=== PATIENT | female | born 1945 | race Caucasian/White ===

== ENCOUNTER → 2016-10-05 | Outpatient (CLI) | payer OTHER ==
[2014-10-12 15:10] VITALS: BP 118/72
[~2016-10-05] MED LIST: ALPR1TAB6 PO; BUPR100T8 PO; CITA20TA5 PO; CITA40TA12 PO; FERR-26 PO; FLUT9.9S NS; HYDR-971 PO; HYDR12.58 PO; OXYB5TAB7 PO; OXYC-244 PO; PRAM0.125 PO; PRAM0.255 PO; PROAIR HFA8.5 GM INH; SOLI5TAB PO; WARF-78 PO
--- NOTE | 2016-10-05 15:20 | EKG ---
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
[2016-10-05 16:35] LABS: BASO # 0.1 x10^3/uL (0.0-0.2); BASO % 1 % (0-3); EOS % 1 % (0-3); HEMATOCRIT 40.3 % (36.0-47.0); HEMOGLOBIN 13.6 g/dL (12.0-15.5); LYMPH # 2.4 x10^3/uL (1.0-4.8); LYMPH % 23 % (24-48); MEAN CORPUSCULAR HEMOGLOBIN 32 pg (25-35); MEAN CORPUSCULAR HGB CONC 34 g/dL (31-37); MEAN CORPUSCULAR VOLUME 95 fL (79-100); MONO % 9 % (0-9); NEUT % 67 % (31-73); PLATELET COUNT 258 x10^3/uL (140-400); RED BLOOD COUNT 4.26 x10^6/uL (3.50-5.40); RED CELL DISTRIBUTION WIDTH 13.4 % (11.5-14.5); WHITE BLOOD COUNT 10.4 x10^3/uL (4.0-11.0)
[2016-10-05 16:39] LABS: BILIRUBIN,URINE NEGATIVE (NEG); GLUCOSE,URINE NEGATIVE (NEG); NITRITE,URINE NEGATIVE (NEG); PROTEIN,URINE NEGATIVE (NEG-TRACE)
[2016-10-05 16:44] LABS: PROTHROMBIN TIME PATIENT 12.3 SEC (11.7-14.0)
--- NOTE | 2016-10-05 16:51 | RAD ---
Chest, 2 views, 10/05/2016: History: Preop evaluation for hip surgery The heart size and pulmonary vascularity are normal. A density projected over the anterior end of the right first rib is most likely due to a costochondral calcification. No definite pulmonary infiltrate is seen. There is no evidence of pleural fluid. Mild spurring is present in the spine. IMPRESSION: No acute cardiopulmonary abnormality is detected.
[2016-10-05 16:52] LABS: BACTERIA,URINE 0 /HPF (0-FEW); RBC,URINE 0 /HPF (0-2); SQUAMOUS EPITHELIAL CELL,UR OCC /LPF
[2016-10-05 20:36] LABS: ALBUMIN 3.6 g/dL (3.4-5.0); CALCIUM 9.5 mg/dL (8.5-10.1); CREATININE 0.9 mg/dL (0.6-1.0); GFR 61.9; POTASSIUM 3.9 mmol/L (3.5-5.1)
== END | disposition home or self-care (01) ==
LOC: SURGPAT 14:01
PROVIDERS: ATTEND Orthopaedic Surgery
DX: Z01.818 Encounter for other preprocedural examination (principal)
CPT/HCPCS: 71020; 80048; 81001; 82040; 85027; 85610; 85651; 85730; 87641; 93005

== ENCOUNTER 2016-10-16 06:06 | Inpatient (IN) | payer OTHER ==
[2016-10-16] VITALS (10 sets, daily range): BP systolic 107–150; BP diastolic 54–83
[~2016-10-16] VITALS: Ht 170.2 cm; Wt 105.2 kg
[~2016-10-16 06:06] MED LIST changes: +MORPHINE SULFATE 5 MG, KETOROLAC TROMETHAMINE 30 MG, ROPIVacaine 0.5% PF 60 ML, EPINEPH... INT ART ONE; +TOLT4CAP PO
[2016-10-16] MEDS ORDERED: MIDAZOLAM HCL/PF 2 MG/2 ML VIAL. IV PRN (06:15)
[2016-10-16] MEDS ORDERED: fentaNYL PF VIAL 100 MCG/2 ML VIAL IV PRN ×3 (06:15→08:15)
[2016-10-16] MEDS ORDERED: LIDOCAINE 1% 1 ML SYRINGE. ID PRN (06:15)
[2016-10-16] MEDS ORDERED: CELECOXIB 200 MG CAPSULE. ONE (06:32)
[2016-10-16] MEDS: IV RINGERS,LACTATED 1000ML 1,000 ML IV SCH ×2 (07:03→14:02)
[2016-10-16] MEDS ORDERED: WARF-78 PO (07:14)
[2016-10-16] MEDS ORDERED: FAMOTIDINE 20 MG/2 ML VIAL ONE (07:14)
[2016-10-16] MEDS ORDERED: PROPOFOL 20 ML IV ONE (07:14)
[2016-10-16] MEDS ORDERED: DEXAMETHASONE SOD PHOS 20 MG/5 ML VIAL. ONE (07:14)
[2016-10-16] MEDS ORDERED: LIDOCAINE 2% 100 MG/5 ML SYRINGE. ONE (07:14)
[2016-10-16] MEDS ORDERED: CELECOXIB 200 MG CAPSULE. PO ONE (07:15)
[2016-10-16] MEDS ORDERED: ONDANSETRON PF 4 MG/2 ML VIAL. ONE (07:15)
[2016-10-16] MEDS ORDERED: fentaNYL PF VIAL 100 MCG/2 ML VIAL ONE ×3 (07:17→10:27)
[2016-10-16] MEDS ORDERED: ROCURONIUM 50 MG/5 ML VIAL. ONE (07:17)
[2016-10-16] MEDS ORDERED: MIDAZOLAM HCL/PF 2 MG/2 ML VIAL. ONE (07:17)
[2016-10-16 07:28] LABS: INR 1.1 (0.8-1.1); PROTHROMBIN TIME PATIENT 13.5 SEC (11.7-14.0)
[2016-10-16] MEDS ORDERED: TRANEXAMIC ACID 1,000 MG in IV NS 50ML -- 1ST BAG INJ ONE (08:00)
[2016-10-16] MEDS ORDERED: oxyCODONE/APAP 5/325 1 TAB TABLET PO PRN (08:15)
[2016-10-16] MEDS ORDERED: CALCIUM CARBONATE 500 MG TAB.CHEW PO PRN (08:15)
[2016-10-16] MEDS ORDERED: PROCHLORPERAZINE 10 MG/2 ML VIAL. IV PRN (08:15)
[2016-10-16] MEDS ORDERED: MORPHINE SULFATE 10 MG/ML VIAL. IV PRN (08:15)
[2016-10-16] MEDS ORDERED: ACETAMINOPHEN 325 MG TABLET. PO PRN (08:15)
[2016-10-16] MEDS ORDERED: diphenhydrAMINE 50 MG/ML VIAL IV PRN (08:15)
[2016-10-16] MEDS ORDERED: 0.9 % SODIUM CHLORIDE 10 ML DISP.SYRIN. IV PRN (08:15)
[2016-10-16] MEDS ORDERED: ZOLPIDEM 5 MG TABLET. PO PRN (08:15)
[2016-10-16] MEDS ORDERED: DEXTROSE 50% 25 GM / 50ML DISP.SYRIN. IV PRN (08:15)
[2016-10-16] MEDS ORDERED: MORPHINE SULFATE 2 MG/ML DISP.SYRIN. IV PRN (08:15)
[2016-10-16] MEDS ORDERED: oxyCODONE/APAP 7.5/325 1 TAB TABLET PO PRN (08:15)
[2016-10-16] MEDS ORDERED: MORPHINE SULFATE 4 MG/ML DISP.SYRIN. IV PRN (08:15)
[2016-10-16] MEDS ORDERED: traMADol 50 MG TABLET PO PRN ×2 (08:15)
--- NOTE | 2016-10-16 08:32 | HP ---
ADMIT DATE: 10/16/2016 CHIEF COMPLAINT: Right hip pain. HISTORY OF PRESENT ILLNESS: The patient has had longstanding right hip and groin pain, worse on activity, worse , better with rest. It is affecting her ability to ambulate in terms of compensation with her low back. She had initially complained of some lower abdominal swelling on the right side, but that was subsequently evaluated by her family care family physician and not an ongoing issue. Her main recent issue is bladder incontinence for which she is on the medicine that is still ineffective despite a dose of 2-4 mg that is treated by her primary care physician, Dr. Aaron Gonzalez. PAST MEDICAL HISTORY: Significant for tension headaches and anxiety as well as the incontinence. PAST SURGICAL HISTORY: Appendectomy, tonsillectomy, previous knee arthroplasty and liver biopsy. FAMILY HISTORY: Prostate cancer in her brother. SOCIAL HISTORY: Denies smoking or drug use. Minimal alcohol. MEDICATIONS: List is reviewed. ALLERGIES: INCLUDE CODEINE AND PENNSAID. REVIEW OF SYSTEMS: Denies any chest pain, shortness of breath, fever, chills, focal weakness, numbness, tingling. PHYSICAL EXAMINATION: VITAL SIGNS: Per admission sheet. HEENT: Atraumatic, normocephalic. HEART: Regular rate and rhythm. LUNGS: Clear to auscultation bilaterally. ABDOMEN: Benign. EXTREMITIES: Examination of the right hip reveals decreased range of motion in all planes. Leg lengths are equal. She has a well-healed incision from previous knee arthroplasty. Good range of motion and stability of that. Normal examination of the contralateral knee, bilateral ankles with intact motor function, distal pulses, sensation, reflexes and skin in both lower extremities throughout. IMAGING: X-rays show degenerative disease with loss of significant joint space in the right hip without evidence of collapse fracture or other bony abnormality. IMPRESSION: 1. Right hip degenerative joint disease. 2. Urinary incontinence. TREATMENT PLAN: She presents today for total hip arthroplasty with [facility] admission to follow. All her questions were answered about the hip arthroplasty previously, but we reviewed the risks, benefits, postoperative course including the possibility of leg length inequality, nerve or blood vessel damage, medical or other anesthetic complications among others and she wants to proceed with operative evaluation and treatment as above. ROSSI ARMAS MD DR: ELIANA/liliya JOB#: [id number] / [id number]
[2016-10-16] MEDS ORDERED: PHENYLEPHRINE in 0.9% NACL PF 1 MG/10 ML DISP.SYRIN. IV ONE (08:42)
[2016-10-16] MEDS ORDERED: TRANEXAMIC ACID 1,000 MG in IV NS 50ML -- 2ND BAG INJ ONE (09:00)
[2016-10-16] MEDS ORDERED: TOLTERODINE TARTRATE 4 MG PO SCH (09:00)
[2016-10-16] MEDS ORDERED: ALBUTEROL SULFATE 2.5 MG/3 ML NEBU. NEB PRN (09:30)
[2016-10-16] MEDS ORDERED: GLYCOPYRROLATE 1 MG/5 ML VIAL. ONE (10:15)
[2016-10-16] MEDS ORDERED: NEOSTIGMINE METHYLSULFATE 5 MG/5 ML SYRINGE. ONE (10:15)
[2016-10-16] MEDS ORDERED: SEVOFLURANE > 120 MINUTES. IH ONE (10:50)
[2016-10-16] MEDS: fentaNYL PF VIAL 100 MCG/2 ML VIAL IV PRN ×4 (11:28→12:11)
--- NOTE | 2016-10-16 11:40 | RAD ---
Exam performed: One view pelvis. Clinical Indication: Postop in PACU Date of Service:10/16/16 Comparison:Single view pelvis from 02/22/16 Findings: AP radiograph of the pelvis to include the proximal portion of each femur is obtained. Postoperative changes of total right hip arthroplasty with prosthesis in satisfactory position. There is left hip joint space narrowing. No acute fracture or dislocation is seen. Impression: Status post total right hip arthroplasty. Early degenerative changes involving the left hip joint
--- NOTE | 2016-10-16 11:43 | PDOC ---
BRIEF OPERATIVE NOTE Date: October 16, 2016 Pre-Op Diagnosis djd right hip Post-Op Diagnosis same Procedure Performed right total hip arthroplasty Surgeon Harshad Dash Anesthesia Type: General Blood Loss 600cc Specimens Obtained femoral head to pathology Findings above Complications none ROSSI ARMAS MD October 16, 2016 11:43
[2016-10-16] MEDS ORDERED: ACETAMINOPHEN INTRAVENOUS 100 ML IV PRN (11:45)
[2016-10-16] MEDS ORDERED: HYDROmorphone 2 MG/ML VIAL IV PRN (11:45)
[2016-10-16] MEDS: OXYBUTYNIN CHLORIDE 5 MG TABLET PO SCH ×2 (13:53→21:22)
[2016-10-16] MEDS: oxyCODONE/APAP 7.5/325 1 TAB TABLET PO PRN (13:53)
[2016-10-16] MEDS: MORPHINE SULFATE 4 MG/ML DISP.SYRIN. IV PRN ×2 (13:54→21:21)
[2016-10-16] MEDS ORDERED: WARFARIN 7.5 MG TABLET. PO ONE (16:00)
[2016-10-16] MEDS: IV DEXTROSE 5 %-0.45 % NACL 1,000 ML IV SCH (16:59)
[2016-10-16] MEDS: FERROUS SULFATE 325 MG TABLET. PO SCH (17:00)
--- NOTE | 2016-10-16 18:54 | OP ---
DATE OF SURGERY: 10/16/2016 PREOPERATIVE DIAGNOSIS: Degenerative joint disease of right hip. POSTOPERATIVE DIAGNOSIS: Degenerative joint disease of right hip. PROCEDURE: Right total hip arthroplasty. SURGEON: Philipp Patricia M.D. ANESTHESIA: General. OPERATOR TECHNICIAN: Ena Dash. ESTIMATED BLOOD LOSS: 600 mL. SPECIMENS: Femoral head to Pathology. COMPLICATIONS: None. OPERATIVE INDICATIONS: The patient is a 71-year-old female who has had longstanding right hip pain impairing her ability to ambulate and activities of daily living as noted in her clinic notes and preoperative history and physical. I had gone over with her nonoperative treatment options which had been inadequate for her. She is familiar with the risks, benefits, postoperative course of surgical treatment including the possibility of leg length inequality, nerve or blood vessel damage, medical or other anesthetic complications, infection, premature wear or loosening, and instability among others. All of her questions were answered. Consent was obtained, and she agrees to proceed with operative evaluation and treatment. DESCRIPTION OF PROCEDURE: The patient was identified, procedure verified, patient placed in the supine position on the Harwood fracture table. All bony prominences were well padded. She was placed in traction boots, and the right hip was prepped and draped in standard sterile fashion. After timeout was performed, the patient and procedure identified and verified, leg lengths were assessed preoperatively. Under fluoroscopic guidance, an incision was made from just distal and lateral to the anterior superior iliac spine down along the center line of the tensor fascia myke muscle. Dissection was carried out down to the fascia, and the tensor fascia myke was taken laterally, rectus femoris medially. The circumflex blood vessels were coagulated with Aquamantys device, and after exposure and excision of the pericapsular fat pad, the hip capsule was split in a T fashion. The femoral neck cut was made under fluoroscopic guidance in a napkin ring fashion. The femoral head was removed and was found to be superiorly arthritic and sent for pathological evaluation. Acetabulum was exposed. Labrum was excised. Successive size reaming was carried up to a size 50 and a size 52 mm. Continuum acetabular liner was placed with a very solid superiorly-directed single screw for stability. A neutral 36-mm liner was then placed, and capsular release was carried out on the proximal femur and external rotation achieving good mobilization of the tissues and preserved external rotator attachments. The femur was then exposed. Box osteotome, rat tail rasp, and a size-1 Avenir broach which seated well and created excellent contact along the calcar and was extremely stable and tight. On initial trial setting, this increased her leg length of about a cm even with a -3.5 standard neck. I broached some more with additional trial setting to decrease the leg length discrepancy but very little further motion distally was obtained with the broaches. It was very solidly placed. Stability was excellent throughout, confirming positioning verified under fluoroscopic guidance as well. Trial components were removed. A standard highly crosslinked acetabular liner size 36 standard diameter was impacted into place. A size-1 Avenir standard stem was placed with a -3.5 ceramic head. Excellent stability again and leg length increased approximately 7 mm to 8 mm. Stability was checked in all extremes. The pain catheter mixture was injected into the surrounding tissues. Pain catheter and Hemovac drains were placed. Fascia was closed with #1 Vicryl suture in a running fashion. Subcutaneous closure with buried Vicryl sutures, subcuticular Monocryl suture with Steri-Strips and Mastisol sterile dressings were then applied. The patient was extubated and transferred to [facility] in stable condition having tolerated the procedure well. Please note, Ena Dash, wheelchair van operator first responder, was present and assisted with prepping, draping, retraction, and the subcuticular closure. PHILIPP PATRICIA MD DR: ELIANA/liliya JOB#: [id number] / [id number]
[2016-10-16] MEDS: buPROPion SR 100 MG TABLET.SA. PO SCH (21:22)
[2016-10-16] MEDS: CELECOXIB 200 MG CAPSULE. PO SCH (21:22)
[2016-10-16] MEDS: PRAMIPEXOLE 0.25 MG TABLET. PO SCH (21:22)
[2016-10-17] MEDS: IV DEXTROSE 5 %-0.45 % NACL 1,000 ML IV SCH (01:00)
[2016-10-17] MEDS: ALPRAZolam 1 MG TABLET PO PRN (01:23)
[2016-10-17] MEDS: oxyCODONE/APAP 7.5/325 1 TAB TABLET PO PRN ×4 (01:25→12:09)
[2016-10-17 03:05] VITALS: BP 102/52
[2016-10-17 04:56] LABS: HEMATOCRIT 27.2 % (36.0-47.0); HEMOGLOBIN 9.5 g/dL (12.0-15.5)
[2016-10-17 05:02] LABS: INR 1.2 (0.8-1.1); PROTHROMBIN TIME PATIENT 14.7 SEC (11.7-14.0)
--- NOTE | 2016-10-17 05:49 | ACF ---
Admission Forms Criteria MUSCULOSKELETAL DISEASE GRG Clinical Indications for Admission to Inpatient Care (Place 'X' for any and all applicable criteria): Hospital admission is needed for appropriate care of the patient because of 1 or more of the following: [ ]I. Fracture, dislocation, or other musculoskeletal injury requiring inpatient care(medical) as indicated by 1 or more of the following(4)(5)(6)(7) [ ]a) Vertebral fracture requiring observation for instability or neurologic compromise (8) [ ]b) Compartment syndrome (proven or cannot be ruled out during observation level of care) (9) [ ]c) Limb-threatening injury [ ]d) Major injury requiring inpatient stabilization such as traction initiation or external fixation before internal fixation or closure of complex or open fracture [ ]e) Major injury requiring inpatient treatment after emergency or observation level care (as appropriate) [ ]f) Severe pain requiring acute inpatient management [ ]g) Injury with suspicion of abuse or neglect (eg., child, dependent elderly) [ ]II. Newly diagnosed or suspected bone, joint, or orthopedic device infection (e.g., osteomyelitis, septic arthritis) needing 1 or more of the following(1)(2)(3) [ ]a) IV antibiotics that cannot be initiated in other than inpatient setting (e.g., patient too unstable or home infusion not available) [ ]b) Device removal or replacement [ ]c) Bone or soft tissue debridement [ ]d) Joint drainage (drain placement or repetitive aspirations) [ ]III. Severe rheumatologic disease (e.g., systemic lupus erythematosus, rheumatoid arthritis) with complications or comorbidities (Also use Optimal Recovery Care Criteria or General Recovery Criteria as appropriate on the basis of predominant condition), including 1 or more of the following( 10)(11)(12)(13) [ ]a) Severe infection (e.g., SHIFTMAN infection, sepsis) (14) [ ]b) Respiratory complications, including 1 or more of the following : [ ]i) Pleural effusion with respiratory compromise [ ]ii) Pulmonary hypertension with congestive failure [ ]iii) Respiratory failure [ ]iv) Pulmonary hemorrhage (15) [ ]c) Hematologic disease, including 1 or more of the following: [ ]i) Coagulopathy with bleeding [ ]ii) Thrombosis with hypercoagulable state [ ]iii) Thrombotic thrombocytopenic purpura [ ]d) Cerebritis with seizures, psychosis, or other severe abnormalities [ ]e) Vertebral destruction with monitoring needed for cervical myelopathy& possible respiratory compromise [ ]f) Exacerbation that requires inpatient treatment (e.g., intravenous immunosuppression) (16) [ ]g) Acute renal failure [ ]h) Cerebritis with seizures, psychosis, Altered mental status, or other neurologic abnormalities [ ]i) Pericardial effusion with tamponade [ ]j) Vertebral destruction, with monitoring needed for cervical myelopathy and possible respiratory compromise [ ]IV. Severe vasculitis with complications or comorbidities (Also use Optimal Recovery Care Criteria General Recovery Criteria as appropriate on the basis of predominant condition), including 1 or more of the following(11)(12)(17)(18)(19)(20) [ ]a) Exacerbation that requires inpatient treatment (e.g., intravenous immunosuppression) (19)(21) [ ]b) Pulmonary hemorrhage (15) [ ]c) SHIFTMAN vasculitis with seizures, psychosis, Altered mental status that is severe or persistent, or other severe abnormalities (22) [ ]d) Cerebral infarction [ ]e) Gastrointestinal ischemia [ ]f) Gangrene or threatened amputation [ ]g) Renal failure (16) [ ]h) Other significant complications of vasculitis ( eg., tissue or organ ischemia, organ dysfunction ) [ ]V. Severe myopathy as indicated by 1 or more of the following (28)(29) [ ]a) New onset of airway compromise or inability to swallow [ ]b) Respiratory deterioration with observation needed for impending respiratory failure [ ]c) Exacerbation that requires inpatient treatment (e.g., intravenous immunosuppression) [ ]. Severe crystal gout (arthropathy) indicated by 1 or more of the following (23)(24) [ ]a) Severe pain requiring acute inpatient management [ ]b) Exacerbation that requires inpatient treatment (e.g., intravenous treatment) [ ]VII.Rhabdomyolysis and 1 or more of the following (25)(26)(27) [ ]a) Acute renal failure [ ]b) Need for intravenous hydration after emergency or observation level care (as appropriate) [ ]c) Inability to maintain oral hydration [ ]d) Change in mental status [ ]e) Electrolyte abnormality that remains after emergency or observation level care (as appropriate) [ ]VIII Post amputation complication, as indicated by ANY ONE of the following [ ]a) Infection [ ]b) Dehiscence [ ]c) Myodesis failure [X]IX. Severe pain requiring acute inpatient management due to musculoskeletal condition [ ]X. Musculoskeletal Disease and ALL of the following: [ ]a) Symptom or finding for which emergency and observation care have failed or are not considered appropriate (Use General Criteria: Observation Care as appropriate) [ ]b) Presence of ANY ONE of the following [ ]i) A General Admission Criteria [ ]ii) A Pediatric General Admission Criteria The original [facility] [employer] content created by [email or web address] has been revised. The portions of the content which have been revised are identified through the use of italic text or in bold, and [facility] has neither reviewed nor approved the modified material. All other unmodified content is copyright [email or web address]. Please see references footnoted in the original [email or web address] edition 2016 Admission Criteria Met?: Yes KAREN PAT October 17, 2016 05:49
[2016-10-17] MEDS ORDERED: MAGNESIUM HYDROXIDE 2,400 MG/30 ML ORAL.SUSP. PO PRN (06:00)
[2016-10-17 07:00] VITALS: BP 108/54
--- NOTE | 2016-10-17 08:53 | PDOC ---
Provider Note Provider Note [id number] sleeping now, no problems, willl follow KARLA GALICIA MD October 17, 2016 08:53
[2016-10-17] MEDS: buPROPion SR 100 MG TABLET.SA. PO SCH ×2 (08:54→23:00)
[2016-10-17] MEDS: SENNOSIDES/DOCUSATE 8.6/50MG TABLET. PO SCH (08:55)
[2016-10-17] MEDS: CITALOPRAM 20 MG TABLET. PO SCH (08:55)
[2016-10-17] MEDS: FERROUS SULFATE 325 MG TABLET. PO SCH ×2 (08:55→18:38)
[2016-10-17] MEDS: hydroCHLOROthiazide 12.5 MG CAPSULE PO SCH (08:55)
[2016-10-17] MEDS: MULTIVITAMIN with MINERAL TABLET. PO SCH (08:55)
[2016-10-17] MEDS: CELECOXIB 200 MG CAPSULE. PO SCH ×2 (08:55→23:00)
[2016-10-17] MEDS: OXYBUTYNIN CHLORIDE 5 MG TABLET PO SCH ×3 (08:55→23:00)
[2016-10-17] MEDS: FLUTICASONE 50MCG/NASAL SPRAY 16GM BOTTLE. NS SCH (09:00)
[2016-10-17 10:27] VITALS: BP 124/48
[2016-10-17 14:34] VITALS: BP 111/39
[2016-10-17] MEDS ORDERED: WARFARIN 5 MG TABLET. PO ONE (16:00)
[2016-10-17] MEDS ORDERED: BISACODYL 10 MG SUPP.RECT. PR PRN (16:00)
--- NOTE | 2016-10-17 17:22 | PDOC ---
PROGRESS NOTES Subjective Subjective Problems overnight: [place] really good immediately postoperatively when up and around yesterday a bit more sore this morning, new dose of urinary incontinence treatment seems to be working better. Had a question about a "pneumonia shot" Objective Vital Signs Vital Signs Date Time Temp Pulse Resp B/P (MAP) Pulse Ox O2 Delivery O2 Flow Rate FiO2 10/17/16 14:34 98.4 84 18 111/39 (63) 92 Room Air 98.4 10/16/16 16:00 3.0 Physical Exam On exam dressing Hemovac pain catheter clean dry intact leg lengths are equal neurovascular status intact Labs Laboratory Tests Test 10/16/16 06:55 10/17/16 03:45 Prothrombin Time 13.5 SEC (11.7-14.0) 14.7 SEC (11.7-14.0) Prothromb Time International Ratio 1.1 (0.8-1.1) 1.2 (0.8-1.1) Activated Partial Thromboplast Time 33 SEC (24-38) Hemoglobin 9.5 g/dL (12.0-15.5) Hematocrit 27.2 % (36.0-47.0) Mean Corpuscular Hemoglobin Concent 35 g/dL (31-37) Laboratory Tests Test 10/17/16 03:45 Hemoglobin 9.5 g/dL (12.0-15.5) Hematocrit 27.2 % (36.0-47.0) Mean Corpuscular Hemoglobin Concent 35 g/dL (31-37) Prothrombin Time 14.7 SEC (11.7-14.0) Prothromb Time International Ratio 1.2 (0.8-1.1) Imaging Postop x-rays show excellent placement total hip arthroplasty on the right Assessment Assessment POD# [1], S/P [right total hip arthroplasty] Problems: Plan Plan of Care Mobilize with physical therapy weightbearing as tolerated no hip precautions since anterior approach Coumadin anticoagulation Patient desires rehabilitation postoperatively Unsure about "pneumonia shot" typically I would shy away from giving that in close proximity to a operative procedure joint replacement but will defer to her primary physician ROSSI ARMAS MD October 17, 2016 17:22
[2016-10-17 19:20] VITALS: BP 112/92
[2016-10-17] MEDS ORDERED: ONDANSETRON ODT 4 MG TAB.RAPDIS. PO PRN (22:45)
[2016-10-17] MEDS: PRAMIPEXOLE 0.25 MG TABLET. PO SCH (23:00)
[2016-10-17 23:15] VITALS: BP 163/94
[2016-10-18 03:15] VITALS: BP 146/73
[2016-10-18 06:25] LABS: HEMATOCRIT 27.7 % (36.0-47.0); HEMOGLOBIN 9.6 g/dL (12.0-15.5)
[2016-10-18 06:40] LABS: INR 1.2 (0.8-1.1); PROTHROMBIN TIME PATIENT 14.3 SEC (11.7-14.0)
[2016-10-18 07:00] VITALS: BP 123/69
[2016-10-18] MEDS: POLYETHYLENE GLYCOL 3350 17 GM PACKET. PO PRN (08:11)
[2016-10-18] MEDS: OXYBUTYNIN CHLORIDE 5 MG TABLET PO SCH ×3 (08:12→21:18)
[2016-10-18] MEDS: CITALOPRAM 20 MG TABLET. PO SCH (08:12)
[2016-10-18] MEDS: buPROPion SR 100 MG TABLET.SA. PO SCH ×2 (08:12→21:18)
[2016-10-18] MEDS: MULTIVITAMIN with MINERAL TABLET. PO SCH (08:12)
[2016-10-18] MEDS: FERROUS SULFATE 325 MG TABLET. PO SCH ×2 (08:12→17:04)
[2016-10-18] MEDS: hydroCHLOROthiazide 12.5 MG CAPSULE PO SCH (08:12)
[2016-10-18] MEDS: CELECOXIB 200 MG CAPSULE. PO SCH ×2 (08:13→21:18)
[2016-10-18] MEDS: SENNOSIDES/DOCUSATE 8.6/50MG TABLET. PO SCH (08:13)
[2016-10-18] MEDS: FLUTICASONE 50MCG/NASAL SPRAY 16GM BOTTLE. NS SCH (08:13)
[2016-10-18] MEDS ORDERED: DOCUSATE SODIUM 100 MG CAPSULE. PO SCH (09:00)
--- NOTE | 2016-10-18 09:26 | PDOC ---
Provider Note Provider Note vss, inr 1.2- no new sxs- exam ok, cont same- going to rehab KARLA GALICIA MD October 18, 2016 09:26
--- NOTE | 2016-10-18 09:41 | CONS ---
DATE OF CONSULTATION: 10/17/2016 HOSPITAL SUMMARY: A 71-year-old white female who was admitted under the care of Dr. Patricia for right total hip replacement, which has been accomplished already. She currently takes medication for hypertension, anxiety, and restless leg syndrome, but has otherwise been reasonably healthy and no problem so far in the hospital. OBJECTIVE: ENT: All within normal limits. NECK: No masses, nodes or thyroid enlargement. LUNGS: Clear. CARDIOVASCULAR: Regular rate. No irregular beat or murmur. ABDOMEN: Soft, benign and nontender. EXTREMITIES: Right leg in a brace. pulses good. NEUROLOGIC: Physiologic. ASSESSMENT: Doing well, status post total hip replacement. No laboratory available at this time. PLAN: We will follow medically while in the hospital. KARLA GALICIA MD DR: DESMOND/liliya JOB#: [id number] / [id number]
[2016-10-18 11:00] VITALS: BP 119/57
--- NOTE | 2016-10-18 12:56 | PATHOLOGY ---
PATHOLOGY REPORT * * * * * * * * FINAL DIAGNOSIS: "Right hip bone and tissue", removal: - Degenerative osteoarthritis. - Bone marrow with trilineage hematopoiesis. (SKM:dewayne; d/t: 10/18/2016) REPORT ELECTRONICALLY SIGNED BY: Janelle Obando M.D. DATE/TIME: 10/18/2016 12:54 * * * * * * * * GROSS PATHOLOGY: Received in formalin labeled "Lj Rachel, right hip bone and tissue," is a femoral head measuring 4.7 x 4.7 x 4.2 cm in greatest dimensions and separately submitted femoral neck measuring 4.3 x 3.2 x 1.0 cm. The articular surface is light rider and smooth to granular in appearance with evidence of eburnation and slight amount of osteophytic lipping. Sectioning the bone reveals light rider cut surfaces. Dredge Pump Operator tissue is submitted in cassette A1, following decalcification. (CAA; 10/17/2016) INITIAL CPT CODE(S): A; 58133, 20885 Professional services [place] [facility] [place] [address] Technical services performed by [facility] at [address] [place] [address] [address] [address]. SPECIMEN(S) RECEIVED: A.Right hip bone and tissue CLINICAL HISTORY: Right hip degenerative joint disease PATIENT: LJ RACHEL /AGE: 3 1945 (Age: 71) PATIENT #: [id number] ALT CASE #: SPECIMEN COLLECTION DATE: 10/16/2016 SPECIMEN RECEIVED DATE: 10/16/2016 [facility] - [address] [place] [address] - PHONE: [phone] * * * END OF REPORT * * *
--- NOTE | 2016-10-18 14:27 | PDOC ---
ORTHO PROGRESS NOTES Subjective isabela tells me she feels tired. Pain is moderately controlled. Doing okay with therapy. Denies chest pain or shortness of breath. Denies numbness or tingling Post-op Day: 2 (Right YANICK anterior approach) Vitals Vital Signs Date Time Temp Pulse Resp B/P (MAP) Pulse Ox O2 Delivery O2 Flow Rate FiO2 10/18/16 11:00 98.9 97 22 119/57 (77) 92 Room Air 98.9 Labs Laboratory Tests Test 10/17/16 03:45 10/18/16 05:15 Hemoglobin 9.5 g/dL (12.0-15.5) 9.6 g/dL (12.0-15.5) Hematocrit 27.2 % (36.0-47.0) 27.7 % (36.0-47.0) Mean Corpuscular Hemoglobin Concent 35 g/dL (31-37) 35 g/dL (31-37) Prothrombin Time 14.7 SEC (11.7-14.0) 14.3 SEC (11.7-14.0) Prothromb Time International Ratio 1.2 (0.8-1.1) 1.2 (0.8-1.1) Laboratory Tests Test 10/18/16 05:15 Hemoglobin 9.6 g/dL (12.0-15.5) Hematocrit 27.7 % (36.0-47.0) Mean Corpuscular Hemoglobin Concent 35 g/dL (31-37) Prothrombin Time 14.3 SEC (11.7-14.0) Prothromb Time International Ratio 1.2 (0.8-1.1) Notes Patient is awake and alert. Breathing unlabored, no acute distress. Neurovascular intact right lower extremity. Incision covered with dressing, well approximated no signs or symptoms of infection. Problems: (1) Degenerative joint disease of right hip Assessment and Plan Continue PT/OT, weightbearing as tolerated Anticoagulation per pharmacy Anticipate discharge tomorrow Pain controlled Problem Qualifiers (1) Degenerative joint disease of right hip: Osteoarthritis type: primary Qualified Codes: M16.11 - Unilateral primary osteoarthritis, right hip BOAZ NEFF APRN October 18, 2016 14:27
[2016-10-18] MEDS: HYDROcodone/APAP 7.5/325MG 1 TAB TABLET PO PRN (14:46)
[2016-10-18 15:00] VITALS: BP 123/65
[2016-10-18] MEDS ORDERED: WARFARIN 5 MG TABLET. PO ONE (16:00)
[2016-10-18 19:00] VITALS: BP 99/63
[2016-10-18] MEDS: PRAMIPEXOLE 0.25 MG TABLET. PO SCH (21:18)
[2016-10-18 23:00] VITALS: BP 107/61
[2016-10-19 03:00] VITALS: BP 115/77
[2016-10-19 05:57] LABS: INR 1.4 (0.8-1.1); PROTHROMBIN TIME PATIENT 15.9 SEC (11.7-14.0)
[2016-10-19 07:00] VITALS: BP 118/69
--- NOTE | 2016-10-19 08:46 | PDOC ---
Provider Note Provider Note ready for dc. forms done KARLA GALICIA MD October 19, 2016 08:46
[2016-10-19] MEDS: SENNOSIDES/DOCUSATE 8.6/50MG TABLET. PO SCH (09:00)
[2016-10-19] MEDS: FLUTICASONE 50MCG/NASAL SPRAY 16GM BOTTLE. NS SCH (09:00)
[2016-10-19] MEDS: FERROUS SULFATE 325 MG TABLET. PO SCH ×2 (09:31→17:27)
[2016-10-19] MEDS: OXYBUTYNIN CHLORIDE 5 MG TABLET PO SCH ×3 (09:31→21:13)
[2016-10-19] MEDS: hydroCHLOROthiazide 12.5 MG CAPSULE PO SCH (09:32)
[2016-10-19] MEDS: MULTIVITAMIN with MINERAL TABLET. PO SCH (09:32)
[2016-10-19] MEDS: CITALOPRAM 20 MG TABLET. PO SCH (09:32)
[2016-10-19] MEDS: CELECOXIB 200 MG CAPSULE. PO SCH ×2 (09:32→21:13)
[2016-10-19] MEDS: buPROPion SR 100 MG TABLET.SA. PO SCH ×2 (09:32→21:13)
[2016-10-19] MEDS: ALPRAZolam 1 MG TABLET PO PRN (09:53)
[2016-10-19 10:32] LABS: HEMATOCRIT 26.4 % (36.0-47.0); HEMOGLOBIN 8.8 g/dL (12.0-15.5)
[2016-10-19 11:00] VITALS: BP 101/58
--- NOTE | 2016-10-19 12:07 | DISCH ---
DISCHARGE INSTRUCTIONS Condition on Discharge Condition on Discharge: Stable Activity After Discharge Activity Instructions for Disc: Activity as tolerated Other activity instructions: No hip precautions (anterior approach) Weight Bearing Status after Di: Full weight bearing Diet after Discharge Diet after Discharge: Diabetic No Calorie Level Wound Incision Care Wound/Incision Care: Do not change dressing Other wound/incision instructi: unless drainage requires, may shower if dressing intact Community/Resources/Services Services at Discharge: PT EVALUATE & TREAT Treatment/Equipment after DC Adaptive Equipment Issued: Walker Warfarin Follow-Up Warfarin Follow UP: Per anticoagulation clinic ROSSI ARMAS MD October 19, 2016 12:07
[2016-10-19 15:00] VITALS: BP 116/83
[2016-10-19] MEDS ORDERED: WARFARIN 5 MG TABLET. PO ONE (16:00)
[2016-10-19] MEDS: HYDROcodone/APAP 7.5/325MG 1 TAB TABLET PO PRN ×2 (18:37→23:10)
[2016-10-19 19:00] VITALS: BP 116/65
[2016-10-19] MEDS: PRAMIPEXOLE 0.25 MG TABLET. PO SCH (21:13)
[2016-10-19 23:00] VITALS: BP 145/76
--- NOTE | 2016-10-19 23:07 | DS ---
DATE OF DISCHARGE: 10/19/2016 PRINCIPAL DIAGNOSIS: Degenerative joint disease of right hip. SECONDARY DIAGNOSES: Urinary incontinence, additional is low back pain. DISCHARGE MEDICATIONS: Include Percocet 7.5/325 one p.o. q. 6 hours p.r.n. pain, Coumadin as directed by anticoagulation clinic, resume home medications with the exception of her bladder medication which is increased to 5 mg daily from her previous dose. DISCHARGE INSTRUCTIONS: Restrictions include weightbearing as tolerated. No hip precautions necessary secondary to anterior approach. Keep incision clean and dry. Aquacel dressing intact unless drainage requires replacement. May shower when dressing intact. Report any redness, drainage, fever, chills, uncontrolled pain or other problems. Follow up with Dr. Patricia in about 2 weeks postop. BRIEF DESCRIPTION OF HOSPITAL COURSE: The patient underwent an uncomplicated total hip arthroplasty from an anterior approach. On postop day #0, she was actually noted to be doing extremely well, getting up and around with minimal pain. She said on postop day #1 she was quite sore. The next couple of days, improved very significantly with postop day #3 getting around very well with minimal pain in the hip. Postop hemoglobins were noted to be 9.5 on subsequent 2 days and 8.8 today. She was asymptomatic. She progressed well with physical therapy as noted above and was discharged to rehabilitation facility in stable condition. ROSSI PATRICIA MD DR: ELIANA/liliya JOB#: [id number] / [id number] KARLA Higgins MD
[2016-10-20 03:04] VITALS: BP 114/64
[2016-10-20 05:51] LABS: INR 1.2 (0.8-1.1); PROTHROMBIN TIME PATIENT 14.5 SEC (11.7-14.0)
[2016-10-20 07:00] VITALS: BP 105/59
[2016-10-20] MEDS: CITALOPRAM 20 MG TABLET. PO SCH (08:44)
[2016-10-20] MEDS: hydroCHLOROthiazide 12.5 MG CAPSULE PO SCH (08:44)
[2016-10-20] MEDS: OXYBUTYNIN CHLORIDE 5 MG TABLET PO SCH ×3 (08:44→21:14)
[2016-10-20] MEDS: SENNOSIDES/DOCUSATE 8.6/50MG TABLET. PO SCH (08:44)
[2016-10-20] MEDS: CELECOXIB 200 MG CAPSULE. PO SCH ×2 (08:44→21:14)
[2016-10-20] MEDS: HYDROcodone/APAP 10/325 1 TAB TABLET PO PRN ×3 (08:44→21:14)
[2016-10-20] MEDS: MULTIVITAMIN with MINERAL TABLET. PO SCH (08:44)
[2016-10-20] MEDS: buPROPion SR 100 MG TABLET.SA. PO SCH ×2 (08:44→21:14)
[2016-10-20] MEDS: FERROUS SULFATE 325 MG TABLET. PO SCH ×2 (08:45→17:22)
[2016-10-20] MEDS: FLUTICASONE 50MCG/NASAL SPRAY 16GM BOTTLE. NS SCH (08:47)
[2016-10-20 11:00] VITALS: BP 102/63
--- NOTE | 2016-10-20 13:39 | PDOC ---
PROGRESS NOTES Subjective Subjective Problems overnight: Continues to get around well with physical therapy. Although she is doing well with weightbearing and states she has less back and other compensatory pain of her other knee, she does have some muscle spasm and weakness issues particularly in certain positions but is pleased with her progress Objective Vital Signs Vital Signs Date Time Temp Pulse Resp B/P (MAP) Pulse Ox O2 Delivery O2 Flow Rate FiO2 10/20/16 11:00 97.4 77 20 102/63 (76) 90 Room Air 97.4 10/16/16 16:00 3.0 Physical Exam On exam she has excellent hip range of motion maintained leg length intact distal neurovascular status incision is clean dry with no significant drainage on her Aquasol dressing Labs Laboratory Tests Test 10/19/16 04:47 10/20/16 04:40 Hemoglobin 8.8 g/dL (12.0-15.5) Hematocrit 26.4 % (36.0-47.0) Mean Corpuscular Hemoglobin Concent 33 g/dL (31-37) Prothrombin Time 15.9 SEC (11.7-14.0) 14.5 SEC (11.7-14.0) Prothromb Time International Ratio 1.4 (0.8-1.1) 1.2 (0.8-1.1) Laboratory Tests Test 10/20/16 04:40 Prothrombin Time 14.5 SEC (11.7-14.0) Prothromb Time International Ratio 1.2 (0.8-1.1) Assessment Assessment POD# [4], S/P [right total hip arthroplasty] Problems: Plan Plan of Care Continue physical therapy weightbearing as tolerated no hip precautions Coumadin anticoagulation Increased dosage of bladder medication appears effective at controlling her incontinence Awaiting insurance approval for rehabilitation, discharge to facility when received ROSSI ARMAS MD October 20, 2016 13:39
[2016-10-20 15:00] VITALS: BP 108/65
[2016-10-20] MEDS ORDERED: WARFARIN 7.5 MG TABLET. PO ONE (16:00)
[2016-10-20 19:25] VITALS: BP 114/59
[2016-10-20] MEDS: PRAMIPEXOLE 0.25 MG TABLET. PO SCH (21:14)
[2016-10-20 23:12] VITALS: BP 104/64
[2016-10-21] MEDS: ALPRAZolam 1 MG TABLET PO PRN ×2 (00:45→20:53)
[2016-10-21 03:24] VITALS: BP 108/69
[2016-10-21 05:37] LABS: INR 1.6 (0.8-1.1); PROTHROMBIN TIME PATIENT 18.1 SEC (11.7-14.0)
[2016-10-21 07:00] VITALS: BP 114/68
[2016-10-21] MEDS: hydroCHLOROthiazide 12.5 MG CAPSULE PO SCH (08:34)
[2016-10-21] MEDS: SENNOSIDES/DOCUSATE 8.6/50MG TABLET. PO SCH (08:34)
[2016-10-21] MEDS: CELECOXIB 200 MG CAPSULE. PO SCH ×2 (08:34→20:53)
[2016-10-21] MEDS: FERROUS SULFATE 325 MG TABLET. PO SCH ×2 (08:34→16:59)
[2016-10-21] MEDS: CITALOPRAM 20 MG TABLET. PO SCH (08:34)
[2016-10-21] MEDS: FLUTICASONE 50MCG/NASAL SPRAY 16GM BOTTLE. NS SCH (08:34)
[2016-10-21] MEDS: MULTIVITAMIN with MINERAL TABLET. PO SCH (08:34)
[2016-10-21] MEDS: OXYBUTYNIN CHLORIDE 5 MG TABLET PO SCH ×3 (08:34→20:53)
[2016-10-21] MEDS: buPROPion SR 100 MG TABLET.SA. PO SCH ×2 (08:34→20:53)
[2016-10-21 11:00] VITALS: BP 122/78
[2016-10-21] MEDS: HYDROcodone/APAP 10/325 1 TAB TABLET PO PRN ×2 (13:24→20:53)
[2016-10-21 15:00] VITALS: BP 114/75
[2016-10-21] MEDS ORDERED: WARFARIN 4 MG TABLET. PO ONE (16:00)
[2016-10-21] MEDS: POLYETHYLENE GLYCOL 3350 17 GM PACKET. PO PRN (17:00)
[2016-10-21 19:30] VITALS: BP 115/72
[2016-10-21] MEDS: PRAMIPEXOLE 0.25 MG TABLET. PO SCH (20:53)
[2016-10-21 23:00] VITALS: BP 113/73
[2016-10-22] MEDS: HYDROcodone/APAP 10/325 1 TAB TABLET PO PRN ×2 (02:53→03:54)
[2016-10-22 03:00] VITALS: BP 114/63
[2016-10-22 04:08] LABS: INR 1.9 (0.8-1.1); PROTHROMBIN TIME PATIENT 20.6 SEC (11.7-14.0)
[2016-10-22 07:00] VITALS: BP 123/67
[2016-10-22] MEDS: CELECOXIB 200 MG CAPSULE. PO SCH (07:40)
[2016-10-22] MEDS: SENNOSIDES/DOCUSATE 8.6/50MG TABLET. PO SCH (07:40)
[2016-10-22] MEDS: MULTIVITAMIN with MINERAL TABLET. PO SCH (07:41)
[2016-10-22] MEDS: hydroCHLOROthiazide 12.5 MG CAPSULE PO SCH (07:41)
[2016-10-22] MEDS: oxyCODONE/APAP 7.5/325 1 TAB TABLET PO PRN ×2 (07:41→12:59)
[2016-10-22] MEDS: OXYBUTYNIN CHLORIDE 5 MG TABLET PO SCH ×2 (07:41→12:59)
[2016-10-22] MEDS: CITALOPRAM 20 MG TABLET. PO SCH (07:41)
[2016-10-22] MEDS: FERROUS SULFATE 325 MG TABLET. PO SCH (07:41)
[2016-10-22] MEDS: buPROPion SR 100 MG TABLET.SA. PO SCH (07:44)
[2016-10-22] MEDS: FLUTICASONE 50MCG/NASAL SPRAY 16GM BOTTLE. NS SCH (07:47)
[2016-10-22 11:00] VITALS: BP 119/69
--- NOTE | 2016-10-22 13:22 | PDOC ---
PROGRESS NOTES Subjective Subjective Problems overnight:Did well with PT yesterday, tired after stairs Objective Vital Signs Vital Signs Date Time Temp Pulse Resp B/P (MAP) Pulse Ox O2 Delivery O2 Flow Rate FiO2 10/22/16 12:59 Room Air 10/22/16 11:00 97.9 94 20 119/69 (86) 96 97.9 10/21/16 23:00 91.0 Physical Exam Scant bloody drainage on Aquacel, leg lenghts equal neurovascular status intact Labs Laboratory Tests Test 10/21/16 05:05 10/22/16 03:00 Prothrombin Time 18.1 SEC (11.7-14.0) 20.6 SEC (11.7-14.0) Prothromb Time International Ratio 1.6 (0.8-1.1) 1.9 (0.8-1.1) Laboratory Tests Test 10/22/16 03:00 Prothrombin Time 20.6 SEC (11.7-14.0) Prothromb Time International Ratio 1.9 (0.8-1.1) Assessment Assessment POD# [], S/P [right total hip] Problems: Plan Plan of Care Approval for rehab came at 9:30 am To transfer today Followup 10 days Meds reconciled ROSSI ARMAS MD October 22, 2016 13:22
[2016-10-22] MEDS ORDERED: WARFARIN 4 MG TABLET. PO ONE (14:00)
--- NOTE | 2016-10-23 00:54 | DS ---
DATE OF DISCHARGE: 10/22/2016 ADDENDUM PRINCIPAL DIAGNOSIS: Status post right total hip arthroplasty. DISCHARGE MEDICATIONS: Include Coumadin per anticoagulation clinic, Percocet 7.5/325 mg one p.o. q. 4h. p.r.n. pain, change in bladder incontinence medication dose to 5 mg daily, and resume other preoperative medications. Follow up with Dr. Patricia in approximately 10 days. DISCHARGE INSTRUCTIONS: Weightbearing as tolerated. No hip precautions secondary to anterior approach. DISPOSITION: [facility] facility for rehabilitation. BRIEF DESCRIPTION OF HOSPITAL COURSE: The patient underwent an uncomplicated right total hip arthroplasty. She did quite well on day 0 with physical therapy, was sore the second day and limited in her activities, and progressed fairly well through physical therapy over the next couple of days. Her hemoglobins were 9.5, 9.5, and 8.8 respectively. She remained asymptomatic, and was actually initially scheduled for discharge to a [facility] facility, but was unable to obtain insurance approval and discharge was therefore delayed. She underwent additional physical therapy throughout the next two weekend days despite ongoing efforts to discuss with the receiving facility and insurance approval - none was forthcoming until 10/22/2016. She had reported doing stairs with physical therapy in our facility yesterday and soreness after that, but otherwise is doing fairly well, but feeling that she needed additional work on transferring, in particular due to her very limited help at home and family situation in which there are several grandchildren living at her location. She was discharged to the rehabilitation facility in stable condition as of 10/22/2016. ROSSI PATRICIA MD DR: ELIANA/liliya JOB#: [id number] / [id number] KARLA Higgins MD
== END 2016-10-22 13:15 | DRG 470 ==
LOC: OPSVCIP 06:06 → 4 NORTH 12:41
PROVIDERS: ADMIT Orthopaedic Surgery; ATTEND Orthopaedic Surgery
PROC: 0SR90JZ Replacement of Right Hip Joint with Synthetic Substitute, Open Approach (ICD-10-PCS; principal; 2016-10-16 07:30)
DX: M16.11 Unilateral primary osteoarthritis, right hip (principal); M21.70 Unequal limb length (acquired), unspecified site; M54.5 Low back pain; R32 Unspecified urinary incontinence; F41.9 Anxiety disorder, unspecified; M62.838 Other muscle spasm; I10 Essential (primary) hypertension; G25.81 Restless legs syndrome; Z90.49 Acquired absence of other specified parts of digestive tract; Z80.9 Family history of malignant neoplasm, unspecified; Z88.8 Allergy status to other drugs, medicaments and biological substances; Z88.5 Allergy status to narcotic agent; Z79.899 Other long term (current) drug therapy
CPT/HCPCS: 36415; 72170; 76000; 85014; 85018; 85610; 85730; 86850; 86900; 86901; 88304; 88311; C1887; J0131; J0171; J0690; J0780; J1100; J1885; J2250; J2270; J2370; J2405; J2704; J2710; J2795; J3010; J3490; J7030; J7120; Q0162; S0028; 97110; 97116; 97530; 97535

== ENCOUNTER 2017-02-03 14:03 | Emergency (ER) | payer OTHER ==
[~2017-02-03] VITALS: Ht 172.7 cm; Wt 105.2 kg
[~2017-02-03 14:03] MED LIST changes: -MORPHINE SULFATE 5 MG, KETOROLAC TROMETHAMINE 30 MG, ROPIVacaine 0.5% PF 60 ML, EPINEPH... INT ART ONE; -OXYC-244 PO; +OXYC-327 PO; -SOLI5TAB PO; +SOLI5TAB2 PO
[2017-02-03] MEDS ORDERED: HYDROmorphone 2 MG/ML VIAL IM ONE (15:00)
[2017-02-03] MEDS ORDERED: ONDANSETRON ODT 4 MG TAB.RAPDIS. PO ONE (15:00)
--- NOTE | 2017-02-03 15:00 | PHYS DOC ---
Past Medical History Past Medical History: Hypertension, Migraines Past Surgical History: Appendectomy, Tonsillectomy, Other Additional Past Surgical Histo: RT HIP AND LEFT KNEE, LIVER CYST Alcohol Use: None Drug Use: None Adult General Chief Complaint Chief Complaint: HIP PAIN HPI HPI Patient is a 71 year old female who presents with 2-3 day history of moderate right hip pain, nontraumatic denies fever fall. History of right hip joint replacement couple years ago. Patient has been favoring her left leg and now her left knee is bothering her slightly as well. Denies leg swelling or history of DVT. Review of Systems Review of Systems Constitutional: Denies fever or chills [] Eyes: Denies change in visual acuity, redness, or eye pain [] HENT: Denies nasal congestion or sore throat [] Respiratory: Denies cough or shortness of breath [] Cardiovascular: No additional information not addressed in HPI [] GI: Denies abdominal pain, nausea, vomiting, bloody stools or diarrhea [] : Denies dysuria or hematuria [] Musculoskeletal: Denies back pain or joint pain [] Integument: Denies rash or skin lesions [] Neurologic: Denies headache, focal weakness or sensory changes [] Endocrine: Denies polyuria or polydipsia [] Current Medications Current Medications Current Medications Medications (Trade) Dose Ordered Sig/[facility] Start Time Stop Time Status Last Admin Dose Admin Hydromorphone HCl (Dilaudid) 1 mg 1X ONCE 02/03/17 15:00 02/03/17 15:01 DC 02/03/17 15:15 1 MG Ondansetron HCl (Zofran Odt) 4 mg 1X ONCE 02/03/17 15:00 02/03/17 15:01 DC 02/03/17 15:12 4 MG Allergies Allergies Allergies Coded Allergies Type Severity Reaction Last Updated Verified codeine Allergy Intermediate ITCHING 10/16/16 Yes adhesive Adverse Reaction Intermediate SKIN IRRITATION 10/16/16 Yes Physical Exam Physical Exam Constitutional: Well developed, well nourished, no acute distress, non-toxic appearance. [] HENT: Normocephalic, atraumatic, bilateral external ears normal, oropharynx moist, no oral exudates, nose normal. [] Eyes: PERRLA, EOMI, conjunctiva normal, no discharge. [] Neck: Normal range of motion, no tenderness, supple, no stridor. [] Cardiovascular:Heart rate regular rhythm, no murmur [] Lungs & Thorax: Bilateral breath sounds clear to auscultation [] Abdomen: Bowel sounds normal, soft, no tenderness, no masses, no pulsatile masses. [] Skin: Warm, dry, no erythema, no rash. [] Back: No tenderness, no CVA tenderness. [] Extremities: No tenderness, no cyanosis, no clubbing, ROM intact, no edema. Except for right hip: Tenderness to lateral right hip and with movement and range of motion. No pain with movement of the knee or ankle. No palpable cords 2 + pulses in the foot and ankle no edema in the legs. [] Neurologic: Alert and oriented X 3, normal motor function, normal sensory function, no focal deficits noted. [] Psychologic: Affect normal, judgement normal, mood normal. [] Current Patient Data Vital Signs Vital Signs Date Time Temp Pulse Resp B/P (MAP) Pulse Ox O2 Delivery O2 Flow Rate FiO2 02/03/17 15:15 30 98 02/03/17 14:15 98.5 83 174/83 (113) Room Air 98.5 EKG EKG [] Radiology/Procedures Radiology/Procedures Pelvis and right hip x-ray: [Negative per radiology report] Course & Med Decision Making Course & Med Decision Making Pertinent Labs and Imaging studies reviewed. (See chart for details) We will obtain x-ray to exclude any loosening hardware or fracture. Treat pain. And likely sent home with minimizing weightbearing. Do not suspect septic joint or infectious process or DVT. X-rays were unremarkable. Reexamination patient feels improved. She now remembers that she is out of her narcotic pain meds and has an appointment tomorrow and would like some additional pain meds prescribed. Dragon Disclaimer Dragon Disclaimer This electronic medical record was generated, in whole or in part, using a voice recognition dictation system. Departure Departure Impression: Primary Impression: Right hip pain Additional Impression: Trochanteric bursitis, right hip Disposition: HOME, SELF-CARE Condition: IMPROVED Referrals: KARLA GALICIA MD (PCP) Patient Instructions: Hip Bursitis Scripts Oxycodone/Apap 5-325 (PERCOCET 5-325 MG TABLET) 1 Each Tablet 1 TAB PO PRN Q6HRS Y for PAIN, #8 TAB 0 Refills Prov: ABDI SAHNI MD 02/03/17 Problem Qualifiers ABDI SAHNI MD Feb 03, 2017 15:00
--- NOTE | 2017-02-03 15:29 | RAD ---
AP pelvis and 2 views right hip 02/03/2017 Clinical indication: Persistent right hip pain status post arthroplasty. Comparison: AP pelvis 10/16/2016. Findings: Prior total right hip arthroplasty without evidence for periprosthetic fracture. Satisfactory alignment. No acute fracture or traumatic malalignment. Sacroiliac joints are grossly maintained. No symphysis pubis diastases Impression: Prior total right hip arthroplasty with satisfactory alignment and no periprostatic fracture or evidence for loosening.
[2017-02-03 16:00] VITALS: BP 154/78
[2017-02-03] MEDS ORDERED: OXYC-323 PO (16:01)
== END 2017-02-03 16:30 | disposition home or self-care (01) ==
LOC: ER 14:03
DX: M70.61 Trochanteric bursitis, right hip (principal); I10 Essential (primary) hypertension; G43.909 Migraine, unspecified, not intractable, without status migrainosus; Z96.641 Presence of right artificial hip joint; Z88.5 Allergy status to narcotic agent; Z91.048 Other nonmedicinal substance allergy status
CPT/HCPCS: 73502; 96372; 99284; J1170; Q0162

== ENCOUNTER → 2017-04-18 | Outpatient (CLI) | payer OTHER ==
[~2017-04-18] MED LIST changes: +ESCITALOPRAM OX20 MG PO; +HYDR12.53 PO; +OXYC-323 PO; +OXYC-328 PO
--- NOTE | 2017-04-18 23:29 | PAIN ---
DATE OF SERVICE: 04/18/2017 PROGRESS NOTE FOR PAIN CLINIC DIAGNOSES: 1. Lumbar radiculopathy with lumbar degenerative disk disease. 2. Right hip joint pain with osteoarthritis. HISTORY OF PRESENT ILLNESS: The patient is a 71-year-old female who returns for followup, last seen in 12/2015. The patient reports she has had her right hip replaced earlier this year in the late spring with good results, but still some significant pain in the right hip. Her main complaint, however, is low back pain with pain radiating to the left lower extremity, mostly in the lateral and anterior aspect of the thigh, medial lower leg and posterior thigh, some numbness in the posterior calf, but mostly in the medial, lateral and anterior aspect of the thigh on the left side across the low back as well, worse with standing, walking, changing positions, getting up in the morning from bed as well as getting up from a sitting position is extremely painful in the low back and left leg. The patient was aching, sharp, radiating becoming more constant, rates it as a 10 on a scale of 10 at its worst, 8 on average, and a 6 on a scale of 10 at its least, and is a 8 today. The patient did have recent MRI scan in February of this year showing some diffuse disk bulging at L3-L4 with some very mild foraminal stenosis, more on the left than the right, also L4-L5 with anterolisthesis causing some significant stenosis as well the neural foramen bilaterally. The patient reports it is awaken her from sleep about every 6 hours, she has to reposition and take pain medication, get out of bed and reposition some weakness in her leg as well, very fatigued when walking and standing on the left leg, especially standing, but walking also, but she can sit down and the pain did decrease, but is much worse when she stands back up again and changing positions from sitting to standing is also very painful in the left leg and low back. The patient reports no new motor or sensory deficits, no bowel or bladder incontinence or other complaints. PHYSICAL EXAMINATION: VITAL SIGNS: The patient's blood pressure 135/80, pulse 80, respirations 18, temperature is 97.8 degrees Fahrenheit, height is 5 feet 8 inches, weight is 225 pounds. GENERAL: The patient is awake, alert, oriented, appropriate, very pleasant demeanor. HEENT: Head shows normocephalic, atraumatic. Extraocular movements are intact and symmetrical. Oral cavity shows mucous membranes are moist and pink. Dentition is intact. NECK: Shows anterior throat supple without palpable lymphadenopathy noted. Swallow reflex is symmetrical. CHEST: Shows normal on inspection. Breath sounds are clear to auscultation bilaterally. HEART: Shows S1 and S2 clear. ABDOMEN: Soft, nontender, nondistended. No palpable organomegaly is noted. No rebound or guarding demonstrated. BACK: The patient's back shows spine grossly in the midline. Normal appearing thoracic kyphosis and lumbar lordotic curvature. No previous bruises, lesions, rashes or scars are noted. Lumbar paraspinous musculature shows symmetrical on inspection with palpation shows some moderate tenderness with palpation bilaterally, but only diffusely in the lumbar spine without radiation. The patient has good rotation and motion of the lumbar spine both laterally, right and left greater than 10 degrees as well as extension greater than 10 degrees, forward flexion 45 degrees without significant tenderness. No tenderness over the sacrum or sacroiliac regions with palpation. LOWER EXTREMITIES: Show deep tendon reflexes at 1+ in the patellar tendo-calcaneus tendons. Motor exam is strong with 5/5 dorsiflexion, extension, quadriceps and hamstring flexion and symmetrical. Peripheral pulses are 1+ posterior tibial and dorsalis pedis pulses. No peripheral edema is noted. No clubbing, no cyanosis. Lower extremities are warm and dry to touch, equal in color and appearance. The patient is able to stand, stand on her toes without significant difficulty. She is walking with a slight antalgic gait, appears to favor the left lower extremity with a slight limp, not using any assistive devices to ambulate, however. Options were discussed with the patient and the patient's old chart was reviewed as her current medication regimen updated. Current review of systems updated today as well. We will preauthorize the patient for a lumbar epidural steroid injection as she has a significant radicular quality in the L4-L5 dermatomal distribution of the left leg and she will continue to do exercises on her own as she has had some physical therapy after hip replacement. She is doing those exercises as well and tries to stay active as possible. We will try Medrol Dosepak. In the meantime, the patient was given instruction as well as side effects to be aware of with medication, also Zanaflex. Again instructions were discussed with the Medicine as well. She will return in approximately 1 week. We will plan on lumbar epidural steroid injection at that time. NATE MIRAMONTES MD DR: TATY/liliya JOB#: [id number] / [id number]
== END | disposition home or self-care (01) ==
LOC: PNCL 10:48
PROVIDERS: ATTEND Anesthesiology
DX: M51.16 Intervertebral disc disorders with radiculopathy, lumbar region (principal); M16.11 Unilateral primary osteoarthritis, right hip; M51.37 Other intervertebral disc degeneration, lumbosacral region; R20.0 Anesthesia of skin
CPT/HCPCS: 99212

== ENCOUNTER 2018-05-02 17:24 | Emergency (ER) | payer MEDICARE, OTHER ==
[~2018-05-02] VITALS: Ht 172.7 cm; Wt 105.2 kg
[~2018-05-02 17:24] MED LIST changes: -CITA20TA5 PO; +CITA20TA6 PO; -FERR-26 PO; +FERR325T14 PO; +HYDR-3164 PO; -HYDR-971 PO
[2018-05-02] MEDS ORDERED: OXYC-327 PO ×2 (18:55)
[2018-05-02] MEDS ORDERED: ORPHENADRINE CITRATE 60 MG/2 ML VIAL. IM ONE (19:15)
[2018-05-02] MEDS ORDERED: DEXAMETHASONE 4 MG TABLET PO ONE (19:15)
--- NOTE | 2018-05-02 19:20 | PHYS DOC ---
Past Medical History Past Medical History: Hypertension, Migraines Additional Past Medical Histor: OA Past Surgical History: Appendectomy, Hip Replacement, Tonsillectomy, Other Additional Past Surgical Histo: R TOTAL HIP 10/2016, LEFT KNEE, LIVER CYST Alcohol Use: None Drug Use: None Adult General Chief Complaint Chief Complaint: HIP PAIN HPI HPI This is a 72-year-old female with a history of osteoarthritis status post total right hip arthroplasty, presenting to the ED with right hip pain. Patient states the pain began after a mechanical fall days ago where she landed on the lateral aspect of her right hip. Additionally she states her right knee and low back of been hurting since she fell as well. She states her pain is progressively worsened currently an 8 out of 10 with any weightbearing or movement. The pain is alleviated by rest. Patient has taken oxycodone which is also alleviated the pain. Additionally, patient states that she had right total hip replacement 18 months ago which was complicated by septic arthritis. Review of Systems Review of Systems Constitutional: Denies fever or chills [] Eyes: Denies change in visual acuity, redness, or eye pain [] HENT: Denies nasal congestion or sore throat [] Respiratory: Denies cough or shortness of breath [] Cardiovascular: Denies chest pain GI: Denies abdominal pain, nausea, vomiting, bloody stools or diarrhea [] : Denies dysuria or hematuria [] Musculoskeletal: Reports right hip pain, right knee pain, low back pain [] Integument: Denies rash or skin lesions [] Neurologic: Denies headache, focal weakness or sensory changes [] Complete systems were reviewed and found to be within normal limits, except as documented in this note. Current Medications Current Medications Current Medications Medications (Trade) Dose Ordered Sig/[facility] Start Time Stop Time Status Last Admin Dose Admin Dexamethasone (Decadron) 10 mg 1X ONCE 05/02/18 19:15 05/02/18 19:16 DC 05/02/18 19:28 10 MG Orphenadrine Citrate (Norflex) 60 mg 1X ONCE 05/02/18 19:15 05/02/18 19:16 DC 05/02/18 19:27 60 MG Allergies Allergies Allergies Coded Allergies Type Severity Reaction Last Updated Verified codeine Allergy Intermediate ITCHING 10/16/16 Yes adhesive Adverse Reaction Intermediate SKIN IRRITATION 10/16/16 Yes Physical Exam Physical Exam Constitutional: Well developed, well nourished, no acute distress, non-toxic appearance. [] HENT: Normocephalic, atraumatic Eyes: Conjunctiva normal, no discharge. [] Neck: Normal range of motion, no tenderness, supple, no stridor. [] Cardiovascular: Heart rate regular rhythm, no murmur [] Lungs & Thorax: Bilateral breath sounds clear to auscultation, no chest wall tenderness [] Abdomen: Bowel sounds normal, soft, no tenderness, no masses, no pulsatile masses. [] Skin: Warm, dry, no erythema, no rash. [] Back: Mild paraspinal lumbar tenderness, no vertebral step-offs, no cervical or thoracic tenderness, no CVA tenderness. [] Extremities: Limited active range of motion of the right hip secondary to pain, painful passive range of motion of the right hip, no significant swelling or erythema noted, mild right knee swelling and tenderness, painless passive range of motion of the right knee. [] Neurologic: Alert and oriented X 3, normal motor function, normal sensory function, no focal deficits noted. [] Psychologic: Affect normal, judgement normal, mood normal. [] Current Patient Data Vital Signs Vital Signs Date Time Temp Pulse Resp B/P (MAP) Pulse Ox O2 Delivery O2 Flow Rate FiO2 05/02/18 19:33 86 18 167/74 (105) 95 05/02/18 18:29 98.0 Room Air 98.0 EKG EKG [] Radiology/Procedures Radiology/Procedures [] Course & Med Decision Making Course & Med Decision Making Pertinent Labs and Imaging studies reviewed. (See chart for details) [] Dragon Disclaimer Dragon Disclaimer This electronic medical record was generated, in whole or in part, using a voice recognition dictation system. Departure Departure Impression: Primary Impression: Fall Additional Impressions: Hip pain Knee pain Back pain Disposition: 01 HOME, SELF-CARE Condition: STABLE Referrals: ANA PAULA MALONE PA-C (PCP) ROSSI ARMAS MD Patient Instructions: Back Pain, Adult, [id number], Fall Prevention and Home Safety, [id number], Hip Pain, Knee Pain, [id number]-[id number] Scripts Orphenadrine Citrate (ORPHENADRINE CITRATE) 100 Mg Tablet.er 100 MG PO BID PRN for MUSCLE PAIN, #14 Prov: BERENICE PETERSON DO 05/02/18 Prednisone (PREDNISONE) 20 Mg Tablet 2 TAB PO DAILY, #8 TAB Start this presciption on Saturday05/03/18 Prov: BERENICE PETERSON DO 05/02/18 Problem Qualifiers Primary Impression: Fall Encounter type: initial encounter Qualified Codes: W19.XXXA - Unspecified fall, initial encounter Additional Impressions: Hip pain Laterality: right Qualified Codes: M25.551 - Pain in right hip Knee pain Chronicity: chronic Laterality: right Qualified Codes: M25.561 - Pain in right knee; G89.29 - Other chronic pain Back pain Back pain location: low back pain Chronicity: unspecified Back pain laterality: bilateral Sciatica presence: without sciatica Qualified Codes: M54.5 - Low back pain BERENICE PETERSON DO May 02, 2018 19:20
[2018-05-02] MEDS ORDERED: ORPH100T PO (20:29)
[2018-05-02] MEDS ORDERED: PRED20TA PO (20:29)
[2018-05-02 20:46] VITALS: BP 157/68
[2018-05-02] MEDS ORDERED: ONDANSETRON ODT 4 MG TAB.RAPDIS. ONE (20:56)
[2018-05-02] MEDS ORDERED: ONDANSETRON ODT 4 MG TAB.RAPDIS. PO ONE (21:30)
--- NOTE | 2018-05-02 21:47 | RAD ---
Indication:ER PATIENT. TRAUMA FALL X1 WEEK. PAIN IN THE RIGHT KNEE. PRIOR XRAY. TECHNIQUE: 3 views of the right knee COMPARISON:07/15/2014 FINDINGS/ impression: No acute fracture or dislocation. Moderate medial and mild lateral and patellofemoral joint compartment osteoarthritis. No joint effusion. Electronically signed by: Marlon Ceballos DO (05/02/2018 9:44 PM) [facility]
--- NOTE | 2018-05-02 21:49 | RAD ---
Indication: Trauma one week ago with low back pain TECHNIQUE: 3 views of the lumbar spine COMPARISON: None FINDINGS: There are 6 lumbar type vertebral bodies suggesting transitional anatomy. No compression deformities. Mild multilevel degenerative disc disease. Mild multilevel facet arthropathy. SI joints are within normal limits. IMPRESSION: As above. Electronically signed by: Marlon Ceballos DO (05/02/2018 9:45 PM) [facility]
--- NOTE | 2018-05-02 23:12 | RAD ---
Indication: Trauma with right hip pain TECHNIQUE: AP pelvis and 2 views of the right hip joint COMPARISON: 12/02/2017 FINDINGS/ impression: Status post total right hip arthroplasty. No acute fracture or dislocation. There is mild increase in periprostatic lucency when compared to previous exam from 12/02 which may suggest early evidence of hardware loosening. Electronically signed by: Marlon Ceballos DO (05/02/2018 11:09 PM) [facility]
== END 2018-05-02 21:21 | disposition home or self-care (01) ==
LOC: ER 17:24
DX: M25.561 Pain in right knee (principal); M25.551 Pain in right hip; G89.29 Other chronic pain; M54.5 Low back pain; G89.11 Acute pain due to trauma; I10 Essential (primary) hypertension; G43.909 Migraine, unspecified, not intractable, without status migrainosus; Z96.641 Presence of right artificial hip joint; Z90.89 Acquired absence of other organs; Z88.5 Allergy status to narcotic agent; Z88.8 Allergy status to other drugs, medicaments and biological substances; W18.39XA Other fall on same level, initial encounter; Y93.89 Activity, other specified; Y92.89 Other specified places as the place of occurrence of the external cause; Y99.8 Other external cause status
CPT/HCPCS: 72100; 73502; 73562; 96372; 99284; J2360; J8540

== ENCOUNTER → 2018-06-23 | Outpatient (CLI) | payer MEDICARE, OTHER ==
[~2018-06-23] MED LIST changes: +ALBU2.5V8 INH; +CEPH500C PO; +CYCL10TA2 PO; +CYCL5TAB PO; +HYDR-2761 PO; -HYDR12.53 PO; +HYDR12.575 PO; +METO-239 PO; +ORPH100T PO; -OXYC-323 PO; -OXYC-327 PO; -OXYC-328 PO; +OXYC1TAB15 PO; +OXYC1TAB19 PO; +OXYC1TAB22 PO; +PRED20TA PO; -PROAIR HFA8.5 GM INH
--- NOTE | 2018-06-23 18:15 | RAD ---
Limited bone scan, 06/23/2018: HISTORY: Right hip pain Following IV injection of 24.8 mCi of technetium 99m MDP imaging of the pelvis and both lower extremities was performed. No previous bone scan is available at this time for comparison purposes. The following findings are delineated: 1. There is intense abnormal activity along the medial and lateral margins of the proximal femur at the level of the femoral stem of the patient's known right hip prosthesis. There is only minimally increased activity along the lateral margin of the acetabular component of the prosthesis. 2. Minimally increased activity medially at the right knee is likely on an arthritic basis. 3. There is mildly increased activity along the margins of the left total knee prosthesis, most prominent along the lateral margin of the femoral component. 4. There is mildly increased activity in the lower lumbar spine bilaterally compatible with arthritis. IMPRESSION: The dominant finding is markedly increased activity along the margins of the femoral stem of the right hip prosthesis suggesting loosening or infection. Electronically signed by: Farzad Sandy MD (06/23/2018 6:10 PM) [facility]
== END | disposition home or self-care (01) ==
LOC: NM 09:52
PROVIDERS: ATTEND Orthopaedic Surgery
DX: M17.11 Unilateral primary osteoarthritis, right knee (principal)
CPT/HCPCS: 78300; 96374; A9503

== ENCOUNTER → 2018-07-08 | Outpatient (CLI) | payer OTHER ==
[~2018-07-08] MED LIST changes: -CEPH500C PO; -CYCL10TA2 PO; -CYCL5TAB PO; -HYDR-2761 PO; -METO-239 PO
--- NOTE | 2018-07-08 16:03 | RAD ---
Fluoroscopic right hip arthrocentesis 07/08/2018 CLINICAL INDICATION: Right hip pain. Evaluate for infection. COMPARISON: Bone scan 06/23/2018 Findings/technique: Total fluoroscopy time: 0.8 minutes Total fluoroscopic spot images: 1 Procedure was discussed with the patient including benefits and risks, which included, but were not limited to bleeding, infection, and damage to adjacent structures. Patient wished to proceed and signed written informed consent. Patient was placed supine on the fluoroscopic table. Preprocedural fluoroscopy demonstrated a total right hip arthroplasty. The overlying skin was marked, prepped and draped in the usual sterile fashion. A small amount of 1 percent lidocaine was used for local anesthesia. Under intermittent fluoroscopy, a 22-gauge spinal needle was fluoroscopically advanced to the arthroplasty lateral femoral head and neck junction. There is immediate return of 2 mL of cloudy fluid. The sample was sent to the lab for analysis. All instrumentation was removed. Patient tolerated the procedure well and left the department in stable condition. IMPRESSION: Technically successful right hip aspiration yielding 2 mL of cloudy fluid. Electronically signed by: Kalen Chauhan MD (07/08/2018 3:59 PM) [facility]
[2018-07-08 17:24] LABS: BF CLARITY CLOUDY; BF COLOR STRAW; BF MON % 1 %; BF PMN % 99 %; BF RBC COUNT 7000 /cmm; BF SOURCE SYNOVIAL; BF WBC COUNT 36500 /cmm
== END | disposition home or self-care (01) ==
LOC: RAD 13:12
PROVIDERS: ATTEND Orthopaedic Surgery
DX: M25.551 Pain in right hip (principal); Z96.641 Presence of right artificial hip joint; Z88.5 Allergy status to narcotic agent; Z91.09 Other allergy status, other than to drugs and biological substances
CPT/HCPCS: 20610; 77002; 87071; 87075; 89050

== ENCOUNTER 2018-07-22 08:15 | Inpatient (IN) | payer OTHER ==
[~2018-07-22] VITALS: Ht 172.7 cm; Wt 104.3 kg
[2018-07-22] VITALS (7 sets, daily range): BP systolic 129–144; BP diastolic 61–76
[2018-07-22] MEDS ORDERED: LIDOCAINE 1% PF 2 ML VIAL. ID PRN (10:15)
[2018-07-22] MEDS ORDERED: fentaNYL PF VIAL 100 MCG/2 ML VIAL IV PRN ×2 (10:15→18:30)
[2018-07-22] MEDS ORDERED: PROCHLORPERAZINE 10 MG/2 ML VIAL. IV PRN (10:15)
[2018-07-22] MEDS ORDERED: ONDANSETRON PF 4 MG/2 ML VIAL. IV PRN (10:15)
[2018-07-22] MEDS ORDERED: MORPHINE SULFATE 4 MG/ML VIAL. IV PRN ×3 (10:15→18:00)
[2018-07-22] MEDS ORDERED: HYDROmorphone 2 MG/ML VIAL IV PRN (10:15)
[2018-07-22] MEDS ORDERED: CYCL10TA2 PO (11:48)
[2018-07-22] MEDS: IV RINGERS,LACTATED 1000ML 1,000 ML IV SCH ×2 (11:52→18:03)
[2018-07-22 12:08] LABS: BASO # 0.1 x10^3/uL (0.0-0.2); BASO % 1 % (0-3); EOS # 0.1 x10^3/uL (0.0-0.7); EOS % 2 % (0-3); HEMATOCRIT 36.4 % (36.0-47.0); HEMOGLOBIN 12.1 g/dL (12.0-15.5); LYMPH # 0.9 x10^3/uL (1.0-4.8); LYMPH % 12 % (24-48); MEAN CORPUSCULAR HEMOGLOBIN 31 pg (25-35); MEAN CORPUSCULAR HGB CONC 33 g/dL (31-37); MEAN CORPUSCULAR VOLUME 94 fL (79-100); MONO # 0.6 x10^3/uL (0.0-1.1); MONO % 8 % (0-9); NEUT # 5.8 x10^3uL (1.8-7.7); NEUT % 77 % (31-73); PLATELET COUNT 279 x10^3/uL (140-400); RED BLOOD COUNT 3.89 x10^6/uL (3.50-5.40); RED CELL DISTRIBUTION WIDTH 13.6 % (11.5-14.5); WHITE BLOOD COUNT 7.6 x10^3/uL (4.0-11.0)
[2018-07-22 12:10] LABS: ALBUMIN 3.3 g/dL (3.4-5.0); CALCIUM 10.7 mg/dL (8.5-10.1); CREATININE 0.9 mg/dL (0.6-1.0); GFR 61.7; POTASSIUM 3.4 mmol/L (3.5-5.1)
[2018-07-22 12:22] LABS: BILIRUBIN,URINE NEGATIVE (NEG); CLARITY,URINE CLEAR; COLOR,URINE YELLOW; NITRITE,URINE NEGATIVE (NEG); PH,URINE 6.5; PROTEIN,URINE NEGATIVE (NEG-TRACE); UROBILINOGEN,URINE 0.2 mg/dL (0.2 mg/dL)
[2018-07-22 12:23] LABS: PROTHROMBIN TIME PATIENT 13.3 SEC (11.7-14.0)
[2018-07-22 12:34] LABS: BACTERIA,URINE 0 /HPF (0-FEW); RBC,URINE 0 /HPF (0-2); SQUAMOUS EPITHELIAL CELL,UR FEW /LPF; WBC,URINE 0 /HPF (0-4)
[2018-07-22] MEDS ORDERED: LIDOCAINE 2% PF 5 ML VIAL. ONE (12:56)
[2018-07-22] MEDS ORDERED: ROCURONIUM 50 MG/5 ML VIAL. ONE ×2 (12:56→13:28)
[2018-07-22] MEDS ORDERED: PROPOFOL 20 ML IV ONE (12:56)
[2018-07-22] MEDS ORDERED: fentaNYL PF VIAL 100 MCG/2 ML VIAL ONE ×2 (12:56→16:26)
[2018-07-22] MEDS ORDERED: SUCCINYLCHOLINE 200 MG/10 ML VIAL. ONE (12:56)
[2018-07-22] MEDS ORDERED: ONDANSETRON PF 4 MG/2 ML VIAL. ONE (12:57)
[2018-07-22] MEDS ORDERED: DEXAMETHASONE SOD PHOS 20 MG/5 ML VIAL. ONE (12:57)
[2018-07-22] MEDS ORDERED: VANCOMYCIN 1 GM VIAL. ONE ×2 (14:08→14:09)
[2018-07-22] MEDS ORDERED: PHENYLEPHRINE 10 MG/ML VIAL. ONE (14:37)
[2018-07-22] MEDS ORDERED: GLYCOPYRROLATE 1 MG/5 ML VIAL. ONE (17:12)
[2018-07-22] MEDS ORDERED: NEOSTIGMINE 10 MG/10 ML VIAL. ONE (17:12)
[2018-07-22] MEDS ORDERED: DESFLURANE > 120 MINUTES IH ONE (17:12)
--- NOTE | 2018-07-22 17:26 | RAD ---
EXAM: Right hip, 9 views. HISTORY: Arthroplasty. COMPARISON: None. FINDINGS: 9 fluoroscopic images of the right hip are obtained. The total fluoroscopy time is not submitted with the images. There are findings with suspected revision right hip arthroplasty. IMPRESSION: Suspected revision right hip arthroplasty. Electronically signed by: Pily Brady MD (07/22/2018 5:22 PM) [id number]
[2018-07-22] MEDS: fentaNYL PF VIAL 100 MCG/2 ML VIAL IV PRN ×2 (18:04→18:23)
[2018-07-22] MEDS ORDERED: IV NORMAL SALINE 1000ML BAG 1,000 ML IV SCH (18:19)
[2018-07-22] MEDS ORDERED: PROCHLORPERAZINE 5 MG TABLET. PO PRN (18:30)
[2018-07-22] MEDS ORDERED: DEXTROSE 50% 25 GM / 50ML DISP.SYRIN. IV PRN (18:30)
[2018-07-22] MEDS ORDERED: ZOLPIDEM 5 MG TABLET. PO PRN (18:30)
[2018-07-22] MEDS ORDERED: CALCIUM CARBONATE 500 MG TAB.CHEW PO PRN (18:30)
[2018-07-22] MEDS ORDERED: diphenhydrAMINE 50 MG/ML VIAL IV PRN (18:30)
[2018-07-22] MEDS ORDERED: 0.9 % SODIUM CHLORIDE 10 ML DISP.SYRIN. IV PRN (18:30)
--- NOTE | 2018-07-22 18:44 | PDOC4 ---
Operative Note Operative Note Date of surgery: 07/22/2018 Preoperative diagnosis: suspicion of possible loosening and infection total hip prosthesis Postoperative diagnosis: No sign of loosening or infection Operative procedure: Exploration of right total hip arthroplasty, intraoperative cultures and frozen section, exchange of femoral head implant Surgeon: Harshad Assist: Ekta Anesthesia: Gen. Estimated blood loss: 75 mL Complications: None Intraoperative cultures sent from deep joint tissue as well as intraoperative frozen section sent from joint synovium of right hip as well as interface between femoral stem and bone Operative indications: Patient is a 72-year-old female who underwent right total hip arthroplasty approximately a year and a half ago. At the time she had some wound healing issues but those resolved on wound VAC treatment and she progressed through physical therapy. Recently she developed more pain in the right hip and there was concern for a small isolated lucency at the midportion of the femoral stem without evidence of any movement at the tip. She did have some increased uptake noted on bone scan and a hip joint aspiration showed a white cell count of 36,500 with 99% neutrophils only 7000 red blood cells in the 2 mL specimen and fluid was cultured with a negative culture but based on the high degree of suspicion of what appeared to be a joint aspirate I went over with her the concern for possible infection or loosening of the prosthesis. We therefore made plans for exploration explantation and possible placement of an antibiotic spacer. All her questions were answered regarding the planned process and the usual two-stage process for reimplantation with initial placement of an antibiotic spacer until infection is cleared then replantation of a prosthesis was explained to her. She wishes to proceed with the surgical evaluation and treatment Operative text: Patient was identified procedure verified patient placed in the supine position on the [place] fracture table and after adequate amounts of general anesthesia were administered she was positioned with the traction boots all bony prominences were well-padded and the right hip was prepped and draped in standard sterile fashion. After informed consent was obtained an anterior approach was carried out to the right hip along her previous incision the tensor fascia myke was brought laterally rectus femoris medially and dissection carried out through the scar tissue plane to the anterior aspect of the hip capsule. Hip capsule was split in a T fashion and the implant was readily observable there was no significant joint fluid to be collected certainly no evidence of any cloudiness. Once odor irritation of the synovium was present whatsoever. After adequate mobilization the hip joint was dislocated and the articulating surfaces appeared to be in good condition there is no evidence of loosening of the acetabular component. No immediate evidence of loosening of the femoral component either and based on the benign appearance of the joint I sent off multiple samples of synovial tissue as well as some interface tissue between the femoral implant on its superior aspect and the bone where I would expect would be most suspicious for any type of infection or if inflammatory reaction if present. The femoral stem was then thoroughly tested and in a nondestructive manner probing along the femoral stem revealed no evidence of any observable motion. The femoral stem was evaluated under fluoroscopic guidance and no tip motion was noted whatsoever nor any other real lucency or lack of proper fit. I actually tested the femoral stem by attaching and explantation type device without following the Beck taper joint and no motion of the stem was noted despite significant repeated force on attempting to back slap the implant out. Even after this process no motion was noted with repeated efforts to stress the implant with a bone hook. I waited at this point for pathological evaluation and Dr. Ferro conferred with me in the operating room about the lack of any significant inflammation or white blood cell findings in the provided synovial tissue or interface tissue. In summary he saw no evidence whatsoever of infection based on the frozen section evaluation. We had actually discussed the significance of the previous aspirate which did not correlate whatsoever by the intraoperative findings or frozen section evaluation. At this point it appeared that the implant was not loose as potentially feared and no signs of infection existed. Cultures were sent off intraoperatively but I elected at this point to abort the procedure in terms of explantation and instead reimplanted a new 36 mm ceramic head -3.5 mm length impacted to engage the Beck taper and reduced it into the hip acetabulum and stability was found to be excellent leg length and offset unsurprisingly unchanged with full range of motion thorough irrigation carried out normal saline solution fascia closer with #1 strata fix PDS suture subcutaneous closure with buried PDS suture subcuticular Monocryl and sterile dressing were applied patient was returned to recovery room in stable condition having tolerated procedure well. I had a detailed discussion with her designated friend regarding the intraoperative findings and our strategy going forward in terms of ongoing evaluation of her pain ROSSI ARMAS MD Jul 22, 2018 18:44
--- NOTE | 2018-07-22 19:00 | NUR ---
Patient admitted from PACU per bed. Patient had exploration of right femoral head. Patient is drowsy at this time. Patient is allergic to adhesive and codeine. Patient lives at home with her daughter. Patient has dressing to right hip that is clean and dry. Patient has aida hose and michael's on bilaterally. Will continue to monitor.
[2018-07-22] MEDS: MORPHINE SULFATE 4 MG/ML VIAL. IV PRN (23:07)
--- NOTE | 2018-07-23 | NUR ---
Gave patient po dose of zofran.
[2018-07-23] MEDS: ONDANSETRON ODT 4 MG TAB.RAPDIS. PO SCH ×4 (00:16→18:47)
[2018-07-23 03:00] VITALS: BP 130/70
[2018-07-23] MEDS ORDERED: MAGNESIUM HYDROXIDE 2,400 MG/30 ML ORAL.SUSP. PO PRN (06:00)
[2018-07-23] MEDS: fentaNYL PF VIAL 100 MCG/2 ML VIAL IV PRN (06:00)
--- NOTE | 2018-07-23 06:00 | NUR ---
Zofran was given IV.
[2018-07-23] MEDS: ONDANSETRON PF 4 MG/2 ML VIAL. IV SCH ×4 (06:17→18:47)
[2018-07-23 07:00] VITALS: BP 114/61
[2018-07-23] MEDS: MULTIVITAMIN with MINERAL TABLET. PO SCH (08:34)
[2018-07-23] MEDS: SENNOSIDES/DOCUSATE 8.6/50MG TABLET. PO SCH (08:35)
[2018-07-23] MEDS: FERROUS SULFATE 325 MG TABLET. PO SCH ×2 (08:35→17:12)
[2018-07-23] MEDS: ACETAMINOPHEN 500 MG TABLET PO SCH ×3 (08:35→20:08)
[2018-07-23] MEDS: MORPHINE SULFATE 4 MG/ML VIAL. IV PRN ×2 (08:40→11:15)
[2018-07-23 11:00] VITALS: BP 97/51
[2018-07-23] MEDS ORDERED: ONDANSETRON ODT 4 MG TAB.RAPDIS. PO PRN (12:00)
[2018-07-23] MEDS ORDERED: ONDANSETRON PF 4 MG/2 ML VIAL. IV PRN (12:00)
[2018-07-23 15:00] VITALS: BP 102/50
[2018-07-23] MEDS: oxyCODONE/APAP 7.5/325 1 TAB TABLET PO PRN (15:21)
[2018-07-23] MEDS ORDERED: BISACODYL 10 MG SUPP.RECT. PR PRN (16:00)
--- NOTE | 2018-07-23 16:23 | NUR ---
DREW following. Discussed with RN. PT/OT recommending home health. RN notified. SW will continue to follow. Addendum: 07/23/18 at 1625 by SERA RUSSELL AMEND-- Pt/OT recommending SNU, SW awaiting further documentation and other therapy notes. SW to meet with pt tomorrow (07/24/18) to determine placement.
[2018-07-23 19:00] VITALS: BP 105/55
[2018-07-23] MEDS ORDERED: ALPRAZolam 1 MG TABLET PO PRN (19:30)
--- NOTE | 2018-07-23 20:11 | PDOC ---
PROGRESS NOTES Subjective Subjective Problems overnight: Hip pain relatively unchanged she hasn't gotten up and around much today Objective Vital Signs Vital Signs Date Time Temp Pulse Resp B/P (MAP) Pulse Ox O2 Delivery O2 Flow Rate FiO2 07/23/18 16:40 Room Air 07/23/18 15:00 98.6 81 16 102/50 (67) 97 2.0 98.6 Physical Exam On examination her hip dressing is clean dry intact leg lengths are equal she has good stability interestingly she has similar reaction to weightbearing through an extended extremity on the left than on the right although she is a bit more tender on the right she has similar pain on the left with me placing weight through the extended lower extremity into her low back. She seems to have findings with a straight leg raise test more so on the right than left and had some preoperative pain in the low back occasionally radiating to the upper inner calf Labs Laboratory Tests Test 07/22/18 11:45 07/22/18 11:49 07/22/18 11:50 White Blood Count 7.6 x10^3/uL (4.0-11.0) Red Blood Count 3.89 x10^6/uL (3.50-5.40) Hemoglobin 12.1 g/dL (12.0-15.5) Hematocrit 36.4 % (36.0-47.0) Mean Corpuscular Volume 94 fL (79-100) Mean Corpuscular Hemoglobin 31 pg (25-35) Mean Corpuscular Hemoglobin Concent 33 g/dL (31-37) Red Cell Distribution Width 13.6 % (11.5-14.5) Platelet Count 279 x10^3/uL (140-400) Neutrophils (%) (Auto) 77 % (31-73) Lymphocytes (%) (Auto) 12 % (24-48) Monocytes (%) (Auto) 8 % (0-9) Eosinophils (%) (Auto) 2 % (0-3) Basophils (%) (Auto) 1 % (0-3) Neutrophils # (Auto) 5.8 x10^3uL (1.8-7.7) Lymphocytes # (Auto) 0.9 x10^3/uL (1.0-4.8) Monocytes # (Auto) 0.6 x10^3/uL (0.0-1.1) Eosinophils # (Auto) 0.1 x10^3/uL (0.0-0.7) Basophils # (Auto) 0.1 x10^3/uL (0.0-0.2) Erythrocyte Sedimentation Rate 48 (0-25) Prothrombin Time 13.3 SEC (11.7-14.0) Prothromb Time International Ratio 1.0 (0.8-1.1) Activated Partial Thromboplast Time 32 SEC (24-38) Sodium Level 138 mmol/L (136-145) Potassium Level 3.4 mmol/L (3.5-5.1) Chloride Level 102 mmol/L (98-107) Carbon Dioxide Level 26 mmol/L (21-32) Anion Gap 10 (6-14) Blood Urea Nitrogen 9 mg/dL (7-20) Creatinine 0.9 mg/dL (0.6-1.0) Estimated GFR (Cockcroft-Gault) 61.7 Glucose Level 113 mg/dL (70-99) Calcium Level 10.7 mg/dL (8.5-10.1) Albumin 3.3 g/dL (3.4-5.0) Nasal Screen MRSA (PCR) Negative (Negative) Urine Collection Type Unknown Urine Color Yellow Urine Clarity Clear Urine pH 6.5 Urine Specific [place] <=1.005 Urine Protein Negative mg/dL (NEG-TRACE) Urine Glucose (UA) Negative mg/dL (NEG) Urine Ketones (Stick) Negative mg/dL (NEG) Urine Blood Negative (NEG) Urine Nitrite Negative (NEG) Urine Bilirubin Negative (NEG) Urine Urobilinogen Dipstick 0.2 mg/dL (0.2 mg/dL) Urine Leukocyte Esterase Negative (NEG) Urine RBC 0 /HPF (0-2) Urine WBC 0 /HPF (0-4) Urine Squamous Epithelial Cells Few /LPF Urine Bacteria 0 /HPF (0-FEW) Imaging Intraoperative imaging showed solidly placed total hip arthroplasty components Assessment Assessment POD# [1], S/P [exploration right hip arthroplasty] Plan Plan of Care I had a lengthy detailed discussion with her about the findings of her hip arthroplasty. Namely that there seemed to be no inflammatory tissue present on intraoperative frozen sections. Cultures are pending but based on the intraoperative findings of solidly placed implants and no evidence of any infected appearing joint fluid at the time of surgery we question the diagnosis of infection or loosening. I explained to her that my other strategy given the surprising finding is potentially getting an MRI of her lumbar spine as she did have one in the past and some previous sciatica pain but no significant findings on lumbar MRI and really no response to epidural steroid injections. Nevertheless her symptoms do seem to be somewhat suspicious for lumbar radiculopathy particularly given the hip findings and her findings on the contralateral left leg with back and leg pain with weightbearing through an extended extremity. I told her we may possibly pursue at a later time EMG testing if MRI lumbar tests are inconclusive but I would encourage her to get up and around with physical therapy in the interim as the hip appears stable ROSSI ARMAS MD Jul 23, 2018 20:11
[2018-07-23 23:00] VITALS: BP 104/52
[2018-07-24] MEDS: oxyCODONE/APAP 7.5/325 1 TAB TABLET PO PRN ×2 (02:48→13:19)
[2018-07-24 03:00] VITALS: BP 107/67
[2018-07-24] MEDS: ACETAMINOPHEN 500 MG TABLET PO SCH ×2 (03:07→08:02)
[2018-07-24 07:00] VITALS: BP 126/75
[2018-07-24] MEDS: FERROUS SULFATE 325 MG TABLET. PO SCH (08:02)
[2018-07-24] MEDS: MULTIVITAMIN with MINERAL TABLET. PO SCH (08:03)
[2018-07-24] MEDS: SENNOSIDES/DOCUSATE 8.6/50MG TABLET. PO SCH (08:03)
[2018-07-24 11:00] VITALS: BP 131/66
--- NOTE | 2018-07-24 12:51 | RAD ---
EXAM: Lumbar spine MRI without contrast. HISTORY: Lower extremity radiculopathy. TECHNIQUE: Multiplanar, multisequence magnetic resonance imaging of the lumbar spine was performed without contrast. COMPARISON: 03/28/2015. FINDINGS: There is mild lumbar hyperlordosis. There is grade 1 anterolisthesis of L4 and L5, measuring 3 mm. There is grade 1 anterolisthesis of L5 on S1, measuring 6 mm. There is mild endplate remodeling at multiple levels. There is no suspicious osseous lesion. There is no acute or subacute fracture. There is a heterogeneous enlarged uterus containing multiple fibroids, partially included on the [id number]. At L1-L2, there is a minimal disc bulge and endplate remodeling. There is no stenosis. At L2-L3, there is a minimal disc bulge and endplate remodeling. There is no stenosis. At L3-L4, there is a minimal disc bulge and endplate remodeling. There is mild facet arthropathy. There is no stenosis. At L4-L5, there is a minimal disc bulge with suspected left foraminal annular tear and endplate remodeling. There is severe facet arthropathy. There is grade 1 anterolisthesis. There is mild central canal stenosis. At L5-S1, there is a left lateral predominant disc bulge and endplate remodeling. There is moderate left greater than right facet arthropathy. There is grade 1 anterolisthesis. There is no stenosis. IMPRESSION: 1. Multilevel degenerative change within the lumbar spine, described in detail above. These findings have slightly progressed at the L5-S1 level compared to the prior study. 2. Grade 1 anterolisthesis of L4 and L5 and L5 and S1 and mild lumbar hyperlordosis. This is stable in appearance. 3. Multiple uterine fibroids, partially included on the [id number]. Electronically signed by: Pily Brady MD (07/24/2018 12:48 PM) [facility]
--- NOTE | 2018-07-24 14:20 | NUR ---
SW following for discharge planning. Discussed with RN. SW met with pt to discuss PT/OT recommendation of SNU. Pt does not want to go to SNU and does not want home health or outpatient therapy. Pt is adamant she is able to take care of herself safely at home. Pt reported PT had also stated pt is fine to go home now. RN notified. SW will continue to follow.
--- NOTE | 2018-07-24 14:50 | DISCH ---
DISCHARGE INSTRUCTIONS Condition on Discharge Condition on Discharge: Stable Activity After Discharge Activity Instructions for Disc: Activity as tolerated Bathing Instructions: Shower-keep dressing dry, No Tub Bath until see Driving Instructions after Dis: Do not drive Weight Bearing Status after Di: As tolerated Diet after Discharge Diet after Discharge: Regular Diet Texture: Regular Wound Incision Care Wound/Incision Care: Do not change dressing Contacting the DRShanti after DC Call your doctor for: Concerns you may have Follow-Up Follow Up With: Harshad 10 days Treatment/Equipment after DC Adaptive Equipment Issued: None ROSSI ARMAS MD Jul 24, 2018 14:50
[2018-07-24] MEDS ORDERED: OXYC1TAB15 PO (14:52)
[2018-07-24 15:00] VITALS: BP 116/59
--- NOTE | 2018-07-24 17:07 | PATHOLOGY ---
[facility] Accession Number: [id number] . 01 Material submitted: . PART A: RIGHT HIP SYNOVIAL TISSUE - FS PART B: RIGHT HIP TISSUE NEXT TO FEMORAL IMPLANT . 02 Diagnosis: A. Fibrous tissue, right hip synovial tissue: - Focal reactive fibrosis, remote hemorrhage, and focal mild acute inflammation - no significant acute inflammation identified. . B. Fibrous tissue, right hip tissue next to femoral implant: - Focal reactive fibrosis and recent hemorrhage - no significant acute inflammation. . (JPM:mmnandini; 07/24/2018) QL/07/24/2018 . 02 Electronically signed: . Xavi Gabriel MD, Pathologist NPI- [id number] . 01 Gross description: . A. The specimen is received fresh for intraoperative consultation and is designated "right hip synovial tissue for frozen section". This consists of four segments of focally cauterized pink and yellow-rider, rubbery tissue, ranging from 0.7 cm up to 1.6 cm in greatest dimension. The largest segment is bisected. All is submitted for frozen section as FSA1. The tissue remaining from frozen section is submitted for permanent sections as A1. . B. The specimen is received fresh for intraoperative consultation and is designated "right hip tissue next to femoral implant". This consists of two small rounded and one elongate stringy segment of red, hemorrhagic soft tissue, ranging from 0.3 up to 1.7 cm in greatest dimension. These are submitted for frozen section as FSB1. The tissue remaining from frozen section is submitted for permanent sections as B1. (JPM/db; 07/22/2018) . Intraoperative Consult with Frozen Section: FSA1. Right hip synovial tissue: - No significant acute inflammation. . The results are reported to Dr. Patricia in the operating room. . FSB1. Right hip tissue next to femoral implant: - No significant acute inflammation. . The results are reported to Dr. Patricia in the operating room. . . Frozen section performed at [facility], [address] [place] [id number]. /LBQ . 02 Pathologist provided ICD-10: M65.851, T84.090A . 02 CPT . 431741, [id number] Specimen Comment: A courtesy copy of this report has been sent to Specimen Comment: [phone], . Specimen Comment: Report sent to / KIRA Specimen Comment: A duplicate report has been generated due to demographic updates. Performed at: 01 [facility] [address] [place] [address] [address], [place] [id number] MD Demarco Camilo MD Phone: [phone] Performed at: [address] [id number] MD Xavi Gabriel MD Phone: [phone]
--- NOTE | 2018-07-24 18:35 | NUR ---
Discharge instructions and prescriptions given to pt. Answered questions and concerns. Belongings with pt at time of dc. Pt dc home with dtr.
--- NOTE | 2018-07-25 11:40 | DS ---
DATE OF DISCHARGE: 07/24/2018 PRINCIPAL DIAGNOSIS: Right hip pain. PROCEDURE: Exploration of right total hip with exchange of femoral head. Her activity level is weightbearing as tolerated, no hip precautions necessary due to anterior approach. Follow up with Dr. Patricia in 10 days. DISPOSITION: Home with home health. Maintain dressing. Report any redness, drainage, fever, chills, uncontrolled pain or any problems. DISPOSITION MEDICATIONS: Include Percocet 5/325 one p.o. q.4 hours p.r.n. pain, Xanax p.r.n. and resume other home medications. BRIEF DESCRIPTION OF HOSPITAL COURSE: The patient underwent exploration of the right hip with what was planned of a possible explantation as an aspiration. Cultures were negative, however, she seems to have a high white blood cell count; however, on exploration of her hip there was no inflammation noted whatsoever on several frozen sections obtained from the joint capsule area as well as the interface between the femoral stem and bone. Likewise, there was no fluid. Cultures were sent, but remained negative and as a result, she was just put on her normal perioperative antibiotics, mobilized afterward and given that the implant did not appear to be loose or compromised in any way, I did obtain an MRI of the lumbar spine. She has some anterolisthesis in the low lumbar level and some minimal central canal stenosis, but not any significant foraminal compromise. I therefore discussed with her possible pain clinic visit for epidural steroid injection to see if it gives her any relief in the area and possibly even an EMG of her right lower extremity to undergo an ongoing workup to better assess the pain in her leg, which I think may be related largely to muscular back pain as she seems to have equal pain with bearing weight through an extended extremity on the unaffected left side, which hurts in her back as she has on the affected right side that may be low back related as opposed to anything with her implant itself. She does have some ongoing right knee degenerative issues, which we can see on an outpatient basis at her followup for possible knee injection. Otherwise, activity as tolerated and follow up as above. She was discharged home in stable condition. ROSSI PATRICIA MD DR: ELIANA/liliya JOB#: [id number] / [id number]
--- NOTE | 2018-07-28 17:28 | HP ---
ADMIT DATE: 07/22/2018 PRINCIPAL DIAGNOSIS: Right hip pain with suspected infection. HISTORY OF PRESENT ILLNESS: The patient is a 72-year-old female that had undergone a previous total hip arthroplasty over a year and a half ago and had developed increasing pain recently. X-rays showed some potential lucency over the midpoint of an otherwise apparently well fixed stem. Bone scan showed some increased uptake around the femoral stem and an aspiration done under radiographic guidance appeared to show a high white count. Cultures were negative. However, given the picture of loose and potentially infected implant, she is undergoing exploration of the implant, possible explantation and perhaps placement of an antibiotic spacer. PAST MEDICAL HISTORY: Significant for insomnia, hypertension, restless legs, anxiety, tension headaches. PAST SURGICAL HISTORY: Right total hip arthroplasty in 10/2016, previous knee surgery, liver biopsy, tonsillectomy, appendectomy. FAMILY HISTORY: Breast cancer in her sister, prostate cancer in her brother. SOCIAL HISTORY: Denies smoking, alcohol or nonprescription drug use. MEDICATIONS: List is reviewed. ALLERGIES: INCLUDE CODEINE, PENNSAID AND ADHESIVE TAPE. REVIEW OF SYSTEMS: She has hip pain with ambulation. No fever or chills are noted. No recent trauma history, but no current radiating pain down the legs. No chest pain, shortness of breath or other constitutional symptoms at present. PHYSICAL EXAMINATION: VITAL SIGNS: Per admission sheet. HEENT: Atraumatic, normocephalic. HEART: Regular rate and rhythm. LUNGS: Clear to auscultation bilaterally. ABDOMEN: Benign. EXTREMITIES: Examination of the right hip reveals some tenderness with weightbearing on gait that appears to be in the groin and upper thigh. Incision is well healed. Leg lengths are equal. Normal examination of the contralateral hip. Bilateral knees have some joint line tenderness, no gross ligamentous instability, mild patellofemoral crepitus bilaterally, normal alignment and stability of bilateral ankles. IMPRESSION: Right hip pain, history of previous total hip arthroplasty, possible loose femoral stem and potential infection based on aspiration results. TREATMENT PLAN: She will undergo planned exploration, possible explantation of her hip. I had gone over with her the rationale for the above intervention along with the testing results and thinking behind it. All her questions were answered. She understands the possibility of nerve or blood vessel damage, medical or other anesthetic complications among others, associated with the procedure as well as the planned course of action that would follow explantation. She wishes to proceed with surgical evaluation and treatment with admission to follow after surgery today. ROSSI ARMAS MD DR: ELIANA/liliya JOB#: [id number] / [id number]
== END 2018-07-24 18:35 | disposition home or self-care (01) | DRG 467 ==
LOC: OPSVCIP 10:53 → 4 NORTH 19:30
PROVIDERS: ADMIT Orthopaedic Surgery; ATTEND Orthopaedic Surgery
PROC: 0SPR0JZ Removal of Synthetic Substitute from Right Hip Joint, Femoral Surface, Open Approach (ICD-10-PCS; 2018-07-22)
PROC: 0SRR03Z Replacement of Right Hip Joint, Femoral Surface with Ceramic Synthetic Substitute, Open Approach (ICD-10-PCS; principal; 2018-07-22 14:30)
DX: M25.551 Pain in right hip (principal); E44.1 Mild protein-calorie malnutrition; Z96.641 Presence of right artificial hip joint; Z79.899 Other long term (current) drug therapy; Z88.8 Allergy status to other drugs, medicaments and biological substances
CPT/HCPCS: 36415; 72148; 76000; 80048; 81001; 82040; 85025; 85610; 85651; 85730; 86850; 86900; 86901; 87071; 87075; 87186; 87641; 88305; 88331; A7015; J0330; J0696; J0780; J1100; J2001; J2270; J2405; J2704; J2710; J3010; J3370; J3490; J7030; J7120; Q0162; 97110; 97116; 97530; 97535

== ENCOUNTER 2018-08-01 11:55 | Inpatient (IN) | payer OTHER ==
[~2018-08-01] VITALS: Ht 172.7 cm; Wt 92.5 kg
[~2018-08-01 11:55] MED LIST changes: +CYCL10TA2 PO
[2018-08-01 12:00] VITALS: BP 132/104
[2018-08-01] MEDS ORDERED: ZOLPIDEM 5 MG TABLET. PO PRN (13:30)
[2018-08-01] MEDS ORDERED: 0.9 % SODIUM CHLORIDE 10 ML DISP.SYRIN. IV PRN (13:30)
[2018-08-01] MEDS ORDERED: PROCHLORPERAZINE 5 MG TABLET. PO PRN (13:30)
[2018-08-01] MEDS ORDERED: CALCIUM CARBONATE 500 MG TAB.CHEW PO PRN (13:30)
[2018-08-01 15:00] VITALS: BP 125/52
--- NOTE | 2018-08-01 15:32 | NUR ---
SW following up with referral regarding assistance with advanced directives. SW met with pt to provide DPOA and advanced directives paperwork. SW explained document and instructed pt to contact her upon completion for finalization. Pt accepted document and verbalized understanding.
[2018-08-01] MEDS ORDERED: LIDOCAINE WITH 8.4% SOD BICARB 3 ML DISP.SYRIN. INJ ONE (15:45)
[2018-08-01] MEDS: oxyCODONE/APAP 7.5/325 1 TAB TABLET PO PRN (16:21)
--- NOTE | 2018-08-01 17:51 | NUR ---
Wound Care Wound care consult for vac placement per Dr Patricia. Pt has dehisced surgical incision of distal portion of right hip replacement incision. Remaining incision is well approximated. Large amount of serosanguineous fluid was present on dressing. Wound cleansed well with NS, Vac foam tucked into 4.8 cm depth with ostomy ring to obtain seal. Vac set to 125 mmHg continuous suction. WC will follow up on Saturday for vac change. No other wounds noted on full skin inspection.
[2018-08-01] MEDS ORDERED: ONDANSETRON PF 4 MG/2 ML VIAL. IV SCH (18:00)
[2018-08-01] MEDS ORDERED: ONDANSETRON ODT 4 MG TAB.RAPDIS. PO SCH (18:00)
[2018-08-01] MEDS: ALPRAZolam 1 MG TABLET PO PRN (18:18)
[2018-08-01] MEDS: FERROUS SULFATE 325 MG TABLET. PO SCH (18:18)
[2018-08-01] MEDS: SENNOSIDES/DOCUSATE 8.6/50MG TABLET. PO SCH (18:19)
[2018-08-01 18:45] LABS: BASO # 0.1 x10^3/uL (0.0-0.2); BASO % 1 % (0-3); EOS # 0.5 x10^3/uL (0.0-0.7); EOS % 6 % (0-3); HEMOGLOBIN 10.1 g/dL (12.0-15.5); LYMPH # 1.3 x10^3/uL (1.0-4.8); LYMPH % 15 % (24-48); MEAN CORPUSCULAR HEMOGLOBIN 31 pg (25-35); MEAN CORPUSCULAR HGB CONC 34 g/dL (31-37); MEAN CORPUSCULAR VOLUME 93 fL (79-100); MONO # 0.9 x10^3/uL (0.0-1.1); MONO % 11 % (0-9); NEUT # 5.6 x10^3uL (1.8-7.7); NEUT % 67 % (31-73); PLATELET COUNT 325 x10^3/uL (140-400); RED BLOOD COUNT 3.22 x10^6/uL (3.50-5.40); WHITE BLOOD COUNT 8.4 x10^3/uL (4.0-11.0)
[2018-08-01 19:02] LABS: CALCIUM 9.4 mg/dL (8.5-10.1); CREATININE 0.9 mg/dL (0.6-1.0); GFR 61.7; POTASSIUM 4.2 mmol/L (3.5-5.1)
[2018-08-01 19:25] VITALS: BP 104/47
[2018-08-01] MEDS: CITALOPRAM 20 MG TABLET. PO SCH (20:56)
[2018-08-01] MEDS: CYCLOBENZAPRINE 10 MG TABLET. PO SCH (20:56)
--- NOTE | 2018-08-01 21:00 | NUR ---
[facility] unable to come for PICC till 08/02/18. 22g started left hand by ANA PAULA Edwards for [facility].
[2018-08-01] MEDS: ceFAZolin SODIUM 2 GM in IV DEXTROSE 5% 50 ML IV SCH (21:50)
[2018-08-01 23:11] VITALS: BP 115/58
[2018-08-02 03:06] VITALS: BP 130/69
[2018-08-02] MEDS ORDERED: MAGNESIUM HYDROXIDE 2,400 MG/30 ML ORAL.SUSP. PO PRN (06:00)
[2018-08-02] MEDS: ceFAZolin SODIUM 2 GM in IV DEXTROSE 5% 50 ML IV SCH ×3 (06:29→21:36)
[2018-08-02 07:00] VITALS: BP 136/65
[2018-08-02] MEDS: ALPRAZolam 1 MG TABLET PO PRN ×2 (07:13→21:36)
[2018-08-02] MEDS ORDERED: NON FORMULARY ITEM (Escitalopram Oxalate 1 TAB) PO SCH (09:00)
[2018-08-02] MEDS: SENNOSIDES/DOCUSATE 8.6/50MG TABLET. PO SCH (09:00)
--- NOTE | 2018-08-02 09:38 | RAD ---
PROCEDURE: PORTABLE CHEST 1V CLINICAL INDICATION: PICC LINE PLACEMENT COMPARISON: None FINDINGS: Right-sided PICC line is seen with its tip in the cavoatrial junction. No pneumothorax identified. Cardiac and mediastinal contours unremarkable. No pulmonary consolidation or acute airspace disease. No acute osseous abnormalities identified. IMPRESSION: No pulmonary consolidation or acute airspace disease. Electronically signed by: Marlon Ceballos DO (08/02/2018 9:36 AM) [facility]
[2018-08-02] MEDS: FERROUS SULFATE 325 MG TABLET. PO SCH ×2 (10:03→18:04)
[2018-08-02] MEDS: CYCLOBENZAPRINE 10 MG TABLET. PO SCH ×3 (10:03→21:35)
[2018-08-02] MEDS: oxyCODONE/APAP 7.5/325 1 TAB TABLET PO PRN ×2 (10:12→20:18)
[2018-08-02 11:00] VITALS: BP 115/62
--- NOTE | 2018-08-02 11:48 | PDOC ---
Infectious Disease Note Vital Sign Vital Signs Vital Signs Date Time Temp Pulse Resp B/P (MAP) Pulse Ox O2 Delivery O2 Flow Rate FiO2 08/02/18 10:12 Room Air 08/02/18 07:00 98.0 93 18 136/65 (88) 94 98.0 Physical Exam PHYSICAL EXAM [facility] 08/02 Labs Lab Laboratory Tests Test 08/01/18 18:18 08/01/18 18:21 Sodium Level 138 mmol/L (136-145) Potassium Level 4.2 mmol/L (3.5-5.1) Chloride Level 103 mmol/L (98-107) Carbon Dioxide Level 24 mmol/L (21-32) Anion Gap 11 (6-14) Blood Urea Nitrogen 11 mg/dL (7-20) Creatinine 0.9 mg/dL (0.6-1.0) Estimated GFR (Cockcroft-Gault) 61.7 Glucose Level 108 mg/dL (70-99) Calcium Level 9.4 mg/dL (8.5-10.1) White Blood Count 8.4 x10^3/uL (4.0-11.0) Red Blood Count 3.22 x10^6/uL (3.50-5.40) Hemoglobin 10.1 g/dL (12.0-15.5) Hematocrit 30.0 % (36.0-47.0) Mean Corpuscular Volume 93 fL (79-100) Mean Corpuscular Hemoglobin 31 pg (25-35) Mean Corpuscular Hemoglobin Concent 34 g/dL (31-37) Red Cell Distribution Width 14.0 % (11.5-14.5) Platelet Count 325 x10^3/uL (140-400) Neutrophils (%) (Auto) 67 % (31-73) Lymphocytes (%) (Auto) 15 % (24-48) Monocytes (%) (Auto) 11 % (0-9) Eosinophils (%) (Auto) 6 % (0-3) Basophils (%) (Auto) 1 % (0-3) Neutrophils # (Auto) 5.6 x10^3uL (1.8-7.7) Lymphocytes # (Auto) 1.3 x10^3/uL (1.0-4.8) Monocytes # (Auto) 0.9 x10^3/uL (0.0-1.1) Eosinophils # (Auto) 0.5 x10^3/uL (0.0-0.7) Basophils # (Auto) 0.1 x10^3/uL (0.0-0.2) Erythrocyte Sedimentation Rate 80 (0-25) Objective Assessment 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 García Wound care team following Probiotics Monitor labs/temp. Supportive care D/w RN Thank you [phone] [id number] D/w Dr. Patricia 08/01 Attending Co-Sign Attending Co-Sign The patient was seen and interviewed as well as examined at the bedside. The chart was reviewed. The case was discussed. Agree with the plan of care. JOSE SIBLEY APRN Aug 02, 2018 11:48 LUKE GARCÍA MD Aug 02, 2018 13:58
[2018-08-02] MEDS ORDERED: ONDANSETRON ODT 4 MG TAB.RAPDIS. PO PRN (12:00)
[2018-08-02] MEDS ORDERED: ONDANSETRON PF 4 MG/2 ML VIAL. IV PRN (12:00)
--- NOTE | 2018-08-02 15:30 | PDOC ---
PROGRESS NOTES Subjective Subjective Wound VAC in place. Got PICC line. Objective Vital Signs Vital Signs Date Time Temp Pulse Resp B/P (MAP) Pulse Ox O2 Delivery O2 Flow Rate FiO2 08/02/18 11:12 Room Air 08/02/18 11:00 98.3 84 18 115/62 (79) 90 98.3 Physical Exam Wound VAC intact Labs Laboratory Tests Test 08/01/18 18:18 08/01/18 18:21 Sodium Level 138 mmol/L (136-145) Potassium Level 4.2 mmol/L (3.5-5.1) Chloride Level 103 mmol/L (98-107) Carbon Dioxide Level 24 mmol/L (21-32) Anion Gap 11 (6-14) Blood Urea Nitrogen 11 mg/dL (7-20) Creatinine 0.9 mg/dL (0.6-1.0) Estimated GFR (Cockcroft-Gault) 61.7 Glucose Level 108 mg/dL (70-99) Calcium Level 9.4 mg/dL (8.5-10.1) White Blood Count 8.4 x10^3/uL (4.0-11.0) Red Blood Count 3.22 x10^6/uL (3.50-5.40) Hemoglobin 10.1 g/dL (12.0-15.5) Hematocrit 30.0 % (36.0-47.0) Mean Corpuscular Volume 93 fL (79-100) Mean Corpuscular Hemoglobin 31 pg (25-35) Mean Corpuscular Hemoglobin Concent 34 g/dL (31-37) Red Cell Distribution Width 14.0 % (11.5-14.5) Platelet Count 325 x10^3/uL (140-400) Neutrophils (%) (Auto) 67 % (31-73) Lymphocytes (%) (Auto) 15 % (24-48) Monocytes (%) (Auto) 11 % (0-9) Eosinophils (%) (Auto) 6 % (0-3) Basophils (%) (Auto) 1 % (0-3) Neutrophils # (Auto) 5.6 x10^3uL (1.8-7.7) Lymphocytes # (Auto) 1.3 x10^3/uL (1.0-4.8) Monocytes # (Auto) 0.9 x10^3/uL (0.0-1.1) Eosinophils # (Auto) 0.5 x10^3/uL (0.0-0.7) Basophils # (Auto) 0.1 x10^3/uL (0.0-0.2) Erythrocyte Sedimentation Rate 80 (0-25) Laboratory Tests Test 08/01/18 18:18 08/01/18 18:21 Sodium Level 138 mmol/L (136-145) Potassium Level 4.2 mmol/L (3.5-5.1) Chloride Level 103 mmol/L (98-107) Carbon Dioxide Level 24 mmol/L (21-32) Anion Gap 11 (6-14) Blood Urea Nitrogen 11 mg/dL (7-20) Creatinine 0.9 mg/dL (0.6-1.0) Estimated GFR (Cockcroft-Gault) 61.7 Glucose Level 108 mg/dL (70-99) Calcium Level 9.4 mg/dL (8.5-10.1) White Blood Count 8.4 x10^3/uL (4.0-11.0) Red Blood Count 3.22 x10^6/uL (3.50-5.40) Hemoglobin 10.1 g/dL (12.0-15.5) Hematocrit 30.0 % (36.0-47.0) Mean Corpuscular Volume 93 fL (79-100) Mean Corpuscular Hemoglobin 31 pg (25-35) Mean Corpuscular Hemoglobin Concent 34 g/dL (31-37) Red Cell Distribution Width 14.0 % (11.5-14.5) Platelet Count 325 x10^3/uL (140-400) Neutrophils (%) (Auto) 67 % (31-73) Lymphocytes (%) (Auto) 15 % (24-48) Monocytes (%) (Auto) 11 % (0-9) Eosinophils (%) (Auto) 6 % (0-3) Basophils (%) (Auto) 1 % (0-3) Neutrophils # (Auto) 5.6 x10^3uL (1.8-7.7) Lymphocytes # (Auto) 1.3 x10^3/uL (1.0-4.8) Monocytes # (Auto) 0.9 x10^3/uL (0.0-1.1) Eosinophils # (Auto) 0.5 x10^3/uL (0.0-0.7) Basophils # (Auto) 0.1 x10^3/uL (0.0-0.2) Erythrocyte Sedimentation Rate 80 (0-25) Assessment Assessment s/p wound debridement and VAC Plan Plan of Care waiting for wound culture results home soon, probably tomorrow. WALKER LORENZ MD Aug 02, 2018 15:30
[2018-08-02] MEDS ORDERED: BISACODYL 10 MG SUPP.RECT. PR PRN (16:00)
[2018-08-02 19:00] VITALS: BP 152/75
[2018-08-02] MEDS: CITALOPRAM 20 MG TABLET. PO SCH (21:36)
[2018-08-02] MEDS: LACTOBACILLUS RHAMNOSUS GG 1 CAPSULE. PO SCH (21:36)
[2018-08-02 23:00] VITALS: BP 130/63
--- NOTE | 2018-08-03 01:04 | CONS ---
DATE OF CONSULTATION: 08/02/2018 REFERRING PHYSICIAN: Dr. Patricia. REASON FOR CONSULT: Positive hip cultures. HISTORY OF PRESENT ILLNESS: The patient is a 72-year-old female with a past medical history of degenerative joint disease, who had undergone a right total hip arthroplasty in 2016. Recently, she started to complain of increasing hip pain. She underwent a bone scan, revealed markedly increased activity along the margins of the femoral stem of the right hip prosthesis suggesting loosening or infection. She underwent a joint aspiration on 07/08/2018. The synovial fluid was straw cloudy with nucleated cells 36,500 and total RBCs 7000. Cultures were negative. On 07/22/2018, she underwent exploration of the right total hip arthroplasty with exchange of femoral head implant. There were no signs of loosening or infection noted and no acute inflammation on pathology. Intraoperative deep joint tissue cultures grew coag-negative staph species, oxacillin sensitive. The patient says after surgery, she felt pretty good and her right hip pain was much better. However, about 3 days or so after her surgery, she started not to feel good. She has developed a fever, increasing pain, wound dehiscence and drainage. She has since been admitted. The sed rate is 80. A PICC line was placed earlier today and she is now on cefazolin. PAST MEDICAL HISTORY: Degenerative joint disease, hypertension, obesity, heartburn, liver disease, panic disorder and anxiety. PAST SURGICAL HISTORY: Right total hip arthroplasty 10/2016. Exploration of right total hip arthroplasty with exchange of femoral head implant on 07/22/2018. Left total knee arthroplasty, 06/2014. ADDENDUM PAST SURGICAL HISTORY: Tonsillectomy, adenoidectomy, appendectomy. FAMILY HISTORY: Positive for hypertension, cardiovascular disease, autoimmune disease, Alzheimer's disease, blood disorder, prostate cancer. SOCIAL HISTORY: The patient lives with her daughter. 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 Nonsmoker. ALLERGIES: INCLUDES CODEINE AND ADHESIVE TAPE. MEDICATIONS: Cefazolin, probiotics, Xanax, Dulcolax suppository p.r.n., Tums, Celexa, Flexeril, ferrous sulfate, ondansetron p.r.n., magnesium hydroxide p.r.n., oxycodone p.r.n., Compazine p.r.n., senna/docusate, Ambien p.r.n. REVIEW OF SYSTEMS: The patient says her hip pain is fairly controlled right now. She maintains caution when ambulating with her roller walker. She denies popping or catching. She denies further fevers. Denies chills, sweats or body aches. Denies nausea, vomiting or diarrhea. Denies cough, shortness of air, chest discomfort. Other review of systems are negative. PHYSICAL EXAMINATION: VITAL SIGNS: Temperature 98.0, blood pressure 136/65, heart rate 93, respiratory rate 18, pulse oximetry is 94%, BMI 31. GENERAL: The patient is propped up in bed, resting quietly. HEENT: Pupils equally round, reactive. Normal conjunctivae. Oral cavity: Pharynx pink and moist. NECK: Supple. LUNGS: Clear to auscultation. HEART: S1, S2. ABDOMEN: Obese, soft, nontender with bowel sounds present. EXTREMITIES: No gross edema or cyanosis. Distal pulses palpable. Right hip/thigh wound VAC in place. There is no adjacent redness or induration. SKIN: Warm without generalized rash. NEUROLOGIC: Arouses to name and responds appropriately. LINES: RUE-PICC (08/02/2018) without signs of any complications. LABORATORY DATA: From 08/01/2018, WBC 8.4, hemoglobin 10.1, hematocrit 30.0, platelets 324,000, sed rate 80 from 48 on 07/22/2018. Synovial fluid analysis from 07/08/2018 per HPI and intraoperative cultures per HPI. Chest x-ray showed no pulmonary consolidation or acute airspace disease. A lumbar spine MRI without contrast on 07/23/2018 showed multilevel degenerative change within the lumbar spine, slightly progressed at L5-S1 level compared to prior study. Grade 1 anterolisthesis of L4-L5 and L5-S1 and mild lumbar hyperlordosis. Stable in appearance. Multiple uterine fibroids partially included on the field of view. IMPRESSION: 1. 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 2. Status post exploration with exchange of femoral head implant on 07/22/2018. 3. Degenerative joint disease. 4. Hypertension. PLAN: The patient has been started on cefazolin. She is currently followed by the wound care team as well PICC maintenance care. Monitor laboratory values and temperature. Supportive care. Thank you, Dr. Patricia, for asking us to participate in this patient's care. Should you have further questions or concerns, please call. LUKE MAYES MD DR: JEY/liliya JOB#: [id number] / [id number]
[2018-08-03 03:00] VITALS: BP 132/66
[2018-08-03] MEDS: oxyCODONE/APAP 7.5/325 1 TAB TABLET PO PRN ×3 (06:12→18:24)
[2018-08-03] MEDS: ceFAZolin SODIUM 2 GM in IV DEXTROSE 5% 50 ML IV SCH ×3 (06:13→22:12)
[2018-08-03 07:00] VITALS: BP 132/76
[2018-08-03] MEDS: SENNOSIDES/DOCUSATE 8.6/50MG TABLET. PO SCH (09:00)
[2018-08-03] MEDS: LACTOBACILLUS RHAMNOSUS GG 1 CAPSULE. PO SCH ×2 (10:27→22:12)
[2018-08-03] MEDS: CYCLOBENZAPRINE 10 MG TABLET. PO SCH ×3 (10:28→22:12)
[2018-08-03] MEDS: FERROUS SULFATE 325 MG TABLET. PO SCH ×2 (10:28→18:23)
--- NOTE | 2018-08-03 10:54 | PDOC ---
Infectious Disease Note Subjective Subjective c/o hip pain - has been ongoing for over a year No F/C/S/N/V/D/SOA ROS ROS per HPI otherwise neg Vital Sign Vital Signs Vital Signs Date Time Temp Pulse Resp B/P (MAP) Pulse Ox O2 Delivery O2 Flow Rate FiO2 08/03/18 10:27 Room Air 08/03/18 07:00 98.3 100 18 132/76 (94) 92 98.3 Physical Exam PHYSICAL EXAM GENERAL: Propped up in bed, alert, drinking a coke, NAD - In chair on my arrival HEENT: Pupils equally round, reactive. Normal conjunctivae. Oral cavity, pharynx pink and moist. NECK: Supple. LUNGS: Clear to auscultation. HEART: S1, S2. ABDOMEN: Obese, soft, nontender with bowel sounds present. EXTREMITIES: No gross edema or cyanosis. Distal pulses palpable. Right hip/thigh wound VAC in place. Tender without area redness or induration. SKIN: Warm without generalized rash. NEUROLOGIC: Alert, responds appropriately. RUE-PICC (08/02) without signs of any complications. 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 Supportive care D/w coordinator cardiopulmonary services to assist arranging for long-term abx therapy She will need minimum of 6 weeks of Cefazolin f/u our office in 2 weeks from discharge Weekly CBC, Cr, ESR faxed to [phone] Attending Co-Sign Attending Co-Sign The patient was seen and interviewed as well as examined at the bedside. The chart was reviewed. The case was discussed. Agree with the plan of care. JOSE SIBLEY APRN Aug 03, 2018 10:54 LUKE MAYES MD Aug 03, 2018 12:40
[2018-08-03 11:00] VITALS: BP 115/62
--- NOTE | 2018-08-03 13:44 | PDOC ---
PROGRESS NOTES Subjective Subjective Will need 6 weeks of IV antibiotics. These have not been set up yet. Objective Vital Signs Vital Signs Date Time Temp Pulse Resp B/P (MAP) Pulse Ox O2 Delivery O2 Flow Rate FiO2 08/03/18 11:27 Room Air 08/03/18 11:00 98.0 99 18 115/62 (79) 94 98.0 Physical Exam Wound VAC intact without leak. Distal NVI with soft calves Labs Laboratory Tests Test 08/01/18 18:18 08/01/18 18:21 Sodium Level 138 mmol/L (136-145) Potassium Level 4.2 mmol/L (3.5-5.1) Chloride Level 103 mmol/L (98-107) Carbon Dioxide Level 24 mmol/L (21-32) Anion Gap 11 (6-14) Blood Urea Nitrogen 11 mg/dL (7-20) Creatinine 0.9 mg/dL (0.6-1.0) Estimated GFR (Cockcroft-Gault) 61.7 Glucose Level 108 mg/dL (70-99) Calcium Level 9.4 mg/dL (8.5-10.1) White Blood Count 8.4 x10^3/uL (4.0-11.0) Red Blood Count 3.22 x10^6/uL (3.50-5.40) Hemoglobin 10.1 g/dL (12.0-15.5) Hematocrit 30.0 % (36.0-47.0) Mean Corpuscular Volume 93 fL (79-100) Mean Corpuscular Hemoglobin 31 pg (25-35) Mean Corpuscular Hemoglobin Concent 34 g/dL (31-37) Red Cell Distribution Width 14.0 % (11.5-14.5) Platelet Count 325 x10^3/uL (140-400) Neutrophils (%) (Auto) 67 % (31-73) Lymphocytes (%) (Auto) 15 % (24-48) Monocytes (%) (Auto) 11 % (0-9) Eosinophils (%) (Auto) 6 % (0-3) Basophils (%) (Auto) 1 % (0-3) Neutrophils # (Auto) 5.6 x10^3uL (1.8-7.7) Lymphocytes # (Auto) 1.3 x10^3/uL (1.0-4.8) Monocytes # (Auto) 0.9 x10^3/uL (0.0-1.1) Eosinophils # (Auto) 0.5 x10^3/uL (0.0-0.7) Basophils # (Auto) 0.1 x10^3/uL (0.0-0.2) Erythrocyte Sedimentation Rate 80 (0-25) Assessment Assessment right hip wound with wound VAC has right YANICK with recent head exchange Plan Plan of Care 6 weeks of IV antibiotics via PICC IV antibiotics not set up yet so can't discharge today social work to arrange home IV abx WALKER LORENZ MD Aug 03, 2018 13:44
[2018-08-03 15:00] VITALS: BP 111/59
[2018-08-03 19:00] VITALS: BP 115/70
[2018-08-03] MEDS: ALPRAZolam 1 MG TABLET PO PRN (22:12)
[2018-08-03] MEDS: CITALOPRAM 20 MG TABLET. PO SCH (22:12)
[2018-08-03 23:00] VITALS: BP 119/71
[2018-08-04] MEDS: oxyCODONE/APAP 7.5/325 1 TAB TABLET PO PRN ×3 (02:59→19:49)
[2018-08-04 03:00] VITALS: BP 131/80
[2018-08-04] MEDS: ceFAZolin SODIUM 2 GM in IV DEXTROSE 5% 50 ML IV SCH ×3 (06:19→22:16)
[2018-08-04 07:00] VITALS: BP 133/81
[2018-08-04] MEDS: CYCLOBENZAPRINE 10 MG TABLET. PO SCH ×3 (08:15→19:49)
[2018-08-04] MEDS: FERROUS SULFATE 325 MG TABLET. PO SCH ×2 (08:15→17:48)
[2018-08-04] MEDS: LACTOBACILLUS RHAMNOSUS GG 1 CAPSULE. PO SCH ×2 (08:15→19:49)
--- NOTE | 2018-08-04 08:46 | NUR ---
SW reviewed pt's medical chart and evaluation for potential dc needs. Pt is from home with family and was admitted for infection/inflammation due to internal right hip prostatic. PT recommends home health, outpatient, and home with assistance. SW will follow and be available for dc needs.
[2018-08-04] MEDS: SENNOSIDES/DOCUSATE 8.6/50MG TABLET. PO SCH (09:01)
--- NOTE | 2018-08-04 09:02 | PDOC ---
Infectious Disease Note Subjective Subjective c/o hip pain - has been ongoing for over a year, now better No F/C/S/N/V/D/SOA Vital Sign Vital Signs Vital Signs Date Time Temp Pulse Resp B/P (MAP) Pulse Ox O2 Delivery O2 Flow Rate FiO2 08/04/18 08:16 Room Air 08/04/18 03:00 98.3 118 18 131/80 (97) 98 98.3 Physical Exam PHYSICAL EXAM GENERAL: Propped up in bed, alert, drinking a coke, NAD - In chair on my arrival HEENT: Pupils equally round, reactive. Normal conjunctivae. Oral cavity, pharynx pink and moist. NECK: Supple. LUNGS: Clear to auscultation. HEART: S1, S2. ABDOMEN: Obese, soft, nontender with bowel sounds present. EXTREMITIES: No gross edema or cyanosis. Distal pulses palpable. Right hip/thigh wound VAC in place. Tender without area redness or induration. SKIN: Warm without generalized rash. NEUROLOGIC: Alert, responds appropriately. RUE-PICC (08/02) without signs of any complications. Objective Assessment 1. 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 2. Status post exploration with exchange of femoral head implant on 07/22/2018. 3. Degenerative joint disease. 4. Hypertension. Plan Plan of Care Cefazolin Wound care team following Probiotics Monitor labs/temp. Supportive care D/w RN side effects of antibiotics and picc explained, client services administrator to assist arranging for long-term abx therapy She will need minimum of 6 weeks of Cefazolin f/u our office in 2 weeks from discharge Weekly CBC, Cr, ESR faxed to [phone] DONTE DING MD Aug 04, 2018 09:02
[2018-08-04 11:00] VITALS: BP 105/66
--- NOTE | 2018-08-04 11:25 | NUR ---
SW following up with referral regarding arrange IV antibiotics as outpatient. DREW phoned and faxed referral to [facility] outpatient to arrange IV antibiotics, phone: [phone], fax: [phone]. SW will await acceptance decision and proceed accordingly.
[2018-08-04 15:00] VITALS: BP 137/75
--- NOTE | 2018-08-04 15:00 | NUR ---
Dr. Janelle Maradiaga paged to his office, outpatient is unable to do IV abx 3x daily, new dose or change in abx needed.
--- NOTE | 2018-08-04 15:54 | NUR ---
SW following up with pt dc plan. Per Kenyetta with [facility] outpatient IV antibiotics, they cannot administer IV antibiotics three times daily. This will need to be decreased to a less frequency. Rn will contact Dr to see if this is an option. If it is not an option, SW will attempt to arrange at home IV antibiotics. SW will await Rn response and proceed accordingly.
--- NOTE | 2018-08-04 17:45 | NUR ---
Wound Care patient seen per f/u of wound care consult. see wound assessment. Pt has dehisced surgical incision of distal portion of right hip replacement incision. Remaining incision is well approximated. Wound cleaned, measured and pictured and redressed with an ostomy ring, and 1 piece of silver foam placed in wound, the wound vac set at 125 mmHg continuous suction, a good seal was obtained. WC will follow up on Saturday for vac change. No other wounds noted on full skin inspection, notified ANA PAULA Thompson about the POC and wound care will continue to f/u.
[2018-08-04 19:00] VITALS: BP 153/85
--- NOTE | 2018-08-04 19:41 | PDOC ---
PROGRESS NOTES Subjective Subjective Problems overnight:Has a stuffy nose, just congestion no productive cough fever or chills, mild hip pain Objective Vital Signs Vital Signs Date Time Temp Pulse Resp B/P (MAP) Pulse Ox O2 Delivery O2 Flow Rate FiO2 08/04/18 15:00 98.4 121 18 137/75 (95) 94 Room Air 98.4 Physical Exam wound vac intact no redness warmth erythema or induration Assessment Assessment POD# [], S/P [i/d right hip] Plan Plan of Care Cont wound vac unable to coordinate timing of home abx yet d/c home with h/h cont wbat, hip precautions symptomatic tx of congestion ROSSI ARMAS MD Aug 04, 2018 19:41
[2018-08-04] MEDS: CITALOPRAM 20 MG TABLET. PO SCH (19:49)
[2018-08-04 23:00] VITALS: BP 121/71
[2018-08-05 03:00] VITALS: BP_SYST 121; BP_SYST 150; BP_DIAS 71; BP_DIAS 86
[2018-08-05] MEDS: oxyCODONE/APAP 7.5/325 1 TAB TABLET PO PRN ×2 (03:25→09:03)
[2018-08-05] MEDS: ceFAZolin SODIUM 2 GM in IV DEXTROSE 5% 50 ML IV SCH (06:08)
[2018-08-05 07:00] VITALS: BP 147/80
[2018-08-05] MEDS: LACTOBACILLUS RHAMNOSUS GG 1 CAPSULE. PO SCH ×2 (09:03→20:38)
[2018-08-05] MEDS: CYCLOBENZAPRINE 10 MG TABLET. PO SCH ×3 (09:03→20:39)
[2018-08-05] MEDS: SENNOSIDES/DOCUSATE 8.6/50MG TABLET. PO SCH (09:03)
[2018-08-05] MEDS: FERROUS SULFATE 325 MG TABLET. PO SCH ×2 (09:03→16:33)
--- NOTE | 2018-08-05 09:10 | PDOC ---
Infectious Disease Note Subjective Subjective feeling good ROS ROS no n/v/d/sob pain is better Vital Sign Vital Signs Vital Signs Date Time Temp Pulse Resp B/P (MAP) Pulse Ox O2 Delivery O2 Flow Rate FiO2 08/05/18 09:03 Room Air 08/05/18 07:00 98.1 116 16 147/80 (102 93 98.1 Physical Exam PHYSICAL EXAM GENERAL: Propped up in bed, alert, drinking a coke, NAD - In chair on my arrival HEENT: Pupils equally round, reactive. Normal conjunctivae. Oral cavity, pharynx pink and moist. NECK: Supple. LUNGS: Clear to auscultation. HEART: S1, S2. ABDOMEN: Obese, soft, nontender with bowel sounds present. EXTREMITIES: No gross edema or cyanosis. Distal pulses palpable. Right hip/thigh wound VAC in place. Tender without area redness or induration. SKIN: Warm without generalized rash. NEUROLOGIC: Alert, responds appropriately. RUE-PICC (08/02) without signs of any complications. Labs Micro ANAEROBIC-AEROBIC CULTURE Final Final report ANAEROBIC RES 1 Final Comment No anaerobic growth in 72 hours. AEROBIC CULT Final Final report AEROBIC RES 1 Final Comment Coagulase negative Staphylococcus species. 2+ Based on susceptibility to oxacillin this isolate would be susceptible to: *Penicillinase-stable penicillins, such as: Cloxacillin, Dicloxacillin, Nafcillin *Beta-lactam combination agents, such as: Amoxicillin-clavulanic acid, Ampicillin-sulbactam, Piperacillin-tazobactam *Oral cephems, such as: Cefaclor, Cefdinir, Cefpodoxime, Cefprozil, Cefuroxime, Cephalexin, Loracarbef *Parenteral cephems, such as: Cefazolin, Cefepime, Cefotaxime, Cefotetan, Ceftaroline, Ceftizoxime, Ceftriaxone, Cefuroxime *Carbapenems, such as: Doripenem, Ertapenem, Imipenem, Meropenem ANTIMICROBIAL SUSCEPTIBILITY Final Comment CONTINUED ON NEXT PAGE RUN DATE: 07/28/18 PAGE 2 RUN TIME: 1514 [facility] [address] [place] [address] Xavi Gabriel M.D., [employer] Manager SPEC: [id number] PATIENT: LJ ADAN Selwyn [id number] ( Continued) Procedure Result ANTIMICROBIAL SUSCEPTIBILITY Final (continued) S = Susceptible; I = Intermediate; R = Resistant P = Positive; N = Negative MICS are expressed in micrograms per mL Antibiotic RSLT#1 RSLT#2 RSLT#3 RSLT#4 Ciprofloxacin S<=0.5 Clindamycin S<=0.25 Erythromycin S<=0.25 Gentamicin S<=0.5 Levofloxacin S =0.25 Oxacillin S =S Penicillin R =0.25 Rifampin S<=0.5 Tetracycline S<=1 Trimethoprim/Sulfa S<=10 Vancomycin S<=0.5 GRAM STAIN Final Final report GRAM STAIN RES 1 Final Comment No white blood cells seen. GRAM STAIN RES 2 Final No organisms seen Performed at: - [facility] [address], [place], [place] [id number] Preschool Education Director: MACARIO Bee MD, Phone: [phone] Objective Assessment 1. 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 2. Status post exploration with exchange of femoral head implant on 07/22/2018. 3. Degenerative joint disease. 4. Hypertension. Plan Plan of Care Cefazolin , will change to rocephine for easier for pt's family to do at home at her request, Wound care team following Probiotics Monitor labs/temp. Supportive care D/w RN side effects of antibiotics and picc explained, failure possibility since the implant is in place discussed, may need chronic suppression later f/u our office in 2 weeks from discharge Weekly CBC, Cr, ESR faxed to [phone] DONTE DING MD Aug 05, 2018 09:09
[2018-08-05] MEDS: cefTRIAXone IV Push 2 GM VIAL. IVP SCH (10:59)
[2018-08-05 11:00] VITALS: BP 130/71
--- NOTE | 2018-08-05 11:59 | NUR ---
SS following up with discharge planning. SS phoned and faxed referral for IV antibiotics to [facility], ; fax [phone]. [facility] contacted SS and stated that pt would be responsible for $185.85/week for antibiotics and supplies until out of pocket max is met. SS met with pt and discussed. Pt agreeable to the cost. SS contacted [facility] and notified. [facility] to do bedside teach today. Pt also agreeable to home healthcare with [facility], ; fax [phone], at discharge.
[2018-08-05 15:00] VITALS: BP 117/68
--- NOTE | 2018-08-05 16:19 | PDOC ---
PROGRESS NOTES Subjective Subjective Problems overnight: very confused today, thought the year was 2016 and had some dizziness and difficulty with physical therapy. Has congestion but no productive cough and no fever Objective Vital Signs Vital Signs Date Time Temp Pulse Resp B/P (MAP) Pulse Ox O2 Delivery O2 Flow Rate FiO2 08/05/18 11:00 97.9 121 16 130/71 (90) 92 Room Air 97.9 Physical Exam Leg lengths equal mild irritation on straight leg raise good hip stability wound VAC intact no redness erythema or induration distal neurovascular status intact Assessment Assessment POD# [], S/P [exploration of right hip] Plan Plan of Care Continue mobilize with physical therapy no hip precautions necessary Patient decided she is going to go with her daughter on discharge Home IV antibiotics arranged, changed to once a day cephalosporin Plan on discharge tomorrow as long as confusion clears ROSSI ARMAS MD Aug 05, 2018 16:19
[2018-08-05 19:00] VITALS: BP 168/89
[2018-08-05] MEDS: CITALOPRAM 20 MG TABLET. PO SCH (20:39)
[2018-08-05] MEDS: ACETAMINOPHEN 325 MG TABLET. PO PRN (20:39)
[2018-08-05 23:00] VITALS: BP 134/76
[2018-08-06] MEDS: ACETAMINOPHEN 325 MG TABLET. PO PRN (02:15)
[2018-08-06 03:00] VITALS: BP 141/79
[2018-08-06 07:00] VITALS: BP 148/85
--- NOTE | 2018-08-06 08:39 | PDOC ---
Infectious Disease Note Subjective Subjective feeling good ROS ROS no n/v/d/sob Vital Sign Vital Signs Vital Signs Date Time Temp Pulse Resp B/P (MAP) Pulse Ox O2 Delivery O2 Flow Rate FiO2 08/06/18 08:00 Room Air 08/06/18 03:00 97.9 125 18 141/79 (99) 97 97.9 Physical Exam PHYSICAL EXAM GENERAL: Propped up in bed, alert, drinking a coke, NAD - In chair on my arrival HEENT: Pupils equally round, reactive. Normal conjunctivae. Oral cavity, pharynx pink and moist. NECK: Supple. LUNGS: Clear to auscultation. HEART: S1, S2. ABDOMEN: Obese, soft, nontender with bowel sounds present. EXTREMITIES: No gross edema or cyanosis. Distal pulses palpable. Right hip/thigh wound VAC in place. Tender without area redness or induration. SKIN: Warm without generalized rash. NEUROLOGIC: Alert, responds appropriately. RUE-PICC (08/02) without signs of any complications. Labs Micro ANAEROBIC-AEROBIC CULTURE Final Final report ANAEROBIC RES 1 Final Comment No anaerobic growth in 72 hours. AEROBIC CULT Final Final report AEROBIC RES 1 Final Comment Coagulase negative Staphylococcus species. 2+ Based on susceptibility to oxacillin this isolate would be susceptible to: *Penicillinase-stable penicillins, such as: Cloxacillin, Dicloxacillin, Nafcillin *Beta-lactam combination agents, such as: Amoxicillin-clavulanic acid, Ampicillin-sulbactam, Piperacillin-tazobactam *Oral cephems, such as: Cefaclor, Cefdinir, Cefpodoxime, Cefprozil, Cefuroxime, Cephalexin, Loracarbef *Parenteral cephems, such as: Cefazolin, Cefepime, Cefotaxime, Cefotetan, Ceftaroline, Ceftizoxime, Ceftriaxone, Cefuroxime *Carbapenems, such as: Doripenem, Ertapenem, Imipenem, Meropenem ANTIMICROBIAL SUSCEPTIBILITY Final Comment CONTINUED ON NEXT PAGE RUN DATE: 07/28/18 PAGE 2 RUN TIME: 1512 [facility] [address] [place] [address] Xavi Gabriel M.D., Building Drafting Officer SPEC: [id number] PATIENT: LJ ADAN [id number] ( Continued) Procedure Result ANTIMICROBIAL SUSCEPTIBILITY Final (continued) S = Susceptible; I = Intermediate; R = Resistant P = Positive; N = Negative MICS are expressed in micrograms per mL Antibiotic RSLT#1 RSLT#2 RSLT#3 RSLT#4 Ciprofloxacin S<=0.5 Clindamycin S<=0.25 Erythromycin S<=0.25 Gentamicin S<=0.5 Levofloxacin S =0.25 Oxacillin S =S Penicillin R =0.25 Rifampin S<=0.5 Tetracycline S<=1 Trimethoprim/Sulfa S<=10 Vancomycin S<=0.5 GRAM STAIN Final Final report GRAM STAIN RES 1 Final Comment No white blood cells seen. GRAM STAIN RES 2 Final No organisms seen Performed at: - [facility] [address], [place], [place] [id number] Advertising Coordinator: MACARIO Bee MD, Phone: [phone] Objective Assessment 1. 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 2. Status post exploration with exchange of femoral head implant on 07/22/2018. 3. Degenerative joint disease. 4. Hypertension. Plan Plan of Care rocephine for easier for pt's family to do at home at her request, Wound care team following Probiotics Monitor labs/temp. Supportive care D/w RN side effects of antibiotics and picc explained, failure possibility since the implant is in place discussed, may need chronic suppression later f/u our office in 2 weeks from discharge Weekly CBC, Cr, ESR faxed to [phone] DONTE DING MD Aug 06, 2018 08:39
[2018-08-06] MEDS: CYCLOBENZAPRINE 10 MG TABLET. PO SCH ×2 (09:00→14:00)
[2018-08-06 09:30] LABS: BASO % 1 % (0-3); EOS # 0.3 x10^3/uL (0.0-0.7); EOS % 4 % (0-3); HEMATOCRIT 30.7 % (36.0-47.0); HEMOGLOBIN 10.4 g/dL (12.0-15.5); LYMPH # 1.1 x10^3/uL (1.0-4.8); LYMPH % 13 % (24-48); MEAN CORPUSCULAR HEMOGLOBIN 31 pg (25-35); MEAN CORPUSCULAR HGB CONC 34 g/dL (31-37); MEAN CORPUSCULAR VOLUME 93 fL (79-100); MONO # 0.9 x10^3/uL (0.0-1.1); MONO % 11 % (0-9); NEUT # 6.1 x10^3uL (1.8-7.7); NEUT % 72 % (31-73); PLATELET COUNT 319 x10^3/uL (140-400); RED BLOOD COUNT 3.32 x10^6/uL (3.50-5.40); RED CELL DISTRIBUTION WIDTH 13.4 % (11.5-14.5); WHITE BLOOD COUNT 8.5 x10^3/uL (4.0-11.0)
[2018-08-06 09:59] LABS: CALCIUM 10.1 mg/dL (8.5-10.1); CREATININE 0.6 mg/dL (0.6-1.0); GFR 98.5; POTASSIUM 4.2 mmol/L (3.5-5.1)
[2018-08-06] MEDS: SENNOSIDES/DOCUSATE 8.6/50MG TABLET. PO SCH (10:00)
[2018-08-06] MEDS: LACTOBACILLUS RHAMNOSUS GG 1 CAPSULE. PO SCH (10:00)
[2018-08-06] MEDS: FERROUS SULFATE 325 MG TABLET. PO SCH (10:00)
[2018-08-06] MEDS: cefTRIAXone IV Push 2 GM VIAL. IVP SCH (10:01)
--- NOTE | 2018-08-06 10:42 | NUR ---
SW following, discussed with RN. SW left voicemail for [facility] to determine if any extra needs, as well as to advise of pt discharging home today. SW will continue to follow. RN notified.
--- NOTE | 2018-08-06 14:21 | NUR ---
SW following. Pt will be discharged on Rocephin, faxed script to [facility]. Pt will be responsible for $113 a week for supplies ($91) and abx ($22.26). SW met with pt, pt is in agreement and able to cover this cost. Pt has had the teaching, and will have [facility]. No further SW needs.
--- NOTE | 2018-08-06 15:21 | NUR ---
Wound Care: Pt seen for wound care follow up and NPWT dressing change. Wound cleansed, pictured and measured for plan to DC today. Periwound prepped with skin prep, one piece of black foam to wound. Good seal achieved. Pt received education regarding usage of home vac. Discussed home health dressing changes and recommend weekly clinic visits as wound continues to heal. No other open areas noted on head to toe assessment. Plan to DC today.
--- NOTE | 2018-08-06 16:06 | NUR ---
PT DISCHARGED HOME WITH HOME HEALTH AND INFUSION THERAPY. DISCHARGE INSTRUCTIONS AND PRESCRIPTIONS DISCUSSED WITH PT. SHE VERBALIZED UNDERSTANDING. PER ALL PAPERWORK IS DONE AND NURSE WILL CONTACT HER. PICC LINE LEFT IN PLACE FOR HER SKILLED NURSING ABX. ALL BELONGINGS PACKED AND TAKEN WITH THE PATIENT. PT WAS ASSISTED INTO WHEELCHAIR AND TAKEN TO MAIN ENTRANCE WHERE SHE WAS SECURED IN VEHICLE WITH SON IN LAW.
--- NOTE | 2018-08-06 23:55 | DS ---
DATE OF DISCHARGE: 08/06/2018 PRINCIPAL DIAGNOSIS: Right hip pain, concern for possible loosening or infection. PROCEDURES: Include exploration of right hip with no findings of loosening or infection intraoperatively. DISPOSITION: Home with home health. FOLLOWUP: Dr. Patricia in about 10 days. DISCHARGE INSTRUCTIONS: Weightbearing as tolerated. No hip precautions. Maintain wound VAC. Regular diet. Resume home medications including Percocet 7.5/325 one p.o. q. 6 hours p.r.n. pain, ceftriaxone daily per Infectious Disease for expected course of 6 weeks. Follow up with Infectious Disease in 2 weeks. BRIEF DESCRIPTION OF HOSPITAL COURSE: The patient underwent exploration of her right hip, which noted no evidence of loosening or any inflammatory cells noted in the synovium or intramembranous tissue on intraoperative frozen section. She was mobilized with physical therapy and was discharged from her initial hospital stay from the exploration. Postoperative cultures late grew coagulase-negative Staph and after being seen in the clinic, she was admitted to the hospital for placement of a wound VAC and some administration of IV antibiotics. She had undergone a couple of periods of confusion, which have now resolved. She is now safe in ambulation in her transfers with physical therapy and was discharged home in stable condition. ROSSI PATRICIA MD DR: ELIANA/liliya JOB#: [id number] / [id number]
== END 2018-08-06 16:00 | disposition home health service (06) | DRG 921 ==
LOC: 4 NORTH 12:04
PROVIDERS: ADMIT Orthopaedic Surgery; ATTEND Orthopaedic Surgery
PROC: 0YJ Anatomical Regions, Lower Extremities, Inspection (ICD-10-PCS; 2018-08-01)
PROC: 02HV33Z Insertion of Infusion Device into Superior Vena Cava, Percutaneous Approach (ICD-10-PCS; principal; 2018-08-02)
PROC: B5181ZA Fluoroscopy of Superior Vena Cava using Low Osmolar Contrast, Guidance (ICD-10-PCS; 2018-08-02)
DX: T81.31XA Disruption of external operation (surgical) wound, not elsewhere classified, initial encounter (principal); M19.90 Unspecified osteoarthritis, unspecified site; I10 Essential (primary) hypertension; F41.9 Anxiety disorder, unspecified; Z96.641 Presence of right artificial hip joint; F41.0 Panic disorder [episodic paroxysmal anxiety]; Z88.5 Allergy status to narcotic agent; Z91.048 Other nonmedicinal substance allergy status; Z96.652 Presence of left artificial knee joint; Z82.49 Family history of ischemic heart disease and other diseases of the circulatory system; Z82.0 Family history of epilepsy and other diseases of the nervous system; Z80.42 Family history of malignant neoplasm of prostate; Z84.89 Family history of other specified conditions
CPT/HCPCS: 36415; 36569; 71045; 71275; 80048; 80076; 83690; 83735; 83880; 84443; 84484; 85025; 85379; 85610; 85651; 85730; 90471; 90756; 93005; 93306; 93970; 96360; 96361; J0690; J0696; J7030; J7040; Q9967; 97110; 97116; 97535; 99285-25; Q2035

== ENCOUNTER 2018-08-07 10:56 | Inpatient (IN) | payer OTHER ==
[~2018-08-07] VITALS: Ht 172.7 cm; Wt 89.1 kg
[2018-08-07] MEDS ORDERED: IV NORMAL SALINE 500ML BAG 500 ML IV ONE (11:45)
[2018-08-07] MEDS ORDERED: dilTIAZem INJ 125 MG in IV DEXTROSE 5% 100ML 100 ML IV PRN (12:00)
[2018-08-07] MEDS ORDERED: dilTIAZem IV PUSH 25 MG/5 ML VIAL IVP ONE (12:00)
[2018-08-07 12:17] LABS: BASO % 1 % (0-3); EOS # 0.2 x10^3/uL (0.0-0.7); EOS % 2 % (0-3); HEMATOCRIT 28.9 % (36.0-47.0); HEMOGLOBIN 9.7 g/dL (12.0-15.5); LYMPH # 0.9 x10^3/uL (1.0-4.8); LYMPH % 9 % (24-48); MEAN CORPUSCULAR HEMOGLOBIN 31 pg (25-35); MEAN CORPUSCULAR HGB CONC 34 g/dL (31-37); MEAN CORPUSCULAR VOLUME 92 fL (79-100); MONO # 0.9 x10^3/uL (0.0-1.1); MONO % 10 % (0-9); NEUT # 7.7 x10^3uL (1.8-7.7); NEUT % 79 % (31-73); PLATELET COUNT 311 x10^3/uL (140-400); RED BLOOD COUNT 3.15 x10^6/uL (3.50-5.40); RED CELL DISTRIBUTION WIDTH 13.3 % (11.5-14.5); WHITE BLOOD COUNT 9.7 x10^3/uL (4.0-11.0)
[2018-08-07 12:26] LABS: CALCIUM 9.9 mg/dL (8.5-10.1); CREATININE 0.8 mg/dL (0.6-1.0); GFR 70.7; POTASSIUM 3.4 mmol/L (3.5-5.1)
[2018-08-07 12:30] LABS: PROTHROMBIN TIME PATIENT 14.9 SEC (11.7-14.0)
[2018-08-07 12:31] LABS: ALBUMIN 2.6 g/dL (3.4-5.0); DIRECT BILIRUBIN 0.1 mg/dL (0.0-0.2); TOTAL BILIRUBIN 0.4 mg/dL (0.2-1.0); TOTAL PROTEIN 6.8 g/dL (6.4-8.2)
--- NOTE | 2018-08-07 12:44 | RAD ---
EXAM: Chest, single view. HISTORY: Chest pain. COMPARISON: 08/02/2018. FINDINGS: A frontal view of the chest obtained. There is a right PICC with the tip in the right atrium. There is stable chronic appearing interstitial prominence. There is no consolidation, pleural effusion or pneumothorax. The heart is normal in size. IMPRESSION: Stable chronic interstitial prominence. No acute pulmonary finding. Electronically signed by: Pily Brady MD (08/07/2018 12:41 PM) [place] [id number]
--- NOTE | 2018-08-07 13:35 | EKG ---
[facility] [address] [place] [address] Test Date: 2018-08-07 Test Time: 11:11:40 Pat Name: LJ ADAN Department: Room: Gender: F Agate Setter: : 1945 Requested By: GWEN NUR Order Number: [id number] Reading MD: Sal Reyna MD Measurements Intervals [place] Rate: 132 P: -72 MT: 144 QRS: -3 QRSD: 86 T: 27 QT: 298 QTc: [address] WITH 1ST DEGREE AVB Electronically Signed On 08-12-2018 7:53:32 GRAVEL HAULER by Sal Reyna MD
--- NOTE | 2018-08-07 13:41 | EKG ---
[facility] [address] [place] [address] Test Date: 2018-08-07 Test Time: 12:07:27 Pat Name: LJ ADAN Department: Room: Gender: F Zyglo Technician: : 1945 Requested By: GWEN NUR Order Number: [id number] Reading MD: Sal Reyna MD Measurements Intervals [place] Rate: 103 P: 34 WA: 186 QRS: -8 QRSD: 78 T: 21 QT: 332 QTc: 437 Interpretive Statements SINUS TACHYCARDIA sent Electronically Signed On 08-12-2018 7:54:04 CIGAR PACKER [employer] SHADER by Sal Reyna MD
[2018-08-07] MEDS ORDERED: ONDANSETRON PF 4 MG/2 ML VIAL. IV PRN (14:45)
[2018-08-07] MEDS ORDERED: IV NORMAL SALINE 1000ML BAG 1,000 ML IV SCH (14:45)
--- NOTE | 2018-08-07 14:48 | PDOC1 ---
History and Physical Date of Admission Date of Admission DATE: 08/07/18 TIME: 14:48 Identification/Chief Complaint Chief Complaint DISCHARGED YESTERDAY 08/06 seen in er with tachycardia, chest tightness DESCRIPTION OF HOSPITAL COURSE: The patient underwent exploration of her right hip, which noted no evidence of loosening or any inflammatory cells noted in the synovium or intramembranous tissue on intraoperative frozen section. She was mobilized with physical therapy and was discharged from her initial hospital stay from the exploration. Postoperative cultures late grew coagulase- negative Staph and after being seen in the clinic, she was admitted to the hospital for placement of a wound VAC and administration of IV antibiotics. Past Medical History Past Medical History PAST MEDICAL HISTORY: Degenerative joint disease, hypertension, obesity, heartburn, liver disease, panic disorder and anxiety. PAST SURGICAL HISTORY: Right total hip arthroplasty 10/2016. Exploration of right total hip arthroplasty with exchange of femoral head implant on 07/22/2018. Left total knee arthroplasty, 06/2014. PAST SURGICAL HISTORY: Tonsillectomy, adenoidectomy, appendectomy. FAMILY HISTORY: Positive for hypertension, cardiovascular disease, autoimmune disease, Alzheimer's disease, blood disorder, prostate cancer. SOCIAL HISTORY: The patient lives with her daughter. 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 Nonsmoker. ALLERGIES: INCLUDES CODEINE AND ADHESIVE TAPE. MEDICATIONS: probiotics, Xanax, Dulcolax suppository p.r.n., Tums, Celexa, Flexeril, ferrous sulfate, ondansetron p.r.n., magnesium hydroxide p.r.n., oxycodone p.r.n., Compazine p.r.n., senna/docusate, Ambien p.r.n. Cardiovascular: Hyperlipidemia Family History Family History: Hypertension Social History Smoke: No ALCOHOL: none Drugs: None Current Medications Current Medications Current Medications Sodium Chloride 500 ml @ 500 mls/hr 1X ONCE IV Last administered on at 12:22; Start 08/07/18 at 11:45; Stop 08/07/18 at 12:44; Status DC Diltiazem HCl (Cardizem Iv Push) 10 mg 1X ONCE IVP ; Start 08/07/18 at 12:00; Stop 08/07/18 at 12:15; Status DC Diltiazem HCl 125 mg/Dextrose 125 ml @ 5 mls/hr CONT PRN IV SEE I/O RECORD; Start 08/07/18 at 12:00; Stop 08/07/18 at 12:01; Status DC Ondansetron HCl (Zofran) 4 mg PRN Q8HRS PRN IV NAUSEA/VOMITING; Start 08/07/18 at 14:45; Stop 08/08/18 at 14:44 Sodium Chloride 1,000 ml @ 100 mls/hr Q10H IV ; Start 08/07/18 at 14:45; Stop 08/07/18 at 14:46; Status DC Active Scripts Active Percocet 5-325 Mg Tablet (Oxycodone/Acetaminophen) 1 Each Tablet 1 Tab PO PRN Q4HRS PRN Reported Cyclobenzaprine Hcl 10 Mg Tablet 1 Tab PO TID Escitalopram Oxalate 20 Mg Tablet 1 Tab PO DAILY Celexa (Citalopram Hydrobromide) 40 Mg Tablet 40 Mg PO HS Proair Hfa Inhaler (Albuterol Sulfate) 8.5 Gm Hfa.aer.ad 1 Puff INH PRN Q6HRS PRN Alprazolam 1 Mg Tablet 1 Mg PO BID PRN Last dose given: 07-08-14 9:00 p.m. Next dose due: tonight Allergies Allergies: Coded Allergies: codeine (Verified Allergy, Intermediate, ITCHING, 07/22/18) adhesive (Verified Adverse Reaction, Intermediate, SKIN IRRITATION, ) ROS General: No: Chills, Night Sweats, Fatigue, Malaise, Appetite, Other PSYCHOLOGICAL ROS: YES: Anxiety; No: Behavioral Disorder, Concentration difficultie, Decreased libido, Depression, Disorientation, Hallucinations, Hostility, Irritablity, Memory difficulties, Mood Swings, Obsessive thoughts, Physical abuse, Sexual abuse, Sleep disturbances, Suicidal ideation, Other Eyes: No Blurry vision, No Decreased vision, No Double vision, No Dry eyes, No Excessive tearing, No Eye Pain, No Itchy Eyes, No Loss of vision, No Photophobia , No Scotomata, No Uses contacts, No Uses glasses, No Other HEENT: No: Heacaches, Visual Changes, Hearing change, Nasal congestion, Nasal discharge, Oral lesions, Sinus pain, Sore Throat, Epistaxis, Sneezing, Snoring, Tinnitus, Vertigo, Vocal changes, Other ALLERGY AND IMMUNOLOGY: No: Hives, Insect Bite Sensitivity, Itchy/Watery Eyes, Nasal Congestion, Post Nasal Drip, Seasonal Allergies, Other Hematological and Lymphatic: No: Bleeding Problems, Blood Clots, Blood Transfusions, Brusing, Night Sweats, Pallor, Swollen Lymph Nodes, Other ENDOCRINE: No: Breast Changes, Galactorrhea, Hair Pattern Changes, Hot Flashes , Malaise/lethargy, Mood Swings, Palpitations, Polydipsia/polyuria, Skin Changes , Temperature Intolerance, Unexpected Weight Changes, Other Breast: No New/Changing Breast Lumps, No Nipple changes, No Nipple discharge, No Other Respiratory: No: Cough, Hemoptysis, Orthopnea, Pleuritic Pain, Shortness of breath, SOB with excertion, Sputum Changes, Stridor, Tachypnea, Wheezing, Other Cardiovascular: yes Palpitations Gastrointestinal: No Nausea, No Vomiting, No Abdominal Pain, No Diarrhea, No Constipation, No Melena, No Hematochezia, No Other Genitourinary: No Dysuria, No Frequency, No Incontinence, No Hematuria, No Retention, No Discharge, No Urgency, No Pain, No Flank Pain, No Other, No , No , No , No , No , No , No Musculoskeletal: Yes Gait Disturbance, Yes Joint Stiffness Neurological: Yes Gait Disturbance; No Behavorial Changes, No Bowel/Bladder ControlChng, No Confusion, No Dizziness, No Headaches, No Impaired Coord/balance, No Memory Loss, No Numbness/ Tingling, No Seizures, No Speech Problems, No Tremors, No Visual Changes, No Weakness, No Other Skin: No Dry Skin, No Eczema, No Hair Changes, No Lumps, No Mole Changes, No Mottling, No Nail Changes, No Pruritus, No Rash, No Skin Lesion Changes, No Other, No Acne Physical Exam Physical Exam HEENT: Pupils equally round, reactive. Normal conjunctivae. Oral cavity, pharynx pink and moist. NECK: Supple. LUNGS: Clear to auscultation. HEART: S1, S2. ABDOMEN: Obese, soft, nontender with bowel sounds present. EXTREMITIES: No gross edema or cyanosis. Distal pulses palpable. Right hip/thigh wound VAC in place. Tender without area redness or induration. SKIN: Warm without generalized rash. NEUROLOGIC: Alert, responds appropriately. [facility] (08/02) without signs of any complications. General: Alert, Oriented X3, Cooperative, mild distress HEENT: Atraumatic, PERRLA, EOMI, Mucous membr. moist/pink Lungs: Clear to auscultation, Normal air movement Heart: S1S2, RRR, no gallops Breasts: Not examined Abdomen: Normal bowel sounds, Soft Rectal Exam: not examined PELVIC: Examination not indicated Extremities: No cyanosis Skin: Other (dressing right upper leg dry right PICC INTACT) Neuro: Normal speech, Cranial nerves 3-12 NL Psych/Mental Status: Mental status NL, Mood NL Vitals Vitals Vital Signs Date Time Temp Pulse Resp B/P (MAP) Pulse Ox O2 Delivery O2 Flow Rate FiO2 08/07/18 14:11 102 20 98 08/07/18 11:05 98.3 159/92 (114) Room Air 98.3 Labs Labs Laboratory Tests Test 08/07/18 12:05 White Blood Count 9.7 x10^3/uL (4.0-11.0) Red Blood Count 3.15 x10^6/uL (3.50-5.40) Hemoglobin 9.7 g/dL (12.0-15.5) Hematocrit 28.9 % (36.0-47.0) Mean Corpuscular Volume 92 fL (79-100) Mean Corpuscular Hemoglobin 31 pg (25-35) Mean Corpuscular Hemoglobin Concent 34 g/dL (31-37) Red Cell Distribution Width 13.3 % (11.5-14.5) Platelet Count 311 x10^3/uL (140-400) Neutrophils (%) (Auto) 79 % (31-73) Lymphocytes (%) (Auto) 9 % (24-48) Monocytes (%) (Auto) 10 % (0-9) Eosinophils (%) (Auto) 2 % (0-3) Basophils (%) (Auto) 1 % (0-3) Neutrophils # (Auto) 7.7 x10^3uL (1.8-7.7) Lymphocytes # (Auto) 0.9 x10^3/uL (1.0-4.8) Monocytes # (Auto) 0.9 x10^3/uL (0.0-1.1) Eosinophils # (Auto) 0.2 x10^3/uL (0.0-0.7) Basophils # (Auto) 0.0 x10^3/uL (0.0-0.2) Prothrombin Time 14.9 SEC (11.7-14.0) Prothromb Time International Ratio 1.2 (0.8-1.1) Activated Partial Thromboplast Time 40 SEC (24-38) Sodium Level 139 mmol/L (136-145) Potassium Level 3.4 mmol/L (3.5-5.1) Chloride Level 101 mmol/L (98-107) Carbon Dioxide Level 27 mmol/L (21-32) Anion Gap 11 (6-14) Blood Urea Nitrogen 10 mg/dL (7-20) Creatinine 0.8 mg/dL (0.6-1.0) Estimated GFR (Cockcroft-Gault) 70.7 Glucose Level 110 mg/dL (70-99) Calcium Level 9.9 mg/dL (8.5-10.1) Total Bilirubin 0.4 mg/dL (0.2-1.0) Direct Bilirubin 0.1 mg/dL (0.0-0.2) Aspartate Amino Transf (AST/SGOT) 14 U/L (15-37) Alanine Aminotransferase (ALT/SGPT) 8 U/L (14-59) Alkaline Phosphatase 107 U/L (46-116) Troponin I Quantitative < 0.017 ng/mL (0.000-0.055) BE-Sap-V-Type Natriuretic Peptide 151 pg/mL (0-124) Total Protein 6.8 g/dL (6.4-8.2) Albumin 2.6 g/dL (3.4-5.0) Lipase 60 U/L (73-393) Laboratory Tests Test 08/07/18 12:05 White Blood Count 9.7 x10^3/uL (4.0-11.0) Red Blood Count 3.15 x10^6/uL (3.50-5.40) Hemoglobin 9.7 g/dL (12.0-15.5) Hematocrit 28.9 % (36.0-47.0) Mean Corpuscular Volume 92 fL (79-100) Mean Corpuscular Hemoglobin 31 pg (25-35) Mean Corpuscular Hemoglobin Concent 34 g/dL (31-37) Red Cell Distribution Width 13.3 % (11.5-14.5) Platelet Count 311 x10^3/uL (140-400) Neutrophils (%) (Auto) 79 % (31-73) Lymphocytes (%) (Auto) 9 % (24-48) Monocytes (%) (Auto) 10 % (0-9) Eosinophils (%) (Auto) 2 % (0-3) Basophils (%) (Auto) 1 % (0-3) Neutrophils # (Auto) 7.7 x10^3uL (1.8-7.7) Lymphocytes # (Auto) 0.9 x10^3/uL (1.0-4.8) Monocytes # (Auto) 0.9 x10^3/uL (0.0-1.1) Eosinophils # (Auto) 0.2 x10^3/uL (0.0-0.7) Basophils # (Auto) 0.0 x10^3/uL (0.0-0.2) Prothrombin Time 14.9 SEC (11.7-14.0) Prothromb Time International Ratio 1.2 (0.8-1.1) Activated Partial Thromboplast Time 40 SEC (24-38) Sodium Level 139 mmol/L (136-145) Potassium Level 3.4 mmol/L (3.5-5.1) Chloride Level 101 mmol/L (98-107) Carbon Dioxide Level 27 mmol/L (21-32) Anion Gap 11 (6-14) Blood Urea Nitrogen 10 mg/dL (7-20) Creatinine 0.8 mg/dL (0.6-1.0) Estimated GFR (Cockcroft-Gault) 70.7 Glucose Level 110 mg/dL (70-99) Calcium Level 9.9 mg/dL (8.5-10.1) Total Bilirubin 0.4 mg/dL (0.2-1.0) Direct Bilirubin 0.1 mg/dL (0.0-0.2) Aspartate Amino Transf (AST/SGOT) 14 U/L (15-37) Alanine Aminotransferase (ALT/SGPT) 8 U/L (14-59) Alkaline Phosphatase 107 U/L (46-116) Troponin I Quantitative < 0.017 ng/mL (0.000-0.055) MY-Cbq-S-Type Natriuretic Peptide 151 pg/mL (0-124) Total Protein 6.8 g/dL (6.4-8.2) Albumin 2.6 g/dL (3.4-5.0) Lipase 60 U/L (73-393) Images Images EXAM: Chest, single view. HISTORY: Chest pain. COMPARISON: 08/02/2018. FINDINGS: A frontal view of the chest obtained. There is a right PICC with the tip in the right atrium. There is stable chronic appearing interstitial prominence. There is no consolidation, pleural effusion or pneumothorax. The heart is normal in size. IMPRESSION: Stable chronic interstitial prominence. No acute pulmonary finding. Electronically signed by: Pily Connor MD (08/07/2018 12:41 PM) [place] [id number] DICTATED and SIGNED BY: PILY CONNOR MD DATE: 08/07/18 1240 PROCEDURE: ARTHROCENT MJR JT ASP/INJ RT Fluoroscopic right hip arthrocentesis 07/08/2018 CLINICAL INDICATION: Right hip pain. Evaluate for infection. COMPARISON: Bone scan 06/23/2018 Findings/technique: Total fluoroscopy time: 0.8 minutes Total fluoroscopic spot images: 1 Procedure was discussed with the patient including benefits and risks, which included, but were not limited to bleeding, infection, and damage to adjacent structures. Patient wished to proceed and signed written informed consent. Patient was placed supine on the fluoroscopic table. Preprocedural fluoroscopy demonstrated a total right hip arthroplasty. The overlying skin was marked, prepped and draped in the usual sterile fashion. A small amount of 1 percent lidocaine was used for local anesthesia. Under intermittent fluoroscopy, a 22-gauge spinal needle was fluoroscopically advanced to the arthroplasty lateral femoral head and neck junction. There is immediate return of 2 mL of cloudy fluid. The sample was sent to the lab for analysis. All instrumentation was removed. Patient tolerated the procedure well and left the department in stable condition. IMPRESSION: Technically successful right hip aspiration yielding 2 mL of cloudy fluid. Electronically signed by: Amanda Ashraf MD (07/08/2018 3:59 PM) [facility] DICTATED and SIGNED BY: AMANDA ASHRAF MD DATE: 07/08/18 1555 VTE Prophylaxis Ordered VTE Prophylaxis Devices: Yes VTE Pharmacological Prophylaxi: Yes Assessment/Plan Assessment/Plan IMPRESSION: 1. 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 2. Status post exploration with exchange of femoral head implant on 07/22/2018. 3. Degenerative joint disease. 4. Hypertension. 5. SVT vs a-fib 6. Multilevel degenerative change within the lumbar spine, described in detail above. These findings have slightly progressed at the L5-S1 level compared to the prior study. 7. Grade 1 anterolisthesis of L4 and L5 and L5 and S1 and mild lumbar hyperlordosis. 8. Multiple uterine fibroids, 9. possible sepsis PLAN ADMIT ID CONSULT CARDIOLOGY CONSULT consult ortho blood cult iv antibiotics dvt prophylaxis ECHO PAULY العراقي MD Aug 07, 2018 14:48
--- NOTE | 2018-08-07 14:52 | PHYS DOC ---
Past Medical History Past Medical History: Hypertension, Migraines Additional Past Medical Histor: OA Past Surgical History: Appendectomy, Hip Replacement, Tonsillectomy, Other Additional Past Surgical Histo: R TOTAL HIP 10/2016, LEFT KNEE, LIVER CYST Alcohol Use: Rarely Drug Use: None Adult General Chief Complaint Chief Complaint: HYPERTENSION HPI HPI 72-year-old female presenting to the emergency department today with elevated blood pressure heart rate at home. She recently had a exploration of right total hip arthroplasty with exchange of the femoral head on July 22 of this YEAR by Dr. Patricia. Onset today. Location generalized. Duration constant. No alleviating factors. She does have pain in the right hip that is not new. She describes it as a constant nonradiating mild to moderate pain. Review of systems is negative for chest pain fevers chills abdominal pain nausea vomiting. All other review of systems is negative unless otherwise noted in history of present illness. ED course: Upon arrival the patient's heart rate was approximately 132. She was in no distress with a mildly elevated blood pressure. Blood counts show a hemoglobin of 9.7 which is mildly down from 10.4. White blood cell count is within normal limits. Chemistry panel shows mildly low potassium. Otherwise unremarkable. Initially I had ordered diltiazem for the patient given what appeared to be A. fib with RVR however after IV fluids the patient's monitor showed spontaneous conversion to sinus tachycardia. We will give the patient IV antibiotics and admit her for telemetry monitoring. Dr. Cannon will be the primary admitting physician the hospitalist. I spoke with Dr. Patricia who knows about the patient and will consult. We will also consult infectious disease and cardiology. Basic bridge orders placed Review of Systems Review of Systems SEE ABOVE. Current Medications Current Medications Current Medications Medications (Trade) Dose Ordered Sig/Aliyah Start Time Stop Time Status Last Admin Dose Admin Diltiazem HCl (Cardizem Iv Push) 10 mg 1X ONCE 08/07/18 12:00 08/07/18 12:15 DC Diltiazem HCl 125 mg/Dextrose 125 ml @ 5 mls/hr CONT PRN 08/07/18 12:00 08/07/18 12:01 DC Ondansetron HCl (Zofran) 4 mg PRN Q8HRS PRN 08/07/18 14:45 08/08/18 14:44 Sodium Chloride 1,000 ml @ 100 mls/hr Q10H 08/07/18 14:45 08/07/18 14:46 Allergies Allergies Allergies Coded Allergies Type Severity Reaction Last Updated Verified codeine Allergy Intermediate ITCHING 07/22/18 Yes adhesive Adverse Reaction Intermediate SKIN IRRITATION 07/22/18 Yes Physical Exam Physical Exam SEE ABOVE Constitutional: Well developed, well nourished, no acute distress, non-toxic appearance. HENT: Normocephalic, atraumatic, bilateral external ears normal, oropharynx moist, no oral exudates, nose normal. [] Eyes: PERRLA, EOMI, conjunctiva normal, no discharge. Neck: Normal range of motion, no tenderness, supple, no stridor. [] Cardiovascular:Heart rate regular rhythm, no murmur Lungs & Thorax: Bilateral breath sounds clear to auscultation [] Abdomen: Bowel sounds normal, soft, no tenderness, no masses, no pulsatile masses. [] Skin: Warm, dry, no erythema, no rash. [] Back: No tenderness, no CVA tenderness. [] Extremities: The patient's right postsurgical wound is clean dry and intact with minimal drainage. Patient neurovascularly intact distally. Otherwise extremities are unremarkable. No rash. Neurologic: Alert and oriented X 3, normal motor function, normal sensory function, no focal deficits noted. [] Psychologic: Affect normal, judgement normal, mood normal. [] Current Patient Data Vital Signs Vital Signs Date Time Temp Pulse Resp B/P (MAP) Pulse Ox O2 Delivery O2 Flow Rate FiO2 08/07/18 14:11 102 20 98 08/07/18 11:05 98.3 159/92 (114) Room Air 98.3 Lab Values Laboratory Tests Test 08/07/18 12:05 White Blood Count 9.7 x10^3/uL (4.0-11.0) Red Blood Count 3.15 x10^6/uL (3.50-5.40) L Hemoglobin 9.7 g/dL (12.0-15.5) L Hematocrit 28.9 % (36.0-47.0) L Mean Corpuscular Volume 92 fL (79-100) Mean Corpuscular Hemoglobin 31 pg (25-35) Mean Corpuscular Hemoglobin Concent 34 g/dL (31-37) Red Cell Distribution Width 13.3 % (11.5-14.5) Platelet Count 311 x10^3/uL (140-400) Neutrophils (%) (Auto) 79 % (31-73) H Lymphocytes (%) (Auto) 9 % (24-48) L Monocytes (%) (Auto) 10 % (0-9) H Eosinophils (%) (Auto) 2 % (0-3) Basophils (%) (Auto) 1 % (0-3) Neutrophils # (Auto) 7.7 x10^3uL (1.8-7.7) Lymphocytes # (Auto) 0.9 x10^3/uL (1.0-4.8) L Monocytes # (Auto) 0.9 x10^3/uL (0.0-1.1) Eosinophils # (Auto) 0.2 x10^3/uL (0.0-0.7) Basophils # (Auto) 0.0 x10^3/uL (0.0-0.2) Prothrombin Time 14.9 SEC (11.7-14.0) H Prothrombin Time INR 1.2 (0.8-1.1) H PTT 40 SEC (24-38) H Sodium Level 139 mmol/L (136-145) Potassium Level 3.4 mmol/L (3.5-5.1) L Chloride Level 101 mmol/L (98-107) Carbon Dioxide Level 27 mmol/L (21-32) Anion Gap 11 (6-14) Blood Urea Nitrogen 10 mg/dL (7-20) Creatinine 0.8 mg/dL (0.6-1.0) Estimated GFR (Cockcroft-Gault) 70.7 Glucose Level 110 mg/dL (70-99) H Calcium Level 9.9 mg/dL (8.5-10.1) Total Bilirubin 0.4 mg/dL (0.2-1.0) Direct Bilirubin 0.1 mg/dL (0.0-0.2) Aspartate Amino Transferase (AST) 14 U/L (15-37) L Alanine Aminotransferase (ALT) 8 U/L (14-59) L Alkaline Phosphatase 107 U/L (46-116) Troponin I Quantitative < 0.017 ng/mL (0.000-0.055) BU-Qmt-M-Type Natriuretic Peptide 151 pg/mL (0-124) H Total Protein 6.8 g/dL (6.4-8.2) Albumin 2.6 g/dL (3.4-5.0) L Lipase 60 U/L (73-393) L Laboratory Tests 08/07/18 12:05 Laboratory Tests 08/07/18 12:05 EKG EKG [] Radiology/Procedures Radiology/Procedures [] Course & Med Decision Making Course & Med Decision Making Pertinent Labs and Imaging studies reviewed. (See chart for details) [] Dragon Disclaimer Dragon Disclaimer This electronic medical record was generated, in whole or in part, using a voice recognition dictation system. Departure Departure Impression: Primary Impression: Atrial fibrillation with RVR Additional Impressions: Tachycardia Elevated blood pressure reading Disposition: ADMITTED INPATIENT Admitting Physician: Morro Leger Condition: STABLE Referrals: ANA PAULA MALONE PA-C (PCP) Problem Qualifiers GWEN NUR MD Aug 07, 2018 14:52
[2018-08-07] MEDS ORDERED: ALBUTEROL SULFATE 2.5 MG/3 ML NEBU. INH PRN (15:00)
[2018-08-07 16:15] VITALS: BP 153/75
[2018-08-07] MEDS: oxyCODONE/APAP 5/325 1 TAB TABLET PO PRN ×2 (18:33→22:20)
[2018-08-07 19:06] VITALS: BP 139/65
--- NOTE | 2018-08-07 19:42 | NUR ---
1630 adm from ER to [facility] 210 dizzy,? hyptn, tachycardia. Home 24H ago after wound vac to R anterior leg post hip repair 1-2 years ago. Ongoing problem so wound vac placed. ? problem yesterday w vac after patient disconnected. Unable to replace/recharge. Informed to and removed vac w wet to dry placement by patient .Informed home health would see her in am to replace vac. Above problems started so was admitted to C. Rapid rate abated 40-60 min after adm to unit. PO pain med x1 after dressing changed and new wet-dry drsg placed w Tegaderm Cover. IVF started/ antibiotic per order. POC covered w questions answered as needed.
[2018-08-07] MEDS: CITALOPRAM 20 MG TABLET. PO SCH (21:14)
[2018-08-07] MEDS: CYCLOBENZAPRINE 10 MG TABLET. PO SCH (21:14)
[2018-08-07] MEDS: ALPRAZolam 1 MG TABLET PO PRN (22:20)
[2018-08-07 22:58] VITALS: BP 133/63
[2018-08-08 03:26] VITALS: BP 128/70
[2018-08-08] MEDS: oxyCODONE/APAP 5/325 1 TAB TABLET PO PRN ×3 (03:39→16:08)
[2018-08-08 04:01] LABS: BASO # 0.1 x10^3/uL (0.0-0.2); BASO % 1 % (0-3); EOS # 0.5 x10^3/uL (0.0-0.7); EOS % 7 % (0-3); HEMATOCRIT 26.8 % (36.0-47.0); LYMPH # 1.1 x10^3/uL (1.0-4.8); LYMPH % 17 % (24-48); MEAN CORPUSCULAR HEMOGLOBIN 31 pg (25-35); MEAN CORPUSCULAR HGB CONC 34 g/dL (31-37); MEAN CORPUSCULAR VOLUME 93 fL (79-100); MONO # 0.9 x10^3/uL (0.0-1.1); MONO % 14 % (0-9); NEUT # 4.1 x10^3uL (1.8-7.7); NEUT % 62 % (31-73); PLATELET COUNT 293 x10^3/uL (140-400); RED CELL DISTRIBUTION WIDTH 13.5 % (11.5-14.5); WHITE BLOOD COUNT 6.6 x10^3/uL (4.0-11.0)
[2018-08-08 04:14] LABS: CALCIUM 9.5 mg/dL (8.5-10.1); CREATININE 0.7 mg/dL (0.6-1.0); GFR 82.5; POTASSIUM 3.4 mmol/L (3.5-5.1)
--- NOTE | 2018-08-08 08:21 | PDOC ---
Infectious Disease Note Subjective Subjective pt is back with elevated heart rate, a fib with RVR now feeling good ROS ROS no n/v/d/sob/fever Vital Sign Vital Signs Vital Signs Date Time Temp Pulse Resp B/P (MAP) Pulse Ox O2 Delivery O2 Flow Rate FiO2 08/08/18 04:39 14 96 Room Air 08/08/18 03:26 98.3 77 128/70 (89) 98.3 Physical Exam PHYSICAL EXAM GENERAL: Propped up in bed, alert, drinking a coke, NAD - In chair on my arrival HEENT: Pupils equally round, reactive. Normal conjunctivae. Oral cavity, pharynx pink and moist. NECK: Supple. LUNGS: Clear to auscultation. HEART: S1, S2. ABDOMEN: Obese, soft, nontender with bowel sounds present. EXTREMITIES: No gross edema or cyanosis. Distal pulses palpable. Right hip/thigh wound VAC in place. Tender without area redness or induration. SKIN: Warm without generalized rash. NEUROLOGIC: Alert, responds appropriately. RUE-PICC (08/02) without signs of any complications Labs Lab Laboratory Tests Test 08/07/18 12:05 08/08/18 03:30 White Blood Count 9.7 x10^3/uL (4.0-11.0) 6.6 x10^3/uL (4.0-11.0) Red Blood Count 3.15 x10^6/uL (3.50-5.40) 2.90 x10^6/uL (3.50-5.40) Hemoglobin 9.7 g/dL (12.0-15.5) 9.0 g/dL (12.0-15.5) Hematocrit 28.9 % (36.0-47.0) 26.8 % (36.0-47.0) Mean Corpuscular Volume 92 fL (79-100) 93 fL (79-100) Mean Corpuscular Hemoglobin 31 pg (25-35) 31 pg (25-35) Mean Corpuscular Hemoglobin Concent 34 g/dL (31-37) 34 g/dL (31-37) Red Cell Distribution Width 13.3 % (11.5-14.5) 13.5 % (11.5-14.5) Platelet Count 311 x10^3/uL (140-400) 293 x10^3/uL (140-400) Neutrophils (%) (Auto) 79 % (31-73) 62 % (31-73) Lymphocytes (%) (Auto) 9 % (24-48) 17 % (24-48) Monocytes (%) (Auto) 10 % (0-9) 14 % (0-9) Eosinophils (%) (Auto) 2 % (0-3) 7 % (0-3) Basophils (%) (Auto) 1 % (0-3) 1 % (0-3) Neutrophils # (Auto) 7.7 x10^3uL (1.8-7.7) 4.1 x10^3uL (1.8-7.7) Lymphocytes # (Auto) 0.9 x10^3/uL (1.0-4.8) 1.1 x10^3/uL (1.0-4.8) Monocytes # (Auto) 0.9 x10^3/uL (0.0-1.1) 0.9 x10^3/uL (0.0-1.1) Eosinophils # (Auto) 0.2 x10^3/uL (0.0-0.7) 0.5 x10^3/uL (0.0-0.7) Basophils # (Auto) 0.0 x10^3/uL (0.0-0.2) 0.1 x10^3/uL (0.0-0.2) Prothrombin Time 14.9 SEC (11.7-14.0) Prothromb Time International Ratio 1.2 (0.8-1.1) Activated Partial Thromboplast Time 40 SEC (24-38) Sodium Level 139 mmol/L (136-145) 143 mmol/L (136-145) Potassium Level 3.4 mmol/L (3.5-5.1) 3.4 mmol/L (3.5-5.1) Chloride Level 101 mmol/L (98-107) 106 mmol/L (98-107) Carbon Dioxide Level 27 mmol/L (21-32) 28 mmol/L (21-32) Anion Gap 11 (6-14) 9 (6-14) Blood Urea Nitrogen 10 mg/dL (7-20) 6 mg/dL (7-20) Creatinine 0.8 mg/dL (0.6-1.0) 0.7 mg/dL (0.6-1.0) Estimated GFR (Cockcroft-Gault) 70.7 82.5 Glucose Level 110 mg/dL (70-99) 111 mg/dL (70-99) Calcium Level 9.9 mg/dL (8.5-10.1) 9.5 mg/dL (8.5-10.1) Total Bilirubin 0.4 mg/dL (0.2-1.0) Direct Bilirubin 0.1 mg/dL (0.0-0.2) Aspartate Amino Transf (AST/SGOT) 14 U/L (15-37) Alanine Aminotransferase (ALT/SGPT) 8 U/L (14-59) Alkaline Phosphatase 107 U/L (46-116) Troponin I Quantitative < 0.017 ng/mL (0.000-0.055) UA-Zit-F-Type Natriuretic Peptide 151 pg/mL (0-124) Total Protein 6.8 g/dL (6.4-8.2) Albumin 2.6 g/dL (3.4-5.0) Lipase 60 U/L (73-393) Objective Assessment 1. 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 2. Status post exploration with exchange of femoral head implant on 07/22/2018. 3. Degenerative joint disease. 4. Hypertension. 5. A fib with RVR Plan Plan of Care cont rocephine cont wound vac DONTE DING MD Aug 08, 2018 08:20
[2018-08-08] MEDS ORDERED: NON FORMULARY ITEM (Escitalopram Oxalate 1 TAB) PO SCH (09:00)
[2018-08-08 09:30] VITALS: BP 112/56
[2018-08-08] MEDS: CYCLOBENZAPRINE 10 MG TABLET. PO SCH ×3 (09:41→20:25)
--- NOTE | 2018-08-08 10:16 | PDOC2 ---
CARDIAC CONSULT DATE OF CONSULT Date of Consult DATE: 08/08/18 TIME: 10:09 REASON FOR CONSULT Reason for Consult: Tachycardia REFERRING PHYSICIAN Referring Physician: Jose SOURCE Source: Chart review, Patient HISTORY OF PRESENT ILLNESS HISTORY OF PRESENT ILLNESS This is a pleasant 72 yo female admitted for complains of fast heart rate and right hip infection. She is being treated as an outpt with antibiotics via PICC line. She has been getting home health with previous right hip femoral head replacement from previous RTHA. she is not on any anticoagulation and her mobility has been limited via cane or walker due to her hip surgery and weakness. She does have some mild ELAINE accdg to her description and also has some sharp pain to her right calf. No falls or any recent injury. Denies any chest pain or palpitations. No dizziness or passing out or any hx of CAD or any arrhythmias or VTE. She was told to come to the hospital after visit from home health noting her at 180 in her HR. Denies having AFIB in the past but her brother and sister have it. PAST MEDICAL HISTORY Cardiovascular: HTN Pulmonary: No pertinent hx CENTRAL NERVOUS SYSTEM: Other (No pertinent history) GI: GERD Heme/Onc: Anemia NOS Hepatobiliary: Other (liver cyst) Psych: Anxiety Musculoskeletal: Osteoarthritis Rheumatologic: No pertinent hx Infectious disease: Other (right hip infection) ENT: No pertinent hx Renal/: No pertinent hx Endocrine: No pertinent hx Dermatology: No pertinent hx PAST SURGICAL HISTORY Past Surgical History: Appendectomy, Total hip replacement (right and left and recent femoral head exchange 07/29/2018), Tonsillectomy, Other FAMILY HISTORY Family History: Heart Disease SOCIAL HISTORY Smoke: No ALCOHOL: none Lives: with Family CURRENT MEDICATIONS CURRENT MEDICATIONS Current Medications Medications (Trade) Dose Ordered Sig/Aliyah Route PRN Reason Start Time Stop Time Status Last Admin Dose Admin Sodium Chloride 500 ml @ 500 mls/hr 1X ONCE IV 08/07/18 11:45 08/07/18 12:44 DC 08/07/18 12:22 Sodium Chloride 1,000 ml @ 100 mls/hr Q10H IV 08/07/18 14:45 08/07/18 14:46 DC 08/07/18 14:45 Alprazolam (Xanax) 1 mg PRN BID PRN PO ANXIETY / AGITATION 08/07/18 15:00 08/07/18 22:20 Cyclobenzaprine HCl (Flexeril) 10 mg TID PO 08/07/18 21:00 08/08/18 09:41 Oxycodone/ Acetaminophen (Percocet 5/325) 1 tab PRN Q4HRS PRN PO PAIN 08/07/18 15:00 08/08/18 09:40 Citalopram Hydrobromide (CeleXA) 40 mg QHS PO 08/07/18 21:00 08/07/18 21:14 Cefazolin Sodium/ Dextrose 50 ml @ 100 mls/hr Q8HRS IV 08/07/18 18:00 08/08/18 05:52 ALLERGIES ALLERGIES: Coded Allergies: codeine (Verified Allergy, Intermediate, ITCHING, 07/22/18) adhesive (Verified Adverse Reaction, Intermediate, SKIN IRRITATION, ) ROS Review of System 14 point ROS evaluated with pertinent positives noted per HPI PHYSICAL EXAM General: Alert, Oriented X3, Cooperative, No acute distress HEENT: Atraumatic, Mucous membr. moist/pink Heart: Regular rate (SR), Normal S1, Normal S2, Other (3/6 systolic murmur to SEBASTIEN and LLS border) Abdomen: Soft, No tenderness Extremities: No cyanosis, Other (trace LE edema) Skin: No significant lesion, Other (right hip surgical incision with D/I dressing) Neuro: Normal speech, Sensation intact Psych/Mental Status: Mental status NL, Mood NL MUSCULOSKELETAL: Osteoarthritic changes both hands VITALS VITALS Vital Signs Date Time Temp Pulse Resp B/P (MAP) Pulse Ox O2 Delivery O2 Flow Rate FiO2 08/08/18 09:40 91 Room Air 08/08/18 04:39 14 08/08/18 03:26 98.3 77 128/70 (89) 98.3 LABS Lab: Laboratory Tests Test 08/07/18 12:05 08/08/18 03:30 White Blood Count 9.7 x10^3/uL (4.0-11.0) 6.6 x10^3/uL (4.0-11.0) Red Blood Count 3.15 x10^6/uL (3.50-5.40) 2.90 x10^6/uL (3.50-5.40) Hemoglobin 9.7 g/dL (12.0-15.5) 9.0 g/dL (12.0-15.5) Hematocrit 28.9 % (36.0-47.0) 26.8 % (36.0-47.0) Mean Corpuscular Volume 92 fL (79-100) 93 fL (79-100) Mean Corpuscular Hemoglobin 31 pg (25-35) 31 pg (25-35) Mean Corpuscular Hemoglobin Concent 34 g/dL (31-37) 34 g/dL (31-37) Red Cell Distribution Width 13.3 % (11.5-14.5) 13.5 % (11.5-14.5) Platelet Count 311 x10^3/uL (140-400) 293 x10^3/uL (140-400) Neutrophils (%) (Auto) 79 % (31-73) 62 % (31-73) Lymphocytes (%) (Auto) 9 % (24-48) 17 % (24-48) Monocytes (%) (Auto) 10 % (0-9) 14 % (0-9) Eosinophils (%) (Auto) 2 % (0-3) 7 % (0-3) Basophils (%) (Auto) 1 % (0-3) 1 % (0-3) Neutrophils # (Auto) 7.7 x10^3uL (1.8-7.7) 4.1 x10^3uL (1.8-7.7) Lymphocytes # (Auto) 0.9 x10^3/uL (1.0-4.8) 1.1 x10^3/uL (1.0-4.8) Monocytes # (Auto) 0.9 x10^3/uL (0.0-1.1) 0.9 x10^3/uL (0.0-1.1) Eosinophils # (Auto) 0.2 x10^3/uL (0.0-0.7) 0.5 x10^3/uL (0.0-0.7) Basophils # (Auto) 0.0 x10^3/uL (0.0-0.2) 0.1 x10^3/uL (0.0-0.2) Prothrombin Time 14.9 SEC (11.7-14.0) Prothromb Time International Ratio 1.2 (0.8-1.1) Activated Partial Thromboplast Time 40 SEC (24-38) Sodium Level 139 mmol/L (136-145) 143 mmol/L (136-145) Potassium Level 3.4 mmol/L (3.5-5.1) 3.4 mmol/L (3.5-5.1) Chloride Level 101 mmol/L (98-107) 106 mmol/L (98-107) Carbon Dioxide Level 27 mmol/L (21-32) 28 mmol/L (21-32) Anion Gap 11 (6-14) 9 (6-14) Blood Urea Nitrogen 10 mg/dL (7-20) 6 mg/dL (7-20) Creatinine 0.8 mg/dL (0.6-1.0) 0.7 mg/dL (0.6-1.0) Estimated GFR (Cockcroft-Gault) 70.7 82.5 Glucose Level 110 mg/dL (70-99) 111 mg/dL (70-99) Calcium Level 9.9 mg/dL (8.5-10.1) 9.5 mg/dL (8.5-10.1) Total Bilirubin 0.4 mg/dL (0.2-1.0) Direct Bilirubin 0.1 mg/dL (0.0-0.2) Aspartate Amino Transf (AST/SGOT) 14 U/L (15-37) Alanine Aminotransferase (ALT/SGPT) 8 U/L (14-59) Alkaline Phosphatase 107 U/L (46-116) Troponin I Quantitative < 0.017 ng/mL (0.000-0.055) QL-Djz-G-Type Natriuretic Peptide 151 pg/mL (0-124) Total Protein 6.8 g/dL (6.4-8.2) Albumin 2.6 g/dL (3.4-5.0) Lipase 60 U/L (73-393) Magnesium Level 2.3 mg/dL (1.8-2.4) Thyroid Stimulating Hormone (TSH) 1.404 uIU/mL (0.358-3.74) ASSESSMENT/PLAN ASSESSMENT/PLAN 1. Arrhythmia: suspect new onset PAFIB. presently SR 2. Mild ELAINE with RLE pain 3. Prior RTHA 2017 with recent femoral head exchange and infection: Cx+Staph ID/ ortho following 4. Chronic normocytic anemia 5. Family hx of AFIB: brother and sister Recommendations 1. Venous doppler to LE. TTE 2. DDIMER and if + then CTA chest 3. Will start low dose metoprolol TYREE COREAS APRN Aug 08, 2018 10:16
--- NOTE | 2018-08-08 10:59 | NUR ---
SS following for discharge planning. SS reviewed pt chart. Pt is from home with daughter and was recently discharge from [facility]. Pt was on services at home for IV antibiotics with [place], wound vac, and [facility], ; fax [phone]. PT/OT ordered. Pt may need intermediate unit at discharge. SS will await PT/OT evaluations and recommendations and will proceed accordingly with discharge planning.
[2018-08-08 11:00] VITALS: BP 125/66
--- NOTE | 2018-08-08 11:47 | PDOC ---
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 Recent admission for infected rt hip and exploration total hip arthroplasty on 07/22. Today she was seen and examined in her room. She is alert and oriented, in NAD. She appears to be going in and out of A fib. She was sinus and regular when seen. She has no new complaints at this time. Her dressing was changed today. Discussed the pt with her RN. Vitals Vitals Vital Signs Date Time Temp Pulse Resp B/P (MAP) Pulse Ox O2 Delivery O2 Flow Rate FiO2 08/08/18 09:40 91 Room Air 08/08/18 09:30 98.4 93 20 112/56 (74) 98.4 Physical Exam Physical Exam GENERAL: Propped up in bed, alert, drinking a coke, NAD - In chair on my arrival HEENT: Pupils equally round, reactive. Normal conjunctivae. Oral cavity, pharynx pink and moist. NECK: Supple. LUNGS: Clear to auscultation. HEART: S1, S2. ABDOMEN: Obese, soft, nontender with bowel sounds present. EXTREMITIES: No gross edema or cyanosis. Distal pulses palpable. Right hip/thigh wound VAC in place. Tender without area redness or induration. SKIN: Warm without generalized rash. NEUROLOGIC: Alert, responds appropriately. RUE-PICC (08/02) without signs of any complications General: Alert, Oriented X3, Cooperative, mild distress Heart: Regular rate, No murmurs Lungs: Clear, Other (no wheezing or crackles) Abdomen: Normal bowel sounds, Soft Extremities: No cyanosis, No edema Skin: Other (dressing right upper leg dry right PICC INTACT) Labs LABS Laboratory Tests Test 08/07/18 12:05 08/08/18 03:30 White Blood Count 9.7 x10^3/uL (4.0-11.0) 6.6 x10^3/uL (4.0-11.0) Red Blood Count 3.15 x10^6/uL (3.50-5.40) 2.90 x10^6/uL (3.50-5.40) Hemoglobin 9.7 g/dL (12.0-15.5) 9.0 g/dL (12.0-15.5) Hematocrit 28.9 % (36.0-47.0) 26.8 % (36.0-47.0) Mean Corpuscular Volume 92 fL (79-100) 93 fL (79-100) Mean Corpuscular Hemoglobin 31 pg (25-35) 31 pg (25-35) Mean Corpuscular Hemoglobin Concent 34 g/dL (31-37) 34 g/dL (31-37) Red Cell Distribution Width 13.3 % (11.5-14.5) 13.5 % (11.5-14.5) Platelet Count 311 x10^3/uL (140-400) 293 x10^3/uL (140-400) Neutrophils (%) (Auto) 79 % (31-73) 62 % (31-73) Lymphocytes (%) (Auto) 9 % (24-48) 17 % (24-48) Monocytes (%) (Auto) 10 % (0-9) 14 % (0-9) Eosinophils (%) (Auto) 2 % (0-3) 7 % (0-3) Basophils (%) (Auto) 1 % (0-3) 1 % (0-3) Neutrophils # (Auto) 7.7 x10^3uL (1.8-7.7) 4.1 x10^3uL (1.8-7.7) Lymphocytes # (Auto) 0.9 x10^3/uL (1.0-4.8) 1.1 x10^3/uL (1.0-4.8) Monocytes # (Auto) 0.9 x10^3/uL (0.0-1.1) 0.9 x10^3/uL (0.0-1.1) Eosinophils # (Auto) 0.2 x10^3/uL (0.0-0.7) 0.5 x10^3/uL (0.0-0.7) Basophils # (Auto) 0.0 x10^3/uL (0.0-0.2) 0.1 x10^3/uL (0.0-0.2) Prothrombin Time 14.9 SEC (11.7-14.0) Prothromb Time International Ratio 1.2 (0.8-1.1) Activated Partial Thromboplast Time 40 SEC (24-38) Sodium Level 139 mmol/L (136-145) 143 mmol/L (136-145) Potassium Level 3.4 mmol/L (3.5-5.1) 3.4 mmol/L (3.5-5.1) Chloride Level 101 mmol/L (98-107) 106 mmol/L (98-107) Carbon Dioxide Level 27 mmol/L (21-32) 28 mmol/L (21-32) Anion Gap 11 (6-14) 9 (6-14) Blood Urea Nitrogen 10 mg/dL (7-20) 6 mg/dL (7-20) Creatinine 0.8 mg/dL (0.6-1.0) 0.7 mg/dL (0.6-1.0) Estimated GFR (Cockcroft-Gault) 70.7 82.5 Glucose Level 110 mg/dL (70-99) 111 mg/dL (70-99) Calcium Level 9.9 mg/dL (8.5-10.1) 9.5 mg/dL (8.5-10.1) Total Bilirubin 0.4 mg/dL (0.2-1.0) Direct Bilirubin 0.1 mg/dL (0.0-0.2) Aspartate Amino Transf (AST/SGOT) 14 U/L (15-37) Alanine Aminotransferase (ALT/SGPT) 8 U/L (14-59) Alkaline Phosphatase 107 U/L (46-116) Troponin I Quantitative < 0.017 ng/mL (0.000-0.055) XN-Awi-R-Type Natriuretic Peptide 151 pg/mL (0-124) Total Protein 6.8 g/dL (6.4-8.2) Albumin 2.6 g/dL (3.4-5.0) Lipase 60 U/L (73-393) Magnesium Level 2.3 mg/dL (1.8-2.4) Thyroid Stimulating Hormone (TSH) 1.404 uIU/mL (0.358-3.74) Review of Systems Review of Systems Gen: denies fever, chills Heart: denies CP, palp Lung: denies cough, SOA Abd: denies N/V/D Assessment and Plan Assessmemt and Plan Assessment: CC: Chest tightness and tachycardia A fib with RVR Infected rt hip arthroplasty 07/22 - s/p exploration of rt femoral head DJD HTN Obesity Panic disorder and anxiety Plan: IV Rocephin - per ID Cardiac monitoring - cardiology following Serial enzymes and EKG PT/OT Daily labs Home meds Echo, awaiting cardiology input Wound care SNU eval DVT prophylaxis Appreciate subspecialist input D/C disposition pending Comment Review of Relevant I have reviewed the following items marion (where applicable) has been applied. Labs Laboratory Tests Test 08/07/18 12:05 08/08/18 03:30 White Blood Count 9.7 x10^3/uL (4.0-11.0) 6.6 x10^3/uL (4.0-11.0) Red Blood Count 3.15 x10^6/uL (3.50-5.40) 2.90 x10^6/uL (3.50-5.40) Hemoglobin 9.7 g/dL (12.0-15.5) 9.0 g/dL (12.0-15.5) Hematocrit 28.9 % (36.0-47.0) 26.8 % (36.0-47.0) Mean Corpuscular Volume 92 fL (79-100) 93 fL (79-100) Mean Corpuscular Hemoglobin 31 pg (25-35) 31 pg (25-35) Mean Corpuscular Hemoglobin Concent 34 g/dL (31-37) 34 g/dL (31-37) Red Cell Distribution Width 13.3 % (11.5-14.5) 13.5 % (11.5-14.5) Platelet Count 311 x10^3/uL (140-400) 293 x10^3/uL (140-400) Neutrophils (%) (Auto) 79 % (31-73) 62 % (31-73) Lymphocytes (%) (Auto) 9 % (24-48) 17 % (24-48) Monocytes (%) (Auto) 10 % (0-9) 14 % (0-9) Eosinophils (%) (Auto) 2 % (0-3) 7 % (0-3) Basophils (%) (Auto) 1 % (0-3) 1 % (0-3) Neutrophils # (Auto) 7.7 x10^3uL (1.8-7.7) 4.1 x10^3uL (1.8-7.7) Lymphocytes # (Auto) 0.9 x10^3/uL (1.0-4.8) 1.1 x10^3/uL (1.0-4.8) Monocytes # (Auto) 0.9 x10^3/uL (0.0-1.1) 0.9 x10^3/uL (0.0-1.1) Eosinophils # (Auto) 0.2 x10^3/uL (0.0-0.7) 0.5 x10^3/uL (0.0-0.7) Basophils # (Auto) 0.0 x10^3/uL (0.0-0.2) 0.1 x10^3/uL (0.0-0.2) Prothrombin Time 14.9 SEC (11.7-14.0) Prothromb Time International Ratio 1.2 (0.8-1.1) Activated Partial Thromboplast Time 40 SEC (24-38) Sodium Level 139 mmol/L (136-145) 143 mmol/L (136-145) Potassium Level 3.4 mmol/L (3.5-5.1) 3.4 mmol/L (3.5-5.1) Chloride Level 101 mmol/L (98-107) 106 mmol/L (98-107) Carbon Dioxide Level 27 mmol/L (21-32) 28 mmol/L (21-32) Anion Gap 11 (6-14) 9 (6-14) Blood Urea Nitrogen 10 mg/dL (7-20) 6 mg/dL (7-20) Creatinine 0.8 mg/dL (0.6-1.0) 0.7 mg/dL (0.6-1.0) Estimated GFR (Cockcroft-Gault) 70.7 82.5 Glucose Level 110 mg/dL (70-99) 111 mg/dL (70-99) Calcium Level 9.9 mg/dL (8.5-10.1) 9.5 mg/dL (8.5-10.1) Total Bilirubin 0.4 mg/dL (0.2-1.0) Direct Bilirubin 0.1 mg/dL (0.0-0.2) Aspartate Amino Transf (AST/SGOT) 14 U/L (15-37) Alanine Aminotransferase (ALT/SGPT) 8 U/L (14-59) Alkaline Phosphatase 107 U/L (46-116) Troponin I Quantitative < 0.017 ng/mL (0.000-0.055) JN-Tuw-H-Type Natriuretic Peptide 151 pg/mL (0-124) Total Protein 6.8 g/dL (6.4-8.2) Albumin 2.6 g/dL (3.4-5.0) Lipase 60 U/L (73-393) Magnesium Level 2.3 mg/dL (1.8-2.4) Thyroid Stimulating Hormone (TSH) 1.404 uIU/mL (0.358-3.74) Laboratory Tests Test 08/07/18 12:05 08/08/18 03:30 White Blood Count 9.7 x10^3/uL (4.0-11.0) 6.6 x10^3/uL (4.0-11.0) Red Blood Count 3.15 x10^6/uL (3.50-5.40) 2.90 x10^6/uL (3.50-5.40) Hemoglobin 9.7 g/dL (12.0-15.5) 9.0 g/dL (12.0-15.5) Hematocrit 28.9 % (36.0-47.0) 26.8 % (36.0-47.0) Mean Corpuscular Volume 92 fL (79-100) 93 fL (79-100) Mean Corpuscular Hemoglobin 31 pg (25-35) 31 pg (25-35) Mean Corpuscular Hemoglobin Concent 34 g/dL (31-37) 34 g/dL (31-37) Red Cell Distribution Width 13.3 % (11.5-14.5) 13.5 % (11.5-14.5) Platelet Count 311 x10^3/uL (140-400) 293 x10^3/uL (140-400) Neutrophils (%) (Auto) 79 % (31-73) 62 % (31-73) Lymphocytes (%) (Auto) 9 % (24-48) 17 % (24-48) Monocytes (%) (Auto) 10 % (0-9) 14 % (0-9) Eosinophils (%) (Auto) 2 % (0-3) 7 % (0-3) Basophils (%) (Auto) 1 % (0-3) 1 % (0-3) Neutrophils # (Auto) 7.7 x10^3uL (1.8-7.7) 4.1 x10^3uL (1.8-7.7) Lymphocytes # (Auto) 0.9 x10^3/uL (1.0-4.8) 1.1 x10^3/uL (1.0-4.8) Monocytes # (Auto) 0.9 x10^3/uL (0.0-1.1) 0.9 x10^3/uL (0.0-1.1) Eosinophils # (Auto) 0.2 x10^3/uL (0.0-0.7) 0.5 x10^3/uL (0.0-0.7) Basophils # (Auto) 0.0 x10^3/uL (0.0-0.2) 0.1 x10^3/uL (0.0-0.2) Prothrombin Time 14.9 SEC (11.7-14.0) Prothromb Time International Ratio 1.2 (0.8-1.1) Activated Partial Thromboplast Time 40 SEC (24-38) Sodium Level 139 mmol/L (136-145) 143 mmol/L (136-145) Potassium Level 3.4 mmol/L (3.5-5.1) 3.4 mmol/L (3.5-5.1) Chloride Level 101 mmol/L (98-107) 106 mmol/L (98-107) Carbon Dioxide Level 27 mmol/L (21-32) 28 mmol/L (21-32) Anion Gap 11 (6-14) 9 (6-14) Blood Urea Nitrogen 10 mg/dL (7-20) 6 mg/dL (7-20) Creatinine 0.8 mg/dL (0.6-1.0) 0.7 mg/dL (0.6-1.0) Estimated GFR (Cockcroft-Gault) 70.7 82.5 Glucose Level 110 mg/dL (70-99) 111 mg/dL (70-99) Calcium Level 9.9 mg/dL (8.5-10.1) 9.5 mg/dL (8.5-10.1) Total Bilirubin 0.4 mg/dL (0.2-1.0) Direct Bilirubin 0.1 mg/dL (0.0-0.2) Aspartate Amino Transf (AST/SGOT) 14 U/L (15-37) Alanine Aminotransferase (ALT/SGPT) 8 U/L (14-59) Alkaline Phosphatase 107 U/L (46-116) Troponin I Quantitative < 0.017 ng/mL (0.000-0.055) YN-Hwv-O-Type Natriuretic Peptide 151 pg/mL (0-124) Total Protein 6.8 g/dL (6.4-8.2) Albumin 2.6 g/dL (3.4-5.0) Lipase 60 U/L (73-393) Magnesium Level 2.3 mg/dL (1.8-2.4) Thyroid Stimulating Hormone (TSH) 1.404 uIU/mL (0.358-3.74) Medications Current Medications Sodium Chloride 500 ml @ 500 mls/hr 1X ONCE IV Last administered on at 12:22; Start 08/07/18 at 11:45; Stop 08/07/18 at 12:44; Status DC Diltiazem HCl (Cardizem Iv Push) 10 mg 1X ONCE IVP ; Start 08/07/18 at 12:00; Stop 08/07/18 at 12:15; Status DC Diltiazem HCl 125 mg/Dextrose 125 ml @ 5 mls/hr CONT PRN IV SEE I/O RECORD; Start 08/07/18 at 12:00; Stop 08/07/18 at 12:01; Status DC Ondansetron HCl (Zofran) 4 mg PRN Q8HRS PRN IV NAUSEA/VOMITING; Start 08/07/18 at 14:45; Stop 08/08/18 at 14:44 Sodium Chloride 1,000 ml @ 100 mls/hr Q10H IV Last administered on 08/07/18at 14:45; Start 08/07/18 at 14:45; Stop 08/07/18 at 14:46; Status DC Albuterol Sulfate (Ventolin Neb Soln) 2.5 mg PRN Q6HRS PRN INH SHORTNESS OF BREATH; Start 08/07/18 at 15:00 Alprazolam (Xanax) 1 mg PRN BID PRN PO ANXIETY / AGITATION Last administered on 08/07/18at 22:20; Start 08/07/18 at 15:00 Cyclobenzaprine HCl (Flexeril) 10 mg TID PO Last administered on 08/08/18at 09:41 ; Start 08/07/18 at 21:00 Oxycodone/ Acetaminophen (Percocet 5/325) 1 tab PRN Q4HRS PRN PO PAIN Last administered on 08/08/18at 09:40; Start 08/07/18 at 15:00 Citalopram Hydrobromide (CeleXA) 40 mg QHS PO Last administered on 08/07/18at 21 :14; Start 08/07/18 at 21:00 Non-Formulary Medication (Escitalopram Oxalate ) 1 tab DAILY PO ; Start 08/08/18 at 09:00; Status UNV Cefazolin Sodium/ Dextrose 50 ml @ 100 mls/hr Q8HRS IV Last administered on 08/08/18at 05:52; Start 08/07/18 at 18:00 Active Scripts Active Percocet 5-325 Mg Tablet (Oxycodone/Acetaminophen) 1 Each Tablet 1 Tab PO PRN Q4HRS PRN Reported Cyclobenzaprine Hcl 10 Mg Tablet 1 Tab PO TID Escitalopram Oxalate 20 Mg Tablet 1 Tab PO DAILY Celexa (Citalopram Hydrobromide) 40 Mg Tablet 40 Mg PO HS Proair Hfa Inhaler (Albuterol Sulfate) 8.5 Gm Hfa.aer.ad 1 Puff INH PRN Q6HRS PRN Alprazolam 1 Mg Tablet 1 Mg PO BID PRN Last dose given: 07-08-14 9:00 p.m. Next dose due: tonight Vitals/I & O Vital Sign - Last 24 Hours 08/07/18 08/07/18 08/07/18 08/07/18 11:41 12:11 12:41 13:11 Pulse 104 118 118 96 Resp Pulse Ox 94 98 08/07/18 08/07/18 08/07/18 08/07/18 13:41 14:11 14:41 15:11 Pulse 100 102 104 108 Resp 22 20 16 17 Pulse Ox 98 97 98 08/07/18 08/07/18 08/07/18 08/07/18 15:41 16:15 18:33 19:06 Temp 98.1 98.6 98.1 98.6 Pulse 114 117 101 Resp 18 18 20 18 B/P (MAP) 153/75 (101) 139/65 (89) Pulse Ox 95 97 96 O2 Delivery Room Air Room Air Room Air 08/07/18 08/07/18 08/07/18 08/07/18 20:00 20:01 22:20 22:58 Temp 98.1 98.1 Pulse 83 Resp 16 18 B/P (MAP) 133/63 (86) Pulse Ox 96 95 97 O2 Delivery Room Air Room Air Room Air Room Air 08/08/18 08/08/18 08/08/18 08/08/18 03:26 03:39 04:39 09:30 Temp 98.3 98.4 98.3 98.4 Pulse 77 93 Resp 18 20 14 20 B/P (MAP) 128/70 (89) 112/56 (74) Pulse Ox 95 97 96 91 O2 Delivery Room Air Room Air Room Air Room Air 08/08/18 09:40 Pulse Ox 91 O2 Delivery Room Air Intake and Output 08/07/18 08/07/18 08/08/18 14:59 22:59 06:59 Intake Total 500 ml 240 ml 1050 ml Output Total 550 ml 300 ml Balance 500 ml -310 ml 750 ml GURVINDER CAMPUZANO III DO Aug 08, 2018 11:47
[2018-08-08] MEDS: METOPROLOL TART IMMED RELEASE 25 MG TABLET. PO SCH ×2 (13:43→20:24)
--- NOTE | 2018-08-08 14:08 | NUR ---
Wound Care Wound care consult for vac placement. Pt was discharged with home vac on last admission. Vac dressing removed upon arrival. Cleansed, pictured and measured wound and placed NPWT, silver foam, at 125 mmHg continuous pressure. No other wounds noted on full skin inspection. Pt has home vac in room if discharged over the weekend, may switch it from hospital vac and follow up in [facility] Saturday or Saturday for next dressing change. WC will continue to follow for vac changes.
[2018-08-08 15:00] VITALS: BP 122/65
[2018-08-08] MEDS ORDERED: IOHEXOL 350 MG/ML 100 ML VIAL. IV ONE (15:00)
[2018-08-08] MEDS ORDERED: CONTRAST GIVEN. MC PRN (15:15)
[2018-08-08] MEDS: ASPIRIN ENTERIC COATED 81 MG TABLET.DR. PO SCH (15:59)
--- NOTE | 2018-08-08 16:09 | RAD ---
Examination: CT angiography chest HISTORY: History of shortness of breath, tachycardia COMPARISON: None available TECHNIQUE: Axial CT angiographic images of chest were performed with IV contrast. Coronal and sagittal 3-D MIP reformats are performed Exposure: One or more of the following individualized dose reduction techniques were utilized for this examination: 1. Automated exposure control 2. Adjustment of the mA and/or kV according to patient size 3. Use of iterative reconstruction technique FINDINGS: The visualized thyroid gland grossly appears unremarkable. The central airways are patent. Mild cardiomegaly. The ascending aorta measures 4 cm in transverse dimension. Coronary artery calcifications identified. There is no evidence of filling defect identified in the main pulmonary arterial trunk and right and left main pulmonary arteries and the visualized lobar, segmental branches of the pulmonary arteries. There are patchy airspace opacities identified in the bibasilar lungs and faint groundglass airspace opacities identified in the bilateral lungs likely atelectasis or infiltrates. Multiple cystic structures identified in the liver with the largest measuring 3.6 cm in the left lobe probably cysts. The visualized spleen, adrenals grossly appears unremarkable. Mild degenerative changes thoracic spine. IMPRESSION: 1. No evidence of pulmonary embolism. 2. Faint groundglass airspace opacities identified in the bilateral lungs with mild bibasilar lung airspace opacities identified in the bibasilar lungs likely atelectasis or infiltrates. 3. Mild aneurysmal change ascending aorta. Coronary artery calcified disease. 4. Cystic structures identified in the liver probably cysts. Recommend follow-up ultrasound right upper quadrant abdomen. Electronically signed by: Dwain Pandey MD (08/08/2018 4:06 PM) [id number]
--- NOTE | 2018-08-08 16:25 | RAD ---
MR#: [id number] Date of Study: 08/08/2018 Ordering Physician: TYREE COREAS, Referring Physician: PAULY العراقي Tech: Michelle Lam RDMS RVT APPROVED REPORT Bilateral Lower Extremity Venous Study for DVT Patient Location: IN-PATIENT Indications Lower Extremity Pain: Bilateral Findings The bilateral lower extremity deep veins were evaluated for thrombus with color Doppler, spectral and grayscale images. On the right the grayscale images of the common femoral, superficial femoral and popliteal veins do n ot demonstrate any evidence of thrombus and these veins appear to be compressible. The below-knee vei ns were not well visualized but grossly appear to be compressible. Spectral imaging and color Doppler do not reveal any evidence of obstruction to flow with normal respirophasic variation above the knee . Below the knee there is spontaneous flow noted. On the left, the grayscale images of the common femoral, superficial femoral and popliteal veins do n ot demonstrate any evidence of thrombus and these veins appear to be compressible. The below-knee vei ns again were not well visualized but grossly appear to be compressible. Spectral imaging and color D oppler do not reveal any evidence of obstruction to flow with normal respirophasic variation above th e knee. The below-knee veins demonstrate spontaneous flow. Critical Notification Critical Value: No <Conclusion> Negative for DVT in the bilateral lower extremities Signed by : Sal Reyna, Electronically Approved : 08/08/2018 16:25:06
--- NOTE | 2018-08-08 18:57 | PDOC ---
PROGRESS NOTES Subjective Subjective Problems overnight: Readmitted for rapid heart rate, she was concerned that her wound VAC wasn't working and had to change her dressing and was anxious about that. Otherwise really no new problems with her hip Objective Vital Signs Vital Signs Date Time Temp Pulse Resp B/P (MAP) Pulse Ox O2 Delivery O2 Flow Rate FiO2 08/08/18 17:08 Room Air 08/08/18 15:00 97.8 103 122/65 (84) 93 97.8 08/08/18 09:30 20 Physical Exam On exam wound VAC is back on per infectious disease wound did not probe deeply no surrounding redness currently Labs Laboratory Tests Test 08/07/18 12:05 08/08/18 03:30 08/08/18 12:45 White Blood Count 9.7 x10^3/uL (4.0-11.0) 6.6 x10^3/uL (4.0-11.0) Red Blood Count 3.15 x10^6/uL (3.50-5.40) 2.90 x10^6/uL (3.50-5.40) Hemoglobin 9.7 g/dL (12.0-15.5) 9.0 g/dL (12.0-15.5) Hematocrit 28.9 % (36.0-47.0) 26.8 % (36.0-47.0) Mean Corpuscular Volume 92 fL (79-100) 93 fL (79-100) Mean Corpuscular Hemoglobin 31 pg (25-35) 31 pg (25-35) Mean Corpuscular Hemoglobin Concent 34 g/dL (31-37) 34 g/dL (31-37) Red Cell Distribution Width 13.3 % (11.5-14.5) 13.5 % (11.5-14.5) Platelet Count 311 x10^3/uL (140-400) 293 x10^3/uL (140-400) Neutrophils (%) (Auto) 79 % (31-73) 62 % (31-73) Lymphocytes (%) (Auto) 9 % (24-48) 17 % (24-48) Monocytes (%) (Auto) 10 % (0-9) 14 % (0-9) Eosinophils (%) (Auto) 2 % (0-3) 7 % (0-3) Basophils (%) (Auto) 1 % (0-3) 1 % (0-3) Neutrophils # (Auto) 7.7 x10^3uL (1.8-7.7) 4.1 x10^3uL (1.8-7.7) Lymphocytes # (Auto) 0.9 x10^3/uL (1.0-4.8) 1.1 x10^3/uL (1.0-4.8) Monocytes # (Auto) 0.9 x10^3/uL (0.0-1.1) 0.9 x10^3/uL (0.0-1.1) Eosinophils # (Auto) 0.2 x10^3/uL (0.0-0.7) 0.5 x10^3/uL (0.0-0.7) Basophils # (Auto) 0.0 x10^3/uL (0.0-0.2) 0.1 x10^3/uL (0.0-0.2) Prothrombin Time 14.9 SEC (11.7-14.0) Prothromb Time International Ratio 1.2 (0.8-1.1) Activated Partial Thromboplast Time 40 SEC (24-38) Sodium Level 139 mmol/L (136-145) 143 mmol/L (136-145) Potassium Level 3.4 mmol/L (3.5-5.1) 3.4 mmol/L (3.5-5.1) Chloride Level 101 mmol/L (98-107) 106 mmol/L (98-107) Carbon Dioxide Level 27 mmol/L (21-32) 28 mmol/L (21-32) Anion Gap 11 (6-14) 9 (6-14) Blood Urea Nitrogen 10 mg/dL (7-20) 6 mg/dL (7-20) Creatinine 0.8 mg/dL (0.6-1.0) 0.7 mg/dL (0.6-1.0) Estimated GFR (Cockcroft-Gault) 70.7 82.5 Glucose Level 110 mg/dL (70-99) 111 mg/dL (70-99) Calcium Level 9.9 mg/dL (8.5-10.1) 9.5 mg/dL (8.5-10.1) Total Bilirubin 0.4 mg/dL (0.2-1.0) Direct Bilirubin 0.1 mg/dL (0.0-0.2) Aspartate Amino Transf (AST/SGOT) 14 U/L (15-37) Alanine Aminotransferase (ALT/SGPT) 8 U/L (14-59) Alkaline Phosphatase 107 U/L (46-116) Troponin I Quantitative < 0.017 ng/mL (0.000-0.055) VM-Ljq-I-Type Natriuretic Peptide 151 pg/mL (0-124) Total Protein 6.8 g/dL (6.4-8.2) Albumin 2.6 g/dL (3.4-5.0) Lipase 60 U/L (73-393) Magnesium Level 2.3 mg/dL (1.8-2.4) Thyroid Stimulating Hormone (TSH) 1.404 uIU/mL (0.358-3.74) D-Dimer (Chiara) 3.00 ug/mlFEU (0.00-0.50) Laboratory Tests Test 08/08/18 03:30 08/08/18 12:45 White Blood Count 6.6 x10^3/uL (4.0-11.0) Red Blood Count 2.90 x10^6/uL (3.50-5.40) Hemoglobin 9.0 g/dL (12.0-15.5) Hematocrit 26.8 % (36.0-47.0) Mean Corpuscular Volume 93 fL (79-100) Mean Corpuscular Hemoglobin 31 pg (25-35) Mean Corpuscular Hemoglobin Concent 34 g/dL (31-37) Red Cell Distribution Width 13.5 % (11.5-14.5) Platelet Count 293 x10^3/uL (140-400) Neutrophils (%) (Auto) 62 % (31-73) Lymphocytes (%) (Auto) 17 % (24-48) Monocytes (%) (Auto) 14 % (0-9) Eosinophils (%) (Auto) 7 % (0-3) Basophils (%) (Auto) 1 % (0-3) Neutrophils # (Auto) 4.1 x10^3uL (1.8-7.7) Lymphocytes # (Auto) 1.1 x10^3/uL (1.0-4.8) Monocytes # (Auto) 0.9 x10^3/uL (0.0-1.1) Eosinophils # (Auto) 0.5 x10^3/uL (0.0-0.7) Basophils # (Auto) 0.1 x10^3/uL (0.0-0.2) Sodium Level 143 mmol/L (136-145) Potassium Level 3.4 mmol/L (3.5-5.1) Chloride Level 106 mmol/L (98-107) Carbon Dioxide Level 28 mmol/L (21-32) Anion Gap 9 (6-14) Blood Urea Nitrogen 6 mg/dL (7-20) Creatinine 0.7 mg/dL (0.6-1.0) Estimated GFR (Cockcroft-Gault) 82.5 Glucose Level 111 mg/dL (70-99) Calcium Level 9.5 mg/dL (8.5-10.1) Magnesium Level 2.3 mg/dL (1.8-2.4) Thyroid Stimulating Hormone (TSH) 1.404 uIU/mL (0.358-3.74) D-Dimer (Chiara) 3.00 ug/mlFEU (0.00-0.50) Assessment Assessment POD# [], S/P [] Plan Plan of Care Continue wound VAC to right hip and antibiotics per infectious disease, PICC line intact As long as cleared from cardiac standpoint may mobilize weightbearing as tolerated, no hip precautions necessary with the right hip ROSSI ARMAS MD Aug 08, 2018 18:57
[2018-08-08 19:40] VITALS: BP 128/73
[2018-08-08] MEDS: CITALOPRAM 20 MG TABLET. PO SCH (20:25)
[2018-08-08 23:16] VITALS: BP 120/66
[2018-08-09 02:44] VITALS: BP 150/94
[2018-08-09] MEDS: oxyCODONE/APAP 5/325 1 TAB TABLET PO PRN ×3 (02:45→19:03)
[2018-08-09 04:17] LABS: BASO # 0.1 x10^3/uL (0.0-0.2); BASO % 1 % (0-3); EOS # 0.8 x10^3/uL (0.0-0.7); EOS % 11 % (0-3); HEMATOCRIT 28.5 % (36.0-47.0); HEMOGLOBIN 9.4 g/dL (12.0-15.5); LYMPH # 1.3 x10^3/uL (1.0-4.8); LYMPH % 17 % (24-48); MEAN CORPUSCULAR HEMOGLOBIN 31 pg (25-35); MEAN CORPUSCULAR HGB CONC 33 g/dL (31-37); MEAN CORPUSCULAR VOLUME 93 fL (79-100); MONO # 0.8 x10^3/uL (0.0-1.1); MONO % 10 % (0-9); NEUT # 4.5 x10^3uL (1.8-7.7); NEUT % 61 % (31-73); PLATELET COUNT 312 x10^3/uL (140-400); RED BLOOD COUNT 3.06 x10^6/uL (3.50-5.40); RED CELL DISTRIBUTION WIDTH 13.9 % (11.5-14.5); WHITE BLOOD COUNT 7.4 x10^3/uL (4.0-11.0)
[2018-08-09 04:27] LABS: CALCIUM 9.2 mg/dL (8.5-10.1); CREATININE 0.7 mg/dL (0.6-1.0); GFR 82.5; POTASSIUM 3.8 mmol/L (3.5-5.1)
--- NOTE | 2018-08-09 06:52 | PDOC ---
Infectious Disease Note Subjective Subjective FEELING GOOD ROS ROS no n/v/d/sob Vital Sign Vital Signs Vital Signs Date Time Temp Pulse Resp B/P (MAP) Pulse Ox O2 Delivery O2 Flow Rate FiO2 08/09/18 03:45 18 08/09/18 02:45 95 Room Air 08/09/18 02:44 98.2 110 150/94 (112) 98.2 Physical Exam PHYSICAL EXAM GENERAL: Propped up in bed, alert, drinking a coke, NAD - In chair on my arrival HEENT: Pupils equally round, reactive. Normal conjunctivae. Oral cavity, pharynx pink and moist. NECK: Supple. LUNGS: Clear to auscultation. HEART: S1, S2. ABDOMEN: Obese, soft, nontender with bowel sounds present. EXTREMITIES: No gross edema or cyanosis. Distal pulses palpable. Right hip/thigh wound VAC in place. Tender without area redness or induration. SKIN: Warm without generalized rash. NEUROLOGIC: Alert, responds appropriately. RUE-PICC (08/02) without signs of any complications Labs Lab Laboratory Tests Test 08/08/18 12:45 08/09/18 03:30 D-Dimer (Chiara) 3.00 ug/mlFEU (0.00-0.50) White Blood Count 7.4 x10^3/uL (4.0-11.0) Red Blood Count 3.06 x10^6/uL (3.50-5.40) Hemoglobin 9.4 g/dL (12.0-15.5) Hematocrit 28.5 % (36.0-47.0) Mean Corpuscular Volume 93 fL (79-100) Mean Corpuscular Hemoglobin 31 pg (25-35) Mean Corpuscular Hemoglobin Concent 33 g/dL (31-37) Red Cell Distribution Width 13.9 % (11.5-14.5) Platelet Count 312 x10^3/uL (140-400) Neutrophils (%) (Auto) 61 % (31-73) Lymphocytes (%) (Auto) 17 % (24-48) Monocytes (%) (Auto) 10 % (0-9) Eosinophils (%) (Auto) 11 % (0-3) Basophils (%) (Auto) 1 % (0-3) Neutrophils # (Auto) 4.5 x10^3uL (1.8-7.7) Lymphocytes # (Auto) 1.3 x10^3/uL (1.0-4.8) Monocytes # (Auto) 0.8 x10^3/uL (0.0-1.1) Eosinophils # (Auto) 0.8 x10^3/uL (0.0-0.7) Basophils # (Auto) 0.1 x10^3/uL (0.0-0.2) Sodium Level 139 mmol/L (136-145) Potassium Level 3.8 mmol/L (3.5-5.1) Chloride Level 104 mmol/L (98-107) Carbon Dioxide Level 27 mmol/L (21-32) Anion Gap 8 (6-14) Blood Urea Nitrogen 7 mg/dL (7-20) Creatinine 0.7 mg/dL (0.6-1.0) Estimated GFR (Cockcroft-Gault) 82.5 Glucose Level 94 mg/dL (70-99) Calcium Level 9.2 mg/dL (8.5-10.1) Objective Assessment 1. 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 2. Status post exploration with exchange of femoral head implant on 07/22/2018. 3. Degenerative joint disease. 4. Hypertension. 5. A fib with RVR Plan Plan of Care cont rocephine cont wound vac pt/ot DONTE DING MD Aug 09, 2018 06:52
[2018-08-09 07:50] VITALS: BP 148/74
--- NOTE | 2018-08-09 08:33 | PDOC ---
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 Recent admission for infected rt hip and exploration total hip arthroplasty on 07/22. Today she was seen and examined in her room. She was up and walking with therapy. She has her wound vac. She rates her pain a 6/10. No new complaints at this time. DW her RN and therapy. Think SNU will be appropriate. Vitals Vitals Vital Signs Date Time Temp Pulse Resp B/P (MAP) Pulse Ox O2 Delivery O2 Flow Rate FiO2 08/09/18 07:52 Room Air 08/09/18 07:50 98.1 82 20 148/74 (98) 92 98.1 Physical Exam Physical Exam GENERAL: Propped up in bed, alert, drinking a coke, NAD - In chair on my arrival HEENT: Pupils equally round, reactive. Normal conjunctivae. Oral cavity, pharynx pink and moist. NECK: Supple. LUNGS: Clear to auscultation. HEART: S1, S2. ABDOMEN: Obese, soft, nontender with bowel sounds present. EXTREMITIES: No gross edema or cyanosis. Distal pulses palpable. Right hip/thigh wound VAC in place. Tender without area redness or induration. SKIN: Warm without generalized rash. NEUROLOGIC: Alert, responds appropriately. RUE-PICC (08/02) without signs of any complications General: Alert, Oriented X3, Cooperative, No acute distress Heart: Regular rate (SR), Normal S1, Normal S2, Other (3/6 systolic murmur to SEBASTIEN and LLS border) Lungs: Clear, Other (no wheezing or crackles) Abdomen: Soft, No tenderness Extremities: No cyanosis, Other (trace LE edema) Skin: No significant lesion, Other (right hip surgical incision with D/I dressing) Labs LABS Laboratory Tests Test 08/08/18 12:45 08/09/18 03:30 D-Dimer (Chiara) 3.00 ug/mlFEU (0.00-0.50) White Blood Count 7.4 x10^3/uL (4.0-11.0) Red Blood Count 3.06 x10^6/uL (3.50-5.40) Hemoglobin 9.4 g/dL (12.0-15.5) Hematocrit 28.5 % (36.0-47.0) Mean Corpuscular Volume 93 fL (79-100) Mean Corpuscular Hemoglobin 31 pg (25-35) Mean Corpuscular Hemoglobin Concent 33 g/dL (31-37) Red Cell Distribution Width 13.9 % (11.5-14.5) Platelet Count 312 x10^3/uL (140-400) Neutrophils (%) (Auto) 61 % (31-73) Lymphocytes (%) (Auto) 17 % (24-48) Monocytes (%) (Auto) 10 % (0-9) Eosinophils (%) (Auto) 11 % (0-3) Basophils (%) (Auto) 1 % (0-3) Neutrophils # (Auto) 4.5 x10^3uL (1.8-7.7) Lymphocytes # (Auto) 1.3 x10^3/uL (1.0-4.8) Monocytes # (Auto) 0.8 x10^3/uL (0.0-1.1) Eosinophils # (Auto) 0.8 x10^3/uL (0.0-0.7) Basophils # (Auto) 0.1 x10^3/uL (0.0-0.2) Sodium Level 139 mmol/L (136-145) Potassium Level 3.8 mmol/L (3.5-5.1) Chloride Level 104 mmol/L (98-107) Carbon Dioxide Level 27 mmol/L (21-32) Anion Gap 8 (6-14) Blood Urea Nitrogen 7 mg/dL (7-20) Creatinine 0.7 mg/dL (0.6-1.0) Estimated GFR (Cockcroft-Gault) 82.5 Glucose Level 94 mg/dL (70-99) Calcium Level 9.2 mg/dL (8.5-10.1) Review of Systems Review of Systems Gen: denies fever, chills Heart: denies CP, palp Lung: denies cough, SOA Abd: denies N/V/D Ext: rt hip pain Assessment and Plan Assessmemt and Plan Assessment: CC: Chest tightness and tachycardia A fib with RVR 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 Labs Laboratory Tests Test 08/07/18 12:05 08/08/18 03:30 08/08/18 12:45 08/09/18 03:30 White Blood Count 9.7 x10^3/uL (4.0-11.0) 6.6 x10^3/uL (4.0-11.0) 7.4 x10^3/uL (4.0-11.0) Red Blood Count 3.15 x10^6/uL (3.50-5.40) 2.90 x10^6/uL (3.50-5.40) 3.06 x10^6/uL (3.50-5.40) Hemoglobin 9.7 g/dL (12.0-15.5) 9.0 g/dL (12.0-15.5) 9.4 g/dL (12.0-15.5) Hematocrit 28.9 % (36.0-47.0) 26.8 % (36.0-47.0) 28.5 % (36.0-47.0) Mean Corpuscular Volume 92 fL (79-100) 93 fL (79-100) 93 fL (79-100) Mean Corpuscular Hemoglobin 31 pg (25-35) 31 pg (25-35) 31 pg (25-35) Mean Corpuscular Hemoglobin Concent 34 g/dL (31-37) 34 g/dL (31-37) 33 g/dL (31-37) Red Cell Distribution Width 13.3 % (11.5-14.5) 13.5 % (11.5-14.5) 13.9 % (11.5-14.5) Platelet Count 311 x10^3/uL (140-400) 293 x10^3/uL (140-400) 312 x10^3/uL (140-400) Neutrophils (%) (Auto) 79 % (31-73) 62 % (31-73) 61 % (31-73) Lymphocytes (%) (Auto) 9 % (24-48) 17 % (24-48) 17 % (24-48) Monocytes (%) (Auto) 10 % (0-9) 14 % (0-9) 10 % (0-9) Eosinophils (%) (Auto) 2 % (0-3) 7 % (0-3) 11 % (0-3) Basophils (%) (Auto) 1 % (0-3) 1 % (0-3) 1 % (0-3) Neutrophils # (Auto) 7.7 x10^3uL (1.8-7.7) 4.1 x10^3uL (1.8-7.7) 4.5 x10^3uL (1.8-7.7) Lymphocytes # (Auto) 0.9 x10^3/uL (1.0-4.8) 1.1 x10^3/uL (1.0-4.8) 1.3 x10^3/uL (1.0-4.8) Monocytes # (Auto) 0.9 x10^3/uL (0.0-1.1) 0.9 x10^3/uL (0.0-1.1) 0.8 x10^3/uL (0.0-1.1) Eosinophils # (Auto) 0.2 x10^3/uL (0.0-0.7) 0.5 x10^3/uL (0.0-0.7) 0.8 x10^3/uL (0.0-0.7) Basophils # (Auto) 0.0 x10^3/uL (0.0-0.2) 0.1 x10^3/uL (0.0-0.2) 0.1 x10^3/uL (0.0-0.2) Prothrombin Time 14.9 SEC (11.7-14.0) Prothromb Time International Ratio 1.2 (0.8-1.1) Activated Partial Thromboplast Time 40 SEC (24-38) Sodium Level 139 mmol/L (136-145) 143 mmol/L (136-145) 139 mmol/L (136-145) Potassium Level 3.4 mmol/L (3.5-5.1) 3.4 mmol/L (3.5-5.1) 3.8 mmol/L (3.5-5.1) Chloride Level 101 mmol/L (98-107) 106 mmol/L (98-107) 104 mmol/L (98-107) Carbon Dioxide Level 27 mmol/L (21-32) 28 mmol/L (21-32) 27 mmol/L (21-32) Anion Gap 11 (6-14) 9 (6-14) 8 (6-14) Blood Urea Nitrogen 10 mg/dL (7-20) 6 mg/dL (7-20) 7 mg/dL (7-20) Creatinine 0.8 mg/dL (0.6-1.0) 0.7 mg/dL (0.6-1.0) 0.7 mg/dL (0.6-1.0) Estimated GFR (Cockcroft-Gault) 70.7 82.5 82.5 Glucose Level 110 mg/dL (70-99) 111 mg/dL (70-99) 94 mg/dL (70-99) Calcium Level 9.9 mg/dL (8.5-10.1) 9.5 mg/dL (8.5-10.1) 9.2 mg/dL (8.5-10.1) Total Bilirubin 0.4 mg/dL (0.2-1.0) Direct Bilirubin 0.1 mg/dL (0.0-0.2) Aspartate Amino Transf (AST/SGOT) 14 U/L (15-37) Alanine Aminotransferase (ALT/SGPT) 8 U/L (14-59) Alkaline Phosphatase 107 U/L (46-116) Troponin I Quantitative < 0.017 ng/mL (0.000-0.055) PZ-Que-H-Type Natriuretic Peptide 151 pg/mL (0-124) Total Protein 6.8 g/dL (6.4-8.2) Albumin 2.6 g/dL (3.4-5.0) Lipase 60 U/L (73-393) Magnesium Level 2.3 mg/dL (1.8-2.4) Thyroid Stimulating Hormone (TSH) 1.404 uIU/mL (0.358-3.74) D-Dimer (Chiara) 3.00 ug/mlFEU (0.00-0.50) Laboratory Tests Test 08/08/18 12:45 08/09/18 03:30 D-Dimer (Chiara) 3.00 ug/mlFEU (0.00-0.50) White Blood Count 7.4 x10^3/uL (4.0-11.0) Red Blood Count 3.06 x10^6/uL (3.50-5.40) Hemoglobin 9.4 g/dL (12.0-15.5) Hematocrit 28.5 % (36.0-47.0) Mean Corpuscular Volume 93 fL (79-100) Mean Corpuscular Hemoglobin 31 pg (25-35) Mean Corpuscular Hemoglobin Concent 33 g/dL (31-37) Red Cell Distribution Width 13.9 % (11.5-14.5) Platelet Count 312 x10^3/uL (140-400) Neutrophils (%) (Auto) 61 % (31-73) Lymphocytes (%) (Auto) 17 % (24-48) Monocytes (%) (Auto) 10 % (0-9) Eosinophils (%) (Auto) 11 % (0-3) Basophils (%) (Auto) 1 % (0-3) Neutrophils # (Auto) 4.5 x10^3uL (1.8-7.7) Lymphocytes # (Auto) 1.3 x10^3/uL (1.0-4.8) Monocytes # (Auto) 0.8 x10^3/uL (0.0-1.1) Eosinophils # (Auto) 0.8 x10^3/uL (0.0-0.7) Basophils # (Auto) 0.1 x10^3/uL (0.0-0.2) Sodium Level 139 mmol/L (136-145) Potassium Level 3.8 mmol/L (3.5-5.1) Chloride Level 104 mmol/L (98-107) Carbon Dioxide Level 27 mmol/L (21-32) Anion Gap 8 (6-14) Blood Urea Nitrogen 7 mg/dL (7-20) Creatinine 0.7 mg/dL (0.6-1.0) Estimated GFR (Cockcroft-Gault) 82.5 Glucose Level 94 mg/dL (70-99) Calcium Level 9.2 mg/dL (8.5-10.1) Medications Current Medications Sodium Chloride 500 ml @ 500 mls/hr 1X ONCE IV Last administered on at 12:22; Start 08/07/18 at 11:45; Stop 08/07/18 at 12:44; Status DC Diltiazem HCl (Cardizem Iv Push) 10 mg 1X ONCE IVP ; Start 08/07/18 at 12:00; Stop 08/07/18 at 12:15; Status DC Diltiazem HCl 125 mg/Dextrose 125 ml @ 5 mls/hr CONT PRN IV SEE I/O RECORD; Start 08/07/18 at 12:00; Stop 08/07/18 at 12:01; Status DC Ondansetron HCl (Zofran) 4 mg PRN Q8HRS PRN IV NAUSEA/VOMITING; Start 08/07/18 at 14:45; Stop 08/08/18 at 14:44; Status DC Sodium Chloride 1,000 ml @ 100 mls/hr Q10H IV Last administered on 08/07/18at 14:45; Start 08/07/18 at 14:45; Stop 08/07/18 at 14:46; Status DC Albuterol Sulfate (Ventolin Neb Soln) 2.5 mg PRN Q6HRS PRN INH SHORTNESS OF BREATH; Start 08/07/18 at 15:00 Alprazolam (Xanax) 1 mg PRN BID PRN PO ANXIETY / AGITATION Last administered on 08/07/18at 22:20; Start 08/07/18 at 15:00 Cyclobenzaprine HCl (Flexeril) 10 mg TID PO Last administered on 08/08/18at 20:25 ; Start 08/07/18 at 21:00 Oxycodone/ Acetaminophen (Percocet 5/325) 1 tab PRN Q4HRS PRN PO PAIN Last administered on 08/09/18at 02:45; Start 08/07/18 at 15:00 Citalopram Hydrobromide (CeleXA) 40 mg QHS PO Last administered on 08/08/18at 20: 25; Start 08/07/18 at 21:00 Non-Formulary Medication (Escitalopram Oxalate ) 1 tab DAILY PO ; Start 08/08/18 at 09:00; Status UNV Cefazolin Sodium/ Dextrose 50 ml @ 100 mls/hr Q8HRS IV Last administered on 08/09/18at 05:05; Start 08/07/18 at 18:00 Metoprolol Tartrate (Lopressor) 12.5 mg BID PO Last administered on 08/08/18at 20 :24; Start 08/08/18 at 12:30 Aspirin (Ecotrin) 81 mg DAILYWBKFT PO Last administered on 08/08/18at 15:59; Start 08/08/18 at 15:00 Iohexol (Omnipaque 350 Mg/ml) 90 ml 1X ONCE IV Last administered on 08/08/18at 15:00; Start 08/08/18 at 15:00; Stop 08/08/18 at 15:01; Status DC Info (CONTRAST GIVEN -- Rx MONITORING) 1 each PRN DAILY PRN MC SEE COMMENTS; Start 08/08/18 at 15:15; Stop 08/10/18 at 15:14 Active Scripts Active Percocet 5-325 Mg Tablet (Oxycodone/Acetaminophen) 1 Each Tablet 1 Tab PO PRN Q4HRS PRN Reported Cyclobenzaprine Hcl 10 Mg Tablet 1 Tab PO TID Escitalopram Oxalate 20 Mg Tablet 1 Tab PO DAILY Celexa (Citalopram Hydrobromide) 40 Mg Tablet 40 Mg PO HS Proair Hfa Inhaler (Albuterol Sulfate) 8.5 Gm Hfa.aer.ad 1 Puff INH PRN Q6HRS PRN Alprazolam 1 Mg Tablet 1 Mg PO BID PRN Last dose given: 07-08-14 9:00 p.m. Next dose due: tonight Vitals/I & O Vital Sign - Last 24 Hours 08/08/18 08/08/18 08/08/18 08/08/18 09:30 09:40 11:00 13:43 Temp 98.4 97.8 98.4 97.8 Pulse 93 91 109 Resp 20 B/P (MAP) 112/56 (74) 125/66 (85) 115/62 Pulse Ox 91 91 93 O2 Delivery Room Air Room Air Room Air 08/08/18 08/08/18 08/08/18 08/08/18 15:00 16:08 17:08 19:40 Temp 97.8 98.0 97.8 98.0 Pulse 103 105 Resp 24 B/P (MAP) 122/65 (84) 128/73 (91) Pulse Ox 93 95 O2 Delivery Room Air Room Air Room Air Room Air 08/08/18 08/08/18 08/08/18 08/09/18 20:00 20:24 23:16 02:44 Temp 98.1 98.2 98.1 98.2 Pulse 105 102 110 Resp 22 22 B/P (MAP) 128/73 120/66 (84) 150/94 (112) Pulse Ox 95 92 O2 Delivery Room Air Room Air Room Air 08/09/18 08/09/18 08/09/18 08/09/18 02:45 03:45 07:50 07:52 Temp 98.1 98.1 Pulse 82 Resp 18 18 20 B/P (MAP) 148/74 (98) Pulse Ox 95 92 O2 Delivery Room Air Room Air Room Air Intake and Output 08/08/18 08/08/18 08/09/18 15:00 23:00 07:00 Intake Total 50 ml 210 ml Output Total 300 ml 650 ml 150 ml Balance -300 ml -600 ml 60 ml GURVINDER CAMPUZANO III DO Aug 09, 2018 08:33
[2018-08-09] MEDS: CYCLOBENZAPRINE 10 MG TABLET. PO SCH ×3 (08:37→20:37)
[2018-08-09] MEDS: ASPIRIN ENTERIC COATED 81 MG TABLET.DR. PO SCH (08:38)
[2018-08-09] MEDS: METOPROLOL TART IMMED RELEASE 25 MG TABLET. PO SCH ×2 (08:39→20:37)
[2018-08-09 11:13] VITALS: BP 103/58
--- NOTE | 2018-08-09 12:47 | PDOC ---
PROGRESS NOTES Subjective Subjective Patient seen and examined She is feeling better today. Objective Objective Vital Signs Date Time Temp Pulse Resp B/P (MAP) Pulse Ox O2 Delivery O2 Flow Rate FiO2 08/09/18 11:13 98.1 100 18 103/58 (73) 96 Room Air 98.1 Intake and Output 08/09/18 07:00 Intake Total 260 ml Output Total 1100 ml Balance -840 ml Intake Oral 160 ml IV Total 100 ml Output Urine Total 1100 ml # Voids 2 Physical Exam Abdomen: Normal bowel sounds Heart: Other (mild tachycardia) General: mild distress Lungs: Clear to auscultation Assessment Assessment Problems Medical Problems: (1) Atrial fibrillation with RVR Status: Acute (2) Elevated blood pressure reading Status: Acute (3) Tachycardia Status: Acute ASSESSMENT/PLAN 1. Arrhythmia: suspect new onset PAFIB. presently SR. CTA scan negative for PE. Lower extremity venous ultrasound negative for DVT. Continuing present treatments and monitoring. 2. Mild ELAINE with RLE pain 3. Prior RTHA 2017 with recent femoral head exchange and infection: Cx+Staph ID/ ortho following 4. Chronic normocytic anemia Comment Review of Relevant I have reviewed the following items marion (where applicable) has been applied. Labs Laboratory Tests Test 08/08/18 03:30 08/08/18 12:45 08/09/18 03:30 White Blood Count 6.6 x10^3/uL (4.0-11.0) 7.4 x10^3/uL (4.0-11.0) Red Blood Count 2.90 x10^6/uL (3.50-5.40) 3.06 x10^6/uL (3.50-5.40) Hemoglobin 9.0 g/dL (12.0-15.5) 9.4 g/dL (12.0-15.5) Hematocrit 26.8 % (36.0-47.0) 28.5 % (36.0-47.0) Mean Corpuscular Volume 93 fL (79-100) 93 fL (79-100) Mean Corpuscular Hemoglobin 31 pg (25-35) 31 pg (25-35) Mean Corpuscular Hemoglobin Concent 34 g/dL (31-37) 33 g/dL (31-37) Red Cell Distribution Width 13.5 % (11.5-14.5) 13.9 % (11.5-14.5) Platelet Count 293 x10^3/uL (140-400) 312 x10^3/uL (140-400) Neutrophils (%) (Auto) 62 % (31-73) 61 % (31-73) Lymphocytes (%) (Auto) 17 % (24-48) 17 % (24-48) Monocytes (%) (Auto) 14 % (0-9) 10 % (0-9) Eosinophils (%) (Auto) 7 % (0-3) 11 % (0-3) Basophils (%) (Auto) 1 % (0-3) 1 % (0-3) Neutrophils # (Auto) 4.1 x10^3uL (1.8-7.7) 4.5 x10^3uL (1.8-7.7) Lymphocytes # (Auto) 1.1 x10^3/uL (1.0-4.8) 1.3 x10^3/uL (1.0-4.8) Monocytes # (Auto) 0.9 x10^3/uL (0.0-1.1) 0.8 x10^3/uL (0.0-1.1) Eosinophils # (Auto) 0.5 x10^3/uL (0.0-0.7) 0.8 x10^3/uL (0.0-0.7) Basophils # (Auto) 0.1 x10^3/uL (0.0-0.2) 0.1 x10^3/uL (0.0-0.2) Sodium Level 143 mmol/L (136-145) 139 mmol/L (136-145) Potassium Level 3.4 mmol/L (3.5-5.1) 3.8 mmol/L (3.5-5.1) Chloride Level 106 mmol/L (98-107) 104 mmol/L (98-107) Carbon Dioxide Level 28 mmol/L (21-32) 27 mmol/L (21-32) Anion Gap 9 (6-14) 8 (6-14) Blood Urea Nitrogen 6 mg/dL (7-20) 7 mg/dL (7-20) Creatinine 0.7 mg/dL (0.6-1.0) 0.7 mg/dL (0.6-1.0) Estimated GFR (Cockcroft-Gault) 82.5 82.5 Glucose Level 111 mg/dL (70-99) 94 mg/dL (70-99) Calcium Level 9.5 mg/dL (8.5-10.1) 9.2 mg/dL (8.5-10.1) Magnesium Level 2.3 mg/dL (1.8-2.4) Thyroid Stimulating Hormone (TSH) 1.404 uIU/mL (0.358-3.74) D-Dimer (Chiara) 3.00 ug/mlFEU (0.00-0.50) Laboratory Tests Test 08/09/18 03:30 White Blood Count 7.4 x10^3/uL (4.0-11.0) Red Blood Count 3.06 x10^6/uL (3.50-5.40) Hemoglobin 9.4 g/dL (12.0-15.5) Hematocrit 28.5 % (36.0-47.0) Mean Corpuscular Volume 93 fL (79-100) Mean Corpuscular Hemoglobin 31 pg (25-35) Mean Corpuscular Hemoglobin Concent 33 g/dL (31-37) Red Cell Distribution Width 13.9 % (11.5-14.5) Platelet Count 312 x10^3/uL (140-400) Neutrophils (%) (Auto) 61 % (31-73) Lymphocytes (%) (Auto) 17 % (24-48) Monocytes (%) (Auto) 10 % (0-9) Eosinophils (%) (Auto) 11 % (0-3) Basophils (%) (Auto) 1 % (0-3) Neutrophils # (Auto) 4.5 x10^3uL (1.8-7.7) Lymphocytes # (Auto) 1.3 x10^3/uL (1.0-4.8) Monocytes # (Auto) 0.8 x10^3/uL (0.0-1.1) Eosinophils # (Auto) 0.8 x10^3/uL (0.0-0.7) Basophils # (Auto) 0.1 x10^3/uL (0.0-0.2) Sodium Level 139 mmol/L (136-145) Potassium Level 3.8 mmol/L (3.5-5.1) Chloride Level 104 mmol/L (98-107) Carbon Dioxide Level 27 mmol/L (21-32) Anion Gap 8 (6-14) Blood Urea Nitrogen 7 mg/dL (7-20) Creatinine 0.7 mg/dL (0.6-1.0) Estimated GFR (Cockcroft-Gault) 82.5 Glucose Level 94 mg/dL (70-99) Calcium Level 9.2 mg/dL (8.5-10.1) Medications Current Medications Sodium Chloride 500 ml @ 500 mls/hr 1X ONCE IV Last administered on at 12:22; Start 08/07/18 at 11:45; Stop 08/07/18 at 12:44; Status DC Diltiazem HCl (Cardizem Iv Push) 10 mg 1X ONCE IVP ; Start 08/07/18 at 12:00; Stop 08/07/18 at 12:15; Status DC Diltiazem HCl 125 mg/Dextrose 125 ml @ 5 mls/hr CONT PRN IV SEE I/O RECORD; Start 08/07/18 at 12:00; Stop 08/07/18 at 12:01; Status DC Ondansetron HCl (Zofran) 4 mg PRN Q8HRS PRN IV NAUSEA/VOMITING; Start 08/07/18 at 14:45; Stop 08/08/18 at 14:44; Status DC Sodium Chloride 1,000 ml @ 100 mls/hr Q10H IV Last administered on 08/07/18at 14:45; Start 08/07/18 at 14:45; Stop 08/07/18 at 14:46; Status DC Albuterol Sulfate (Ventolin Neb Soln) 2.5 mg PRN Q6HRS PRN INH SHORTNESS OF BREATH; Start 08/07/18 at 15:00 Alprazolam (Xanax) 1 mg PRN BID PRN PO ANXIETY / AGITATION Last administered on 08/07/18at 22:20; Start 08/07/18 at 15:00 Cyclobenzaprine HCl (Flexeril) 10 mg TID PO Last administered on 08/09/18at 08:37 ; Start 08/07/18 at 21:00 Oxycodone/ Acetaminophen (Percocet 5/325) 1 tab PRN Q4HRS PRN PO PAIN Last administered on 08/09/18at 08:38; Start 08/07/18 at 15:00 Citalopram Hydrobromide (CeleXA) 40 mg QHS PO Last administered on 08/08/18at 20: 25; Start 08/07/18 at 21:00 Non-Formulary Medication (Escitalopram Oxalate ) 1 tab DAILY PO ; Start 08/08/18 at 09:00; Status UNV Cefazolin Sodium/ Dextrose 50 ml @ 100 mls/hr Q8HRS IV Last administered on 08/09/18at 05:05; Start 08/07/18 at 18:00; Stop 08/09/18 at 22:01 Metoprolol Tartrate (Lopressor) 12.5 mg BID PO Last administered on 08/09/18at 08 :39; Start 08/08/18 at 12:30 Aspirin (Ecotrin) 81 mg DAILYWBKFT PO Last administered on 08/09/18at 08:38; Start 08/08/18 at 15:00 Iohexol (Omnipaque 350 Mg/ml) 90 ml 1X ONCE IV Last administered on 08/08/18at 15:00; Start 08/08/18 at 15:00; Stop 08/08/18 at 15:01; Status DC Info (CONTRAST GIVEN -- Rx MONITORING) 1 each PRN DAILY PRN MC SEE COMMENTS; Start 08/08/18 at 15:15; Stop 08/10/18 at 15:14 Lactobacillus Rhamnosus (Culturelle) 1 cap BID PO ; Start 08/09/18 at 21:00 Ceftriaxone Sodium (Rocephin) 1 gm Q24H IVP ; Start 08/10/18 at 09:00 Active Scripts Active Percocet 5-325 Mg Tablet (Oxycodone/Acetaminophen) 1 Each Tablet 1 Tab PO PRN Q4HRS PRN Reported Cyclobenzaprine Hcl 10 Mg Tablet 1 Tab PO TID Escitalopram Oxalate 20 Mg Tablet 1 Tab PO DAILY Celexa (Citalopram Hydrobromide) 40 Mg Tablet 40 Mg PO HS Proair Hfa Inhaler (Albuterol Sulfate) 8.5 Gm Hfa.aer.ad 1 Puff INH PRN Q6HRS PRN Alprazolam 1 Mg Tablet 1 Mg PO BID PRN Last dose given: 07-08-14 9:00 p.m. Next dose due: tonight Vitals/I & O Vital Sign - Last 24 Hours 08/08/18 08/08/18 08/08/18 08/08/18 13:43 15:00 16:08 19:40 Temp 97.8 98.0 97.8 98.0 Pulse 109 103 105 Resp 24 B/P (MAP) 115/62 122/65 (84) 128/73 (91) Pulse Ox 93 95 O2 Delivery Room Air Room Air Room Air 08/08/18 08/08/18 08/08/18 08/09/18 20:00 20:24 23:16 02:44 Temp 98.1 98.2 98.1 98.2 Pulse 105 102 110 Resp 22 22 B/P (MAP) 128/73 120/66 (84) 150/94 (112) Pulse Ox 95 92 O2 Delivery Room Air Room Air Room Air 08/09/18 08/09/18 08/09/18 08/09/18 02:45 03:45 07:50 07:52 Temp 98.1 98.1 Pulse 82 Resp 18 18 20 B/P (MAP) 148/74 (98) Pulse Ox 95 92 O2 Delivery Room Air Room Air Room Air 08/09/18 08/09/18 08/09/18 08/09/18 08:38 08:39 09:46 11:13 Temp 98.1 98.1 Pulse 82 100 Resp 18 B/P (MAP) 148/74 103/58 (73) Pulse Ox 92 92 96 O2 Delivery Room Air Room Air Room Air Intake and Output 08/08/18 08/08/18 08/09/18 15:00 23:00 07:00 Intake Total 50 ml 210 ml Output Total 300 ml 650 ml 150 ml Balance -300 ml -600 ml 60 ml NIA KIMBLE MD Aug 09, 2018 12:47
[2018-08-09 15:09] VITALS: BP 109/57
[2018-08-09 18:32] VITALS: BP 120/65
[2018-08-09] MEDS: CITALOPRAM 20 MG TABLET. PO SCH (20:37)
[2018-08-09] MEDS: LACTOBACILLUS RHAMNOSUS GG 1 CAPSULE. PO SCH (20:37)
[2018-08-09] MEDS: ALPRAZolam 1 MG TABLET PO PRN (20:43)
[2018-08-09 23:06] VITALS: BP 124/58
[2018-08-10 03:20] VITALS: BP 135/67
[2018-08-10 04:08] LABS: BASO # 0.1 x10^3/uL (0.0-0.2); BASO % 1 % (0-3); CALCIUM 9.6 mg/dL (8.5-10.1); CREATININE 0.7 mg/dL (0.6-1.0); EOS # 0.8 x10^3/uL (0.0-0.7); EOS % 11 % (0-3); GFR 82.5; HEMATOCRIT 29.4 % (36.0-47.0); HEMOGLOBIN 9.6 g/dL (12.0-15.5); LYMPH # 1.4 x10^3/uL (1.0-4.8); LYMPH % 20 % (24-48); MEAN CORPUSCULAR HEMOGLOBIN 30 pg (25-35); MEAN CORPUSCULAR HGB CONC 33 g/dL (31-37); MEAN CORPUSCULAR VOLUME 93 fL (79-100); MONO # 0.7 x10^3/uL (0.0-1.1); MONO % 10 % (0-9); NEUT % 59 % (31-73); PLATELET COUNT 337 x10^3/uL (140-400); POTASSIUM 4.2 mmol/L (3.5-5.1); RED BLOOD COUNT 3.16 x10^6/uL (3.50-5.40); RED CELL DISTRIBUTION WIDTH 13.7 % (11.5-14.5); WHITE BLOOD COUNT 6.9 x10^3/uL (4.0-11.0)
[2018-08-10] MEDS: oxyCODONE/APAP 5/325 1 TAB TABLET PO PRN ×3 (05:06→23:28)
[2018-08-10 07:35] VITALS: BP 126/70
[2018-08-10] MEDS: LACTOBACILLUS RHAMNOSUS GG 1 CAPSULE. PO SCH ×2 (08:09→20:51)
[2018-08-10] MEDS: cefTRIAXone IV Push 1 GM VIAL. IVP SCH (08:09)
[2018-08-10] MEDS: METOPROLOL TART IMMED RELEASE 25 MG TABLET. PO SCH ×2 (08:09→20:51)
[2018-08-10] MEDS: ASPIRIN ENTERIC COATED 81 MG TABLET.DR. PO SCH (08:09)
[2018-08-10] MEDS: CYCLOBENZAPRINE 10 MG TABLET. PO SCH ×3 (08:09→20:51)
--- NOTE | 2018-08-10 09:22 | PDOC ---
Infectious Disease Note Subjective Subjective Tired this morning, otherwise feeling alright No F/C/S/N/V/D ROS ROS per HPI otherwise neg Vital Sign Vital Signs Vital Signs Date Time Temp Pulse Resp B/P (MAP) Pulse Ox O2 Delivery O2 Flow Rate FiO2 08/10/18 08:09 126/70 08/10/18 08:01 Room Air 08/10/18 07:35 98.2 82 18 94 98.2 08/10/18 06:06 93.0 Physical Exam PHYSICAL EXAM GENERAL: Propped up in bed, tired appearance HEENT: Oral cavity, pharynx pink and moist. NECK: Supple. LUNGS: Clear to auscultation. HEART: S1, S2. ABDOMEN: Obese, soft, nontender with bowel sounds present. EXTREMITIES: No gross edema or cyanosis. Distal pulses palpable. Right hip/thigh wound VAC in place. Tender without area redness or induration. SKIN: Warm without generalized rash. NEUROLOGIC: Alert, responds appropriately. RUE-PICC (08/02) without signs of any complications Labs Lab Laboratory Tests Test 08/10/18 03:12 White Blood Count 6.9 x10^3/uL (4.0-11.0) Red Blood Count 3.16 x10^6/uL (3.50-5.40) Hemoglobin 9.6 g/dL (12.0-15.5) Hematocrit 29.4 % (36.0-47.0) Mean Corpuscular Volume 93 fL (79-100) Mean Corpuscular Hemoglobin 30 pg (25-35) Mean Corpuscular Hemoglobin Concent 33 g/dL (31-37) Red Cell Distribution Width 13.7 % (11.5-14.5) Platelet Count 337 x10^3/uL (140-400) Neutrophils (%) (Auto) 59 % (31-73) Lymphocytes (%) (Auto) 20 % (24-48) Monocytes (%) (Auto) 10 % (0-9) Eosinophils (%) (Auto) 11 % (0-3) Basophils (%) (Auto) 1 % (0-3) Neutrophils # (Auto) 4.0 x10^3uL (1.8-7.7) Lymphocytes # (Auto) 1.4 x10^3/uL (1.0-4.8) Monocytes # (Auto) 0.7 x10^3/uL (0.0-1.1) Eosinophils # (Auto) 0.8 x10^3/uL (0.0-0.7) Basophils # (Auto) 0.1 x10^3/uL (0.0-0.2) Sodium Level 143 mmol/L (136-145) Potassium Level 4.2 mmol/L (3.5-5.1) Chloride Level 107 mmol/L (98-107) Carbon Dioxide Level 31 mmol/L (21-32) Anion Gap 5 (6-14) Blood Urea Nitrogen 7 mg/dL (7-20) Creatinine 0.7 mg/dL (0.6-1.0) Estimated GFR (Cockcroft-Gault) 82.5 Glucose Level 93 mg/dL (70-99) Calcium Level 9.6 mg/dL (8.5-10.1) Objective Assessment Infected right hip arthroplasty with coag-negative staph species, oxacillin sensitive from 07/22/2018. Status post exploration with exchange of femoral head implant on 07/22/2018. Degenerative joint disease. Hypertension. A fib with RVR Plan Plan of Care cont Rocephin cont wound vac PICC maintenance care PT/OT Attending Co-Sign The patient was seen and interviewed as well as examined at the bedside. The chart was reviewed. The case was discussed. Agree with the plan of care. JOSE SIBLEY APRN Aug 10, 2018 09:22 DONTE DING MD Aug 10, 2018 11:30
--- NOTE | 2018-08-10 09:26 | PDOC ---
PROGRESS NOTES Subjective Subjective Patient seen and examined Objective Objective Vital Signs Date Time Temp Pulse Resp B/P (MAP) Pulse Ox O2 Delivery O2 Flow Rate FiO2 08/10/18 08:09 126/70 08/10/18 08:01 Room Air 08/10/18 07:35 98.2 82 18 94 98.2 08/10/18 06:06 93.0 Intake and Output 08/10/18 07:00 Intake Total 1290 ml Output Total 1400 ml Balance -110 ml Intake Oral 1290 ml Output Urine Total 1400 ml Physical Exam Abdomen: Normal bowel sounds Heart: Regular rate General: No acute distress Lungs: Clear to auscultation Assessment Assessment Problems Medical Problems: (1) Atrial fibrillation with RVR Status: Acute (2) Elevated blood pressure reading Status: Acute (3) Tachycardia Status: Acute 1. Arrhythmia: suspect new onset PAFIB. presently SR. CTA scan negative for PE. Lower extremity venous ultrasound negative for DVT. Continuing present treatments and monitoring. The patient is more comfortable today. 2. Mild ELAINE with RLE pain 3. Prior RTHA 2017 with recent femoral head exchange and infection: Cx+Staph ID/ ortho following 4. Chronic normocytic anemia Comment Review of Relevant I have reviewed the following items marion (where applicable) has been applied. Labs Laboratory Tests Test 08/08/18 12:45 08/09/18 03:30 08/10/18 03:12 D-Dimer (Chiara) 3.00 ug/mlFEU (0.00-0.50) White Blood Count 7.4 x10^3/uL (4.0-11.0) 6.9 x10^3/uL (4.0-11.0) Red Blood Count 3.06 x10^6/uL (3.50-5.40) 3.16 x10^6/uL (3.50-5.40) Hemoglobin 9.4 g/dL (12.0-15.5) 9.6 g/dL (12.0-15.5) Hematocrit 28.5 % (36.0-47.0) 29.4 % (36.0-47.0) Mean Corpuscular Volume 93 fL (79-100) 93 fL (79-100) Mean Corpuscular Hemoglobin 31 pg (25-35) 30 pg (25-35) Mean Corpuscular Hemoglobin Concent 33 g/dL (31-37) 33 g/dL (31-37) Red Cell Distribution Width 13.9 % (11.5-14.5) 13.7 % (11.5-14.5) Platelet Count 312 x10^3/uL (140-400) 337 x10^3/uL (140-400) Neutrophils (%) (Auto) 61 % (31-73) 59 % (31-73) Lymphocytes (%) (Auto) 17 % (24-48) 20 % (24-48) Monocytes (%) (Auto) 10 % (0-9) 10 % (0-9) Eosinophils (%) (Auto) 11 % (0-3) 11 % (0-3) Basophils (%) (Auto) 1 % (0-3) 1 % (0-3) Neutrophils # (Auto) 4.5 x10^3uL (1.8-7.7) 4.0 x10^3uL (1.8-7.7) Lymphocytes # (Auto) 1.3 x10^3/uL (1.0-4.8) 1.4 x10^3/uL (1.0-4.8) Monocytes # (Auto) 0.8 x10^3/uL (0.0-1.1) 0.7 x10^3/uL (0.0-1.1) Eosinophils # (Auto) 0.8 x10^3/uL (0.0-0.7) 0.8 x10^3/uL (0.0-0.7) Basophils # (Auto) 0.1 x10^3/uL (0.0-0.2) 0.1 x10^3/uL (0.0-0.2) Sodium Level 139 mmol/L (136-145) 143 mmol/L (136-145) Potassium Level 3.8 mmol/L (3.5-5.1) 4.2 mmol/L (3.5-5.1) Chloride Level 104 mmol/L (98-107) 107 mmol/L (98-107) Carbon Dioxide Level 27 mmol/L (21-32) 31 mmol/L (21-32) Anion Gap 8 (6-14) 5 (6-14) Blood Urea Nitrogen 7 mg/dL (7-20) 7 mg/dL (7-20) Creatinine 0.7 mg/dL (0.6-1.0) 0.7 mg/dL (0.6-1.0) Estimated GFR (Cockcroft-Gault) 82.5 82.5 Glucose Level 94 mg/dL (70-99) 93 mg/dL (70-99) Calcium Level 9.2 mg/dL (8.5-10.1) 9.6 mg/dL (8.5-10.1) Laboratory Tests Test 08/10/18 03:12 White Blood Count 6.9 x10^3/uL (4.0-11.0) Red Blood Count 3.16 x10^6/uL (3.50-5.40) Hemoglobin 9.6 g/dL (12.0-15.5) Hematocrit 29.4 % (36.0-47.0) Mean Corpuscular Volume 93 fL (79-100) Mean Corpuscular Hemoglobin 30 pg (25-35) Mean Corpuscular Hemoglobin Concent 33 g/dL (31-37) Red Cell Distribution Width 13.7 % (11.5-14.5) Platelet Count 337 x10^3/uL (140-400) Neutrophils (%) (Auto) 59 % (31-73) Lymphocytes (%) (Auto) 20 % (24-48) Monocytes (%) (Auto) 10 % (0-9) Eosinophils (%) (Auto) 11 % (0-3) Basophils (%) (Auto) 1 % (0-3) Neutrophils # (Auto) 4.0 x10^3uL (1.8-7.7) Lymphocytes # (Auto) 1.4 x10^3/uL (1.0-4.8) Monocytes # (Auto) 0.7 x10^3/uL (0.0-1.1) Eosinophils # (Auto) 0.8 x10^3/uL (0.0-0.7) Basophils # (Auto) 0.1 x10^3/uL (0.0-0.2) Sodium Level 143 mmol/L (136-145) Potassium Level 4.2 mmol/L (3.5-5.1) Chloride Level 107 mmol/L (98-107) Carbon Dioxide Level 31 mmol/L (21-32) Anion Gap 5 (6-14) Blood Urea Nitrogen 7 mg/dL (7-20) Creatinine 0.7 mg/dL (0.6-1.0) Estimated GFR (Cockcroft-Gault) 82.5 Glucose Level 93 mg/dL (70-99) Calcium Level 9.6 mg/dL (8.5-10.1) Medications Current Medications Sodium Chloride 500 ml @ 500 mls/hr 1X ONCE IV Last administered on at 12:22; Start 08/07/18 at 11:45; Stop 08/07/18 at 12:44; Status DC Diltiazem HCl (Cardizem Iv Push) 10 mg 1X ONCE IVP ; Start 08/07/18 at 12:00; Stop 08/07/18 at 12:15; Status DC Diltiazem HCl 125 mg/Dextrose 125 ml @ 5 mls/hr CONT PRN IV SEE I/O RECORD; Start 08/07/18 at 12:00; Stop 08/07/18 at 12:01; Status DC Ondansetron HCl (Zofran) 4 mg PRN Q8HRS PRN IV NAUSEA/VOMITING; Start 08/07/18 at 14:45; Stop 08/08/18 at 14:44; Status DC Sodium Chloride 1,000 ml @ 100 mls/hr Q10H IV Last administered on 08/07/18at 14:45; Start 08/07/18 at 14:45; Stop 08/07/18 at 14:46; Status DC Albuterol Sulfate (Ventolin Neb Soln) 2.5 mg PRN Q6HRS PRN INH SHORTNESS OF BREATH; Start 08/07/18 at 15:00 Alprazolam (Xanax) 1 mg PRN BID PRN PO ANXIETY / AGITATION Last administered on 08/09/18at 20:43; Start 08/07/18 at 15:00 Cyclobenzaprine HCl (Flexeril) 10 mg TID PO Last administered on 08/10/18 08:09 ; Start 08/07/18 at 21:00 Oxycodone/ Acetaminophen (Percocet 5/325) 1 tab PRN Q4HRS PRN PO PAIN Last administered on 08/10/18at 05:06; Start 08/07/18 at 15:00 Citalopram Hydrobromide (CeleXA) 40 mg QHS PO Last administered on 08/09/18at 20: 37; Start 08/07/18 at 21:00 Non-Formulary Medication (Escitalopram Oxalate ) 1 tab DAILY PO ; Start 08/08/18 at 09:00; Status UNV Cefazolin Sodium/ Dextrose 50 ml @ 100 mls/hr Q8HRS IV Last administered on 08/09/18at 21:01; Start 08/07/18 at 18:00; Stop 08/09/18 at 22:01; Status DC Metoprolol Tartrate (Lopressor) 12.5 mg BID PO Last administered on 08/10/18 08 :09; Start 08/08/18 at 12:30 Aspirin (Ecotrin) 81 mg DAILYWBKFT PO Last administered on 08/10/18 08:09; Start 08/08/18 at 15:00 Iohexol (Omnipaque 350 Mg/ml) 90 ml 1X ONCE IV Last administered on 08/08/18at 15:00; Start 08/08/18 at 15:00; Stop 08/08/18 at 15:01; Status DC Info (CONTRAST GIVEN -- Rx MONITORING) 1 each PRN DAILY PRN MC SEE COMMENTS; Start 08/08/18 at 15:15; Stop 08/10/18 at 15:14 Lactobacillus Rhamnosus (Culturelle) 1 cap BID PO Last administered on 08:09; Start 08/09/18 at 21:00 Ceftriaxone Sodium (Rocephin) 1 gm Q24H IVP Last administered on 08/10/18at 08:09 ; Start 08/10/18 at 09:00 Active Scripts Active Percocet 5-325 Mg Tablet (Oxycodone/Acetaminophen) 1 Each Tablet 1 Tab PO PRN Q4HRS PRN Reported Cyclobenzaprine Hcl 10 Mg Tablet 1 Tab PO TID Escitalopram Oxalate 20 Mg Tablet 1 Tab PO DAILY Celexa (Citalopram Hydrobromide) 40 Mg Tablet 40 Mg PO HS Proair Hfa Inhaler (Albuterol Sulfate) 8.5 Gm Hfa.aer.ad 1 Puff INH PRN Q6HRS PRN Alprazolam 1 Mg Tablet 1 Mg PO BID PRN Last dose given: 07-08-14 9:00 p.m. Next dose due: tonight Vitals/I & O Vital Sign - Last 24 Hours 08/09/18 08/09/18 08/09/18 08/09/18 11:13 15:09 18:32 19:03 Temp 98.1 98.0 98.3 98.1 98.0 98.3 Pulse 100 82 88 Resp 18 16 16 18 B/P (MAP) 103/58 (73) 109/57 (74) 120/65 (83) Pulse Ox 96 93 96 O2 Delivery Room Air Room Air Room Air Room Air 08/09/18 08/09/18 08/09/18 08/10/18 19:54 20:37 23:06 03:20 Temp 97.8 98.1 97.8 98.1 Pulse 88 85 82 Resp 20 18 B/P (MAP) 120/65 124/58 (80) 135/67 (89) Pulse Ox 96 95 O2 Delivery Room Air Room Air Room Air 08/10/18 08/10/18 08/10/18 08/10/18 05:06 06:06 07:35 08:01 Temp 98.2 98.2 Pulse 82 Resp 20 18 18 B/P (MAP) 126/70 (88) Pulse Ox 2 94 O2 Delivery Room Air Room Air Room Air Room Air O2 Flow Rate 93.0 08/10/18 08:09 B/P (MAP) 126/70 Intake and Output 08/09/18 08/09/18 08/10/18 15:00 23:00 07:00 Intake Total 790 ml 500 ml Output Total 350 ml 500 ml 550 ml Balance -350 ml 290 ml -50 ml NIA KIMBLE MD Aug 10, 2018 09:25
--- NOTE | 2018-08-10 10:16 | PDOC ---
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 Recent admission for infected rt hip and exploration total hip arthroplasty on 07/22. Today she was seen and examined in her room. She is awake , alert and laying in bed. She is approaching her baseline. No new complaints at this time. RADHA her RN. Possible D/C tomorrow Vitals Vitals Vital Signs Date Time Temp Pulse Resp B/P (MAP) Pulse Ox O2 Delivery O2 Flow Rate FiO2 08/10/18 08:09 126/70 08/10/18 08:01 Room Air 08/10/18 07:35 98.2 82 18 94 98.2 08/10/18 06:06 93.0 Physical Exam Physical Exam GENERAL: Propped up in bed, tired appearance HEENT: Oral cavity, pharynx pink and moist. NECK: Supple. LUNGS: Clear to auscultation. HEART: S1, S2. ABDOMEN: Obese, soft, nontender with bowel sounds present. EXTREMITIES: No gross edema or cyanosis. Distal pulses palpable. Right hip/thigh wound VAC in place. Tender without area redness or induration. SKIN: Warm without generalized rash. NEUROLOGIC: Alert, responds appropriately. RUE-PICC (08/02) without signs of any complications General: Alert, Oriented X3, No acute distress Heart: Regular rate, No murmurs Lungs: Clear, Other (no wheezing or crackles) Abdomen: Normal bowel sounds, Soft, No tenderness Extremities: No cyanosis, Other (trace LE edema) Skin: No rashes, No significant lesion, Other (right hip surgical incision with D/I dressing) Labs LABS Laboratory Tests Test 08/10/18 03:12 White Blood Count 6.9 x10^3/uL (4.0-11.0) Red Blood Count 3.16 x10^6/uL (3.50-5.40) Hemoglobin 9.6 g/dL (12.0-15.5) Hematocrit 29.4 % (36.0-47.0) Mean Corpuscular Volume 93 fL (79-100) Mean Corpuscular Hemoglobin 30 pg (25-35) Mean Corpuscular Hemoglobin Concent 33 g/dL (31-37) Red Cell Distribution Width 13.7 % (11.5-14.5) Platelet Count 337 x10^3/uL (140-400) Neutrophils (%) (Auto) 59 % (31-73) Lymphocytes (%) (Auto) 20 % (24-48) Monocytes (%) (Auto) 10 % (0-9) Eosinophils (%) (Auto) 11 % (0-3) Basophils (%) (Auto) 1 % (0-3) Neutrophils # (Auto) 4.0 x10^3uL (1.8-7.7) Lymphocytes # (Auto) 1.4 x10^3/uL (1.0-4.8) Monocytes # (Auto) 0.7 x10^3/uL (0.0-1.1) Eosinophils # (Auto) 0.8 x10^3/uL (0.0-0.7) Basophils # (Auto) 0.1 x10^3/uL (0.0-0.2) Sodium Level 143 mmol/L (136-145) Potassium Level 4.2 mmol/L (3.5-5.1) Chloride Level 107 mmol/L (98-107) Carbon Dioxide Level 31 mmol/L (21-32) Anion Gap 5 (6-14) Blood Urea Nitrogen 7 mg/dL (7-20) Creatinine 0.7 mg/dL (0.6-1.0) Estimated GFR (Cockcroft-Gault) 82.5 Glucose Level 93 mg/dL (70-99) Calcium Level 9.6 mg/dL (8.5-10.1) Review of Systems Review of Systems Gen: denies fever, chills Heart: denies CP, palp Lung: denies cough, SOA Abd: denies N/V/D Ext: rt hip pain Assessment and Plan Assessmemt and Plan Assessment: CC: Chest tightness and tachycardia A fib with RVR 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 Labs Laboratory Tests Test 08/08/18 12:45 08/09/18 03:30 08/10/18 03:12 D-Dimer (Chiara) 3.00 ug/mlFEU (0.00-0.50) White Blood Count 7.4 x10^3/uL (4.0-11.0) 6.9 x10^3/uL (4.0-11.0) Red Blood Count 3.06 x10^6/uL (3.50-5.40) 3.16 x10^6/uL (3.50-5.40) Hemoglobin 9.4 g/dL (12.0-15.5) 9.6 g/dL (12.0-15.5) Hematocrit 28.5 % (36.0-47.0) 29.4 % (36.0-47.0) Mean Corpuscular Volume 93 fL (79-100) 93 fL (79-100) Mean Corpuscular Hemoglobin 31 pg (25-35) 30 pg (25-35) Mean Corpuscular Hemoglobin Concent 33 g/dL (31-37) 33 g/dL (31-37) Red Cell Distribution Width 13.9 % (11.5-14.5) 13.7 % (11.5-14.5) Platelet Count 312 x10^3/uL (140-400) 337 x10^3/uL (140-400) Neutrophils (%) (Auto) 61 % (31-73) 59 % (31-73) Lymphocytes (%) (Auto) 17 % (24-48) 20 % (24-48) Monocytes (%) (Auto) 10 % (0-9) 10 % (0-9) Eosinophils (%) (Auto) 11 % (0-3) 11 % (0-3) Basophils (%) (Auto) 1 % (0-3) 1 % (0-3) Neutrophils # (Auto) 4.5 x10^3uL (1.8-7.7) 4.0 x10^3uL (1.8-7.7) Lymphocytes # (Auto) 1.3 x10^3/uL (1.0-4.8) 1.4 x10^3/uL (1.0-4.8) Monocytes # (Auto) 0.8 x10^3/uL (0.0-1.1) 0.7 x10^3/uL (0.0-1.1) Eosinophils # (Auto) 0.8 x10^3/uL (0.0-0.7) 0.8 x10^3/uL (0.0-0.7) Basophils # (Auto) 0.1 x10^3/uL (0.0-0.2) 0.1 x10^3/uL (0.0-0.2) Sodium Level 139 mmol/L (136-145) 143 mmol/L (136-145) Potassium Level 3.8 mmol/L (3.5-5.1) 4.2 mmol/L (3.5-5.1) Chloride Level 104 mmol/L (98-107) 107 mmol/L (98-107) Carbon Dioxide Level 27 mmol/L (21-32) 31 mmol/L (21-32) Anion Gap 8 (6-14) 5 (6-14) Blood Urea Nitrogen 7 mg/dL (7-20) 7 mg/dL (7-20) Creatinine 0.7 mg/dL (0.6-1.0) 0.7 mg/dL (0.6-1.0) Estimated GFR (Cockcroft-Gault) 82.5 82.5 Glucose Level 94 mg/dL (70-99) 93 mg/dL (70-99) Calcium Level 9.2 mg/dL (8.5-10.1) 9.6 mg/dL (8.5-10.1) Laboratory Tests Test 08/10/18 03:12 White Blood Count 6.9 x10^3/uL (4.0-11.0) Red Blood Count 3.16 x10^6/uL (3.50-5.40) Hemoglobin 9.6 g/dL (12.0-15.5) Hematocrit 29.4 % (36.0-47.0) Mean Corpuscular Volume 93 fL (79-100) Mean Corpuscular Hemoglobin 30 pg (25-35) Mean Corpuscular Hemoglobin Concent 33 g/dL (31-37) Red Cell Distribution Width 13.7 % (11.5-14.5) Platelet Count 337 x10^3/uL (140-400) Neutrophils (%) (Auto) 59 % (31-73) Lymphocytes (%) (Auto) 20 % (24-48) Monocytes (%) (Auto) 10 % (0-9) Eosinophils (%) (Auto) 11 % (0-3) Basophils (%) (Auto) 1 % (0-3) Neutrophils # (Auto) 4.0 x10^3uL (1.8-7.7) Lymphocytes # (Auto) 1.4 x10^3/uL (1.0-4.8) Monocytes # (Auto) 0.7 x10^3/uL (0.0-1.1) Eosinophils # (Auto) 0.8 x10^3/uL (0.0-0.7) Basophils # (Auto) 0.1 x10^3/uL (0.0-0.2) Sodium Level 143 mmol/L (136-145) Potassium Level 4.2 mmol/L (3.5-5.1) Chloride Level 107 mmol/L (98-107) Carbon Dioxide Level 31 mmol/L (21-32) Anion Gap 5 (6-14) Blood Urea Nitrogen 7 mg/dL (7-20) Creatinine 0.7 mg/dL (0.6-1.0) Estimated GFR (Cockcroft-Gault) 82.5 Glucose Level 93 mg/dL (70-99) Calcium Level 9.6 mg/dL (8.5-10.1) Medications Current Medications Sodium Chloride 500 ml @ 500 mls/hr 1X ONCE IV Last administered on at 12:22; Start 08/07/18 at 11:45; Stop 08/07/18 at 12:44; Status DC Diltiazem HCl (Cardizem Iv Push) 10 mg 1X ONCE IVP ; Start 08/07/18 at 12:00; Stop 08/07/18 at 12:15; Status DC Diltiazem HCl 125 mg/Dextrose 125 ml @ 5 mls/hr CONT PRN IV SEE I/O RECORD; Start 08/07/18 at 12:00; Stop 08/07/18 at 12:01; Status DC Ondansetron HCl (Zofran) 4 mg PRN Q8HRS PRN IV NAUSEA/VOMITING; Start 08/07/18 at 14:45; Stop 08/08/18 at 14:44; Status DC Sodium Chloride 1,000 ml @ 100 mls/hr Q10H IV Last administered on 08/07/18at 14:45; Start 08/07/18 at 14:45; Stop 08/07/18 at 14:46; Status DC Albuterol Sulfate (Ventolin Neb Soln) 2.5 mg PRN Q6HRS PRN INH SHORTNESS OF BREATH; Start 08/07/18 at 15:00 Alprazolam (Xanax) 1 mg PRN BID PRN PO ANXIETY / AGITATION Last administered on 08/09/18at 20:43; Start 08/07/18 at 15:00 Cyclobenzaprine HCl (Flexeril) 10 mg TID PO Last administered on 08/10/18at 08:09 ; Start 08/07/18 at 21:00 Oxycodone/ Acetaminophen (Percocet 5/325) 1 tab PRN Q4HRS PRN PO PAIN Last administered on 08/10/18 05:06; Start 08/07/18 at 15:00 Citalopram Hydrobromide (CeleXA) 40 mg QHS PO Last administered on 08/09/18at 20: 37; Start 08/07/18 at 21:00 Non-Formulary Medication (Escitalopram Oxalate ) 1 tab DAILY PO ; Start 08/08/18 at 09:00; Status UNV Cefazolin Sodium/ Dextrose 50 ml @ 100 mls/hr Q8HRS IV Last administered on 08/09/18at 21:01; Start 08/07/18 at 18:00; Stop 08/09/18 at 22:01; Status DC Metoprolol Tartrate (Lopressor) 12.5 mg BID PO Last administered on 08/10/18 08 :09; Start 08/08/18 at 12:30 Aspirin (Ecotrin) 81 mg DAILYWBKFT PO Last administered on 08/10/18at 08:09; Start 08/08/18 at 15:00 Iohexol (Omnipaque 350 Mg/ml) 90 ml 1X ONCE IV Last administered on 08/08/18at 15:00; Start 08/08/18 at 15:00; Stop 08/08/18 at 15:01; Status DC Info (CONTRAST GIVEN -- Rx MONITORING) 1 each PRN DAILY PRN MC SEE COMMENTS; Start 08/08/18 at 15:15; Stop 08/10/18 at 15:14 Lactobacillus Rhamnosus (Culturelle) 1 cap BID PO Last administered on at 08:09; Start 08/09/18 at 21:00 Ceftriaxone Sodium (Rocephin) 1 gm Q24H IVP Last administered on 08/10/18at 08:09 ; Start 08/10/18 at 09:00 Active Scripts Active Percocet 5-325 Mg Tablet (Oxycodone/Acetaminophen) 1 Each Tablet 1 Tab PO PRN Q4HRS PRN Reported Cyclobenzaprine Hcl 10 Mg Tablet 1 Tab PO TID Escitalopram Oxalate 20 Mg Tablet 1 Tab PO DAILY Celexa (Citalopram Hydrobromide) 40 Mg Tablet 40 Mg PO HS Proair Hfa Inhaler (Albuterol Sulfate) 8.5 Gm Hfa.aer.ad 1 Puff INH PRN Q6HRS PRN Alprazolam 1 Mg Tablet 1 Mg PO BID PRN Last dose given: 07-08-14 9:00 p.m. Next dose due: tonight Vitals/I & O Vital Sign - Last 24 Hours 08/09/18 08/09/18 08/09/18 08/09/18 11:13 15:09 18:32 19:03 Temp 98.1 98.0 98.3 98.1 98.0 98.3 Pulse 100 82 88 Resp 18 16 16 18 B/P (MAP) 103/58 (73) 109/57 (74) 120/65 (83) Pulse Ox 96 93 96 O2 Delivery Room Air Room Air Room Air Room Air 08/09/18 08/09/18 08/09/18 08/10/18 19:54 20:37 23:06 03:20 Temp 97.8 98.1 97.8 98.1 Pulse 88 85 82 Resp 20 18 B/P (MAP) 120/65 124/58 (80) 135/67 (89) Pulse Ox 96 95 O2 Delivery Room Air Room Air Room Air 08/10/18 08/10/18 08/10/18 08/10/18 05:06 06:06 07:35 08:01 Temp 98.2 98.2 Pulse 82 Resp 20 18 18 B/P (MAP) 126/70 (88) Pulse Ox 2 94 O2 Delivery Room Air Room Air Room Air Room Air O2 Flow Rate 93.0 08/10/18 08:09 B/P (MAP) 126/70 Intake and Output 08/09/18 08/09/18 08/10/18 14:59 22:59 06:59 Intake Total 790 ml 500 ml Output Total 350 ml 500 ml 550 ml Balance -350 ml 290 ml -50 ml GURVINDER CAMPUZANO III DO Aug 10, 2018 10:16
[2018-08-10 11:00] VITALS: BP 110/60
[2018-08-10 15:00] VITALS: BP 124/62
[2018-08-10 19:15] VITALS: BP 108/59
[2018-08-10] MEDS: CITALOPRAM 20 MG TABLET. PO SCH (20:51)
[2018-08-10 23:15] VITALS: BP 146/80
[2018-08-11 03:05] VITALS: BP 107/52
[2018-08-11] MEDS: oxyCODONE/APAP 5/325 1 TAB TABLET PO PRN ×3 (05:58→17:03)
[2018-08-11 06:01] LABS: BASO # 0.1 x10^3/uL (0.0-0.2); BASO % 1 % (0-3); EOS # 0.9 x10^3/uL (0.0-0.7); EOS % 12 % (0-3); HEMATOCRIT 27.5 % (36.0-47.0); HEMOGLOBIN 9.3 g/dL (12.0-15.5); LYMPH # 1.2 x10^3/uL (1.0-4.8); LYMPH % 17 % (24-48); MEAN CORPUSCULAR HEMOGLOBIN 32 pg (25-35); MEAN CORPUSCULAR HGB CONC 34 g/dL (31-37); MEAN CORPUSCULAR VOLUME 93 fL (79-100); MONO # 0.8 x10^3/uL (0.0-1.1); MONO % 11 % (0-9); NEUT # 4.3 x10^3uL (1.8-7.7); NEUT % 60 % (31-73); PLATELET COUNT 306 x10^3/uL (140-400); RED BLOOD COUNT 2.94 x10^6/uL (3.50-5.40); RED CELL DISTRIBUTION WIDTH 13.5 % (11.5-14.5); WHITE BLOOD COUNT 7.3 x10^3/uL (4.0-11.0)
[2018-08-11 06:20] LABS: CALCIUM 9.4 mg/dL (8.5-10.1); CREATININE 0.6 mg/dL (0.6-1.0); GFR 98.5; POTASSIUM 4.3 mmol/L (3.5-5.1)
[2018-08-11 07:00] VITALS: BP 112/59
[2018-08-11] MEDS: ASPIRIN ENTERIC COATED 81 MG TABLET.DR. PO SCH (08:14)
[2018-08-11] MEDS: LACTOBACILLUS RHAMNOSUS GG 1 CAPSULE. PO SCH (08:14)
[2018-08-11] MEDS: CYCLOBENZAPRINE 10 MG TABLET. PO SCH ×2 (08:14→13:50)
[2018-08-11] MEDS: cefTRIAXone IV Push 1 GM VIAL. IVP SCH (08:15)
[2018-08-11] MEDS: METOPROLOL TART IMMED RELEASE 25 MG TABLET. PO SCH (08:15)
--- NOTE | 2018-08-11 08:28 | PDOC ---
Infectious Disease Note Subjective: Subjective Pt says she is doing ok pain in the Rt Hip is under control for now No F/C/S/N/V/D ROS: ROS Negative except for above. Vital Signs: Vital Signs Vital Signs Date Time Temp Pulse Resp B/P (MAP) Pulse Ox O2 Delivery O2 Flow Rate FiO2 08/11/18 08:15 80 112/59 08/11/18 07:00 97.8 18 93 Room Air 97.8 08/10/18 23:28 9.0 Physical Exam: PHYSICAL EXAM GENERAL: Propped up in bed, tired appearance HEENT: Oral cavity, pharynx pink and moist. NECK: Supple. LUNGS: Clear to auscultation. HEART: S1, S2. ABDOMEN: Obese, soft, nontender with bowel sounds present. EXTREMITIES: No gross edema or cyanosis. Distal pulses palpable. Right hip/thigh wound VAC in place. Tender without area redness or induration. SKIN: Warm without generalized rash. NEUROLOGIC: Alert, responds appropriately. RUE-PICC (08/02) without signs of any complications Medications: Inpatient Meds: Current Medications Medications (Trade) Dose Ordered Sig/Aliyah Start Time Stop Time Status Last Admin Dose Admin Albuterol Sulfate (Ventolin Neb Soln) 2.5 mg PRN Q6HRS PRN 08/07/18 15:00 Alprazolam (Xanax) 1 mg PRN BID PRN 08/07/18 15:00 08/09/18 20:43 1 MG Aspirin (Ecotrin) 81 mg DAILYWBKFT 08/08/18 15:00 08/11/18 08:14 81 MG Cefazolin Sodium/ Dextrose 50 ml @ 100 mls/hr Q8HRS 08/07/18 18:00 08/09/18 22:01 DC 08/09/18 21:01 100 MLS/HR Ceftriaxone Sodium (Rocephin) 1 gm Q24H 08/10/18 09:00 08/11/18 08:15 1 GM Citalopram Hydrobromide (CeleXA) 40 mg QHS 08/07/18 21:00 08/10/18 20:51 40 MG Cyclobenzaprine HCl (Flexeril) 10 mg TID 08/07/18 21:00 08/11/18 08:14 10 MG Diltiazem HCl (Cardizem Iv Push) 10 mg 1X ONCE 08/07/18 12:00 08/07/18 12:15 DC Diltiazem HCl 125 mg/Dextrose 125 ml @ 5 mls/hr CONT PRN 08/07/18 12:00 08/07/18 12:01 DC Info (CONTRAST GIVEN -- Rx MONITORING) 1 each PRN DAILY PRN 08/08/18 15:15 08/10/18 15:14 DC Iohexol (Omnipaque 350 Mg/ml) 90 ml 1X ONCE 08/08/18 15:00 08/08/18 15:01 DC 08/08/18 15:00 90 ML Lactobacillus Rhamnosus (Culturelle) 1 cap BID 08/09/18 21:00 08/11/18 08:14 1 CAP Metoprolol Tartrate (Lopressor) 12.5 mg BID 08/08/18 12:30 08/11/18 08:15 12.5 MG Non-Formulary Medication (Escitalopram Oxalate ) 1 tab DAILY 08/08/18 09:00 UNV Ondansetron HCl (Zofran) 4 mg PRN Q8HRS PRN 08/07/18 14:45 08/08/18 14:44 DC Oxycodone/ Acetaminophen (Percocet 5/325) 1 tab PRN Q4HRS PRN 08/07/18 15:00 08/11/18 05:58 1 TAB Sodium Chloride 1,000 ml @ 100 mls/hr Q10H 08/07/18 14:45 08/07/18 14:46 DC 08/07/18 14:45 100 MLS/HR Labs: Lab Laboratory Tests Test 08/11/18 05:50 White Blood Count 7.3 x10^3/uL (4.0-11.0) Red Blood Count 2.94 x10^6/uL (3.50-5.40) Hemoglobin 9.3 g/dL (12.0-15.5) Hematocrit 27.5 % (36.0-47.0) Mean Corpuscular Volume 93 fL (79-100) Mean Corpuscular Hemoglobin 32 pg (25-35) Mean Corpuscular Hemoglobin Concent 34 g/dL (31-37) Red Cell Distribution Width 13.5 % (11.5-14.5) Platelet Count 306 x10^3/uL (140-400) Neutrophils (%) (Auto) 60 % (31-73) Lymphocytes (%) (Auto) 17 % (24-48) Monocytes (%) (Auto) 11 % (0-9) Eosinophils (%) (Auto) 12 % (0-3) Basophils (%) (Auto) 1 % (0-3) Neutrophils # (Auto) 4.3 x10^3uL (1.8-7.7) Lymphocytes # (Auto) 1.2 x10^3/uL (1.0-4.8) Monocytes # (Auto) 0.8 x10^3/uL (0.0-1.1) Eosinophils # (Auto) 0.9 x10^3/uL (0.0-0.7) Basophils # (Auto) 0.1 x10^3/uL (0.0-0.2) Sodium Level 140 mmol/L (136-145) Potassium Level 4.3 mmol/L (3.5-5.1) Chloride Level 104 mmol/L (98-107) Carbon Dioxide Level 31 mmol/L (21-32) Anion Gap 5 (6-14) Blood Urea Nitrogen 8 mg/dL (7-20) Creatinine 0.6 mg/dL (0.6-1.0) Estimated GFR (Cockcroft-Gault) 98.5 Glucose Level 117 mg/dL (70-99) Calcium Level 9.4 mg/dL (8.5-10.1) Objective: Assessment: Infected right hip arthroplasty with coag-negative staph species, oxacillin sensitive from 07/22/2018. Status post exploration with exchange of femoral head implant on 07/22/2018. Degenerative joint disease. Hypertension. A fib with RVR Plan: Plan of Care cont Rocephin cont wound vac PICC maintenance care PT/OT GIRISH DING MD Aug 11, 2018 08:28
--- NOTE | 2018-08-11 08:31 | CARD ---
MR#: [id number] Date of Study: 08/10/2018 Ordering Physician: TYREE COREAS, Referring Physician: PAULY العراقي, Tech: Becka Garrido RDCS APPROVED REPORT EXAM: Two-dimensional and M-mode echocardiogram with Doppler and color Doppler. Other Information Quality : GoodHR: 84bpm Rhythm : NSR INDICATION Atrial Fibrillation ELAINE, 2D DIMENSIONS Left Atrium(2D)4.1 (1.6-4.0cm)IVSd1.0 (0.7-1.1cm) Aortic Root(2D)3.0 (2.0-3.7cm)LVDd4.0 (3.9-5.9cm) LVOT Diameter2.1 (1.8-2.4cm)PWd1.0 (0.7-1.1cm) LVDs2.8 (2.5-4.0cm)FS (%) 30.4 % SV40.1 mlLVEF(%)58.4 (>50%) Aortic Valve AoV Peak Rj.125.6cm/sAoV VTI29.7cm AO Peak GR.6.3mmHgLVOT Peak Rj.121.2cm/s AO Mean GR.4mmHgAVA (VMAX)3.38cm2 Mitral Valve MV E Ckrztypg28.9cm/sMV DECEL HQLH754vn MV A Deqmxvih397.6cm/sE/A Ratio0.9 MV A Wshaysst535su TDI Lateral E' P. V10.00cm/sMedial E' P. V7.00cm/s E/Lateral E'10.0E/Medial E'14.3 Tricuspid Valve TR P. Pivqyxio660ml/sRAP DBRDELQE8tkWf TR Peak Gr.24huJfCWTV32ndDq Pulmonary Vein S1 Fuduelaw43.0cm/sD2 Ydmgohvp36.6cm/s LEFT VENTRICLE The left ventricle is normal size. There is normal left ventricular wall thickness. The left ventricu lar systolic function is normal and the ejection fraction is within normal range. EF 55% There is nor mal LV segmental wall motion. Transmitral Doppler flow pattern is Grade I-abnormal relaxation pattern . RIGHT VENTRICLE The right ventricle is normal size. There is normal right ventricular wall thickness. The right ventr icular systolic function is normal. ATRIA The left atrium is mildly dilated. The right atrium size is normal. The interatrial septum is intact with no evidence for an atrial septal defect or patent foramen ovale as noted on 2-D or Doppler imagi ng. AORTIC VALVE The aortic valve is mildly thickened but opens well. Doppler and Color Flow revealed no significant a ortic regurgitation. There is no significant aortic valvular stenosis. There is no aortic valvular ve getation. MITRAL VALVE The mitral valve is thickened but opens well. There is no evidence of mitral valve prolapse. There is no mitral valve stenosis. Doppler and Color Flow revealed no mitral valve regurgitation noted. TRICUSPID VALVE The tricuspid valve is normal in structure and function. Doppler and Color Flow revealed mild tricusp id regurgitation.The pulmonary artery systolic pressure is estimated at 36 mmHg. There is no tricuspi d valve prolapse or vegetation. There is no tricuspid valve stenosis. PULMONIC VALVE Doppler and Color Flow revealed trace pulmonic valvular regurgitation. There is no pulmonic valvular stenosis. GREAT VESSELS The aortic root is normal in size. The IVC is normal in size and collapses >50% with inspiration. PERICARDIAL EFFUSION There is no pleural effusion. There is no evidence of significant pericardial effusion. Critical Notification Critical Value: No <Conclusion> The left ventricular systolic function is normal and the ejection fraction is within normal range. EF 55% There is normal LV segmental wall motion. Signed by : Sal Reyna, Electronically Approved : 08/11/2018 08:30:42
--- NOTE | 2018-08-11 09:50 | NUR ---
SS following up with discharge planning. PT recommended senior living unit at discharge. SS met with pt to discuss senior living unit. Pt agreeable to senior living unit at discharge and requested that referral be sent to [facility], ; fax [phone]. SS phoned and faxed referral to [facility]. SS will await acceptance decision and insurance determination and will proceed accordingly with discharge planning. Pt's RN notified.
--- NOTE | 2018-08-11 10:17 | NUR ---
Wound Care Wound care follow up for vac change to left upper thigh. Vac dressing was intact but not compressed upon arrival of WC team, vac was on and not alarming. Removed dressing, cleansed, pictured and measured wound and reapplied vac. Dressing did not compress with restarting of vac. Canister changed and dressing then drake down appropriately. Canister for home vac used on hospital vac until pt leaves then it can be transitioned over to home vac, which pt has in room. Pt believes she is going to [facility] but is not certain. Discussed POC with Jerry GOSS. [facility] is out of hospital owned vacs at this time so one will need to be ordered by [facility] is she goes there. Kandis HENRIQUEZ at notified via VM. No other wounds noted upon full skin inspection. Pt educated on PU prevention.
[2018-08-11 11:09] VITALS: BP 109/60
--- NOTE | 2018-08-11 11:39 | DISCH ---
DISCHARGE DISCHARGE INFORMATION: FINAL DIAGNOSIS Problems Medical Problems: (1) Atrial fibrillation with RVR Status: Acute (2) Elevated blood pressure reading Status: Acute (3) Tachycardia Status: Acute CONDITION ON DISCHARGE: Stable CODE STATUS: Code Status: Full DETENTION: SNF STAY <30 DAYS: Yes HOSPICE: HOSPICE: No HOSPICE EVAL & TREAT: No LTAC: ADMIT TO LTAC: No POST DISCHARGE ORDERS: ACTIVITY ORDERS: Activity as tolerated, Bedrest today WEIGHT BEARING STATUS: As tolerated BATHING ORDERS: Shower-keep dressing dry, No Tub Bath until see Dr. PERRY AFTER DISCHARGE: Cardiac WOUND/INCISION CARE: Keep wound/cast CDI, Change dressing, May get incision wet , Reinforce dressing PRN TREATMENT/EQUIPMENT ORDERS: ADAPTIVE EQUIPMENT NEEDED: None Physical Therapy For: Evalulation/Treatment Occupational Therapy For: Evaluation/Treatment DISCHARGE MEDICATIONS: Home Meds Active Scripts Oxycodone/Apap 5-325 (PERCOCET 5-325 MG TABLET ) 1 Each Tablet, 1 TAB PO PRN Q4HRS PRN for PAIN, #50 TAB 0 Refills Prov:ROSSI ARMAS MD 07/24/18 Reported Medications Cyclobenzaprine Hcl (CYCLOBENZAPRINE HCL) 10 Mg Tablet, 1 TAB PO TID for MUSCLE SPARMS, #90 TAB 07/22/18 Escitalopram Oxalate (ESCITALOPRAM OXALATE) 20 Mg Tablet, 1 TAB PO DAILY, #30 TAB 5 Refills 04/18/17 Citalopram Hydrobromide (CELEXA) 40 Mg Tablet, 40 MG PO HS, TAB 10/05/16 Albuterol Sulfate (PROAIR HFA INHALER) 8.5 Gm Hfa.aer.ad, 1 PUFF INH PRN Q6HRS PRN for SHORTNESS OF BREATH, INHALER 0 Refills 10/05/16 Alprazolam (ALPRAZOLAM) 1 Mg Tablet, 1 MG PO BID PRN for ANXIETY / AGITATION, TAB 0 Refills Last dose given: 07-08-14 9:00 p.m. Next dose due: tutu 06/25/14 GURVINDER CAMPUZANO III DO Aug 11, 2018 11:39
--- NOTE | 2018-08-11 12:03 | NUR ---
SS following up with discharge planning. Pt is clinically accepted at [facility]. SS phoned and faxed discharge orders to [facility], ; fax [phone]. SS will await insurance determination from [place] and will proceed accordingly with discharge planning.
--- NOTE | 2018-08-11 12:50 | PDOC ---
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 Recent admission for infected rt hip and exploration total hip arthroplasty on 07/22. Today she was seen and examined in her room. She is awake, alert and laying in bed, no acute distress. No new complaints at this time. Discussed dispo and hip wound vac with patient. Vitals Vitals Vital Signs Date Time Temp Pulse Resp B/P (MAP) Pulse Ox O2 Delivery O2 Flow Rate FiO2 08/11/18 11:19 Room Air 08/11/18 11:09 98.0 100 18 109/60 (76) 98 98.0 08/10/18 23:28 9.0 Physical Exam General: Alert, Oriented X3, Cooperative, No acute distress Heart: Regular rate, No murmurs Lungs: Clear, Other (no wheezing or crackles) Abdomen: Normal bowel sounds, Soft, No tenderness Extremities: No cyanosis, Other (wound vac clean dry and intact placed on R anterior hip) Skin: No rashes, No breakdown, No significant lesion, Other (right hip surgical incision with D/I dressing) Labs LABS Laboratory Tests Test 08/11/18 05:50 White Blood Count 7.3 x10^3/uL (4.0-11.0) Red Blood Count 2.94 x10^6/uL (3.50-5.40) Hemoglobin 9.3 g/dL (12.0-15.5) Hematocrit 27.5 % (36.0-47.0) Mean Corpuscular Volume 93 fL (79-100) Mean Corpuscular Hemoglobin 32 pg (25-35) Mean Corpuscular Hemoglobin Concent 34 g/dL (31-37) Red Cell Distribution Width 13.5 % (11.5-14.5) Platelet Count 306 x10^3/uL (140-400) Neutrophils (%) (Auto) 60 % (31-73) Lymphocytes (%) (Auto) 17 % (24-48) Monocytes (%) (Auto) 11 % (0-9) Eosinophils (%) (Auto) 12 % (0-3) Basophils (%) (Auto) 1 % (0-3) Neutrophils # (Auto) 4.3 x10^3uL (1.8-7.7) Lymphocytes # (Auto) 1.2 x10^3/uL (1.0-4.8) Monocytes # (Auto) 0.8 x10^3/uL (0.0-1.1) Eosinophils # (Auto) 0.9 x10^3/uL (0.0-0.7) Basophils # (Auto) 0.1 x10^3/uL (0.0-0.2) Sodium Level 140 mmol/L (136-145) Potassium Level 4.3 mmol/L (3.5-5.1) Chloride Level 104 mmol/L (98-107) Carbon Dioxide Level 31 mmol/L (21-32) Anion Gap 5 (6-14) Blood Urea Nitrogen 8 mg/dL (7-20) Creatinine 0.6 mg/dL (0.6-1.0) Estimated GFR (Cockcroft-Gault) 98.5 Glucose Level 117 mg/dL (70-99) Calcium Level 9.4 mg/dL (8.5-10.1) Review of Systems Review of Systems Pt denies CP, SOB, MILLAN, dizziness, weakness, N/V/D Assessment and Plan Assessmemt and Plan Problems Medical Problems: (1) Atrial fibrillation with RVR Status: Acute (2) Elevated blood pressure reading Status: Acute (3) Tachycardia Status: Acute Assessment: Chest tightness and tachycardia A fib with RVR 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 Labs Laboratory Tests Test 08/10/18 03:12 08/11/18 05:50 White Blood Count 6.9 x10^3/uL (4.0-11.0) 7.3 x10^3/uL (4.0-11.0) Red Blood Count 3.16 x10^6/uL (3.50-5.40) 2.94 x10^6/uL (3.50-5.40) Hemoglobin 9.6 g/dL (12.0-15.5) 9.3 g/dL (12.0-15.5) Hematocrit 29.4 % (36.0-47.0) 27.5 % (36.0-47.0) Mean Corpuscular Volume 93 fL (79-100) 93 fL (79-100) Mean Corpuscular Hemoglobin 30 pg (25-35) 32 pg (25-35) Mean Corpuscular Hemoglobin Concent 33 g/dL (31-37) 34 g/dL (31-37) Red Cell Distribution Width 13.7 % (11.5-14.5) 13.5 % (11.5-14.5) Platelet Count 337 x10^3/uL (140-400) 306 x10^3/uL (140-400) Neutrophils (%) (Auto) 59 % (31-73) 60 % (31-73) Lymphocytes (%) (Auto) 20 % (24-48) 17 % (24-48) Monocytes (%) (Auto) 10 % (0-9) 11 % (0-9) Eosinophils (%) (Auto) 11 % (0-3) 12 % (0-3) Basophils (%) (Auto) 1 % (0-3) 1 % (0-3) Neutrophils # (Auto) 4.0 x10^3uL (1.8-7.7) 4.3 x10^3uL (1.8-7.7) Lymphocytes # (Auto) 1.4 x10^3/uL (1.0-4.8) 1.2 x10^3/uL (1.0-4.8) Monocytes # (Auto) 0.7 x10^3/uL (0.0-1.1) 0.8 x10^3/uL (0.0-1.1) Eosinophils # (Auto) 0.8 x10^3/uL (0.0-0.7) 0.9 x10^3/uL (0.0-0.7) Basophils # (Auto) 0.1 x10^3/uL (0.0-0.2) 0.1 x10^3/uL (0.0-0.2) Sodium Level 143 mmol/L (136-145) 140 mmol/L (136-145) Potassium Level 4.2 mmol/L (3.5-5.1) 4.3 mmol/L (3.5-5.1) Chloride Level 107 mmol/L (98-107) 104 mmol/L (98-107) Carbon Dioxide Level 31 mmol/L (21-32) 31 mmol/L (21-32) Anion Gap 5 (6-14) 5 (6-14) Blood Urea Nitrogen 7 mg/dL (7-20) 8 mg/dL (7-20) Creatinine 0.7 mg/dL (0.6-1.0) 0.6 mg/dL (0.6-1.0) Estimated GFR (Cockcroft-Gault) 82.5 98.5 Glucose Level 93 mg/dL (70-99) 117 mg/dL (70-99) Calcium Level 9.6 mg/dL (8.5-10.1) 9.4 mg/dL (8.5-10.1) Laboratory Tests Test 08/11/18 05:50 White Blood Count 7.3 x10^3/uL (4.0-11.0) Red Blood Count 2.94 x10^6/uL (3.50-5.40) Hemoglobin 9.3 g/dL (12.0-15.5) Hematocrit 27.5 % (36.0-47.0) Mean Corpuscular Volume 93 fL (79-100) Mean Corpuscular Hemoglobin 32 pg (25-35) Mean Corpuscular Hemoglobin Concent 34 g/dL (31-37) Red Cell Distribution Width 13.5 % (11.5-14.5) Platelet Count 306 x10^3/uL (140-400) Neutrophils (%) (Auto) 60 % (31-73) Lymphocytes (%) (Auto) 17 % (24-48) Monocytes (%) (Auto) 11 % (0-9) Eosinophils (%) (Auto) 12 % (0-3) Basophils (%) (Auto) 1 % (0-3) Neutrophils # (Auto) 4.3 x10^3uL (1.8-7.7) Lymphocytes # (Auto) 1.2 x10^3/uL (1.0-4.8) Monocytes # (Auto) 0.8 x10^3/uL (0.0-1.1) Eosinophils # (Auto) 0.9 x10^3/uL (0.0-0.7) Basophils # (Auto) 0.1 x10^3/uL (0.0-0.2) Sodium Level 140 mmol/L (136-145) Potassium Level 4.3 mmol/L (3.5-5.1) Chloride Level 104 mmol/L (98-107) Carbon Dioxide Level 31 mmol/L (21-32) Anion Gap 5 (6-14) Blood Urea Nitrogen 8 mg/dL (7-20) Creatinine 0.6 mg/dL (0.6-1.0) Estimated GFR (Cockcroft-Gault) 98.5 Glucose Level 117 mg/dL (70-99) Calcium Level 9.4 mg/dL (8.5-10.1) Medications Current Medications Sodium Chloride 500 ml @ 500 mls/hr 1X ONCE IV Last administered on at 12:22; Start 08/07/18 at 11:45; Stop 08/07/18 at 12:44; Status DC Diltiazem HCl (Cardizem Iv Push) 10 mg 1X ONCE IVP ; Start 08/07/18 at 12:00; Stop 08/07/18 at 12:15; Status DC Diltiazem HCl 125 mg/Dextrose 125 ml @ 5 mls/hr CONT PRN IV SEE I/O RECORD; Start 08/07/18 at 12:00; Stop 08/07/18 at 12:01; Status DC Ondansetron HCl (Zofran) 4 mg PRN Q8HRS PRN IV NAUSEA/VOMITING; Start 08/07/18 at 14:45; Stop 08/08/18 at 14:44; Status DC Sodium Chloride 1,000 ml @ 100 mls/hr Q10H IV Last administered on 08/07/18at 14:45; Start 08/07/18 at 14:45; Stop 08/07/18 at 14:46; Status DC Albuterol Sulfate (Ventolin Neb Soln) 2.5 mg PRN Q6HRS PRN INH SHORTNESS OF BREATH; Start 08/07/18 at 15:00 Alprazolam (Xanax) 1 mg PRN BID PRN PO ANXIETY / AGITATION Last administered on 08/09/18 20:43; Start 08/07/18 at 15:00 Cyclobenzaprine HCl (Flexeril) 10 mg TID PO Last administered on 08/11/18 08:14 ; Start 08/07/18 at 21:00 Oxycodone/ Acetaminophen (Percocet 5/325) 1 tab PRN Q4HRS PRN PO PAIN Last administered on 08/11/18 10:19; Start 08/07/18 at 15:00 Citalopram Hydrobromide (CeleXA) 40 mg QHS PO Last administered on 08/10/18 20: 51; Start 08/07/18 at 21:00 Non-Formulary Medication (Escitalopram Oxalate ) 1 tab DAILY PO ; Start 08/08/18 at 09:00; Status UNV Cefazolin Sodium/ Dextrose 50 ml @ 100 mls/hr Q8HRS IV Last administered on 21:01; Start 08/07/18 at 18:00; Stop 08/09/18 at 22:01; Status DC Metoprolol Tartrate (Lopressor) 12.5 mg BID PO Last administered on 08/11/18 08 :15; Start 08/08/18 at 12:30 Aspirin (Ecotrin) 81 mg DAILYWBKFT PO Last administered on 08/11/18 08:14; Start 08/08/18 at 15:00 Iohexol (Omnipaque 350 Mg/ml) 90 ml 1X ONCE IV Last administered on 08/08/18at 15:00; Start 08/08/18 at 15:00; Stop 08/08/18 at 15:01; Status DC Info (CONTRAST GIVEN -- Rx MONITORING) 1 each PRN DAILY PRN MC SEE COMMENTS; Start 08/08/18 at 15:15; Stop 08/10/18 at 15:14; Status DC Lactobacillus Rhamnosus (Culturelle) 1 cap BID PO Last administered on 08:14; Start 08/09/18 at 21:00 Ceftriaxone Sodium (Rocephin) 1 gm Q24H IVP Last administered on 08/11/18 08:15 ; Start 08/10/18 at 09:00 Active Scripts Active Percocet 5-325 Mg Tablet (Oxycodone/Acetaminophen) 1 Each Tablet 1 Tab PO PRN Q4HRS PRN Reported Cyclobenzaprine Hcl 10 Mg Tablet 1 Tab PO TID Escitalopram Oxalate 20 Mg Tablet 1 Tab PO DAILY Celexa (Citalopram Hydrobromide) 40 Mg Tablet 40 Mg PO HS Proair Hfa Inhaler (Albuterol Sulfate) 8.5 Gm Hfa.aer.ad 1 Puff INH PRN Q6HRS PRN Alprazolam 1 Mg Tablet 1 Mg PO BID PRN Last dose given: 07-08-14 9:00 p.m. Next dose due: tonight Vitals/I & O Vital Sign - Last 24 Hours 08/10/18 08/10/18 08/10/18 08/10/18 14:01 15:00 15:01 19:15 Temp 98.2 97.8 98.2 97.8 Pulse 88 86 Resp 18 18 18 B/P (MAP) 124/62 (82) 108/59 (75) Pulse Ox 94 94 94 94 O2 Delivery Room Air Room Air Room Air O2 Flow Rate 93.0 93.0 08/10/18 08/10/18 08/10/18 08/10/18 19:17 20:51 23:15 23:28 Temp 97.8 97.8 Pulse 88 79 Resp 18 18 B/P (MAP) 108/59 146/80 (102) Pulse Ox 95 O2 Delivery Room Air Room Air Room Air O2 Flow Rate 9.0 08/11/18 08/11/18 08/11/18 08/11/18 00:28 03:05 05:58 07:00 Temp 98.1 97.8 98.1 97.8 Pulse 86 80 Resp 20 18 18 B/P (MAP) 107/52 (70) 112/59 (76) Pulse Ox 93 93 O2 Delivery Room Air Room Air Room Air 08/11/18 08/11/18 08/11/18 08/11/18 08:15 08:30 10:19 11:09 Temp 98.0 98.0 Pulse 80 100 Resp 18 B/P (MAP) 112/59 109/60 (76) Pulse Ox 98 O2 Delivery Room Air Room Air Room Air 08/11/18 11:19 O2 Delivery Room Air Intake and Output 3/3/19 3/3/19 3/4/19 15:00 23:00 07:00 Intake Total 0 ml 400 ml Output Total 200 ml 900 ml Balance -200 ml -500 ml GURVINDER CAMPUZANO III DO Aug 11, 2018 12:50
--- NOTE | 2018-08-11 14:32 | DISCH ---
DISCHARGE DISCHARGE INFORMATION: FINAL DIAGNOSIS Problems Medical Problems: (1) Atrial fibrillation with RVR Status: Acute (2) Elevated blood pressure reading Status: Acute (3) Tachycardia Status: Acute CONDITION ON DISCHARGE: Stable CODE STATUS: Code Status: Full RESIDENTIAL: SNF STAY <30 DAYS: Yes HOSPICE: HOSPICE: No HOSPICE EVAL & TREAT: No LTAC: ADMIT TO LTAC: No POST DISCHARGE ORDERS: ACTIVITY ORDERS: Activity as tolerated, Bedrest today WEIGHT BEARING STATUS: As tolerated BATHING ORDERS: Shower-keep dressing dry, No Tub Bath until see Dr. PERRY AFTER DISCHARGE: Cardiac WOUND/INCISION CARE: Keep wound/cast CDI, Change dressing, May get incision wet , Reinforce dressing PRN CHECKS AFTER DISCHARGE: CHECKS AFTER DISCHARGE: Check blood press - daily, Check your Temp as needed, Weigh Yourself Daily TREATMENT/EQUIPMENT ORDERS: ADAPTIVE EQUIPMENT NEEDED: None Physical Therapy For: Evalulation/Treatment Occupational Therapy For: Evaluation/Treatment DISCHARGE MEDICATIONS: Home Meds Reported Medications Cyclobenzaprine Hcl (CYCLOBENZAPRINE HCL) 10 Mg Tablet, 1 TAB PO TID for MUSCLE SPARMS, #90 TAB 07/22/18 Escitalopram Oxalate (ESCITALOPRAM OXALATE) 20 Mg Tablet, 1 TAB PO DAILY, #30 TAB 5 Refills 04/18/17 Citalopram Hydrobromide (CELEXA) 40 Mg Tablet, 40 MG PO HS, TAB 10/05/16 Albuterol Sulfate (PROAIR HFA INHALER) 8.5 Gm Hfa.aer.ad, 1 PUFF INH PRN Q6HRS PRN for SHORTNESS OF BREATH, INHALER 0 Refills 10/05/16 Discontinued Reported Medications Alprazolam (ALPRAZOLAM) 1 Mg Tablet, 1 MG PO BID PRN for ANXIETY / AGITATION, TAB 0 Refills Last dose given: 07-08-14 9:00 p.m. Next dose due: tonight 06/25/14 Discontinued Scripts Oxycodone/Apap 5-325 (PERCOCET 5-325 MG TABLET ) 1 Each Tablet, 1 TAB PO PRN Q4HRS PRN for PAIN, #50 TAB 0 Refills Prov:ROSSI ARMAS MD 07/24/18 GURVINDER CAMPUZANO III, DO Aug 11, 2018 14:32
[2018-08-11 14:48] VITALS: BP 131/53
--- NOTE | 2018-08-11 16:20 | NUR ---
SS following up with discharge planning. Insurance authorization received for admission to [facility]. Pt will discharge today and go to [facility] between 1730 and 1800 via [facility]. Pt, pt's RN, and pt's family notified.
--- NOTE | 2018-08-11 17:04 | PDOC ---
PROGRESS NOTES Subjective Subjective Patient seen and examined She looks and feels better. Objective Objective Vital Signs Date Time Temp Pulse Resp B/P (MAP) Pulse Ox O2 Delivery O2 Flow Rate FiO2 08/11/18 14:48 98.0 100 18 131/53 (79) 95 Room Air 98.0 08/10/18 23:28 9.0 Intake and Output 08/11/18 07:00 Intake Total 400 ml Output Total 1100 ml Balance -700 ml Intake Oral 400 ml Output Urine Total 1100 ml Physical Exam Abdomen: Normal bowel sounds Heart: Regular rate General: No acute distress Lungs: Clear to auscultation Assessment Assessment Problems Medical Problems: (1) Atrial fibrillation with RVR Status: Acute (2) Elevated blood pressure reading Status: Acute (3) Tachycardia Status: Acute 1. Arrhythmia: suspect new onset PAFIB. presently SR. CTA scan negative for PE. Lower extremity venous ultrasound negative for DVT. Continuing present treatments and monitoring. The patient is more comfortable today. 2. Mild ELAINE with RLE pain 3. Prior RTHA 2017 with recent femoral head exchange and infection: Cx+Staph ID/ ortho following 4. Chronic normocytic anemia Comment Review of Relevant I have reviewed the following items marion (where applicable) has been applied. Labs Laboratory Tests Test 08/10/18 03:12 08/11/18 05:50 White Blood Count 6.9 x10^3/uL (4.0-11.0) 7.3 x10^3/uL (4.0-11.0) Red Blood Count 3.16 x10^6/uL (3.50-5.40) 2.94 x10^6/uL (3.50-5.40) Hemoglobin 9.6 g/dL (12.0-15.5) 9.3 g/dL (12.0-15.5) Hematocrit 29.4 % (36.0-47.0) 27.5 % (36.0-47.0) Mean Corpuscular Volume 93 fL (79-100) 93 fL (79-100) Mean Corpuscular Hemoglobin 30 pg (25-35) 32 pg (25-35) Mean Corpuscular Hemoglobin Concent 33 g/dL (31-37) 34 g/dL (31-37) Red Cell Distribution Width 13.7 % (11.5-14.5) 13.5 % (11.5-14.5) Platelet Count 337 x10^3/uL (140-400) 306 x10^3/uL (140-400) Neutrophils (%) (Auto) 59 % (31-73) 60 % (31-73) Lymphocytes (%) (Auto) 20 % (24-48) 17 % (24-48) Monocytes (%) (Auto) 10 % (0-9) 11 % (0-9) Eosinophils (%) (Auto) 11 % (0-3) 12 % (0-3) Basophils (%) (Auto) 1 % (0-3) 1 % (0-3) Neutrophils # (Auto) 4.0 x10^3uL (1.8-7.7) 4.3 x10^3uL (1.8-7.7) Lymphocytes # (Auto) 1.4 x10^3/uL (1.0-4.8) 1.2 x10^3/uL (1.0-4.8) Monocytes # (Auto) 0.7 x10^3/uL (0.0-1.1) 0.8 x10^3/uL (0.0-1.1) Eosinophils # (Auto) 0.8 x10^3/uL (0.0-0.7) 0.9 x10^3/uL (0.0-0.7) Basophils # (Auto) 0.1 x10^3/uL (0.0-0.2) 0.1 x10^3/uL (0.0-0.2) Sodium Level 143 mmol/L (136-145) 140 mmol/L (136-145) Potassium Level 4.2 mmol/L (3.5-5.1) 4.3 mmol/L (3.5-5.1) Chloride Level 107 mmol/L (98-107) 104 mmol/L (98-107) Carbon Dioxide Level 31 mmol/L (21-32) 31 mmol/L (21-32) Anion Gap 5 (6-14) 5 (6-14) Blood Urea Nitrogen 7 mg/dL (7-20) 8 mg/dL (7-20) Creatinine 0.7 mg/dL (0.6-1.0) 0.6 mg/dL (0.6-1.0) Estimated GFR (Cockcroft-Gault) 82.5 98.5 Glucose Level 93 mg/dL (70-99) 117 mg/dL (70-99) Calcium Level 9.6 mg/dL (8.5-10.1) 9.4 mg/dL (8.5-10.1) Laboratory Tests Test 08/11/18 05:50 White Blood Count 7.3 x10^3/uL (4.0-11.0) Red Blood Count 2.94 x10^6/uL (3.50-5.40) Hemoglobin 9.3 g/dL (12.0-15.5) Hematocrit 27.5 % (36.0-47.0) Mean Corpuscular Volume 93 fL (79-100) Mean Corpuscular Hemoglobin 32 pg (25-35) Mean Corpuscular Hemoglobin Concent 34 g/dL (31-37) Red Cell Distribution Width 13.5 % (11.5-14.5) Platelet Count 306 x10^3/uL (140-400) Neutrophils (%) (Auto) 60 % (31-73) Lymphocytes (%) (Auto) 17 % (24-48) Monocytes (%) (Auto) 11 % (0-9) Eosinophils (%) (Auto) 12 % (0-3) Basophils (%) (Auto) 1 % (0-3) Neutrophils # (Auto) 4.3 x10^3uL (1.8-7.7) Lymphocytes # (Auto) 1.2 x10^3/uL (1.0-4.8) Monocytes # (Auto) 0.8 x10^3/uL (0.0-1.1) Eosinophils # (Auto) 0.9 x10^3/uL (0.0-0.7) Basophils # (Auto) 0.1 x10^3/uL (0.0-0.2) Sodium Level 140 mmol/L (136-145) Potassium Level 4.3 mmol/L (3.5-5.1) Chloride Level 104 mmol/L (98-107) Carbon Dioxide Level 31 mmol/L (21-32) Anion Gap 5 (6-14) Blood Urea Nitrogen 8 mg/dL (7-20) Creatinine 0.6 mg/dL (0.6-1.0) Estimated GFR (Cockcroft-Gault) 98.5 Glucose Level 117 mg/dL (70-99) Calcium Level 9.4 mg/dL (8.5-10.1) Medications Current Medications Sodium Chloride 500 ml @ 500 mls/hr 1X ONCE IV Last administered on at 12:22; Start 08/07/18 at 11:45; Stop 08/07/18 at 12:44; Status DC Diltiazem HCl (Cardizem Iv Push) 10 mg 1X ONCE IVP ; Start 08/07/18 at 12:00; Stop 08/07/18 at 12:15; Status DC Diltiazem HCl 125 mg/Dextrose 125 ml @ 5 mls/hr CONT PRN IV SEE I/O RECORD; Start 08/07/18 at 12:00; Stop 08/07/18 at 12:01; Status DC Ondansetron HCl (Zofran) 4 mg PRN Q8HRS PRN IV NAUSEA/VOMITING; Start 08/07/18 at 14:45; Stop 08/08/18 at 14:44; Status DC Sodium Chloride 1,000 ml @ 100 mls/hr Q10H IV Last administered on 08/07/18at 14:45; Start 08/07/18 at 14:45; Stop 08/07/18 at 14:46; Status DC Albuterol Sulfate (Ventolin Neb Soln) 2.5 mg PRN Q6HRS PRN INH SHORTNESS OF BREATH; Start 08/07/18 at 15:00 Alprazolam (Xanax) 1 mg PRN BID PRN PO ANXIETY / AGITATION Last administered on 08/09/18at 20:43; Start 08/07/18 at 15:00 Cyclobenzaprine HCl (Flexeril) 10 mg TID PO Last administered on 08/11/18 13:50 ; Start 08/07/18 at 21:00 Oxycodone/ Acetaminophen (Percocet 5/325) 1 tab PRN Q4HRS PRN PO PAIN Last administered on 08/11/18 10:19; Start 08/07/18 at 15:00 Citalopram Hydrobromide (CeleXA) 40 mg QHS PO Last administered on 08/10/18at 20: 51; Start 08/07/18 at 21:00 Non-Formulary Medication (Escitalopram Oxalate ) 1 tab DAILY PO ; Start 08/08/18 at 09:00; Status UNV Cefazolin Sodium/ Dextrose 50 ml @ 100 mls/hr Q8HRS IV Last administered on 21:01; Start 08/07/18 at 18:00; Stop 08/09/18 at 22:01; Status DC Metoprolol Tartrate (Lopressor) 12.5 mg BID PO Last administered on 08/11/18at 08 :15; Start 08/08/18 at 12:30 Aspirin (Ecotrin) 81 mg DAILYWBKFT PO Last administered on 08/11/18 08:14; Start 08/08/18 at 15:00 Iohexol (Omnipaque 350 Mg/ml) 90 ml 1X ONCE IV Last administered on 08/08/18 15:00; Start 08/08/18 at 15:00; Stop 08/08/18 at 15:01; Status DC Info (CONTRAST GIVEN -- Rx MONITORING) 1 each PRN DAILY PRN MC SEE COMMENTS; Start 08/08/18 at 15:15; Stop 08/10/18 at 15:14; Status DC Lactobacillus Rhamnosus (Culturelle) 1 cap BID PO Last administered on 08:14; Start 08/09/18 at 21:00 Ceftriaxone Sodium (Rocephin) 1 gm Q24H IVP Last administered on 08/11/18 08:15 ; Start 08/10/18 at 09:00 Active Scripts Active Reported Cyclobenzaprine Hcl 10 Mg Tablet 1 Tab PO TID Escitalopram Oxalate 20 Mg Tablet 1 Tab PO DAILY Celexa (Citalopram Hydrobromide) 40 Mg Tablet 40 Mg PO HS Proair Hfa Inhaler (Albuterol Sulfate) 8.5 Gm Hfa.aer.ad 1 Puff INH PRN Q6HRS PRN Vitals/I & O Vital Sign - Last 24 Hours 08/10/18 08/10/18 08/10/18 08/10/18 19:15 19:17 20:51 23:15 Temp 97.8 97.8 97.8 97.8 Pulse 86 88 79 Resp 18 18 B/P (MAP) 108/59 (75) 108/59 146/80 (102) Pulse Ox 94 95 O2 Delivery Room Air Room Air Room Air 08/10/18 08/11/18 08/11/18 08/11/18 23:28 00:28 03:05 05:58 Temp 98.1 98.1 Pulse 86 Resp 18 20 18 B/P (MAP) 107/52 (70) Pulse Ox 93 O2 Delivery Room Air Room Air Room Air O2 Flow Rate 9.0 08/11/18 08/11/18 08/11/18 08/11/18 07:00 08:15 08:30 10:19 Temp 97.8 97.8 Pulse 80 80 Resp 18 B/P (MAP) 112/59 (76) 112/59 Pulse Ox 93 O2 Delivery Room Air Room Air Room Air 08/11/18 08/11/18 08/11/18 11:09 11:19 14:48 Temp 98.0 98.0 98.0 98.0 Pulse 100 100 Resp 18 18 B/P (MAP) 109/60 (76) 131/53 (79) Pulse Ox 98 95 O2 Delivery Room Air Room Air Room Air Intake and Output 08/10/18 08/10/18 08/11/18 15:00 23:00 07:00 Intake Total 0 ml 400 ml Output Total 200 ml 900 ml Balance -200 ml -500 ml NIA KIMBLE MD Aug 11, 2018 17:04
--- NOTE | 2018-08-11 17:53 | NUR ---
Discharge Note: LJ ADAN Discharge instructions and discharge home medications reviewed with Other facility and a copy given. All questions have been answered and understanding verbalized. The following instructions and handouts were given: AFIB, HIP pain, pain management Patient discharged with PICC Line for IV antibiotics Rocephin 1gm daily Patient discharged to Residential Facility with wheelchair van Personnel via Wheelchair
--- NOTE | 2018-09-09 15:38 | DS ---
DATE OF DISCHARGE: 08/11/2018 ADMISSION DIAGNOSES: Atrial fibrillation with rapid ventricular response. DISCHARGE DIAGNOSES: Resolving atrial fibrillation with rapid ventricular response, history of infected right hip arthroplasty, status post exploration of the right femoral head, degenerative joint disease, hypertension, obesity, panic disorder, anxiety. CONSULTS: Dr. Carver, Cardiology. PROCEDURES: None. HOSPITAL COURSE: The patient is a pleasant elderly female who presented with AFib with RVR. She was admitted. The above consults were obtained. We checked serial enzymes, serial EKGs, echocardiogram. Checked a CAT scan of the chest to rule out PE. Lower extremity Dopplers were also negative. We were able to obtain good rate control with negative chronotropic agents and we did treat her with IV ceftriaxone as well. We did physical therapy and occupational therapy and once the patient returned to her baseline, we were able to discharge to [facility]. DISPOSITION: Skilled. ACTIVITY: As tolerated. DIET: Low sodium. MEDICATIONS: Please see the MRAD. TOTAL TIME ON DISCHARGE: 31 minutes. GURVINDER CAMPUZANO DO DR: KISHAN/liliya JOB#: [id number] / [id number]
== END 2018-08-11 17:54 | DRG 559 ==
LOC: ER 10:56 → 2 NORTH 14:35
PROVIDERS: ADMIT Family Medicine; ATTEND Family Medicine
DX: T84.51XA Infection and inflammatory reaction due to internal right hip prosthesis, initial encounter (principal); A41.9 Sepsis, unspecified organism; E43 Unspecified severe protein-calorie malnutrition; I48.0 Paroxysmal atrial fibrillation; I10 Essential (primary) hypertension; G43.909 Migraine, unspecified, not intractable, without status migrainosus; Z96.643 Presence of artificial hip joint, bilateral; M19.90 Unspecified osteoarthritis, unspecified site; F41.0 Panic disorder [episodic paroxysmal anxiety]; E66.9 Obesity, unspecified; R12 Heartburn; K76.89 Other specified diseases of liver; Z96.652 Presence of left artificial knee joint; M43.16 Spondylolisthesis, lumbar region; M40.56 Lordosis, unspecified, lumbar region; D25.9 Leiomyoma of uterus, unspecified; K21.9 Gastro-esophageal reflux disease without esophagitis; D64.9 Anemia, unspecified; Y83.1 Surgical operation with implant of artificial internal device as the cause of abnormal reaction of the patient, or of later complication, without mention of misadventure at the time of the procedure; Z90.49 Acquired absence of other specified parts of digestive tract; Z82.49 Family history of ischemic heart disease and other diseases of the circulatory system; Z82.0 Family history of epilepsy and other diseases of the nervous system; Z88.8 Allergy status to other drugs, medicaments and biological substances; Z91.041 Radiographic dye allergy status; Z68.29 Body mass index [BMI] 29.0-29.9, adult
CPT/HCPCS: 36415; 71045; 71275; 80048; 80076; 83690; 83735; 83880; 84443; 84484; 85025; 85379; 85610; 85730; 93005; 93306; 93970; 96360; 96361; J0696; J7030; J7040; Q9967; 97110; 97116; 97535; 99285-25

== ENCOUNTER 2018-10-10 20:52 | Inpatient (IN) | payer OTHER ==
[~2018-10-10] VITALS: Ht 170.2 cm; Wt 90.3 kg
[2018-10-10 21:35] LABS: BASO % 1 % (0-3); EOS # 0.1 x10^3/uL (0.0-0.7); EOS % 2 % (0-3); HEMATOCRIT 31.5 % (36.0-47.0); HEMOGLOBIN 10.3 g/dL (12.0-15.5); LYMPH # 0.7 x10^3/uL (1.0-4.8); LYMPH % 9 % (24-48); MEAN CORPUSCULAR HEMOGLOBIN 29 pg (25-35); MEAN CORPUSCULAR HGB CONC 33 g/dL (31-37); MEAN CORPUSCULAR VOLUME 90 fL (79-100); MONO # 0.7 x10^3/uL (0.0-1.1); MONO % 9 % (0-9); NEUT # 6.2 x10^3uL (1.8-7.7); NEUT % 80 % (31-73); PLATELET COUNT 326 x10^3/uL (140-400); RED BLOOD COUNT 3.51 x10^6/uL (3.50-5.40); RED CELL DISTRIBUTION WIDTH 14.6 % (11.5-14.5); WHITE BLOOD COUNT 7.7 x10^3/uL (4.0-11.0)
[2018-10-10 21:41] LABS: PROTHROMBIN TIME PATIENT 13.7 SEC (11.7-14.0)
[2018-10-10 21:56] LABS: CALCIUM 10.5 mg/dL (8.5-10.1); CREATININE 0.9 mg/dL (0.6-1.0); GFR 61.5; POTASSIUM 4.1 mmol/L (3.5-5.1)
[2018-10-10] MEDS ORDERED: IV NORMAL SALINE 1000ML BAG 1,000 ML IV ONE (22:00)
[2018-10-10 22:01] LABS: ALBUMIN 3.1 g/dL (3.4-5.0); ALBUMIN/GLOBULIN RATIO 0.9 (1.0-1.7); TOTAL BILIRUBIN 0.3 mg/dL (0.2-1.0); TOTAL PROTEIN 6.7 g/dL (6.4-8.2)
[2018-10-10] MEDS ORDERED: fentaNYL PF VIAL 100 MCG/2 ML VIAL IV ONE (22:45)
[2018-10-10 22:46] LABS: BILIRUBIN,URINE SMALL (NEG); CLARITY,URINE CLOUDY; COLOR,URINE YELLOW; NITRITE,URINE NEGATIVE (NEG); PH,URINE 5.5; PROTEIN,URINE NEGATIVE (NEG-TRACE)
--- NOTE | 2018-10-10 22:56 | RAD ---
Right lower extremity venous doppler ultrasound Indication: Right leg swelling and tenderness Technique: Color Doppler, grayscale, and spectral waveform analysis is used to evaluate the right femoral and popliteal veins. Findings: The right common femoral vein is distended with thrombus, without demonstrable flow. Right proximal greater saphenous vein is patent. There is thrombus within the right superficial femoral vein, with Vikram Melissa stents to change 1 she does have a thrombus in the right superficial and common femoral veins and she also has some pathologic lymph nodes in the right groin so they could be neoplastic or infectious but there is incomplete compressibility and only limited flow. The right popliteal vein is patent. Visualized calf veins are patent. There is soft tissue edema or fluid in the popliteal fossa. Multiple mildly enlarged lymph nodes are identified in the groin. Some of these demonstrate a round morphology without the typical benign architecture. IMPRESSION: 1. Exam is positive for deep venous thrombosis involving the right common and superficial femoral vein. 2. Mildly enlarged and abnormal lymph nodes in the right groin, are nonspecific. These demonstrate a pathologic morphology, and could be inflammatory, infectious or neoplastic. FOR INTERNAL CODING PURPOSES Critical result: Findings discussed with Kylah in the emergency room at 10/10/2018 10:52 PM. RESULT CODE: (C) Electronically signed by: Marcelo Sue MD (10/10/2018 10:53 PM) [facility]
[2018-10-10 23:09] LABS: BACTERIA,URINE 0 /HPF (0-FEW); HYALINE CASTS, URINE MANY /HPF; RBC,URINE 0 /HPF (0-2); SQUAMOUS EPITHELIAL CELL,UR MANY /LPF; WBC,URINE 0 /HPF (0-4)
[2018-10-10] MEDS ORDERED: cefTRIAXone IV Push 1 GM VIAL. IVP ONE (23:15)
--- NOTE | 2018-10-10 23:18 | PHYS DOC ---
Past Medical History Past Medical History: Hypertension, Migraines Additional Past Medical Histor: OA (PADMINI BALL) Past Surgical History: Appendectomy, Hip Replacement, Tonsillectomy, Other Additional Past Surgical Histo: R TOTAL HIP 10/2016, LEFT KNEE, LIVER CYST (PADMINI BALL) Alcohol Use: Rarely Drug Use: None (PADMINI BALL) Adult General Chief Complaint Chief Complaint: LOWER EXTREMITY SWELLING HPI HPI Patient is a 73 year old F who presents with pain and swelling of R leg. She appears weak and states she doesn't feel well. Pt has a complicated history of a prior R hip replacement and then in Jul of this year a revision and clean out for "staph infection". Pt was on home IV abx for some time and is now on Keflex at home 4x/daily. She does have a hx of Afib, but is currently sinus rhythm. She states she is not on any anticoagulants. Pt seems to be drowsy on arrival and states she took her Flexeril and Hydrocodone at home prior to coming to ER. She states she is still in quite a bit of pain. (PADMINI BALL) Review of Systems Review of Systems Constitutional: Denies fever or chills HENT: Denies nasal congestion or sore throat Respiratory: Denies cough or shortness of breath Cardiovascular: Denies chest pain. GI: Denies abdominal pain, nausea, vomiting, bloody stools or diarrhea Musculoskeletal: Denies back pain. Reports R leg pain from hip to foot. Integument: Reports red swollen R leg. Neurologic: Denies headache, focal weakness or sensory changes All other systems were reviewed and found to be within normal limits, except as documented in this note. (PADMINI BALL) Current Medications Current Medications Current Medications Medications (Trade) Dose Ordered Sig/Aliyah Start Time Stop Time Status Last Admin Dose Admin Ceftriaxone Sodium (Rocephin) 1 gm 1X ONCE 10/10/18 23:15 10/10/18 23:16 DC 10/10/18 23:38 1 GM Fentanyl Citrate (Fentanyl 2ml Vial) 50 mcg 1X ONCE 10/10/18 22:45 10/10/18 22:46 DC 10/10/18 22:51 50 MCG Sodium Chloride 1,000 ml @ 1,000 mls/hr 1X ONCE 10/10/18 22:00 10/10/18 22:59 DC 10/10/18 21:59 1,000 MLS/HR (VANNESA DIAZ MD) Allergies Allergies Allergies Coded Allergies Type Severity Reaction Last Updated Verified codeine Allergy Intermediate ITCHING 07/22/18 Yes adhesive Adverse Reaction Intermediate SKIN IRRITATION 07/22/18 Yes (VANNESA DIAZ MD) Physical Exam Physical Exam Constitutional: Well developed, well nourished, no acute distress. Appears drowsy and weak. HENT: Normocephalic, atraumatic, bilateral external ears normal, oropharynx moist, no oral exudates, nose normal. Neck: Normal range of motion, no tenderness, supple, no stridor. Cardiovascular: Tachycardic. Lungs & Thorax: Bilateral breath sounds clear to auscultation Abdomen: Bowel sounds normal, soft, no tenderness, no masses, no pulsatile masses. Skin: R leg is erythematous and swollen from thigh to ankle Back: No tenderness, no CVA tenderness. Extremities: R hip and leg pain from hip to ankle. Neurologic: Alert and oriented X 3, normal motor function, normal sensory function, no focal deficits noted. Psychologic: Affect normal, judgement normal, mood normal. (PADMINI BALL) Current Patient Data Vital Signs Vital Signs Date Time Temp Pulse Resp B/P (MAP) Pulse Ox O2 Delivery O2 Flow Rate FiO2 10/10/18 22:51 16 94 Room Air 10/10/18 22:38 88 152/70 (97) 3.0 10/10/18 21:27 97.6 97.6 (VANNESA DIAZ MD) Lab Values Laboratory Tests Test 10/10/18 21:23 10/10/18 22:38 White Blood Count 7.7 x10^3/uL (4.0-11.0) Red Blood Count 3.51 x10^6/uL (3.50-5.40) Hemoglobin 10.3 g/dL (12.0-15.5) L Hematocrit 31.5 % (36.0-47.0) L Mean Corpuscular Volume 90 fL (79-100) Mean Corpuscular Hemoglobin 29 pg (25-35) Mean Corpuscular Hemoglobin Concent 33 g/dL (31-37) Red Cell Distribution Width 14.6 % (11.5-14.5) H Platelet Count 326 x10^3/uL (140-400) Neutrophils (%) (Auto) 80 % (31-73) H Lymphocytes (%) (Auto) 9 % (24-48) L Monocytes (%) (Auto) 9 % (0-9) Eosinophils (%) (Auto) 2 % (0-3) Basophils (%) (Auto) 1 % (0-3) Neutrophils # (Auto) 6.2 x10^3uL (1.8-7.7) Lymphocytes # (Auto) 0.7 x10^3/uL (1.0-4.8) L Monocytes # (Auto) 0.7 x10^3/uL (0.0-1.1) Eosinophils # (Auto) 0.1 x10^3/uL (0.0-0.7) Basophils # (Auto) 0.0 x10^3/uL (0.0-0.2) Prothrombin Time 13.7 SEC (11.7-14.0) Prothrombin Time INR 1.1 (0.8-1.1) PTT 37 SEC (24-38) Sodium Level 137 mmol/L (136-145) Potassium Level 4.1 mmol/L (3.5-5.1) Chloride Level 100 mmol/L (98-107) Carbon Dioxide Level 26 mmol/L (21-32) Anion Gap 11 (6-14) Blood Urea Nitrogen 5 mg/dL (7-20) L Creatinine 0.9 mg/dL (0.6-1.0) Estimated GFR (Cockcroft-Gault) 61.5 BUN/Creatinine Ratio 6 (6-20) Glucose Level 119 mg/dL (70-99) H Lactic Acid Level 2.3 mmol/L (0.4-2.0) H Calcium Level 10.5 mg/dL (8.5-10.1) H Total Bilirubin 0.3 mg/dL (0.2-1.0) Aspartate Amino Transferase (AST) 20 U/L (15-37) Alanine Aminotransferase (ALT) 12 U/L (14-59) L Alkaline Phosphatase 138 U/L (46-116) H Creatine Kinase 24 U/L (26-192) L Creatine Kinase MB (Mass) < 0.5 ng/mL (0.0-3.6) Creatine Kinase MB Relative Index % (0-4) Troponin I Quantitative < 0.017 ng/mL (0.000-0.055) UC-Tbe-I-Type Natriuretic Peptide 171 pg/mL (0-124) H Total Protein 6.7 g/dL (6.4-8.2) Albumin 3.1 g/dL (3.4-5.0) L Albumin/Globulin Ratio 0.9 (1.0-1.7) L Urine Collection Type U cath Urine Color Yellow Urine Clarity Cloudy Urine pH 5.5 Urine Specific [place] >=1.030 Urine Protein Negative mg/dL (NEG-TRACE) Urine Glucose (UA) Negative mg/dL (NEG) Urine Ketones (Stick) Trace mg/dL (NEG) Urine Blood Negative (NEG) Urine Nitrite Negative (NEG) Urine Bilirubin Small (NEG) Urine Urobilinogen Dipstick 1.0 mg/dL (0.2 mg/dL) Urine Leukocyte Esterase Negative (NEG) Urine RBC 0 /HPF (0-2) Urine WBC 0 /HPF (0-4) Urine Squamous Epithelial Cells Many /LPF Urine Bacteria 0 /HPF (0-FEW) Urine Hyaline Casts Many /HPF Urine Mucus Marked /LPF Laboratory Tests 10/10/18 21:23 Laboratory Tests 10/10/18 21:23 (VANNESA DIAZ MD) EKG EKG EKG NSR 83bpm, No STEMI (PADMINI BALL) Radiology/Procedures Radiology/Procedures Radiologist called to report a DVT in the superficial and common femoral veins as well as reactive lymphnodes in groin. (PADMINI BALL) Course & Med Decision Making Course & Med Decision Making Pertinent Labs and Imaging studies reviewed. (See chart for details) Pt has DVT and appears weak and is still tachycardic despite fluids concerning for PE. CT Angio ordered. Discussed admission with Dr. Gonzalez, who was pony worker for Dr. Mccord. If no PE, will start Xarelto and if has PE, will start Heparin drip. Pt with normal WBC but with elevated Lactic acid with recent hip prosthesis infection. Will start IV rocephin for coverage with reactive lymph nodes on ultrasound. (PADMINI BALL) Course & Med Decision Making s/o from [place] at 1220. asked me to f/u ct pe protocol. final read pending but i got a call from dr chaney at 1240 am. b/l PE (not saddle). i checked vitals, no hypotension in chart. pt already up on 258, i ordered heaprin drip and talked to nurse on 258 who will initiate the orders. Staff Physician Addendum: I was working in the ER during the course of this patient's visit. I was available for consultation as needed, and i reviewed labs and ct wet read by radiologist but I was not directly involved in the care of this patient while in the ER. (VANNESA DIAZ MD) Dragon Disclaimer Dragon Disclaimer This electronic medical record was generated, in whole or in part, using a voice recognition dictation system. (PADMINI BALL) Departure Departure Impression: Primary Impression: DVT (deep venous thrombosis) Additional Impression: Weakness Disposition: 09 ADMITTED INPATIENT Admitting Physician: Aaron Gonzalez (PADMINI BALL) Condition: STABLE Referrals: BALDO MCCORD MD (PCP) Problem Qualifiers PADMINI BALL October 10, 2018 23:18 VANNESA DIAZ MD October 11, 2018 00:48
[2018-10-10] MEDS ORDERED: ONDANSETRON PF 4 MG/2 ML VIAL. IV PRN (23:30)
[2018-10-10 23:54] LABS: CREATINE KINASE 24 U/L (26-192)
[2018-10-11] VITALS (7 sets, daily range): BP systolic 132–165; BP diastolic 66–84
[2018-10-11] MEDS ORDERED: IOHEXOL 350 MG/ML 100 ML VIAL. IV ONE
--- NOTE | 2018-10-11 00:41 | RAD ---
PQRS Compliance statement: One or more of the following individualized dose reduction techniques were utilized for this examination: 1. Automated exposure control. 2. Adjustment of the mA and/or kV according to patient size. 3. Use of iterative reconstruction technique. Indication:Right leg swelling. Evaluate for PE. TECHNIQUE: CT angiogram chest with IV contrast with multiplanar MIP reformats. COMPARISON: 08/08/2018. FINDINGS: Diagnostic quality PE study. There are central and segmental bilateral PE. No evidence of heart strain. Heart is normal in size. No pericardial or pleural effusion. No enlarged axillary, mediastinal or hilar lymph nodes. Multiple enlarged left neck base lymph node are seen, the largest measuring 2.2 x 1.3 cm. Mild bibasilar dependent atelectasis. Multiple low attenuating lesions in the liver most likely simple cysts. Gallstone noted. No pericholecystic fluid. Visualized sections through the spleen, pancreas, adrenals and kidneys within normal limits. No suspicious bony lesion. IMPRESSION: 1. Bilateral central and segmental PE. 2. Multiple enlarged left neck base lymph nodes, nonspecific but metastasis or lymphoproliferative disease such as lymphoma is a possibility. 3. Cholelithiasis. Critical findings were identified on 10/11/2018 12:30 AM, read back and verified with Dr. Garcia on 10/11/2018 12:[address] Marlon Ceballos DO. Electronically signed by: Marlon Ceballos DO (10/11/2018 12:38 AM) [facility]
[2018-10-11] MEDS ORDERED: HEPARIN for IV BOLUS 10,000 UNIT/10 ML VIAL. IV PRN ×2 (00:45)
[2018-10-11] MEDS: IV NORMAL SALINE 1000ML BAG 1,000 ML IV SCH ×2 (01:00→14:24)
--- NOTE | 2018-10-11 01:00 | NUR ---
Patient arrived to [address] [place] [address]. Bed in lowest position. Patient was informed where the call lights are. Gown changed to green with pocket. hydroponics worker placed. Patient admission information obtained and entered in computer. Addendum: 10/11/18 at 1923 by DIONICIO GROVE RN RN Patient arrived drowsy, slurred rambling, RN unable to reconcile her medications or history.
[2018-10-11] MEDS: fentaNYL PF VIAL 100 MCG/2 ML VIAL IV PRN ×2 (01:29→09:00)
[2018-10-11] MEDS: HYDROcodone/APAP 7.5/325MG 1 TAB TABLET PO PRN ×3 (03:57→17:10)
[2018-10-11] MEDS ORDERED: IOHEXOL 350 MG/ML 100 ML VIAL. ONE (04:45)
[2018-10-11] MEDS ORDERED: ALBUTEROL SULFATE 2.5 MG/3 ML NEBU. INH PRN (08:00)
--- NOTE | 2018-10-11 08:19 | EKG ---
[facility] [address] [place] [address] Test Date: 2018-10-10 Test Time: 23:30:07 Pat Name: LJ ADAN Department: Room: 258 1 Gender: F Manager Proposal: : [phone] Requested By: PADMINI BALL Order Number: [id number] Reading MD: Sal Reyna MD Measurements Intervals [place] Rate: 83 P: 39 MI: 182 QRS: 7 QRSD: 72 T: 31 QT: 366 QTc: 431 Interpretive Statements SINUS RHYTHM NON-SPECIFIC ST/T CHANGES Electronically Signed On 10-14-2018 14:07:53 CDT by Sal Reyna MD
[2018-10-11] MEDS ORDERED: HYDR-2761 PO (08:40)
[2018-10-11] MEDS ORDERED: CEPH500C PO (08:40)
[2018-10-11] MEDS ORDERED: ALPR1TAB6 PO (08:40)
[2018-10-11] MEDS ORDERED: CYCL5TAB PO (08:40)
[2018-10-11] MEDS ORDERED: METO-239 PO (08:42)
[2018-10-11] MEDS: CYCLOBENZAPRINE 10 MG TABLET. PO SCH ×3 (08:43→20:26)
[2018-10-11] MEDS: CITALOPRAM 20 MG TABLET. PO SCH (08:43)
[2018-10-11] MEDS: HEPARIN 25,000UTS/500ML PREMIX 500 ML IV PRN ×2 (08:53→19:09)
--- NOTE | 2018-10-11 09:22 | HP ---
ADMIT DATE: 10/10/2018 CHIEF COMPLAINT AND HISTORY OF PRESENT ILLNESS: This 73-year-old white female, patient of Dr. Karla Gonzalez, presented to the Emergency Room with increased swelling in her right leg with discomfort as well as right lower anterior, lateral and posterior chest pain. She had really noted on the day of admission that her leg was much more swollen. She was found to have bilateral pulmonary emboli by CTA of the chest and DVT and admitted for the same. PAST MEDICAL HISTORY: The patient's past medical history is remarkable for hypertension, migraines, osteoarthritis, AFib and complicated right total hip replacement with ongoing infection. She has had a prior appendectomy and tonsillectomy. MEDICATIONS: Medications were brought with the patient, listed on the computer and have been addressed. ALLERGIES: SHE IS ALLERGIC TO CODEINE AND ADHESIVES. SOCIAL HISTORY: Noncontributory. FAMILY HISTORY: Noncontributory. REVIEW OF SYSTEMS: Remarkable for the pain in the chest, as noted above as well as the leg swelling. She denies necessarily the pain being related to breathing. She denies any significant shortness of breath with this. PHYSICAL EXAMINATION: GENERAL: She is a well-developed, well-nourished white female, in no acute distress, lying in bed, on O2. VITAL SIGNS: Stable and she is afebrile. O2 sats are good on 2-3 liters per nasal cannula and actually were good on room air in the Emergency Room prior to admission. HEAD, EYES, EARS, NOSE AND THROAT: Unremarkable. NECK: Supple without adenopathy or thyromegaly. CHEST: Clear to auscultation and percussion. HEART: Regular rate and rhythm, without S3, S4 or murmur. ABDOMEN: Soft, nontender, without hepatosplenomegaly or masses. EXTREMITIES: Without cyanosis or clubbing. She does have edema to the entire right leg with tenderness posteriorly throughout. NEUROLOGIC: She is intact. IMPRESSION: 1. Deep vein thrombosis, right leg with pulmonary embolism. 2. History of deep venous thrombosis. 3. Complicated right total hip replacement with infection. PLAN: Continue present heparin with anticoagulation. We will ask Pulmonary for opinion. EULOGIO DAVIS MD DR: DAVID/liliya JOB#: [id number] / [id number] KARLA Higgins MD
--- NOTE | 2018-10-11 09:40 | CONS ---
DATE OF CONSULTATION: PULMONARY CONSULTATION ATTENDING PHYSICIAN: Aaron Gonzalez M.D. REASON FOR CONSULTATION: Pulmonary embolism and DVT. HISTORY OF PRESENT ILLNESS: The patient is a 73-year-old female who has never been a smoker. She presented to the hospital complaining of pain in the lower back of the chest as well as swelling on the right leg for the last 2-3 days. The patient has history of right hip surgery in 2017 and was complicated by infection. She had multiple hospitalizations recently and last one was in August. The patient was treated for staph infection. She was on home antibiotics. She has not been fully ambulatory. She denied any increased shortness of breath during recent presentation. No cough, no fever, no chills. No headaches. No nausea, vomiting or diarrhea. The patient also has experienced close to 70-pound weight loss in the last few years. CT chest was performed and was reviewed by me. The patient had multiple enlarged left neck lymph nodes, largest being 2.2 x 1.3 cm in size. There was also evidence of bilateral pulmonary embolism, including central and distal pulmonary emboli. She also underwent venous Dopplers of the lower extremity and was found to have positive DVT involving the right common and superficial femoral vein. There were also mildly enlarged abnormal lymph nodes in the right groin area. As a result, I have been asked to see her for further evaluation. PAST MEDICAL HISTORY: Significant for history of hypertension, migraines and history of osteoarthritis. PAST SURGICAL HISTORY: Appendectomy, hip replacement and right total hip in 10/2016 and had infection after that. ALLERGIES: ADHESIVE AND CODEINE. MEDICATIONS: Current medications were reviewed as listed in the MRAD, including heparin per protocol for PE. REVIEW OF SYSTEMS: Twelve-point system obtained. Pertinent positives are discussed in my history of present illness, otherwise noncontributory. All systems that were negative were reviewed as well. FAMILY HISTORY: Noncontributory to lungs. PHYSICAL EXAMINATION: VITAL SIGNS: Reviewed. Blood pressure on the high side. Pulse ox 95% on 2 liters. Afebrile. HEENT: Sclerae nonicteric. NECK: Supple. LUNGS: Diminished breath sounds. CARDIOVASCULAR EXAMINATION: Regular rate and rhythm. ABDOMEN: Soft. EXTREMITIES: With swelling in the right thigh area. LABORATORY DATA: Labs were reviewed. White cell count 7.7, hemoglobin 10.3 and platelets are 326,000. IMPRESSION: 1. Acute pulmonary embolism and acute right lower extremity deep venous thrombosis in a patient who has lost 70 pounds in the last few years and had a right hip infection and has been not fully ambulatory.. At the same time, she has enlarged left neck lymph nodes and enlarged lymph nodes in the right groin area. The risk factors include immobility as well as possibility of lymphoproliferative disease contributing to thromboembolic disease 2. No significant history of tobacco use. 3. A 70-pound weight loss in the last few years. 4. History of right hip infection. RECOMMENDATIONS: 1. Continue with present heparin per protocol. 2. Obtain CT neck and CT of the abdomen and pelvis to assess for adenopathy. 3. We may need a biopsy of the enlarged lymph nodes to confirm or rule out lymphoproliferative disease. 4. Duration of anticoagulation will be depending on the etiology of thromboembolic disease, especially underlying malignancy. 5. Discussed with RN. We will follow along with you. NILESH SPEARS MD DR: VALERIANO/liliya JOB#: [id number] / [id number] JOSEFINA
[2018-10-11] MEDS: CEPHALEXIN 250 MG CAPSULE. PO SCH ×4 (10:15→20:26)
[2018-10-11] MEDS ORDERED: ALPRAZolam 1 MG TABLET PO PRN (10:15)
[2018-10-11] MEDS ORDERED: IOHEXOL 300 MG/ML 100ML VIAL. IV ONE (10:45)
[2018-10-11] MEDS ORDERED: CONTRAST GIVEN. MC PRN ×2 (11:00)
--- NOTE | 2018-10-11 11:00 | NUR ---
This RN noticed this morning patients heparin gtt was not scanned and was showing as not actively running on EMAR. Estimated time that heparin was started was 0100 but certain.This RN called pharmacy to see what I could do, was advised to scan current bag of heparin and make a anote about incident. Heparin bag scanned. Will continue to monitor.
[2018-10-11] MEDS: ANTI-COAG MONITOR BY PHARMACY. MC PRN (11:25)
--- NOTE | 2018-10-11 11:57 | RAD ---
EXAM: Abdomen and pelvis CT with intravenous contrast. HISTORY: Adenopathy. TECHNIQUE: Computed tomographic images of the abdomen and pelvis were obtained following the administration of intravenous contrast. Multiplanar reformatting was performed. *One or more of the following individualized dose reduction techniques were utilized for this examination: 1. Automated exposure control. 2. Adjustment of the mA and/or kV according to patient size. 3. Use of iterative reconstruction technique. COMPARISON: Correlation is made with a CT chest obtained one day prior. FINDINGS: Evaluation of the lower thorax demonstrates increased bilateral lower lobe atelectasis or infiltrate. There is no pleural effusion. There are bilateral lower lobe pulmonary emboli. The heart is upper normal in size. There is coronary artery atherosclerosis. There are multiple hypodense lesions within the liver, the largest of which measures 3.8 cm. The attenuation of these lesions favors cysts. There is a complex cystic lesion with calcification within the left hepatic lobe measuring 2.8 cm. There is cholelithiasis. The pancreas is unremarkable. The spleen is upper normal in size. There is a tiny hiatal hernia. The adrenal glands are unremarkable. There are multiple bilateral renal parapelvic cysts. There is no obstructive uropathy or suspicious renal lesion. There is moderate colonic stool. There is distal colonic diverticulosis without evidence of diverticulitis. There is no bowel obstruction. There is a small suspected calcified fibroid within the uterus. There is extensive right greater than left retroperitoneal, iliac, inguinal and proximal thigh lymphadenopathy. The largest lymph node or lymph node conglomerate measures nearly 8.0 cm along the right pelvic sidewall. There is hypodensity within a few lymph nodes likely due to internal necrosis. There is superimposed retroperitoneal fatty stranding. No lymphadenopathy is seen superior to the renal veins. There are few prominent mesenteric lymph nodes which are nonspecific, primarily in a pericecal distribution. There is presacral fatty stranding and a suspected presacral lymph node measuring 4.1 cm. There is an enlarged proximal right thigh with associated increased fatty stranding within the subcutaneous fat. There is linear increased density along the superolateral right hip due to right hip arthroplasty scarring. There are degenerative changes throughout the spine. There is grade 1 anterolisthesis at the lower lumbar levels. IMPRESSION: 1. Extensive right greater than left retroperitoneal, iliac chain, inguinal and proximal thigh lymphadenopathy with surrounding fatty stranding. Given the presence of pathologically enlarged lymph nodes at the base of the neck and within the left hilum on the prior chest CT, this is concerning for a neoplastic etiology such as lymphoma rather than reactive lymphadenopathy. The largest lymph nodes demonstrate internal hypodensity likely due to necrosis. These findings have significantly increased compared to lumbar spine MRI dated 07/24/2018. 2. Proximal right thigh enlargement with fatty stranding and scarring due to a hip arthroplasty. This is likely due to known right lower extremity venous thrombosis demonstrated on a sonogram performed one day prior. The possibly of superimposed cellulitis is not excluded. 3. Multiple hepatic cysts. 4. Multiple renal parapelvic cyst. 5. Increased bilateral lower lobe atelectasis. The possibility of basilar interstitial infiltrate is not excluded. 6. Colonic diverticulosis. 7. Tiny hiatal hernia. 8. Bilateral lower lobe pulmonary emboli, better characterized on the CT angiogram performed one day prior. Electronically signed by: Pily Brady MD (10/11/2018 11:55 AM) [id number]
[2018-10-11] MEDS: METOPROLOL SUCC 24HR ER 25 MG TAB.ER.24H. PO SCH (14:23)
[2018-10-11] MEDS: LACTOBACILLUS RHAMNOSUS GG 1 CAPSULE. PO SCH (20:26)
[2018-10-12 03:35] VITALS: BP 144/80
[2018-10-12] MEDS: HYDROcodone/APAP 7.5/325MG 1 TAB TABLET PO PRN ×2 (03:46→13:45)
[2018-10-12 07:00] VITALS: BP 126/69
[2018-10-12] MEDS: ANTI-COAG MONITOR BY PHARMACY. MC PRN (08:11)
[2018-10-12] MEDS: METOPROLOL SUCC 24HR ER 25 MG TAB.ER.24H. PO SCH (08:27)
[2018-10-12] MEDS: CEPHALEXIN 250 MG CAPSULE. PO SCH ×4 (08:27→20:42)
[2018-10-12] MEDS: LACTOBACILLUS RHAMNOSUS GG 1 CAPSULE. PO SCH ×2 (08:27→20:42)
[2018-10-12] MEDS: CITALOPRAM 20 MG TABLET. PO SCH ×2 (08:27→20:42)
[2018-10-12] MEDS: CYCLOBENZAPRINE 10 MG TABLET. PO SCH ×3 (08:27→20:42)
[2018-10-12 11:00] VITALS: BP 126/52
--- NOTE | 2018-10-12 11:40 | PDOC ---
PULMONARY PROGRESS NOTES Subjective no soa Vitals Vital Signs Date Time Temp Pulse Resp B/P (MAP) Pulse Ox O2 Delivery O2 Flow Rate FiO2 10/12/18 08:27 104 144/80 10/12/18 07:40 Nasal Cannula 2.0 10/12/18 07:00 98.0 16 94 98.0 ROS: No Chest Pain, No Increase Cough General: Alert, No acute distress Lungs: Clear Cardiovascular: S1 Abdomen: Soft Neuro Exam: Alert Extremities: Other (right thigh edema) Skin: Warm Labs Laboratory Tests Test 10/10/18 21:23 10/10/18 22:38 10/11/18 06:50 10/11/18 06:58 White Blood Count 7.7 x10^3/uL (4.0-11.0) Red Blood Count 3.51 x10^6/uL (3.50-5.40) Hemoglobin 10.3 g/dL (12.0-15.5) Hematocrit 31.5 % (36.0-47.0) Mean Corpuscular Volume 90 fL (79-100) Mean Corpuscular Hemoglobin 29 pg (25-35) Mean Corpuscular Hemoglobin Concent 33 g/dL (31-37) Red Cell Distribution Width 14.6 % (11.5-14.5) Platelet Count 326 x10^3/uL (140-400) Neutrophils (%) (Auto) 80 % (31-73) Lymphocytes (%) (Auto) 9 % (24-48) Monocytes (%) (Auto) 9 % (0-9) Eosinophils (%) (Auto) 2 % (0-3) Basophils (%) (Auto) 1 % (0-3) Neutrophils # (Auto) 6.2 x10^3uL (1.8-7.7) Lymphocytes # (Auto) 0.7 x10^3/uL (1.0-4.8) Monocytes # (Auto) 0.7 x10^3/uL (0.0-1.1) Eosinophils # (Auto) 0.1 x10^3/uL (0.0-0.7) Basophils # (Auto) 0.0 x10^3/uL (0.0-0.2) Prothrombin Time 13.7 SEC (11.7-14.0) Prothromb Time International Ratio 1.1 (0.8-1.1) Activated Partial Thromboplast Time 37 SEC (24-38) Sodium Level 137 mmol/L (136-145) Potassium Level 4.1 mmol/L (3.5-5.1) Chloride Level 100 mmol/L (98-107) Carbon Dioxide Level 26 mmol/L (21-32) Anion Gap 11 (6-14) Blood Urea Nitrogen 5 mg/dL (7-20) Creatinine 0.9 mg/dL (0.6-1.0) Estimated GFR (Cockcroft-Gault) 61.5 BUN/Creatinine Ratio 6 (6-20) Glucose Level 119 mg/dL (70-99) Lactic Acid Level 2.3 mmol/L (0.4-2.0) 1.3 mmol/L (0.4-2.0) Calcium Level 10.5 mg/dL (8.5-10.1) Total Bilirubin 0.3 mg/dL (0.2-1.0) Aspartate Amino Transf (AST/SGOT) 20 U/L (15-37) Alanine Aminotransferase (ALT/SGPT) 12 U/L (14-59) Alkaline Phosphatase 138 U/L (46-116) Creatine Kinase 24 U/L (26-192) Creatine Kinase MB (Mass) < 0.5 ng/mL (0.0-3.6) Creatine Kinase MB Relative Index % (0-4) Troponin I Quantitative < 0.017 ng/mL (0.000-0.055) < 0.017 ng/mL (0.000-0.055) AI-Ida-I-Type Natriuretic Peptide 171 pg/mL (0-124) Total Protein 6.7 g/dL (6.4-8.2) Albumin 3.1 g/dL (3.4-5.0) Albumin/Globulin Ratio 0.9 (1.0-1.7) Urine Collection Type U cath Urine Color Yellow Urine Clarity Cloudy Urine pH 5.5 Urine Specific Crossroads >=1.030 Urine Protein Negative mg/dL (NEG-TRACE) Urine Glucose (UA) Negative mg/dL (NEG) Urine Ketones (Stick) Trace mg/dL (NEG) Urine Blood Negative (NEG) Urine Nitrite Negative (NEG) Urine Bilirubin Small (NEG) Urine Urobilinogen Dipstick 1.0 mg/dL (0.2 mg/dL) Urine Leukocyte Esterase Negative (NEG) Urine RBC 0 /HPF (0-2) Urine WBC 0 /HPF (0-4) Urine Squamous Epithelial Cells Many /LPF Urine Bacteria 0 /HPF (0-FEW) Urine Hyaline Casts Many /HPF Urine Mucus Marked /LPF Heparin Anti-Xa Act, Unfractionated 0.39 IU/mL (0.30-0.70) Test 10/11/18 12:40 10/12/18 05:15 Heparin Anti-Xa Act, Unfractionated 0.64 IU/mL (0.30-0.70) 0.41 IU/mL (0.30-0.70) Laboratory Tests Test 10/11/18 12:40 10/12/18 05:15 Heparin Anti-Xa Act, Unfractionated 0.64 IU/mL (0.30-0.70) 0.41 IU/mL (0.30-0.70) Medications Active Scripts Medications Dose Route/Sig Max Daily Dose Days Date Category Metoprolol Succinate ( Xl ) (Metoprolol Succinate) 25 Mg Tab.er.24h 1 Tab PO DAILY 10/11/18 Reported Alprazolam 1 Mg Tablet 1 Tab PO PRN TID PRN 10/11/18 Reported Cyclobenzaprine Hcl 5 Mg Tablet 1 Tab PO PRN TID PRN 10/11/18 Reported Hydrocodone-Apap 5-325 (Hydrocodone Bit/Acetaminophen) 1 Tab Tablet 1 Tab PO PRN Q6HRS PRN 10/11/18 Reported Cephalexin 500 Mg Capsule 1 Cap PO QID 10/11/18 Reported Escitalopram Oxalate 20 Mg Tablet 1 Tab PO DAILY 04/18/17 Reported Celexa (Citalopram Hydrobromide) 40 Mg Tablet 40 Mg PO HS 10/05/16 Reported Proair Hfa Inhaler (Albuterol Sulfate) 8.5 Gm Hfa.aer.ad 1 Puff INH PRN Q6HRS PRN 10/05/[address] ABDOMEN/PELVIS IMPRESSION: 1. Extensive right greater than left retroperitoneal, iliac chain, inguinal and proximal thigh lymphadenopathy with surrounding fatty stranding. Given the presence of pathologically enlarged lymph nodes at the base of the neck and within the left hilum on the prior chest CT, this is concerning for a neoplastic etiology such as lymphoma rather than reactive lymphadenopathy. The largest lymph nodes demonstrate internal hypodensity likely due to necrosis. These findings have significantly increased compared to lumbar spine MRI dated 07/24/2018. 2. Proximal right thigh enlargement with fatty stranding and scarring due to a hip arthroplasty. This is likely due to known right lower extremity venous thrombosis demonstrated on a sonogram performed one day prior. The possibly of superimposed cellulitis is not excluded. 3. Multiple hepatic cysts. 4. Multiple renal parapelvic cyst. 5. Increased bilateral lower lobe atelectasis. The possibility of basilar interstitial infiltrate is not excluded. 6. Colonic diverticulosis. 7. Tiny hiatal hernia. 8. Bilateral lower lobe pulmonary emboli, better characterized on the CT angiogram performed one day prior. Electronically signed by: Pily Brady MD (10/11/2018 11:55 AM) [facility] Impression . 1. Acute pulmonary embolism and acute right lower extremity deep venous thrombosis in a patient who has lost 70 pounds in the last few years and had a right hip infection and has been not fully ambulatory.. At the same time, she has enlarged left neck lymph nodes and enlarged lymph nodes in the right groin area. The risk factors include immobility as well as possibility of lymphoproliferative disease contributing to thromboembolic disease 2. No significant history of tobacco use. 3. A 70-pound weight loss in the last few years. 4. History of right hip infection. 5. Abnormal ct abdomen/pelvis Extensive right greater than left retroperitoneal, iliac chain, inguinal and proximal thigh lymphadenopathy strongly suspect lymphoproliferative disease Plan . RECOMMENDATIONS: 1. Continue with present heparin per protocol. 2. IR consult for biopsy of adenopathy. 3. Highly suspected lymphoproliferative disease. will need Oncology consult later 4. Duration of anticoagulation will be depending on the etiology of thromboembolic disease, especially underlying malignancy. 5. Discussed with ANA PAULA. NILESH SPEARS MD October 12, 2018 11:40
[2018-10-12] MEDS: HEPARIN 25,000UTS/500ML PREMIX 500 ML IV PRN (13:44)
[2018-10-12 15:00] VITALS: BP 101/52
[2018-10-12 19:00] VITALS: BP 120/58
[2018-10-12 22:56] VITALS: BP 143/74
[2018-10-13] VITALS (9 sets, daily range): BP systolic 106–151; BP diastolic 45–71
[2018-10-13] MEDS: HYDROcodone/APAP 5/325MG 1 TAB TABLET PO PRN ×2 (02:57→20:25)
--- NOTE | 2018-10-13 05:01 | PN ---
DATE: 10/12/2018 ROOM: 258. SUBJECTIVE: The patient is awake, alert, feeling about the same, still having pain in her right flank, lower chest area. OBJECTIVE: VITAL SIGNS: Stable. T-max of 99.7, pulse rate is around 100, blood pressures are good, O2 sats are good on 2 liters. CHEST: Clear to auscultation. HEART: Regular rate and rhythm with a rate of 100. ABDOMEN: Benign. EXTREMITIES: Right lower extremity is still swollen, but less so than yesterday. She remains on heparin. Pulmonary consultation yesterday led to a CT abdomen and pelvis, which shows extensive right greater than left paraaortic iliac chain, inguinal and proximal thigh lymphadenopathy. It was felt on the CT chest with enlarged lymph nodes in the neck and the left ____ that lymphoma should be considered and likely will need a biopsy of the same, but with heparin this will need to be considered timing on the same. IMPRESSION: 1. Deep vein thrombosis with pulmonary embolism. 2. Lymphadenopathy with possible lymphoma. 3. Complicated right total hip replacement with infection. PLAN: Continue present therapy. I am going to ask for Oncology to come by and see the patient, direct further treatment regarding the lymph node biopsy, etc. Timing will depend on the heparin and the pulmonary embolus. Otherwise, continue same. EULOGIO DAVIS MD DR: DAVID/liliya JOB#: [id number] / [id number]
[2018-10-13] MEDS: HEPARIN 25,000UTS/500ML PREMIX 500 ML IV PRN ×2 (05:05→23:16)
[2018-10-13 05:35] LABS: HEMATOCRIT 26.2 % (36.0-47.0); HEMOGLOBIN 8.8 g/dL (12.0-15.5); RED BLOOD COUNT 2.9 x10^6/uL (3.50-5.40); RED CELL DISTRIBUTION WIDTH 14.3 % (11.5-14.5); WHITE BLOOD COUNT 8.5 x10^3/uL (4.0-11.0)
[2018-10-13] MEDS ORDERED: NON FORMULARY ITEM (Cyclobenzaprine Hcl 1 TAB) PO PRN (08:45)
[2018-10-13] MEDS ORDERED: ALPRAZolam 0.5 MG TABLET PO PRN (08:45)
[2018-10-13] MEDS ORDERED: CYCLOBENZAPRINE 10 MG TABLET. PO PRN (08:45)
--- NOTE | 2018-10-13 08:45 | PDOC ---
Provider Note Provider Note vss, low grade temp- exam same, R leg swollen- ct shows adenop so bx /surg consult ordered- hold on warfarin re same, still heparin for bilat PE/DVT- drowsy re meds, reduce xanax/flexeril doses KARLA GALICIA MD October 13, 2018 08:45
--- NOTE | 2018-10-13 08:58 | PDOC ---
PROGRESS NOTES Subjective Subjective HPI - Lymphadenopathy. ROS - no CP Objective Objective Vital Signs Date Time Temp Pulse Resp B/P (MAP) Pulse Ox O2 Delivery O2 Flow Rate FiO2 10/13/18 07:00 97.8 86 12 114/59 (77) 97 Nasal Cannula 2.0 97.8 Intake and Output 10/13/18 07:00 Intake Total 540 ml Output Total 1400 ml Balance -860 ml Intake Oral 200 ml IV Total 340 ml Output Urine Total 1400 ml Physical Exam Heart: Normal S1, Normal S2 General: Alert, Oriented X3, No acute distress Neuro: Normal speech Psych/Mental Status: Mental status NL Assessment Assessment Problems Medical Problems: (1) DVT (deep venous thrombosis) Status: Acute (2) Weakness Status: Acute 1. Lymphadenopathy. Pt not comfortable with excisional bx. Plan needle bx by IR. I d/w Dr Wyman and Dr Gonzalez and RN. 2. PE/DVT - agree with heparin. Comment Review of Relevant I have reviewed the following items marion (where applicable) has been applied. Labs Laboratory Tests Test 10/11/18 12:40 10/12/18 05:15 10/13/18 04:55 Heparin Anti-Xa Act, Unfractionated 0.64 IU/mL (0.30-0.70) 0.41 IU/mL (0.30-0.70) 0.40 IU/mL (0.30-0.70) White Blood Count 8.5 x10^3/uL (4.0-11.0) Red Blood Count 2.90 x10^6/uL (3.50-5.40) Hemoglobin 8.8 g/dL (12.0-15.5) Hematocrit 26.2 % (36.0-47.0) Mean Corpuscular Volume 90 fL (79-100) Mean Corpuscular Hemoglobin 30 pg (25-35) Mean Corpuscular Hemoglobin Concent 34 g/dL (31-37) Red Cell Distribution Width 14.3 % (11.5-14.5) Platelet Count 258 x10^3/uL (140-400) Laboratory Tests Test 10/13/18 04:55 White Blood Count 8.5 x10^3/uL (4.0-11.0) Red Blood Count 2.90 x10^6/uL (3.50-5.40) Hemoglobin 8.8 g/dL (12.0-15.5) Hematocrit 26.2 % (36.0-47.0) Mean Corpuscular Volume 90 fL (79-100) Mean Corpuscular Hemoglobin 30 pg (25-35) Mean Corpuscular Hemoglobin Concent 34 g/dL (31-37) Red Cell Distribution Width 14.3 % (11.5-14.5) Platelet Count 258 x10^3/uL (140-400) Heparin Anti-Xa Act, Unfractionated 0.40 IU/mL (0.30-0.70) Medications Current Medications Sodium Chloride 1,000 ml @ 1,000 mls/hr 1X ONCE IV Last administered on 10/10/18 21:59; Start 10/10/18 at 22:00; Stop 10/10/18 at 22:59; Status DC Fentanyl Citrate (Fentanyl 2ml Vial) 50 mcg 1X ONCE IV Last administered on 10/10/18at 22:51; Start 10/10/18 at 22:45; Stop 10/10/18 at 22:46; Status DC Ceftriaxone Sodium (Rocephin) 1 gm 1X ONCE IVP Last administered on 10/10/18 23:38; Start 10/10/18 at 23:15; Stop 10/10/18 at 23:16; Status DC Ondansetron HCl (Zofran) 4 mg PRN Q8HRS PRN IV NAUSEA/VOMITING; Start 10/10/18 at 23:30; Stop 10/11/18 at 23:29; Status DC Fentanyl Citrate (Fentanyl 2ml Vial) 50 mcg PRN Q3HRS PRN IV PAIN Last administered on 10/11/18at 09:00; Start 10/10/18 at 23:30; Stop 10/11/18 at 18:41; Status DC Sodium Chloride 1,000 ml @ 75 mls/hr [id number] IV Last administered on 10/11/18 14:24; Start 10/10/18 at 23:30; Stop 10/11/18 at 23:29; Status DC Iohexol (Omnipaque 350 Mg/ml) 100 ml 1X ONCE IV Last administered on 10/11/18 00:16; Start 10/11/18 at 00:00; Stop 10/11/18 at 00:01; Status DC Info (CONTRAST GIVEN -- Rx MONITORING) 1 each PRN DAILY PRN MC SEE COMMENTS; Start 10/11/18 at 00:00; Stop 10/11/18 at 11:34; Status DC Heparin Sodium/ Dextrose 500 ml @ 0 mls/hr CONT PRN IV SEE I/O RECORD Last administered on 10/13/18at 05:05; Start 10/11/18 at 00:45 Heparin Sodium (Porcine) (Heparin Sodium) 2,600 unit PRN Q6HRS PRN IV FOR UFH LEVEL LESS THAN 0.2; Start 10/11/18 at 00:45 Heparin Sodium (Porcine) (Heparin Sodium) 1,300 unit PRN Q6HRS PRN IV FOR UFH LEVEL 0.2 - 0.29; Start 10/11/18 at 00:45 Acetaminophen/ Hydrocodone Bitart (Lortab 7.5/325) 1 tab PRN Q6HRS PRN PO SEVERE PAIN Last administered on 10/12/18at 13:45; Start 10/11/18 at 03:45 Iohexol (Omnipaque 350 Mg/ml) 100 ml STK-MED ONCE .ROUTE ; Start 10/11/18 at 04:45; Stop 10/11/18 at 04:46; Status DC Albuterol Sulfate (Ventolin Neb Soln) 3 mg PRN Q6HRS PRN INH SHORTNESS OF BREATH; Start 10/11/18 at 08:00 Cyclobenzaprine HCl (Flexeril) 10 mg TID PO Last administered on 10/12/18at 13:44; Start 10/11/18 at 09:00; Stop 10/13/18 at 08:41; Status DC Citalopram Hydrobromide (CeleXA) 40 mg DAILY PO Last administered on 10/12/18 20:42; Start 10/11/18 at 09:00 Alprazolam (Xanax) 1 mg PRN TID PRN PO ANXIETY / AGITATION Last administered on 10/11/18 20:26; Start 10/11/18 at 10:15; Stop 10/13/18 at 08:42; Status DC Acetaminophen/ Hydrocodone Bitart (Lortab 5/325) 1 tab PRN Q6HRS PRN PO MODERATE PAIN Last administered on 10/13/18at 02:57; Start 10/11/18 at 10:15 Metoprolol Succinate (Toprol Xl) 25 mg DAILY PO Last administered on 10/12/18 08:27; Start 10/11/18 at 11:00 Cephalexin HCl (Keflex) 500 mg QID PO Last administered on 10/12/18at 20:42; Start 10/11/18 at 10:15 Iohexol (Omnipaque 300 Mg/ml) 75 ml 1X ONCE IV Last administered on 10/11/18at 10:30; Start 10/11/18 at 10:45; Stop 10/11/18 at 10:51; Status DC Info (CONTRAST GIVEN -- Rx MONITORING) 1 each PRN DAILY PRN MC SEE COMMENTS; Start 10/11/18 at 11:00; Stop 10/13/18 at 10:59 Info (Anti-Coagulation Monitoring By Pharmacy) 1 each PRN DAILY PRN MC SEE COMMENTS Last administered on 10/12/18at 08:11; Start 10/11/18 at 11:30 Lactobacillus Rhamnosus (Culturelle) 1 cap BID PO Last administered on 10/12/18at 20:42; Start 10/11/18 at 21:00 Cyclobenzaprine HCl (Flexeril) 5 mg PRN TID PRN PO MUSCLE SPASMS; Start 10/13/18 at 08:45 Non-Formulary Medication (Cyclobenzaprine Hcl ) 1 tab PRN TID PRN PO MUSCLE SPASMS; Start 10/13/18 at 08:45; Status UNV Non-Formulary Medication (Escitalopram Oxalate ) 1 tab DAILY PO ; Start 10/13/18 at 09:00; Status UNV Alprazolam (Xanax) 0.5 mg PRN TID PRN PO ANXIETY / AGITATION; Start 10/13/18 at 08:45 Active Scripts Active Reported Metoprolol Succinate ( Xl ) (Metoprolol Succinate) 25 Mg Tab.er.24h 1 Tab PO DAILY Alprazolam 1 Mg Tablet 1 Tab PO PRN TID PRN Cyclobenzaprine Hcl 5 Mg Tablet 1 Tab PO PRN TID PRN Hydrocodone-Apap 5-325 (Hydrocodone Bit/Acetaminophen) 1 Tab Tablet 1 Tab PO PRN Q6HRS PRN Cephalexin 500 Mg Capsule 1 Cap PO QID Escitalopram Oxalate 20 Mg Tablet 1 Tab PO DAILY Celexa (Citalopram Hydrobromide) 40 Mg Tablet 40 Mg PO HS Proair Hfa Inhaler (Albuterol Sulfate) 8.5 Gm Hfa.aer.ad 1 Puff INH PRN Q6HRS PRN Vitals/I & O Vital Sign - Last 24 Hours 10/12/18 10/12/18 10/12/18 10/12/18 11:00 13:45 14:45 15:00 Temp 99.0 97.8 99.0 97.8 Pulse 100 92 Resp 18 12 B/P (MAP) 126/52 (76) 101/52 (68) Pulse Ox 95 95 95 97 O2 Delivery Nasal Cannula Nasal Cannula Nasal Cannula O2 Flow Rate 2.0 2.0 2.0 2.0 10/12/18 10/12/18 10/12/18 10/12/18 19:00 20:09 22:56 23:30 Temp 98.8 99.7 99.0 98.8 99.7 99.0 Pulse 82 102 Resp 16 16 B/P (MAP) 120/58 (78) 143/74 (97) Pulse Ox 96 90 O2 Delivery Nasal Cannula Nasal Cannula Nasal Cannula O2 Flow Rate 2.0 2.0 2.0 10/13/18 10/13/18 10/13/18 02:53 02:57 07:00 Temp 100.0 97.8 100.0 97.8 Pulse 102 86 Resp 16 20 12 B/P (MAP) 151/71 (97) 114/59 (77) Pulse Ox 94 97 O2 Delivery Nasal Cannula Nasal Cannula Nasal Cannula O2 Flow Rate 2.0 2.0 2.0 Intake and Output 10/12/18 10/12/18 10/13/18 15:00 23:00 07:00 Intake Total 200 ml 340 ml Output Total 1000 ml 200 ml 200 ml Balance -1000 ml 0 ml 140 ml LAURA HITCHCOCK MD October 13, 2018 08:58
[2018-10-13] MEDS: METOPROLOL SUCC 24HR ER 25 MG TAB.ER.24H. PO SCH (09:00)
[2018-10-13] MEDS ORDERED: NON FORMULARY ITEM (Escitalopram Oxalate 1 TAB) PO SCH (09:00)
[2018-10-13] MEDS: LACTOBACILLUS RHAMNOSUS GG 1 CAPSULE. PO SCH ×2 (09:00→20:25)
[2018-10-13] MEDS: CEPHALEXIN 250 MG CAPSULE. PO SCH ×4 (09:00→20:25)
--- NOTE | 2018-10-13 09:46 | PDOC2 ---
CONSULT Date of Consult Date of Consult DATE: 10/13/18 TIME: 09:41 History of Present Illness Reason for Visit: The patient is a 73 year old female currently receiving treatment for a DVT and PE. She has had a prior hip replacement with subsequent surgeries and suspected infection. During her hospitalization CT scanning of the chest and abdomen showed abnormal lymphadenopathy (refer to reports for specifics). Surgery was consulted for possible lymph node biopsy. Past Medical History Cardiovascular: HTN Pulmonary: No pertinent hx CENTRAL NERVOUS SYSTEM: Other GI: GERD Heme/Onc: Anemia NOS Hepatobiliary: Other Psych: Anxiety Musculoskeletal: Osteoarthritis Rheumatologic: No pertinent hx Infectious disease: Other Renal/: No pertinent hx Endocrine: No pertinent hx Past Surgical History Past Surgical History: Appendectomy, Total hip replacement, Tonsillectomy, Other Family History Family History: Heart Disease Social History ALCOHOL: none Drugs: None Lives: with Family Current Problem List Problem List Problems Medical Problems: (1) DVT (deep venous thrombosis) Status: Acute (2) Weakness Status: Acute Current Medications Current Medications Current Medications Sodium Chloride 1,000 ml @ 1,000 mls/hr 1X ONCE IV Last administered on 10/10/18at 21:59; Start 10/10/18 at 22:00; Stop 10/10/18 at 22:59; Status DC Fentanyl Citrate (Fentanyl 2ml Vial) 50 mcg 1X ONCE IV Last administered on 10/10/18at 22:51; Start 10/10/18 at 22:45; Stop 10/10/18 at 22:46; Status DC Ceftriaxone Sodium (Rocephin) 1 gm 1X ONCE IVP Last administered on 10/10/18at 23:38; Start 10/10/18 at 23:15; Stop 10/10/18 at 23:16; Status DC Ondansetron HCl (Zofran) 4 mg PRN Q8HRS PRN IV NAUSEA/VOMITING; Start 10/10/18 at 23:30; Stop 10/11/18 at 23:29; Status DC Fentanyl Citrate (Fentanyl 2ml Vial) 50 mcg PRN Q3HRS PRN IV PAIN Last administered on 10/11/18at 09:00; Start 10/10/18 at 23:30; Stop 10/11/18 at 18:41; Status DC Sodium Chloride 1,000 ml @ 75 mls/hr [id number] IV Last administered on 10/11/18at 14:24; Start 10/10/18 at 23:30; Stop 10/11/18 at 23:29; Status DC Iohexol (Omnipaque 350 Mg/ml) 100 ml 1X ONCE IV Last administered on 10/11/18at 00:16; Start 10/11/18 at 00:00; Stop 10/11/18 at 00:01; Status DC Info (CONTRAST GIVEN -- Rx MONITORING) 1 each PRN DAILY PRN MC SEE COMMENTS; Start 10/11/18 at 00:00; Stop 10/11/18 at 11:34; Status DC Heparin Sodium/ Dextrose 500 ml @ 0 mls/hr CONT PRN IV SEE I/O RECORD Last administered on 10/13/18at 05:05; Start 10/11/18 at 00:45 Heparin Sodium (Porcine) (Heparin Sodium) 2,600 unit PRN Q6HRS PRN IV FOR UFH LEVEL LESS THAN 0.2; Start 10/11/18 at 00:45 Heparin Sodium (Porcine) (Heparin Sodium) 1,300 unit PRN Q6HRS PRN IV FOR UFH LEVEL 0.2 - 0.29; Start 10/11/18 at 00:45 Acetaminophen/ Hydrocodone Bitart (Lortab 7.5/325) 1 tab PRN Q6HRS PRN PO SEVERE PAIN Last administered on 10/12/18at 13:45; Start 10/11/18 at 03:45 Iohexol (Omnipaque 350 Mg/ml) 100 ml STK-MED ONCE .ROUTE ; Start 10/11/18 at 04:45; Stop 10/11/18 at 04:46; Status DC Albuterol Sulfate (Ventolin Neb Soln) 3 mg PRN Q6HRS PRN INH SHORTNESS OF BREATH; Start 10/11/18 at 08:00 Cyclobenzaprine HCl (Flexeril) 10 mg TID PO Last administered on 10/12/18at 13:44; Start 10/11/18 at 09:00; Stop 10/13/18 at 08:41; Status DC Citalopram Hydrobromide (CeleXA) 40 mg DAILY PO Last administered on 10/12/18at 20:42; Start 10/11/18 at 09:00 Alprazolam (Xanax) 1 mg PRN TID PRN PO ANXIETY / AGITATION Last administered on 10/11/18 20:26; Start 10/11/18 at 10:15; Stop 10/13/18 at 08:42; Status DC Acetaminophen/ Hydrocodone Bitart (Lortab 5/325) 1 tab PRN Q6HRS PRN PO MODERATE PAIN Last administered on 10/13/18 02:57; Start 10/11/18 at 10:15 Metoprolol Succinate (Toprol Xl) 25 mg DAILY PO Last administered on 10/12/18 08:27; Start 10/11/18 at 11:00 Cephalexin HCl (Keflex) 500 mg QID PO Last administered on 10/12/18 20:42; Start 10/11/18 at 10:15 Iohexol (Omnipaque 300 Mg/ml) 75 ml 1X ONCE IV Last administered on 10/11/18at 10:30; Start 10/11/18 at 10:45; Stop 10/11/18 at 10:51; Status DC Info (CONTRAST GIVEN -- Rx MONITORING) 1 each PRN DAILY PRN MC SEE COMMENTS; Start 10/11/18 at 11:00; Stop 10/13/18 at 10:59 Info (Anti-Coagulation Monitoring By Pharmacy) 1 each PRN DAILY PRN MC SEE COMMENTS Last administered on 10/12/18at 08:11; Start 10/11/18 at 11:30 Lactobacillus Rhamnosus (Culturelle) 1 cap BID PO Last administered on 10/12/18 20:42; Start 10/11/18 at 21:00 Cyclobenzaprine HCl (Flexeril) 5 mg PRN TID PRN PO MUSCLE SPASMS; Start 10/13/18 at 08:45 Non-Formulary Medication (Cyclobenzaprine Hcl ) 1 tab PRN TID PRN PO MUSCLE SPASMS; Start 10/13/18 at 08:45; Status UNV Non-Formulary Medication (Escitalopram Oxalate ) 1 tab DAILY PO ; Start 10/13/18 at 09:00; Status UNV Alprazolam (Xanax) 0.5 mg PRN TID PRN PO ANXIETY / AGITATION; Start 10/13/18 at 08:45 Active Scripts Active Reported Metoprolol Succinate ( Xl ) (Metoprolol Succinate) 25 Mg Tab.er.24h 1 Tab PO DAILY Alprazolam 1 Mg Tablet 1 Tab PO PRN TID PRN Cyclobenzaprine Hcl 5 Mg Tablet 1 Tab PO PRN TID PRN Hydrocodone-Apap 5-325 (Hydrocodone Bit/Acetaminophen) 1 Tab Tablet 1 Tab PO PRN Q6HRS PRN Cephalexin 500 Mg Capsule 1 Cap PO QID Escitalopram Oxalate 20 Mg Tablet 1 Tab PO DAILY Celexa (Citalopram Hydrobromide) 40 Mg Tablet 40 Mg PO HS Proair Hfa Inhaler (Albuterol Sulfate) 8.5 Gm Hfa.aer.ad 1 Puff INH PRN Q6HRS PRN Allergies Allergies: Coded Allergies: codeine (Verified Allergy, Intermediate, ITCHING, 07/22/18) adhesive (Verified Adverse Reaction, Intermediate, SKIN IRRITATION, 07/22/18) ROS General: YES: Other (feels weak) PSYCHOLOGICAL ROS: No: Anxiety, Behavioral Disorder, Concentration difficultie, Decreased libido, Depression, Disorientation, Hallucinations, Hostility, Irritab lity, Memory difficulties, Mood Swings, Obsessive thoughts, Physical abuse, Sexual abuse, Sleep disturbances, Suicidal ideation, Other Eyes: No Blurry vision, No Decreased vision, No Double vision, No Dry eyes, No Excessive tearing, No Eye Pain, No Itchy Eyes, No Loss of vision, No Photophobia, No Scotomata, No Uses contacts, No Uses glasses, No Other HEENT: No: Heacaches, Visual Changes, Hearing change, Nasal congestion, Nasal discharge, Oral lesions, Sinus pain, Sore Throat, Epistaxis, Sneezing, Snoring, Tinnitus, Vertigo, Vocal changes, Other ALLERGY AND IMMUNOLOGY: No: Hives, Insect Bite Sensitivity, Itchy/Watery Eyes, Nasal Congestion, Post Nasal Drip, Seasonal Allergies, Other Cardiovascular: No Chest Pain, No Palpitations, No Orthopnea, No Paroxysmal Noc. Dyspnea, No Edema, No Lt Headedness, No Other Gastrointestinal: No Nausea, No Vomiting, No Abdominal Pain, No Diarrhea, No Constipation, No Melena, No Hematochezia, No Other Musculoskeletal: Yes Pain In: (lower extremity) Neurological: No Behavorial Changes, No Bowel/Bladder ControlChng, No Confusion, No Dizziness, No Gait Disturbance, No Headaches, No Impaired Coord/balance, No Memory Loss, No Numbness/Tingling, No Seizures, No Speech Problems, No Tremors, No Visual Changes, No Weakness, No Other Skin: No Dry Skin, No Eczema, No Hair Changes, No Lumps, No Mole Changes, No Mottling, No Nail Changes, No Pruritus, No Rash, No Skin Lesion Changes, No Other, No Acne Physical Exam General: Alert, Oriented X3 HEENT: Atraumatic, Other (no palpable cervical adenopathy) Lungs: Clear to auscultation Heart: Regular rate Abdomen: Soft, No tenderness Skin: No rashes, No breakdown Neuro: Normal speech Vitals VITALS Vital Signs Date Time Temp Pulse Resp B/P (MAP) Pulse Ox O2 Delivery O2 Flow Rate FiO2 10/13/18 07:00 97.8 86 12 114/59 (77) 97 Nasal Cannula 2.0 97.8 Labs Labs Laboratory Tests Test 10/11/18 12:40 10/12/18 05:15 10/13/18 04:55 Heparin Anti-Xa Act, Unfractionated 0.64 IU/mL (0.30-0.70) 0.41 IU/mL (0.30-0.70) 0.40 IU/mL (0.30-0.70) White Blood Count 8.5 x10^3/uL (4.0-11.0) Red Blood Count 2.90 x10^6/uL (3.50-5.40) Hemoglobin 8.8 g/dL (12.0-15.5) Hematocrit 26.2 % (36.0-47.0) Mean Corpuscular Volume 90 fL (79-100) Mean Corpuscular Hemoglobin 30 pg (25-35) Mean Corpuscular Hemoglobin Concent 34 g/dL (31-37) Red Cell Distribution Width 14.3 % (11.5-14.5) Platelet Count 258 x10^3/uL (140-400) Laboratory Tests Test 10/13/18 04:55 White Blood Count 8.5 x10^3/uL (4.0-11.0) Red Blood Count 2.90 x10^6/uL (3.50-5.40) Hemoglobin 8.8 g/dL (12.0-15.5) Hematocrit 26.2 % (36.0-47.0) Mean Corpuscular Volume 90 fL (79-100) Mean Corpuscular Hemoglobin 30 pg (25-35) Mean Corpuscular Hemoglobin Concent 34 g/dL (31-37) Red Cell Distribution Width 14.3 % (11.5-14.5) Platelet Count 258 x10^3/uL (140-400) Heparin Anti-Xa Act, Unfractionated 0.40 IU/mL (0.30-0.70) Images Images CT abdomen pelvis IMPRESSION: 1. Extensive right greater than left retroperitoneal, iliac chain, inguinal and proximal thigh lymphadenopathy with surrounding fatty stranding. Given the presence of pathologically enlarged lymph nodes at the base of the neck and within the left hilum on the prior chest CT, this is concerning for a neoplastic etiology such as lymphoma rather than reactive lymphadenopathy. The largest lymph nodes demonstrate internal hypodensity likely due to necrosis. These findings have significantly increased compared to lumbar spine MRI dated 07/24/2018. 2. Proximal right thigh enlargement with fatty stranding and scarring due to a hip arthroplasty. This is likely due to known right lower extremity venous thrombosis demonstrated on a sonogram performed one day prior. The possibly of superimposed cellulitis is not excluded. 3. Multiple hepatic cysts. 4. Multiple renal parapelvic cyst. 5. Increased bilateral lower lobe atelectasis. The possibility of basilar interstitial infiltrate is not excluded. 6. Colonic diverticulosis. 7. Tiny hiatal hernia. 8. Bilateral lower lobe pulmonary emboli, better characterized on the CT angiogram performed one day prior. Assessment/Plan Assessment/Plan Recent DVT, PE; adenopathy noted on scans. The patient does not want a surgical biopsy, but seems agreeable to a sono guided needle lymph node biopsy. I discussed this with Dr Robles. NORMA HERMAN MD October 13, 2018 09:46
--- NOTE | 2018-10-13 10:15 | NUR ---
HEP GTT IS ON HOLD FOR PENDING BIOPSY THIS AFTERNOON.
--- NOTE | 2018-10-13 10:18 | CONS ---
DATE OF CONSULTATION: 10/12/2018 MEDICAL ONCOLOGY CONSULTATION REPORT: CONSULTATION REQUESTED BY: Aaron Gonzalez M.D. REASON FOR CONSULTATION: Lymphadenopathy. HISTORY OF PRESENT ILLNESS: The patient is a 73-year-old female who has a history of left total knee arthroplasty performed on 07/06/2014 and history of right hip arthroplasty on 10/16/[address] Philipp Patricia. Since the surgery in the right hip in 10/16/2016, she has had persistent discomfort. She mentions that she was told that she had an infection in the right hip in 05/2018 and she was hospitalized and then was in rehabilitation. She mentions that she has never gotten over it and she has not been very ambulatory on many days and she has had good days too. She came in to [facility] complaining of worsening swelling in the right leg of 2-3 days' duration and pain in the lower side of her chest on the back. She underwent further workup with an ultrasound of the lower extremity on 10/10/2018, which revealed DVT involving the right common and superficial femoral vein. Multiple enlarged lymph nodes in the right groin were also noted. She underwent CT angiogram of the chest on 10/10/2018 that revealed bilateral central and segmental pulmonary emboli. Multiple enlarged left neck base lymph nodes are seen with the largest measuring 2.2 x 1.3 cm. She underwent a CT scan of the abdomen and pelvis on 10/11/2018 that revealed extensive right greater than left retroperitoneal iliac inguinal and proximal thigh lymphadenopathy with the largest measuring 8 cm along the right pelvic sidewall. Multiple hepatic cysts and multiple renal parapelvic cysts noted. She was started on IV heparin for DVT and pulmonary embolism. I was asked to see her for further evaluation and recommendations regarding lymphadenopathy. 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 SOCIAL HISTORY: No smoking or alcohol abuse. FAMILY HISTORY: Negative for lymphadenopathy. REVIEW OF SYSTEMS: A 12-point review of system was performed. Pertinent positives as mentioned in the history of present illness. Rest of the system review is negative. PHYSICAL EXAMINATION: GENERAL APPEARANCE: The patient is a 73-year-old female who is in no acute cardiorespiratory distress. VITAL SIGNS: Blood pressure is 126/52 and temperature 99 degrees. HEENT: Atraumatic, normocephalic. EYES: No icterus. NECK: Supple. CHEST: Bilaterally symmetrical. No crepitations or rhonchi heard. HEART: S1, S2 normal. ABDOMEN: Soft, nontender. CENTRAL NERVOUS SYSTEM: No focal deficits. LYMPHATICS: No lymphadenopathy. SKIN: No rashes. PSYCHOLOGIC: Mood and affect are appropriate. MUSCULOSKELETAL: She has edema in the right lower extremity. LYMPHATICS: No lymph nodes are palpable, although, it is mentioned enlarged lymph nodes in the left lower cervical region. LABORATORY DATA: WBC 7.7, hemoglobin 10.3, platelet count 326. Sodium 137, potassium 4.1, creatinine 0.9, glucose 119, calcium 10.5, total bilirubin 0.3, AST 20, ALT 12, alkaline phosphatase 138, total protein 6.7, and albumin 3.1. IMPRESSION AND PLAN: 1. Lymphadenopathy involving the left cervical region and extensive retroperitoneal and pelvic lymphadenopathy and inguinal lymphadenopathy concerning for lymphoma. Needle biopsy would not give us enough tissue for definitive diagnosis and for the specific type of lymphoma, and hence, I have recommended surgical consultation for excisional biopsy. I will consult Dr. Luis Wyman. I discussed with the patient and family regarding the concern for lymphoma. They understand and agreed to proceed with biopsy. 2. Pulmonary embolism and DVT of the right lower extremity. She is on heparin. Appreciate consultation and recommendations by Dr. Gian Ford. 3. Anemia, which I suspect is due to chronic disease from chronic right hip infection. 4. History of right hip arthroplasty in 2014. She had surgery in the right hip on 10/16/2016. She mentions that she has been dealing with infection chronically. I have advised management per primary care physician. LAURA HITCHCOCK MD DR: MOHINDER/liliya JOB#: [id number] / [id number]
[2018-10-13] MEDS: HYDROcodone/APAP 7.5/325MG 1 TAB TABLET PO PRN (10:46)
--- NOTE | 2018-10-13 10:51 | PDOC ---
PULMONARY PROGRESS NOTES Subjective no soa Vitals Vital Signs Date Time Temp Pulse Resp B/P (MAP) Pulse Ox O2 Delivery O2 Flow Rate FiO2 10/13/18 10:46 18 97 Nasal Cannula 10/13/18 07:00 97.8 86 114/59 (77) 2.0 97.8 ROS: No Chest Pain, No Increase Cough General: Alert, No acute distress Lungs: Clear Cardiovascular: S1 Abdomen: Soft Neuro Exam: Alert Extremities: Other (right thigh edema) Skin: Warm Labs Laboratory Tests Test 10/11/18 12:40 10/12/18 05:15 10/13/18 04:55 Heparin Anti-Xa Act, Unfractionated 0.64 IU/mL (0.30-0.70) 0.41 IU/mL (0.30-0.70) 0.40 IU/mL (0.30-0.70) White Blood Count 8.5 x10^3/uL (4.0-11.0) Red Blood Count 2.90 x10^6/uL (3.50-5.40) Hemoglobin 8.8 g/dL (12.0-15.5) Hematocrit 26.2 % (36.0-47.0) Mean Corpuscular Volume 90 fL (79-100) Mean Corpuscular Hemoglobin 30 pg (25-35) Mean Corpuscular Hemoglobin Concent 34 g/dL (31-37) Red Cell Distribution Width 14.3 % (11.5-14.5) Platelet Count 258 x10^3/uL (140-400) Laboratory Tests Test 10/13/18 04:55 White Blood Count 8.5 x10^3/uL (4.0-11.0) Red Blood Count 2.90 x10^6/uL (3.50-5.40) Hemoglobin 8.8 g/dL (12.0-15.5) Hematocrit 26.2 % (36.0-47.0) Mean Corpuscular Volume 90 fL (79-100) Mean Corpuscular Hemoglobin 30 pg (25-35) Mean Corpuscular Hemoglobin Concent 34 g/dL (31-37) Red Cell Distribution Width 14.3 % (11.5-14.5) Platelet Count 258 x10^3/uL (140-400) Heparin Anti-Xa Act, Unfractionated 0.40 IU/mL (0.30-0.70) Medications Active Scripts Medications Dose Route/Sig Max Daily Dose Days Date Category Metoprolol Succinate ( Xl ) (Metoprolol Succinate) 25 Mg Tab.er.24h 1 Tab PO DAILY 10/11/18 Reported Alprazolam 1 Mg Tablet 1 Tab PO PRN TID PRN 10/11/18 Reported Cyclobenzaprine Hcl 5 Mg Tablet 1 Tab PO PRN TID PRN 10/11/18 Reported Hydrocodone-Apap 5-325 (Hydrocodone Bit/Acetaminophen) 1 Tab Tablet 1 Tab PO PRN Q6HRS PRN 10/11/18 Reported Cephalexin 500 Mg Capsule 1 Cap PO QID 10/11/18 Reported Escitalopram Oxalate 20 Mg Tablet 1 Tab PO DAILY 04/18/17 Reported Celexa (Citalopram Hydrobromide) 40 Mg Tablet 40 Mg PO HS 10/05/16 Reported Proair Hfa Inhaler (Albuterol Sulfate) 8.5 Gm Hfa.aer.ad 1 Puff INH PRN Q6HRS PRN 10/05/[address] ABDOMEN/PELVIS IMPRESSION: 1. Extensive right greater than left retroperitoneal, iliac chain, inguinal and proximal thigh lymphadenopathy with surrounding fatty stranding. Given the presence of pathologically enlarged lymph nodes at the base of the neck and within the left hilum on the prior chest CT, this is concerning for a neoplastic etiology such as lymphoma rather than reactive lymphadenopathy. The largest lymph nodes demonstrate internal hypodensity likely due to necrosis. These findings have significantly increased compared to lumbar spine MRI dated 07/24/2018. 2. Proximal right thigh enlargement with fatty stranding and scarring due to a hip arthroplasty. This is likely due to known right lower extremity venous thrombosis demonstrated on a sonogram performed one day prior. The possibly of superimposed cellulitis is not excluded. 3. Multiple hepatic cysts. 4. Multiple renal parapelvic cyst. 5. Increased bilateral lower lobe atelectasis. The possibility of basilar interstitial infiltrate is not excluded. 6. Colonic diverticulosis. 7. Tiny hiatal hernia. 8. Bilateral lower lobe pulmonary emboli, better characterized on the CT angiogram performed one day prior. Electronically signed by: Pily Brady MD (10/11/2018 11:55 AM) [id number] Impression . 1. Acute pulmonary embolism and acute right lower extremity deep venous thrombosis in a patient who has lost 70 pounds in the last few years and had a right hip infection and has been not fully ambulatory.. At the same time, she has enlarged left neck lymph nodes and SIGNIFICANTLY enlarged lymph nodes in the retroperitoneal area /right groin area. Highly suspected lymphoproliferative disease contributing to thromboembolic disease 2. No significant history of tobacco use. 3. A 70-pound weight loss in the last few years. 4. History of right hip infection. 5. Abnormal ct abdomen/pelvis Extensive right greater than left retroperitoneal, iliac chain, inguinal and proximal thigh lymphadenopathy strongly suspect lymphoproliferative disease Plan . RECOMMENDATIONS: 1. Continue with present heparin per protocol. 2. IR consulted for biopsy of adenopathy. 3. Highly suspected lymphoproliferative disease. follow Oncology rec 4. Duration of anticoagulation will be depending on the etiology of thromboembolic disease, especially underlying malignancy. 5. Discussed with RN./ NILESH AYON MD October 13, 2018 10:51
--- NOTE | 2018-10-13 13:10 | NUR ---
SS following for discharge planning. SS reviewed pt chart. Pt is from home. Pt was discharged from [facility] on 08/11/2018 and was admitted to [facility]. Pt was at [facility] from 08/11/2018-08/31/2018 and was discharged to home with [facility], [phone]; fax [phone], and [facility]. Pt is currently requiring oxygen and is currently in her co-pay days if requiring group home unit and will be responsible for $160/day if needed. SS will continue to follow for discharge planning.
[2018-10-13] MEDS ORDERED: LIDOCAINE WITH 8.4% SOD BICARB 3 ML DISP.SYRIN. ONE (14:15)
[2018-10-13] MEDS ORDERED: LIDOCAINE WITH 8.4% SOD BICARB 3 ML DISP.SYRIN. INJ ONE (14:30)
--- NOTE | 2018-10-13 15:32 | RAD ---
Ultrasound-guided biopsy, right groin lymph node 10/13/2018 Indication: Multifocal lymphadenopathy. Concern for lymphoproliferative disorder. Discussion: The risks and benefits of the procedure discussed the patient. Informed consent was obtained. Timeout procedure was performed. The right groin was prepped and draped using sterile barrier technique. Ultrasound evaluation deficits multiple abnormally enlarged lymph nodes in the right groin. An abnormally enlarged, superficial lymph node was targeted for biopsy. 1% lidocaine was administered for local anesthesia. Under direct ultrasound guidance, multiple passes with an 18-gauge biopsy needle were made to the lymph node. Samples were divided amongst formalin and RPMI fluid. Manual pressure was held. Sterile dressings were applied. No immediate complications were identified. Anesthesia: Local only Impression: Ultrasound-guided biopsy, right groin lymph node
[2018-10-13] MEDS: ANTI-COAG MONITOR BY PHARMACY. MC PRN (15:40)
[2018-10-14 03:24] VITALS: BP 120/63
[2018-10-14] MEDS: HYDROcodone/APAP 5/325MG 1 TAB TABLET PO PRN (04:24)
[2018-10-14 07:00] VITALS: BP 113/57
--- NOTE | 2018-10-14 08:25 | PDOC ---
Provider Note Provider Note sleepy, no questions- exam same, bx pending , cont heparin pending plan, as she may need port placed if bx + for lymphoma- hold warfarin for same reason- needs to be in hospital KARLA GALICIA MD October 14, 2018 08:25
[2018-10-14] MEDS: LACTOBACILLUS RHAMNOSUS GG 1 CAPSULE. PO SCH ×2 (08:56→20:49)
[2018-10-14] MEDS: CEPHALEXIN 250 MG CAPSULE. PO SCH ×4 (08:56→20:49)
[2018-10-14] MEDS: CITALOPRAM 20 MG TABLET. PO SCH (08:56)
[2018-10-14] MEDS: METOPROLOL SUCC 24HR ER 25 MG TAB.ER.24H. PO SCH (08:56)
--- NOTE | 2018-10-14 09:13 | PDOC ---
PROGRESS NOTES Subjective Subjective HPI - f/u of Lymphadenopathy ROS - no CP Objective Objective Vital Signs Date Time Temp Pulse Resp B/P (MAP) Pulse Ox O2 Delivery O2 Flow Rate FiO2 10/14/18 08:56 91 113/57 10/14/18 07:00 98.0 14 96 Nasal Cannula 2.0 98.0 Intake and Output 10/14/18 07:00 Intake Total 935 ml Output Total 1650 ml Balance -715 ml Intake Oral 620 ml IV Total 315 ml Output Urine Total 1650 ml Physical Exam Heart: Normal S1, Normal S2 General: Alert, Oriented X3 Lungs: Clear to auscultation Neuro: Normal speech Psych/Mental Status: Mental status NL Assessment Assessment Problems Medical Problems: (1) DVT (deep venous thrombosis) Status: Acute (2) Weakness Status: Acute IMPRESSION AND PLAN: 1. Lymphadenopathy involving the left cervical region and extensive retroperitoneal and pelvic lymphadenopathy and inguinal lymphadenopathy concerning for lymphoma. s/p Needle biopsy rt Ing LN on 10/13/18. Await results. 2. Pulmonary embolism and DVT of the right lower extremity. She is on heparin. Appreciate consultation and recommendations by Dr. Gian Ford. 3. Anemia, which I suspect is due to chronic disease from chronic right hip infection. 4. History of right hip arthroplasty in 2014. She had surgery in the right hip on 10/16/2016. She mentions that she has been dealing with infection chronically. I have advised management per primary care physician. Comment Review of Relevant I have reviewed the following items mairon (where applicable) has been applied. Labs Laboratory Tests Test 10/13/18 04:55 10/13/18 22:05 10/14/18 05:45 White Blood Count 8.5 x10^3/uL (4.0-11.0) Red Blood Count 2.90 x10^6/uL (3.50-5.40) Hemoglobin 8.8 g/dL (12.0-15.5) Hematocrit 26.2 % (36.0-47.0) Mean Corpuscular Volume 90 fL (79-100) Mean Corpuscular Hemoglobin 30 pg (25-35) Mean Corpuscular Hemoglobin Concent 34 g/dL (31-37) Red Cell Distribution Width 14.3 % (11.5-14.5) Platelet Count 258 x10^3/uL (140-400) Heparin Anti-Xa Act, Unfractionated 0.40 IU/mL (0.30-0.70) 0.19 IU/mL (0.30-0.70) 0.53 IU/mL (0.30-0.70) Laboratory Tests Test 10/13/18 22:05 10/14/18 05:45 Heparin Anti-Xa Act, Unfractionated 0.19 IU/mL (0.30-0.70) 0.53 IU/mL (0.30-0.70) Medications Current Medications Sodium Chloride 1,000 ml @ 1,000 mls/hr 1X ONCE IV Last administered on 10/10/18 21:59; Start 10/10/18 at 22:00; Stop 10/10/18 at 22:59; Status DC Fentanyl Citrate (Fentanyl 2ml Vial) 50 mcg 1X ONCE IV Last administered on 10/10/18 22:51; Start 10/10/18 at 22:45; Stop 10/10/18 at 22:46; Status DC Ceftriaxone Sodium (Rocephin) 1 gm 1X ONCE IVP Last administered on 10/10/18 23:38; Start 10/10/18 at 23:15; Stop 10/10/18 at 23:16; Status DC Ondansetron HCl (Zofran) 4 mg PRN Q8HRS PRN IV NAUSEA/VOMITING; Start 10/10/18 at 23:30; Stop 10/11/18 at 23:29; Status DC Fentanyl Citrate (Fentanyl 2ml Vial) 50 mcg PRN Q3HRS PRN IV PAIN Last administered on 10/11/18 09:00; Start 10/10/18 at 23:30; Stop 10/11/18 at 18:41; Status DC Sodium Chloride 1,000 ml @ 75 mls/hr [id number] IV Last administered on 10/11/18 14:24; Start 10/10/18 at 23:30; Stop 10/11/18 at 23:29; Status DC Iohexol (Omnipaque 350 Mg/ml) 100 ml 1X ONCE IV Last administered on 10/11/18 00:16; Start 10/11/18 at 00:00; Stop 10/11/18 at 00:01; Status DC Info (CONTRAST GIVEN -- Rx MONITORING) 1 each PRN DAILY PRN MC SEE COMMENTS; Start 10/11/18 at 00:00; Stop 10/11/18 at 11:34; Status DC Heparin Sodium/ Dextrose 500 ml @ 0 mls/hr CONT PRN IV SEE I/O RECORD Last administered on 10/13/18 23:16; Start 10/11/18 at 00:45 Heparin Sodium (Porcine) (Heparin Sodium) 2,600 unit PRN Q6HRS PRN IV FOR UFH LEVEL LESS THAN 0.2 Last administered on 10/13/18at 23:16; Start 10/11/18 at 00:45 Heparin Sodium (Porcine) (Heparin Sodium) 1,300 unit PRN Q6HRS PRN IV FOR UFH LEVEL 0.2 - 0.29; Start 10/11/18 at 00:45 Acetaminophen/ Hydrocodone Bitart (Lortab 7.5/325) 1 tab PRN Q6HRS PRN PO SEVERE PAIN Last administered on 10/13/18 10:46; Start 10/11/18 at 03:45 Iohexol (Omnipaque 350 Mg/ml) 100 ml STK-MED ONCE .ROUTE ; Start 10/11/18 at 04:45; Stop 10/11/18 at 04:46; Status DC Albuterol Sulfate (Ventolin Neb Soln) 3 mg PRN Q6HRS PRN INH SHORTNESS OF BREATH; Start 10/11/18 at 08:00 Cyclobenzaprine HCl (Flexeril) 10 mg TID PO Last administered on 10/12/18 13:44; Start 10/11/18 at 09:00; Stop 10/13/18 at 08:41; Status DC Citalopram Hydrobromide (CeleXA) 40 mg DAILY PO Last administered on 10/14/18 08:56; Start 10/11/18 at 09:00 Alprazolam (Xanax) 1 mg PRN TID PRN PO ANXIETY / AGITATION Last administered on 10/11/18 20:26; Start 10/11/18 at 10:15; Stop 10/13/18 at 08:42; Status DC Acetaminophen/ Hydrocodone Bitart (Lortab 5/325) 1 tab PRN Q6HRS PRN PO MODERATE PAIN Last administered on 10/14/18at 04:24; Start 10/11/18 at 10:15 Metoprolol Succinate (Toprol Xl) 25 mg DAILY PO Last administered on 10/14/18at 08:56; Start 10/11/18 at 11:00 Cephalexin HCl (Keflex) 500 mg QID PO Last administered on 10/14/18at 08:56; Start 10/11/18 at 10:15 Iohexol (Omnipaque 300 Mg/ml) 75 ml 1X ONCE IV Last administered on 10/11/18at 10:30; Start 10/11/18 at 10:45; Stop 10/11/18 at 10:51; Status DC Info (CONTRAST GIVEN -- Rx MONITORING) 1 each PRN DAILY PRN MC SEE COMMENTS; Start 10/11/18 at 11:00; Stop 10/13/18 at 10:59; Status DC Info (Anti-Coagulation Monitoring By Pharmacy) 1 each PRN DAILY PRN MC SEE COMMENTS Last administered on 10/13/18at 15:40; Start 10/11/18 at 11:30 Lactobacillus Rhamnosus (Culturelle) 1 cap BID PO Last administered on 10/14/18at 08:56; Start 10/11/18 at 21:00 Cyclobenzaprine HCl (Flexeril) 5 mg PRN TID PRN PO MUSCLE SPASMS; Start 10/13/18 at 08:45 Non-Formulary Medication (Cyclobenzaprine Hcl ) 1 tab PRN TID PRN PO MUSCLE SPASMS; Start 10/13/18 at 08:45; Status UNV Non-Formulary Medication (Escitalopram Oxalate ) 1 tab DAILY PO ; Start 10/13/18 at 09:00; Status UNV Alprazolam (Xanax) 0.5 mg PRN TID PRN PO ANXIETY / AGITATION; Start 10/13/18 at 08:45 Lidocaine/Sodium Bicarbonate (Buffered Lidocaine 1%) 3 ml STK-MED ONCE .ROUTE ; Start 10/13/18 at 14:15; Stop 10/13/18 at 14:16; Status DC Lidocaine/Sodium Bicarbonate (Buffered Lidocaine 1%) 3 ml 1X ONCE INJ Last administered on 10/13/18at 14:30; Start 10/13/18 at 14:30; Stop 10/13/18 at 14:31; Status DC Active Scripts Active Reported Metoprolol Succinate ( Xl ) (Metoprolol Succinate) 25 Mg Tab.er.24h 1 Tab PO DAILY Alprazolam 1 Mg Tablet 1 Tab PO PRN TID PRN Cyclobenzaprine Hcl 5 Mg Tablet 1 Tab PO PRN TID PRN Hydrocodone-Apap 5-325 (Hydrocodone Bit/Acetaminophen) 1 Tab Tablet 1 Tab PO PRN Q6HRS PRN Cephalexin 500 Mg Capsule 1 Cap PO QID Escitalopram Oxalate 20 Mg Tablet 1 Tab PO DAILY Celexa (Citalopram Hydrobromide) 40 Mg Tablet 40 Mg PO HS Proair Hfa Inhaler (Albuterol Sulfate) 8.5 Gm Hfa.aer.ad 1 Puff INH PRN Q6HRS AK N Vitals/I & O Vital Sign - Last 24 Hours 10/13/18 10/13/18 10/13/18 10/13/18 10:46 11:00 14:12 14:16 Temp 98.3 98.3 Pulse 90 87 87 Resp 18 14 16 16 B/P (MAP) 130/60 (83) 109/53 (71) 109/56 (73) Pulse Ox 97 96 95 95 O2 Delivery Nasal Cannula Nasal Cannula Nasal Cannula Nasal Cannula O2 Flow Rate 2.0 2.0 2.0 10/13/18 10/13/18 10/13/18 10/13/18 14:21 14:26 15:59 19:11 Pulse 87 87 Resp 16 16 18 B/P (MAP) 112/57 (75) 107/57 (74) Pulse Ox 94 94 O2 Delivery Nasal Cannula Nasal Cannula Nasal Cannula Nasal Cannula O2 Flow Rate 2.0 2.0 2.0 2.0 10/13/18 10/13/18 10/13/18 10/14/18 19:45 20:25 23:23 03:24 Temp 98.7 98.1 98.8 98.7 98.1 98.8 Pulse 96 88 98 Resp 19 20 17 17 B/P (MAP) 106/56 (73) 106/45 (65) 120/63 (82) Pulse Ox 96 96 95 O2 Delivery Nasal Cannula Nasal Cannula Nasal Cannula Nasal Cannula O2 Flow Rate 2.0 2.0 2.0 2.0 10/14/18 10/14/18 10/14/18 10/14/18 04:24 05:24 07:00 08:56 Temp 98.0 98.0 Pulse 91 91 Resp 18 20 14 B/P (MAP) 113/57 (75) 113/57 Pulse Ox 96 O2 Delivery Nasal Cannula Nasal Cannula O2 Flow Rate 2.0 2.0 Intake and Output 10/13/18 10/13/18 10/14/18 15:00 23:00 07:00 Intake Total 20 ml 600 ml 315 ml Output Total 250 ml 1000 ml 400 ml Balance -230 ml -400 ml -85 ml LAURA HITCHCOCK MD October 14, 2018 09:13
--- NOTE | 2018-10-14 09:16 | PDOC ---
PULMONARY PROGRESS NOTES Subjective NOT SOA WANTED TO KNOW WHEN BIOPSY WILL BE DONE Vitals Vital Signs Date Time Temp Pulse Resp B/P (MAP) Pulse Ox O2 Delivery O2 Flow Rate FiO2 10/14/18 08:56 91 113/57 10/14/18 08:00 Nasal Cannula 2.0 10/14/18 07:00 98.0 14 96 98.0 ROS: No Chest Pain, No Increase Cough General: Alert, No acute distress Lungs: Clear Cardiovascular: S1 Abdomen: Soft Neuro Exam: Alert Extremities: Other (right thigh edema) Skin: Warm Labs Laboratory Tests Test 10/13/18 04:55 10/13/18 22:05 10/14/18 05:45 White Blood Count 8.5 x10^3/uL (4.0-11.0) Red Blood Count 2.90 x10^6/uL (3.50-5.40) Hemoglobin 8.8 g/dL (12.0-15.5) Hematocrit 26.2 % (36.0-47.0) Mean Corpuscular Volume 90 fL (79-100) Mean Corpuscular Hemoglobin 30 pg (25-35) Mean Corpuscular Hemoglobin Concent 34 g/dL (31-37) Red Cell Distribution Width 14.3 % (11.5-14.5) Platelet Count 258 x10^3/uL (140-400) Heparin Anti-Xa Act, Unfractionated 0.40 IU/mL (0.30-0.70) 0.19 IU/mL (0.30-0.70) 0.53 IU/mL (0.30-0.70) Laboratory Tests Test 10/13/18 22:05 10/14/18 05:45 Heparin Anti-Xa Act, Unfractionated 0.19 IU/mL (0.30-0.70) 0.53 IU/mL (0.30-0.70) Medications Active Scripts Medications Dose Route/Sig Max Daily Dose Days Date Category Metoprolol Succinate ( Xl ) (Metoprolol Succinate) 25 Mg Tab.er.24h 1 Tab PO DAILY 10/11/18 Reported Alprazolam 1 Mg Tablet 1 Tab PO PRN TID PRN 10/11/18 Reported Cyclobenzaprine Hcl 5 Mg Tablet 1 Tab PO PRN TID PRN 10/11/18 Reported Hydrocodone-Apap 5-325 (Hydrocodone Bit/Acetaminophen) 1 Tab Tablet 1 Tab PO PRN Q6HRS PRN 10/11/18 Reported Cephalexin 500 Mg Capsule 1 Cap PO QID 10/11/18 Reported Escitalopram Oxalate 20 Mg Tablet 1 Tab PO DAILY 04/18/17 Reported Celexa (Citalopram Hydrobromide) 40 Mg Tablet 40 Mg PO HS 10/05/16 Reported Proair Hfa Inhaler (Albuterol Sulfate) 8.5 Gm Hfa.aer.ad 1 Puff INH PRN Q6HRS PRN 10/05/[address] ABDOMEN/PELVIS IMPRESSION: 1. Extensive right greater than left retroperitoneal, iliac chain, inguinal and proximal thigh lymphadenopathy with surrounding fatty stranding. Given the presence of pathologically enlarged lymph nodes at the base of the neck and within the left hilum on the prior chest CT, this is concerning for a neoplastic etiology such as lymphoma rather than reactive lymphadenopathy. The largest lymph nodes demonstrate internal hypodensity likely due to necrosis. These findings have significantly increased compared to lumbar spine MRI dated 07/24/2018. 2. Proximal right thigh enlargement with fatty stranding and scarring due to a hip arthroplasty. This is likely due to known right lower extremity venous thrombosis demonstrated on a sonogram performed one day prior. The possibly of superimposed cellulitis is not excluded. 3. Multiple hepatic cysts. 4. Multiple renal parapelvic cyst. 5. Increased bilateral lower lobe atelectasis. The possibility of basilar interstitial infiltrate is not excluded. 6. Colonic diverticulosis. 7. Tiny hiatal hernia. 8. Bilateral lower lobe pulmonary emboli, better characterized on the CT angiogram performed one day prior. Electronically signed by: Pily Brady MD (10/11/2018 11:55 AM) [facility] Impression . 1. Acute pulmonary embolism and acute right lower extremity deep venous 2. No significant history of tobacco use. 3. A 70-pound weight loss in the last few years. 4. History of right hip infection. 5. Abnormal ct abdomen/pelvis Extensive right greater than left retroperitoneal, iliac chain, inguinal and proximal thigh lymphadenopathy strongly suspect lymphoproliferative disease IR NOTE 5/6 Anesthesia: Local only Impression: Ultrasound-guided biopsy, right groin lymph node Plan . AWAIT RESULTS OF BIOPSY ANTICOAGULATION FOLLOW ONC INPUT IVELISSE ARMSTRONG MD October 14, 2018 09:16
[2018-10-14] MEDS: ANTI-COAG MONITOR BY PHARMACY. MC PRN (10:02)
[2018-10-14 11:00] VITALS: BP 119/59
[2018-10-14] MEDS: HEPARIN 25,000UTS/500ML PREMIX 500 ML IV PRN (14:40)
[2018-10-14 15:00] VITALS: BP 124/70
[2018-10-14 19:32] VITALS: BP 104/59
[2018-10-14 22:59] VITALS: BP 130/58
[2018-10-15] MEDS: HYDROcodone/APAP 5/325MG 1 TAB TABLET PO PRN ×2 (01:02→17:29)
[2018-10-15 03:22] VITALS: BP 132/62
[2018-10-15 03:52] LABS: HEMOGLOBIN 8.4 g/dL (12.0-15.5); RED BLOOD COUNT 2.88 x10^6/uL (3.50-5.40); RED CELL DISTRIBUTION WIDTH 14.4 % (11.5-14.5); WHITE BLOOD COUNT 7.4 x10^3/uL (4.0-11.0)
[2018-10-15] MEDS: HEPARIN 25,000UTS/500ML PREMIX 500 ML IV PRN (05:34)
[2018-10-15 07:37] VITALS: BP 146/65
--- NOTE | 2018-10-15 08:31 | PDOC ---
Provider Note Provider Note vss, no change in exam- labs ok, path report pending- will start xarelto in lieu of heparin, may need warf in insurance wont cover- needs to be in hospital re next onco plan re biopsy- ie port, etc KARLA GALICIA MD October 15, 2018 08:31
[2018-10-15] MEDS: RIVAROXABAN 15 MG TABLET. PO SCH ×2 (08:54→17:28)
[2018-10-15] MEDS: LACTOBACILLUS RHAMNOSUS GG 1 CAPSULE. PO SCH ×2 (08:54→21:08)
[2018-10-15] MEDS: METOPROLOL SUCC 24HR ER 25 MG TAB.ER.24H. PO SCH (08:54)
[2018-10-15] MEDS: CEPHALEXIN 250 MG CAPSULE. PO SCH ×4 (08:54→21:08)
[2018-10-15] MEDS: CITALOPRAM 20 MG TABLET. PO SCH (08:54)
--- NOTE | 2018-10-15 09:08 | PDOC ---
PULMONARY PROGRESS NOTES Subjective HAD BIOPSY YESTERDAY Vitals Vital Signs Date Time Temp Pulse Resp B/P (MAP) Pulse Ox O2 Delivery O2 Flow Rate FiO2 10/15/18 08:54 98 146/65 10/15/18 07:37 98.3 16 98 Nasal Cannula 2.0 98.3 ROS: No Chest Pain, No Increase Cough General: Alert, No acute distress Lungs: Clear Cardiovascular: S1 Abdomen: Soft Neuro Exam: Alert Extremities: Other (right thigh edema) Skin: Warm Labs Laboratory Tests Test 10/13/18 22:05 10/14/18 05:45 10/14/18 11:30 10/15/18 02:50 Heparin Anti-Xa Act, Unfractionated 0.19 IU/mL (0.30-0.70) 0.53 IU/mL (0.30-0.70) 0.59 IU/mL (0.30-0.70) 0.45 IU/mL (0.30-0.70) White Blood Count 7.4 x10^3/uL (4.0-11.0) Red Blood Count 2.88 x10^6/uL (3.50-5.40) Hemoglobin 8.4 g/dL (12.0-15.5) Hematocrit 26.0 % (36.0-47.0) Mean Corpuscular Volume 90 fL (79-100) Mean Corpuscular Hemoglobin 29 pg (25-35) Mean Corpuscular Hemoglobin Concent 32 g/dL (31-37) Red Cell Distribution Width 14.4 % (11.5-14.5) Platelet Count 297 x10^3/uL (140-400) Laboratory Tests Test 10/14/18 11:30 10/15/18 02:50 Heparin Anti-Xa Act, Unfractionated 0.59 IU/mL (0.30-0.70) 0.45 IU/mL (0.30-0.70) White Blood Count 7.4 x10^3/uL (4.0-11.0) Red Blood Count 2.88 x10^6/uL (3.50-5.40) Hemoglobin 8.4 g/dL (12.0-15.5) Hematocrit 26.0 % (36.0-47.0) Mean Corpuscular Volume 90 fL (79-100) Mean Corpuscular Hemoglobin 29 pg (25-35) Mean Corpuscular Hemoglobin Concent 32 g/dL (31-37) Red Cell Distribution Width 14.4 % (11.5-14.5) Platelet Count 297 x10^3/uL (140-400) Medications Active Scripts Medications Dose Route/Sig Max Daily Dose Days Date Category Metoprolol Succinate ( Xl ) (Metoprolol Succinate) 25 Mg Tab.er.24h 1 Tab PO DAILY 10/11/18 Reported Alprazolam 1 Mg Tablet 1 Tab PO PRN TID PRN 10/11/18 Reported Cyclobenzaprine Hcl 5 Mg Tablet 1 Tab PO PRN TID PRN 10/11/18 Reported Hydrocodone-Apap 5-325 (Hydrocodone Bit/Acetaminophen) 1 Tab Tablet 1 Tab PO PRN Q6HRS PRN 10/11/18 Reported Cephalexin 500 Mg Capsule 1 Cap PO QID 10/11/18 Reported Escitalopram Oxalate 20 Mg Tablet 1 Tab PO DAILY 04/18/17 Reported Celexa (Citalopram Hydrobromide) 40 Mg Tablet 40 Mg PO HS 10/05/16 Reported Proair Hfa Inhaler (Albuterol Sulfate) 8.5 Gm Hfa.aer.ad 1 Puff INH PRN Q6HRS PRN 10/05/[address] ABDOMEN/PELVIS IMPRESSION: 1. Extensive right greater than left retroperitoneal, iliac chain, inguinal and proximal thigh lymphadenopathy with surrounding fatty stranding. Given the presence of pathologically enlarged lymph nodes at the base of the neck and within the left hilum on the prior chest CT, this is concerning for a neoplastic etiology such as lymphoma rather than reactive lymphadenopathy. The largest lymph nodes demonstrate internal hypodensity likely due to necrosis. These findings have significantly increased compared to lumbar spine MRI dated 07/24/2018. 2. Proximal right thigh enlargement with fatty stranding and scarring due to a hip arthroplasty. This is likely due to known right lower extremity venous thrombosis demonstrated on a sonogram performed one day prior. The possibly of superimposed cellulitis is not excluded. 3. Multiple hepatic cysts. 4. Multiple renal parapelvic cyst. 5. Increased bilateral lower lobe atelectasis. The possibility of basilar interstitial infiltrate is not excluded. 6. Colonic diverticulosis. 7. Tiny hiatal hernia. 8. Bilateral lower lobe pulmonary emboli, better characterized on the CT angiogram performed one day prior. Electronically signed by: Pily Brady MD (10/11/2018 11:55 AM) [facility] Impression . 1. Acute pulmonary embolism and acute right lower extremity deep venous 2. No significant history of tobacco use. 3. A 70-pound weight loss in the last few years. 4. History of right hip infection. 5. Abnormal ct abdomen/pelvis Extensive right greater than left retroperitoneal, iliac chain, inguinal and proximal thigh lymphadenopathy strongly suspect lymphoproliferative disease IR NOTE 5/6 Anesthesia: Local only Impression: Ultrasound-guided biopsy, right groin lymph node Plan . AWAIT RESULTS OF BIOPSY ANTICOAGULATION FOLLOW ONC INPUT IVELISSE ARMSTRONG MD October 15, 2018 09:08
[2018-10-15] MEDS: ANTI-COAG MONITOR BY PHARMACY. MC PRN (09:46)
[2018-10-15 09:49] LABS: CALCIUM 9.5 mg/dL (8.5-10.1); CREATININE 0.7 mg/dL (0.6-1.0); GFR 82.3; POTASSIUM 3.6 mmol/L (3.5-5.1)
[2018-10-15 10:35] VITALS: BP 136/61
[2018-10-15 14:28] VITALS: BP 140/68
[2018-10-15 18:07] VITALS: BP_SYST 112; BP_SYST 148; BP_DIAS 64; BP_DIAS 82
--- NOTE | 2018-10-15 19:37 | NUR ---
Patients daughter stated "My siblings and I are concerned about my mother. She does not act paranoid like this at home, she wasn't like this when she first came here" Also stated that they are worried about patient possibly having alzheimers. per patient daughter there is a family history of Alzheimers and that the patients mother and sister both had alzheimers and from it. The daughter also voiced concern about not being able to fully care for her mother like she should be, and that they wanted to talk to someone about their options like assisted living. 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 She just sits and sleeps all day long." will continue to monitor patient.
[2018-10-15 23:31] VITALS: BP 124/59
[2018-10-16] MEDS: HYDROcodone/APAP 5/325MG 1 TAB TABLET PO PRN ×3 (02:42→21:22)
[2018-10-16 02:59] VITALS: BP 138/66
[2018-10-16 07:00] VITALS: BP 142/67
[2018-10-16] MEDS: RIVAROXABAN 15 MG TABLET. PO SCH ×2 (08:00→18:25)
[2018-10-16] MEDS: ANTI-COAG MONITOR BY PHARMACY. MC PRN (08:01)
[2018-10-16] MEDS: CEPHALEXIN 250 MG CAPSULE. PO SCH ×4 (08:53→20:51)
[2018-10-16] MEDS: CITALOPRAM 20 MG TABLET. PO SCH (08:53)
[2018-10-16] MEDS: LACTOBACILLUS RHAMNOSUS GG 1 CAPSULE. PO SCH ×2 (08:53→20:51)
[2018-10-16] MEDS: METOPROLOL SUCC 24HR ER 25 MG TAB.ER.24H. PO SCH (08:54)
--- NOTE | 2018-10-16 08:55 | PDOC ---
PULMONARY PROGRESS NOTES Subjective HAD BIOPSY NOT SOA Vitals Vital Signs Date Time Temp Pulse Resp B/P (MAP) Pulse Ox O2 Delivery O2 Flow Rate FiO2 10/16/18 08:54 90 142/67 10/16/18 07:00 98.3 18 93 Room Air 98.3 10/15/18 19:30 2.0 ROS: No Chest Pain, No Increase Cough General: Alert, No acute distress Lungs: Clear Cardiovascular: S1 Abdomen: Soft Neuro Exam: Alert Extremities: Other (right thigh edema) Skin: Warm Labs Laboratory Tests Test 10/14/18 11:30 10/15/18 02:50 10/15/18 09:21 Heparin Anti-Xa Act, Unfractionated 0.59 IU/mL (0.30-0.70) 0.45 IU/mL (0.30-0.70) White Blood Count 7.4 x10^3/uL (4.0-11.0) Red Blood Count 2.88 x10^6/uL (3.50-5.40) Hemoglobin 8.4 g/dL (12.0-15.5) Hematocrit 26.0 % (36.0-47.0) Mean Corpuscular Volume 90 fL (79-100) Mean Corpuscular Hemoglobin 29 pg (25-35) Mean Corpuscular Hemoglobin Concent 32 g/dL (31-37) Red Cell Distribution Width 14.4 % (11.5-14.5) Platelet Count 297 x10^3/uL (140-400) Sodium Level 135 mmol/L (136-145) Potassium Level 3.6 mmol/L (3.5-5.1) Chloride Level 99 mmol/L (98-107) Carbon Dioxide Level 29 mmol/L (21-32) Anion Gap 7 (6-14) Blood Urea Nitrogen 5 mg/dL (7-20) Creatinine 0.7 mg/dL (0.6-1.0) Estimated GFR (Cockcroft-Gault) 82.3 Glucose Level 110 mg/dL (70-99) Calcium Level 9.5 mg/dL (8.5-10.1) Laboratory Tests Test 10/15/18 09:21 Sodium Level 135 mmol/L (136-145) Potassium Level 3.6 mmol/L (3.5-5.1) Chloride Level 99 mmol/L (98-107) Carbon Dioxide Level 29 mmol/L (21-32) Anion Gap 7 (6-14) Blood Urea Nitrogen 5 mg/dL (7-20) Creatinine 0.7 mg/dL (0.6-1.0) Estimated GFR (Cockcroft-Gault) 82.3 Glucose Level 110 mg/dL (70-99) Calcium Level 9.5 mg/dL (8.5-10.1) Medications Active Scripts Medications Dose Route/Sig Max Daily Dose Days Date Category Metoprolol Succinate ( Xl ) (Metoprolol Succinate) 25 Mg Tab.er.24h 1 Tab PO DAILY 10/11/18 Reported Alprazolam 1 Mg Tablet 1 Tab PO PRN TID PRN 10/11/18 Reported Cyclobenzaprine Hcl 5 Mg Tablet 1 Tab PO PRN TID PRN 10/11/18 Reported Hydrocodone-Apap 5-325 (Hydrocodone Bit/Acetaminophen) 1 Tab Tablet 1 Tab PO PRN Q6HRS PRN 10/11/18 Reported Cephalexin 500 Mg Capsule 1 Cap PO QID 10/11/18 Reported Escitalopram Oxalate 20 Mg Tablet 1 Tab PO DAILY 04/18/17 Reported Celexa (Citalopram Hydrobromide) 40 Mg Tablet 40 Mg PO HS 10/05/16 Reported Proair Hfa Inhaler (Albuterol Sulfate) 8.5 Gm Hfa.aer.ad 1 Puff INH PRN Q6HRS PRN 10/05/[address] ABDOMEN/PELVIS IMPRESSION: 1. Extensive right greater than left retroperitoneal, iliac chain, inguinal and proximal thigh lymphadenopathy with surrounding fatty stranding. Given the presence of pathologically enlarged lymph nodes at the base of the neck and within the left hilum on the prior chest CT, this is concerning for a neoplastic etiology such as lymphoma rather than reactive lymphadenopathy. The largest lymph nodes demonstrate internal hypodensity likely due to necrosis. These findings have significantly increased compared to lumbar spine MRI dated 07/24/2018. 2. Proximal right thigh enlargement with fatty stranding and scarring due to a hip arthroplasty. This is likely due to known right lower extremity venous thrombosis demonstrated on a sonogram performed one day prior. The possibly of superimposed cellulitis is not excluded. 3. Multiple hepatic cysts. 4. Multiple renal parapelvic cyst. 5. Increased bilateral lower lobe atelectasis. The possibility of basilar interstitial infiltrate is not excluded. 6. Colonic diverticulosis. 7. Tiny hiatal hernia. 8. Bilateral lower lobe pulmonary emboli, better characterized on the CT angiogram performed one day prior. Electronically signed by: Pily Brady MD (10/11/2018 11:55 AM) [facility] Impression . 1. Acute pulmonary embolism and acute right lower extremity deep venous 2. No significant history of tobacco use. 3. A 70-pound weight loss in the last few years. 4. History of right hip infection. 5. Abnormal ct abdomen/pelvis Extensive right greater than left retroperitoneal, iliac chain, inguinal and proximal thigh lymphadenopathy strongly suspect lymphoproliferative disease 6. POSITIVE BIOPSY LYMPHOMA IR NOTE 10/13 Anesthesia: Local only Impression: Ultrasound-guided biopsy, right groin lymph node Plan . WILL S/O CALL IF NEEDED THANKS PT GIVEN BUS CARD CALL MY OFFICE IF SHE BECOMES IVELISSE GUZMAN MD October 16, 2018 08:55
--- NOTE | 2018-10-16 09:15 | PDOC ---
PROGRESS NOTES Subjective Subjective HPI - f/u of NHL ROS - no CP Objective Objective Vital Signs Date Time Temp Pulse Resp B/P (MAP) Pulse Ox O2 Delivery O2 Flow Rate FiO2 10/16/18 08:54 90 142/67 10/16/18 07:00 98.3 18 93 Room Air 98.3 10/15/18 19:30 2.0 Intake and Output 10/16/18 07:00 Intake Total 2440 ml Output Total 1150 ml Balance 1290 ml Intake Oral 2440 ml Output Urine Total 1150 ml # Voids 4 Physical Exam Heart: Normal S1, Normal S2 General: Alert, Oriented X3, No acute distress Lungs: Clear to auscultation Neuro: Normal speech Psych/Mental Status: Mental status NL Assessment Assessment Problems Medical Problems: (1) DVT (deep venous thrombosis) Status: Acute (2) Weakness Status: Acute IMPRESSION AND PLAN: 1. NHL - Intermediate to high grade per Dr Gabriel (final path pending) Lymphadenopathy involving the left cervical region and extensive retroperitoneal and pelvic lymphadenopathy and inguinal lymphadenopathy concerning for lymphoma. s/p Needle biopsy rt Ing LN on 10/13/18. I recommended chemo with CHOP-R. I reviewed risks and benefits and she agrees. I d/w Dr Gonzalez and Dr Wyman. Plan port and bone marrow bx by IR. She does not want to start chemo until Saturday10/20/18. 2. Pulmonary embolism and DVT of the right lower extremity. She is on Xarelto which will be held for port. Appreciate consultation and recommendations by Dr. Gian Ford. 3. Anemia, which I suspect is due to chronic disease from chronic right hip infection. 4. History of right hip arthroplasty in 2014. She had surgery in the right hip on 10/16/2016. She mentions that she has been dealing with infection chronically. I have advised management per primary care physician. I agree to consult ID as she will be immunocompromised due to planned chemo. Comment Review of Relevant I have reviewed the following items marion (where applicable) has been applied. Labs Laboratory Tests Test 10/14/18 11:30 10/15/18 02:50 10/15/18 09:21 Heparin Anti-Xa Act, Unfractionated 0.59 IU/mL (0.30-0.70) 0.45 IU/mL (0.30-0.70) White Blood Count 7.4 x10^3/uL (4.0-11.0) Red Blood Count 2.88 x10^6/uL (3.50-5.40) Hemoglobin 8.4 g/dL (12.0-15.5) Hematocrit 26.0 % (36.0-47.0) Mean Corpuscular Volume 90 fL (79-100) Mean Corpuscular Hemoglobin 29 pg (25-35) Mean Corpuscular Hemoglobin Concent 32 g/dL (31-37) Red Cell Distribution Width 14.4 % (11.5-14.5) Platelet Count 297 x10^3/uL (140-400) Sodium Level 135 mmol/L (136-145) Potassium Level 3.6 mmol/L (3.5-5.1) Chloride Level 99 mmol/L (98-107) Carbon Dioxide Level 29 mmol/L (21-32) Anion Gap 7 (6-14) Blood Urea Nitrogen 5 mg/dL (7-20) Creatinine 0.7 mg/dL (0.6-1.0) Estimated GFR (Cockcroft-Gault) 82.3 Glucose Level 110 mg/dL (70-99) Calcium Level 9.5 mg/dL (8.5-10.1) Laboratory Tests Test 10/15/18 09:21 Sodium Level 135 mmol/L (136-145) Potassium Level 3.6 mmol/L (3.5-5.1) Chloride Level 99 mmol/L (98-107) Carbon Dioxide Level 29 mmol/L (21-32) Anion Gap 7 (6-14) Blood Urea Nitrogen 5 mg/dL (7-20) Creatinine 0.7 mg/dL (0.6-1.0) Estimated GFR (Cockcroft-Gault) 82.3 Glucose Level 110 mg/dL (70-99) Calcium Level 9.5 mg/dL (8.5-10.1) Medications Current Medications Sodium Chloride 1,000 ml @ 1,000 mls/hr 1X ONCE IV Last administered on 10/10/18at 21:59; Start 10/10/18 at 22:00; Stop 10/10/18 at 22:59; Status DC Fentanyl Citrate (Fentanyl 2ml Vial) 50 mcg 1X ONCE IV Last administered on 10/10/18at 22:51; Start 10/10/18 at 22:45; Stop 10/10/18 at 22:46; Status DC Ceftriaxone Sodium (Rocephin) 1 gm 1X ONCE IVP Last administered on 10/10/18at 23:38; Start 10/10/18 at 23:15; Stop 10/10/18 at 23:16; Status DC Ondansetron HCl (Zofran) 4 mg PRN Q8HRS PRN IV NAUSEA/VOMITING; Start 10/10/18 at 23:30; Stop 10/11/18 at 23:29; Status DC Fentanyl Citrate (Fentanyl 2ml Vial) 50 mcg PRN Q3HRS PRN IV PAIN Last administered on 10/11/18at 09:00; Start 10/10/18 at 23:30; Stop 10/11/18 at 18:41; Status DC Sodium Chloride 1,000 ml @ 75 mls/hr [id number] IV Last administered on 10/11/18at 14:24; Start 10/10/18 at 23:30; Stop 10/11/18 at 23:29; Status DC Iohexol (Omnipaque 350 Mg/ml) 100 ml 1X ONCE IV Last administered on 10/11/18at 00:16; Start 10/11/18 at 00:00; Stop 10/11/18 at 00:01; Status DC Info (CONTRAST GIVEN -- Rx MONITORING) 1 each PRN DAILY PRN MC SEE COMMENTS; Start 10/11/18 at 00:00; Stop 10/11/18 at 11:34; Status DC Heparin Sodium/ Dextrose 500 ml @ 0 mls/hr CONT PRN IV SEE I/O RECORD Last administered on 10/15/18at 05:34; Start 10/11/18 at 00:45; Stop 10/15/18 at 08:30; Status DC Heparin Sodium (Porcine) (Heparin Sodium) 2,600 unit PRN Q6HRS PRN IV FOR UFH LEVEL LESS THAN 0.2 Last administered on 10/13/18at 23:16; Start 10/11/18 at 00:45; Stop 10/15/18 at 08:33; Status DC Heparin Sodium (Porcine) (Heparin Sodium) 1,300 unit PRN Q6HRS PRN IV FOR UFH LEVEL 0.2 - 0.29; Start 10/11/18 at 00:45; Stop 10/15/18 at 08:33; Status DC Acetaminophen/ Hydrocodone Bitart (Lortab 7.5/325) 1 tab PRN Q6HRS PRN PO SEVERE PAIN Last administered on 10/13/18 10:46; Start 10/11/18 at 03:45; Stop 10/15/18 at 08:41; Status DC Iohexol (Omnipaque 350 Mg/ml) 100 ml STK-MED ONCE .ROUTE ; Start 10/11/18 at 04:45; Stop 10/11/18 at 04:46; Status DC Albuterol Sulfate (Ventolin Neb Soln) 3 mg PRN Q6HRS PRN INH SHORTNESS OF BREATH; Start 10/11/18 at 08:00 Cyclobenzaprine HCl (Flexeril) 10 mg TID PO Last administered on 10/12/18 13:44; Start 10/11/18 at 09:00; Stop 10/13/18 at 08:41; Status DC Citalopram Hydrobromide (CeleXA) 40 mg DAILY PO Last administered on 10/14/18 08:56; Start 10/11/18 at 09:00; Stop 10/15/18 at 08:41; Status DC Alprazolam (Xanax) 1 mg PRN TID PRN PO ANXIETY / AGITATION Last administered on 10/11/18 20:26; Start 10/11/18 at 10:15; Stop 10/13/18 at 08:42; Status DC Acetaminophen/ Hydrocodone Bitart (Lortab 5/325) 1 tab PRN Q6HRS PRN PO MODERATE PAIN Last administered on 10/16/18 02:42; Start 10/11/18 at 10:15 Metoprolol Succinate (Toprol Xl) 25 mg DAILY PO Last administered on 10/16/18 08:54; Start 10/11/18 at 11:00 Cephalexin HCl (Keflex) 500 mg QID PO Last administered on 10/16/18 08:53; Start 10/11/18 at 10:15 Iohexol (Omnipaque 300 Mg/ml) 75 ml 1X ONCE IV Last administered on 10/11/18at 10:30; Start 10/11/18 at 10:45; Stop 10/11/18 at 10:51; Status DC Info (CONTRAST GIVEN -- Rx MONITORING) 1 each PRN DAILY PRN MC SEE COMMENTS; Start 10/11/18 at 11:00; Stop 10/13/18 at 10:59; Status DC Info (Anti-Coagulation Monitoring By Pharmacy) 1 each PRN DAILY PRN MC SEE COMMENTS Last administered on 10/16/18at 08:01; Start 10/11/18 at 11:30; Stop 10/16/18 at 08:41; Status DC Lactobacillus Rhamnosus (Culturelle) 1 cap BID PO Last administered on 10/16/18at 08:53; Start 10/11/18 at 21:00 Cyclobenzaprine HCl (Flexeril) 5 mg PRN TID PRN PO MUSCLE SPASMS; Start 10/13/18 at 08:45 Non-Formulary Medication (Cyclobenzaprine Hcl ) 1 tab PRN TID PRN PO MUSCLE SPASMS; Start 10/13/18 at 08:45; Status UNV Non-Formulary Medication (Escitalopram Oxalate ) 1 tab DAILY PO ; Start 10/13/18 at 09:00; Status UNV Alprazolam (Xanax) 0.5 mg PRN TID PRN PO ANXIETY / AGITATION Last administered on 10/15/18at 01:08; Start 10/13/18 at 08:45 Lidocaine/Sodium Bicarbonate (Buffered Lidocaine 1%) 3 ml STK-MED ONCE .ROUTE ; Start 10/13/18 at 14:15; Stop 10/13/18 at 14:16; Status DC Lidocaine/Sodium Bicarbonate (Buffered Lidocaine 1%) 3 ml 1X ONCE INJ Last administered on 10/13/18at 14:30; Start 10/13/18 at 14:30; Stop 10/13/18 at 14:31; Status DC Rivaroxaban (Xarelto) 15 mg BIDWMEALS PO Last administered on 10/15/18at 17:28; Start 10/15/18 at 09:00; Stop 10/16/18 at 08:36; Status DC Citalopram Hydrobromide (CeleXA) 20 mg DAILY PO Last administered on 10/16/18at 08:53; Start 10/15/18 at 09:00 Active Scripts Active Reported Metoprolol Succinate ( Xl ) (Metoprolol Succinate) 25 Mg Tab.er.24h 1 Tab PO DAILY Alprazolam 1 Mg Tablet 1 Tab PO PRN TID PRN Cyclobenzaprine Hcl 5 Mg Tablet 1 Tab PO PRN TID PRN Hydrocodone-Apap 5-325 (Hydrocodone Bit/Acetaminophen) 1 Tab Tablet 1 Tab PO PRN Q6HRS PRN Cephalexin 500 Mg Capsule 1 Cap PO QID Escitalopram Oxalate 20 Mg Tablet 1 Tab PO DAILY Celexa (Citalopram Hydrobromide) 40 Mg Tablet 40 Mg PO HS Proair Hfa Inhaler (Albuterol Sulfate) 8.5 Gm Hfa.aer.ad 1 Puff INH PRN Q6HRS PRN Vitals/I & O Vital Sign - Last 24 Hours 10/15/18 10/15/18 10/15/18 10/15/18 10:35 14:28 17:29 18:07 Temp 98.4 98.5 97.8 98.4 98.5 97.8 Pulse 85 100 82 Resp 16 16 16 B/P (MAP) 136/61 (86) 140/68 (92) 112/64 (80) Pulse Ox 92 92 92 93 O2 Delivery Room Air Room Air Nasal Cannula Room Air O2 Flow Rate 2.0 10/15/18 10/15/18 10/15/18 10/15/18 18:19 18:29 19:30 23:31 Temp 98.2 98.2 Pulse 87 Resp 18 B/P (MAP) 124/59 (80) Pulse Ox 91 O2 Delivery Nasal Cannula Nasal Cannula Room Air O2 Flow Rate 2.0 2.0 10/16/18 10/16/18 10/16/18 10/16/18 02:42 02:59 03:42 07:00 Temp 98.2 98.3 98.2 98.3 Pulse 88 85 Resp 18 18 18 B/P (MAP) 138/66 (90) 142/67 (92) Pulse Ox 93 93 93 O2 Delivery Room Air Room Air Room Air Room Air 10/16/18 08:54 Pulse 90 B/P (MAP) 142/67 Intake and Output 10/15/18 10/15/18 10/16/18 15:00 23:00 07:00 Intake Total 840 ml 900 ml 700 ml Output Total 400 ml 750 ml Balance 440 ml 150 ml 700 ml LAURA HITCHCOCK MD October 16, 2018 09:15
--- NOTE | 2018-10-16 09:28 | PDOC ---
Provider Note Provider Note will add B12 and tsh re confusion, d/w dr flor re need for bm bx and port, will also do brain mri re coonfusion- NEEDS TO BE IN HOSPITAL KARLA GALICIA MD October 16, 2018 09:28
[2018-10-16] MEDS ORDERED: ANTI-COAG MONITOR BY PHARMACY. MC PRN (09:30)
[2018-10-16 11:00] VITALS: BP 136/63
[2018-10-16] MEDS: ALLOPURINOL 300 MG TABLET. PO SCH (11:50)
--- NOTE | 2018-10-16 12:16 | PDOC ---
Infectious Disease Note Subjective: Subjective pt seen and examined Vital Signs: Vital Signs Vital Signs Date Time Temp Pulse Resp B/P (MAP) Pulse Ox O2 Delivery O2 Flow Rate FiO2 10/16/18 11:00 98.6 88 18 136/63 (87) 91 Room Air 98.6 10/15/18 19:30 2.0 Medications: Inpatient Meds: Current Medications Medications (Trade) Dose Ordered Sig/Aliyah Start Time Stop Time Status Last Admin Dose Admin Acetaminophen/ Hydrocodone Bitart (Lortab 5/325) 1 tab PRN Q6HRS PRN 10/11/18 10:15 10/16/18 02:42 1 TAB Acetaminophen/ Hydrocodone Bitart (Lortab 7.5/325) 1 tab PRN Q6HRS PRN 10/11/18 03:45 10/15/18 08:41 DC 10/13/18 10:46 1 TAB Albuterol Sulfate (Ventolin Neb Soln) 3 mg PRN Q6HRS PRN 10/11/18 08:00 Allopurinol (Zyloprim) 300 mg DAILY 10/16/18 10:00 10/16/18 11:50 300 MG Alprazolam (Xanax) 0.5 mg PRN TID PRN 10/13/18 08:45 10/15/18 01:08 0.5 MG Ceftriaxone Sodium (Rocephin) 1 gm 1X ONCE 10/10/18 23:15 10/10/18 23:16 DC 10/10/18 23:38 1 GM Cephalexin HCl (Keflex) 500 mg QID 10/11/18 10:15 10/16/18 08:53 500 MG Citalopram Hydrobromide (CeleXA) 20 mg DAILY 10/15/18 09:00 10/16/18 08:53 20 MG Cyclobenzaprine HCl (Flexeril) 5 mg PRN TID PRN 10/13/18 08:45 10/16/18 09:13 DC Fentanyl Citrate (Fentanyl 2ml Vial) 50 mcg PRN Q3HRS PRN 10/10/18 23:30 10/11/18 18:41 DC 10/11/18 09:00 50 MCG Heparin Sodium (Porcine) (Heparin Sodium) 1,300 unit PRN Q6HRS PRN 10/11/18 00:45 10/15/18 08:33 DC Heparin Sodium/ Dextrose 500 ml @ 0 mls/hr CONT PRN 10/11/18 00:45 10/15/18 08:30 DC 10/15/18 05:34 34.6 MLS/HR Info (Anti-Coagulation Monitoring By Pharmacy) 1 each PRN DAILY PRN 10/16/18 09:30 Info (CONTRAST GIVEN -- Rx MONITORING) 1 each PRN DAILY PRN 10/11/18 11:00 10/13/18 10:59 DC Iohexol (Omnipaque 300 Mg/ml) 75 ml 1X ONCE 10/11/18 10:45 10/11/18 10:51 DC 10/11/18 10:30 75 ML Iohexol (Omnipaque 350 Mg/ml) 100 ml STK-MED ONCE 10/11/18 04:45 10/11/18 04:46 DC Lactobacillus Rhamnosus (Culturelle) 1 cap BID 10/11/18 21:00 10/16/18 08:53 1 CAP Lidocaine/Sodium Bicarbonate (Buffered Lidocaine 1%) 3 ml 1X ONCE 10/13/18 14:30 10/13/18 14:31 DC 10/13/18 14:30 3 ML Metoprolol Succinate (Toprol Xl) 25 mg DAILY 10/11/18 11:00 10/16/18 08:54 25 MG Non-Formulary Medication (Cyclobenzaprine Hcl ) 1 tab PRN TID PRN 10/13/18 08:45 UNV Non-Formulary Medication (Escitalopram Oxalate ) 1 tab DAILY 10/13/18 09:00 UNV Ondansetron HCl (Zofran) 4 mg PRN Q8HRS PRN 10/10/18 23:30 10/11/18 23:29 DC Rivaroxaban (Xarelto) 15 mg BIDWMEALS 10/15/18 09:00 10/16/18 08:36 DC 10/15/18 17:28 15 MG Sodium Chloride 1,000 ml @ 75 mls/hr [id number] 10/10/18 23:30 10/11/18 23:29 DC 10/11/18 14:24 75 MLS/HR Labs: Lab Laboratory Tests Test 10/16/18 10:30 Uric Acid 3.2 mg/dL (2.6-6.0) Lactate Dehydrogenase 366 U/L (81-234) Vitamin B12 Level 557 pg/mL (247-911) Thyroid Stimulating Hormone (TSH) 5.687 uIU/mL (0.358-3.74) Hepatitis B Surface Antigen Nonreactive (Nonreactive) Objective: Assessment: Rt Hip YANICK infection 07/2018 ,treated now on chronic suppressive therapy on keflex NHL Acute PE and DVT Plan: Plan of Care Cont Keflex Oncology is planning Chemo Cont supportive care Monitor labs Thank you [id number] GIRISH DING MD October 16, 2018 12:16
[2018-10-16 15:00] VITALS: BP 149/79
--- NOTE | 2018-10-16 15:00 | NUR ---
SS following up with discharge planning. Pt is currently on room air. No PT/OT notes at this time. Pt was previously on services with [facility], ; fax [phone]. SS will continue to follow for discharge planning.
--- NOTE | 2018-10-16 16:00 | NUR ---
PT DECIDED SHE DOESN'T WANT TO DO THE PORT A CATH PLACEMENT OR BONE MARROW BIOPSY TOMORROW. CALLED DR GALICIA AND DR HITCHCOCK AND LEFT MESSAGES REGARDING THIS. PT WANTS TO GO HOME AND DISCUSS WITH FAMILY.
[2018-10-16 19:38] VITALS: BP 119/58
[2018-10-16 23:41] VITALS: BP 124/64
--- NOTE | 2018-10-17 00:52 | CONS ---
DATE OF CONSULTATION: 10/16/2018 REFERRING PHYSICIAN: Dr. Aaron Gonzalez. REASON FOR CONSULTATION: Antibiotic management for chronic right hip infection. HISTORY OF PRESENT ILLNESS: A 73-year-old female with a history of degenerative joint disease, who had undergone right total hip arthroplasty in 2017. She subsequently underwent bone scan as she continued to have pain in the right hip. In 05/2018, early part of 06/2018, bone scan revealed marked increased activity along the margins of the femoral stem of the right hip prosthesis suggesting loosening or infection. Joint aspiration 07/08/2018 showed WBC count of 36,500 and total rbc of 7000. Cultures were negative. On 07/22/2018, she underwent exploration of the right total hip arthroplasty with exchange of the femoral head implant. There were no signs of infection or loosening and no acute inflammation on pathology. Intraoperative deep joint tissue cultures grew coagulase-negative staph species, oxacillin sensitive. The patient felt better with pain after surgery. She had completed 6 weeks of IV cephalosporin and was transitioned to p.o. Keflex last month when she was seen in our outpatient clinic. The patient presented to the ER on 10/10/2018 with pain and swelling of the right leg. She had weakness and did not feel well. She had low-grade fever. She initially had some diarrhea when she was on antibiotics, but now has resolved. She has it once every couple of days. She underwent an ultrasound of her lower extremity on 10/10/2018 which showed DVT involving the right common and superficial femoral vein. Multiple enlarged lymph nodes in the right groin were also noted. She underwent CT angiogram of the chest due to shortness of breath, which showed bilateral central and segmental pulmonary emboli, multiple enlarged left neck base lymph nodes that were seen, largest was 2.2 x 1.[address] scan of the abdomen and pelvis on 10/11/2018 which revealed extensive right greater than the left retroperitoneal iliac inguinal and proximal thigh lymphadenopathy with largest measuring 8 cm along the right pelvic sidewall. She had multiple hepatic cysts and multiple right renal parapelvic cysts noted. She was starting on IV heparin for DVT and PE and was transitioned to Xarelto. She underwent biopsy of the lymph node and per staff has been reported as B-cell lymphoma. She was seen by Dr. Robles earlier this morning and was told that she would require Port-A-Cath placement with chemotherapy to be initiated. The patient is thinking about the same at this time. She wants to discuss it with her son and daughters over the weekend and make a decision sometime early next week. The patient denies any fevers or chills. Still feels very tired, continues to have right leg discomfort and swelling. The patient also has intermittent bouts of confusion. MRI of the brain has been planned. The patient is continued on Keflex chronic suppressive which she is currently taking as an outpatient. PAST MEDICAL HISTORY: Hypertension, migraine, osteoarthritis, atrial fibrillation, complicated right total hip replacement with infection, currently on chronic suppressive treatment, history of left total knee arthroplasty, history of appendectomy, tonsillectomy, panic disorder, anxiety, heartburn. PAST SURGICAL HISTORY: Total hip arthroplasty 10/2016, exploration of the right total hip arthroplasty with exchange of femoral head implant on 07/22/2018, left total knee arthroplasty 06/2014. FAMILY HISTORY: Positive for hypertension, cardiovascular disease, autoimmune disease, Alzheimer's disease, blood disorder, prostate cancer. SOCIAL HISTORY: The patient lives with her daughter. 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 Nonsmoker. ALLERGIES: CODEINE AND ADHESIVE TAPE. CURRENT MEDICATIONS: Keflex 500 q.i.d. Other medications reviewed in medication list. REVIEW OF SYSTEMS: Negative except for above in HPI. PHYSICAL EXAMINATION: VITAL SIGNS: Temperature 98.6, pulse 88, respiratory rate 18, blood pressure 136/63, oxygen saturation 91% on room air. GENERAL: Alert and oriented x 3 female in no acute distress, comfortable, lying in bed, cooperative. HEENT: Normocephalic, atraumatic, anicteric. No thrush. Oral mucosa moist. NECK: Supple. No JVD. LUNGS: Clear bilaterally. HEART: S1, S2 with no gallops or murmurs. ABDOMEN: Soft, nontender, nondistended. No rebound, no guarding. EXTREMITIES: Right lower extremity swelling present. Right hip previous scar well healed. No drainage, no overlying redness, no induration, no fluctuance. NEUROLOGIC: Alert and oriented x 3. Grossly nonfocal. LABORATORY DATA: WBC 7.4, hemoglobin 8.4, hematocrit 26.0, platelets 297. Sodium 135, potassium 3.6, chloride 99, bicarbonate 29, BUN 5, creatinine 0.7, glucose 110. Lactate 1.3, calcium 9.5, LDH 366. TSH 5.687. Uric acid 3.2. UA on admission showed negative nitrite, negative leukocyte esterase, 0 wbc. MICROBIOLOGY: None. IMAGING: Abdominal and pelvic CT as above. Chest CT as above. Lower extremity ultrasound as above. IMPRESSION: 1. History of Infected right hip arthroplasty with coagulase-negative staph species, oxacillin sensitive from 07/22/2018 treated with IV antibiotics followed by po Keflex, which she is currently taking for chronic suppression since September 10 2018.stable 2. Status post exploration with exchange of femoral head implant on 07/22/2018. Healed well 3. Acute pulmonary embolism and acute right lower extremity deep venous thrombosis. 4. Non-Hodgkin's lymphoma, B cell type per biopsy and evaluation this admission. 5. Hypertension. 6. 70 Lb weight loss ,likely from above RECOMMENDATIONS: 1. Continue Keflex at current dose for chronic suppression, which she has been on since 09/10/2018. 2. Oncology is on the case and has recommended treatment regimen for non- Hodgkin's lymphoma. 3. Monitor lab values and temperature. 4. Continue supportive care. Thank you, Dr. Gonzalez, for consulting Infectious Disease to participate in this patient's care. If you have any questions, do not hesitate to contact me. Discussed with Pt's friend and RN at bedside. GIRISH DING MD DR: MONET/liliya JOB#: [id number] / [id number] JOSEFINA
[2018-10-17 03:17] VITALS: BP 126/71
[2018-10-17 07:27] VITALS: BP 145/70
--- NOTE | 2018-10-17 07:46 | PDOC ---
Infectious Disease Note Subjective: Subjective pt says feels better RLE swelling and discomfort is improving wants to go home ROS: ROS no f/c/n/v/sob/chestpain/rt leg pain Vital Signs: Vital Signs Vital Signs Date Time Temp Pulse Resp B/P (MAP) Pulse Ox O2 Delivery O2 Flow Rate FiO2 10/17/18 07:27 98.2 84 18 145/70 (95) 90 Room Air 98.2 Physical Exam: PHYSICAL EXAM GENERAL: Alert and oriented x 3 female in no acute distress, comfortable, lying in bed, cooperative. HEENT: Normocephalic, atraumatic, anicteric. No thrush. Oral mucosa moist. NECK: Supple. No JVD. LUNGS: Clear bilaterally. HEART: S1, S2 with no gallops or murmurs. ABDOMEN: Soft, nontender, nondistended. No rebound, no guarding. EXTREMITIES: Right lower extremity swelling present. Right hip previous scar well healed. No drainage, no overlying redness, no induration, no fluctuance. NEUROLOGIC: Alert and oriented x 3. Grossly nonfocal. Medications: Inpatient Meds: Current Medications Medications (Trade) Dose Ordered Sig/Aliyah Start Time Stop Time Status Last Admin Dose Admin Acetaminophen/ Hydrocodone Bitart (Lortab 5/325) 1 tab PRN Q6HRS PRN 10/11/18 10:15 10/16/18 21:22 1 TAB Acetaminophen/ Hydrocodone Bitart (Lortab 7.5/325) 1 tab PRN Q6HRS PRN 10/11/18 03:45 10/15/18 08:41 DC 10/13/18 10:46 1 TAB Albuterol Sulfate (Ventolin Neb Soln) 3 mg PRN Q6HRS PRN 10/11/18 08:00 Allopurinol (Zyloprim) 300 mg DAILY 10/16/18 10:00 10/16/18 11:50 300 MG Alprazolam (Xanax) 0.5 mg PRN TID PRN 10/13/18 08:45 10/15/18 01:08 0.5 MG Ceftriaxone Sodium (Rocephin) 1 gm 1X ONCE 10/10/18 23:15 10/10/18 23:16 DC 10/10/18 23:38 1 GM Cephalexin HCl (Keflex) 500 mg QID 10/11/18 10:15 10/16/18 20:51 500 MG Citalopram Hydrobromide (CeleXA) 20 mg DAILY 10/15/18 09:00 10/16/18 08:53 20 MG Cyclobenzaprine HCl (Flexeril) 5 mg PRN TID PRN 10/13/18 08:45 10/16/18 09:13 DC Fentanyl Citrate (Fentanyl 2ml Vial) 50 mcg PRN Q3HRS PRN 10/10/18 23:30 10/11/18 18:41 DC 10/11/18 09:00 50 MCG Heparin Sodium (Porcine) (Heparin Sodium) 1,300 unit PRN Q6HRS PRN 10/11/18 00:45 10/15/18 08:33 DC Heparin Sodium/ Dextrose 500 ml @ 0 mls/hr CONT PRN 10/11/18 00:45 10/15/18 08:30 DC 10/15/18 05:34 34.6 MLS/HR Info (Anti-Coagulation Monitoring By Pharmacy) 1 each PRN DAILY PRN 10/16/18 09:30 Info (CONTRAST GIVEN -- Rx MONITORING) 1 each PRN DAILY PRN 10/11/18 11:00 10/13/18 10:59 DC Iohexol (Omnipaque 300 Mg/ml) 75 ml 1X ONCE 10/11/18 10:45 10/11/18 10:51 DC 10/11/18 10:30 75 ML Iohexol (Omnipaque 350 Mg/ml) 100 ml STK-MED ONCE 10/11/18 04:45 10/11/18 04:46 DC Lactobacillus Rhamnosus (Culturelle) 1 cap BID 10/11/18 21:00 10/16/18 20:51 1 CAP Lidocaine/Sodium Bicarbonate (Buffered Lidocaine 1%) 3 ml 1X ONCE 10/13/18 14:30 10/13/18 14:31 DC 10/13/18 14:30 3 ML Metoprolol Succinate (Toprol Xl) 25 mg DAILY 10/11/18 11:00 10/16/18 08:54 25 MG Non-Formulary Medication (Cyclobenzaprine Hcl ) 1 tab PRN TID PRN 10/13/18 08:45 UNV Non-Formulary Medication (Escitalopram Oxalate ) 1 tab DAILY 10/13/18 09:00 UNV Ondansetron HCl (Zofran) 4 mg PRN Q8HRS PRN 10/10/18 23:30 10/11/18 23:29 DC Rivaroxaban (Xarelto) 15 mg BIDWMEALS 10/16/18 18:19 10/16/18 18:25 15 MG Sodium Chloride 1,000 ml @ 75 mls/hr [id number] 10/10/18 23:30 10/11/18 23:29 DC 10/11/18 14:24 75 MLS/HR Labs: Lab Laboratory Tests Test 10/16/18 10:30 Uric Acid 3.2 mg/dL (2.6-6.0) Lactate Dehydrogenase 366 U/L (81-234) Vitamin B12 Level 557 pg/mL (247-911) Thyroid Stimulating Hormone (TSH) 5.687 uIU/mL (0.358-3.74) Hepatitis B Surface Antigen Nonreactive (Nonreactive) Hepatitis B Core Total Antibody Negative (Negative) Objective: Assessment: 1. Infected right hip arthroplasty with coagulase-negative staph species, oxacillin sensitive from 07/22/2018 treated with IV cephalosporins followed by Keflex, which she is currently taking for chronic suppression. 2. Status post exploration with exchange of femoral head implant on 07/22/2018. 3. Acute pulmonary embolism and acute right lower extremity deep venous thrombosis. 4. Non-Hodgkin's lymphoma, B cell type per biopsy and evaluation this admission. 5. Hypertension. Plan: Plan of Care Continue [facility] Oncology has recommended cristina cath and treatment regimen for non-Hodgkin's lymphoma. Monitor lab values and temperature. Continue supportive care. d/w GIRISH EMMANUEL MD October 17, 2018 07:46
--- NOTE | 2018-10-17 08:57 | PDOC ---
Provider Note Provider Note [id number] KARLA GALICIA MD October 17, 2018 08:57
[2018-10-17] MEDS: RIVAROXABAN 15 MG TABLET. PO SCH (09:23)
[2018-10-17] MEDS: CITALOPRAM 20 MG TABLET. PO SCH (09:23)
[2018-10-17] MEDS: ALLOPURINOL 300 MG TABLET. PO SCH (09:23)
[2018-10-17] MEDS: LACTOBACILLUS RHAMNOSUS GG 1 CAPSULE. PO SCH (09:24)
[2018-10-17] MEDS: CEPHALEXIN 250 MG CAPSULE. PO SCH (09:26)
[2018-10-17] MEDS: METOPROLOL SUCC 24HR ER 25 MG TAB.ER.24H. PO SCH (09:32)
--- NOTE | 2018-10-17 09:38 | PDOC ---
PULMONARY PROGRESS NOTES Subjective HAD BIOPSY NOT SOA Vitals Vital Signs Date Time Temp Pulse Resp B/P (MAP) Pulse Ox O2 Delivery O2 Flow Rate FiO2 10/17/18 09:32 84 145/70 10/17/18 07:27 98.2 18 90 Room Air 98.2 ROS: No Chest Pain, No Increase Cough General: Alert, No acute distress Lungs: Clear Cardiovascular: S1 Abdomen: Soft Neuro Exam: Alert Extremities: Other (right thigh edema) Skin: Warm Labs Laboratory Tests Test 10/16/18 10:30 Uric Acid 3.2 mg/dL (2.6-6.0) Lactate Dehydrogenase 366 U/L (81-234) Vitamin B12 Level 557 pg/mL (247-911) Thyroid Stimulating Hormone (TSH) 5.687 uIU/mL (0.358-3.74) Hepatitis B Surface Antigen Nonreactive (Nonreactive) Hepatitis B Core Total Antibody Negative (Negative) Laboratory Tests Test 10/16/18 10:30 Uric Acid 3.2 mg/dL (2.6-6.0) Lactate Dehydrogenase 366 U/L (81-234) Vitamin B12 Level 557 pg/mL (247-911) Thyroid Stimulating Hormone (TSH) 5.687 uIU/mL (0.358-3.74) Hepatitis B Surface Antigen Nonreactive (Nonreactive) Hepatitis B Core Total Antibody Negative (Negative) Medications Active Scripts Medications Dose Route/Sig Max Daily Dose Days Date Category Metoprolol Succinate ( Xl ) (Metoprolol Succinate) 25 Mg Tab.er.24h 1 Tab PO DAILY 10/11/18 Reported Alprazolam 1 Mg Tablet 1 Tab PO PRN TID PRN 10/11/18 Reported Cyclobenzaprine Hcl 5 Mg Tablet 1 Tab PO PRN TID PRN 10/11/18 Reported Hydrocodone-Apap 5-325 (Hydrocodone Bit/Acetaminophen) 1 Tab Tablet 1 Tab PO PRN Q6HRS PRN 10/11/18 Reported Cephalexin 500 Mg Capsule 1 Cap PO QID 10/11/18 Reported Escitalopram Oxalate 20 Mg Tablet 1 Tab PO DAILY 04/18/17 Reported Celexa (Citalopram Hydrobromide) 40 Mg Tablet 40 Mg PO HS 10/05/16 Reported Proair Hfa Inhaler (Albuterol Sulfate) 8.5 Gm Hfa.aer.ad 1 Puff INH PRN Q6HRS PRN 10/05/[address] ABDOMEN/PELVIS IMPRESSION: 1. Extensive right greater than left retroperitoneal, iliac chain, inguinal and proximal thigh lymphadenopathy with surrounding fatty stranding. Given the presence of pathologically enlarged lymph nodes at the base of the neck and within the left hilum on the prior chest CT, this is concerning for a neoplastic etiology such as lymphoma rather than reactive lymphadenopathy. The largest lymph nodes demonstrate internal hypodensity likely due to necrosis. These findings have significantly increased compared to lumbar spine MRI dated 07/24/2018. 2. Proximal right thigh enlargement with fatty stranding and scarring due to a hip arthroplasty. This is likely due to known right lower extremity venous thrombosis demonstrated on a sonogram performed one day prior. The possibly of superimposed cellulitis is not excluded. 3. Multiple hepatic cysts. 4. Multiple renal parapelvic cyst. 5. Increased bilateral lower lobe atelectasis. The possibility of basilar interstitial infiltrate is not excluded. 6. Colonic diverticulosis. 7. Tiny hiatal hernia. 8. Bilateral lower lobe pulmonary emboli, better characterized on the CT angiogram performed one day prior. Electronically signed by: Pily Brady MD (10/11/2018 11:55 AM) [facility] Impression . 1. Acute pulmonary embolism and acute right lower extremity deep venous 2. No significant history of tobacco use. 3. A 70-pound weight loss in the last few years. 4. History of right hip infection. 5. Abnormal ct abdomen/pelvis Extensive right greater than left retr operitoneal, iliac chain, inguinal and proximal thigh lymphadenopathy strongly suspect lymphoproliferative disease 6. POSITIVE BIOPSY LYMPHOMA IR NOTE 5/6 Anesthesia: Local only Impression: Ultrasound-guided biopsy, right groin lymph node Plan . WILL S/O CALL IF NEEDED THANKS PT GIVEN BUS CARD CALL MY OFFICE IF SHE BECOMES IVELISSE GUZMAN MD October 17, 2018 09:38
[2018-10-17 10:43] VITALS: BP 142/79
--- NOTE | 2018-10-17 10:59 | PDOC ---
PROGRESS NOTES Subjective Subjective HPI - f/u of NHL ROS - no fever Objective Objective Vital Signs Date Time Temp Pulse Resp B/P (MAP) Pulse Ox O2 Delivery O2 Flow Rate FiO2 10/17/18 10:43 98.7 100 18 142/79 (100) 91 Room Air 98.7 10/15/18 19:30 2.0 Intake and Output 10/17/18 07:00 Intake Total 100 ml Output Total 1050 ml Balance -950 ml Intake Oral 100 ml Output Urine Total 1050 ml Assessment Assessment Problems Medical Problems: (1) DVT (deep venous thrombosis) Status: Acute (2) Weakness Status: Acute IMPRESSION AND PLAN: 1. NHL - Intermediate to high grade per Dr Gabriel (final path pending) Lymphadenopathy involving the left cervical region and extensive retroperitoneal and pelvic lymphadenopathy and inguinal lymphadenopathy. s/p Needle biopsy rt Ing LN on 10/13/18 which revealed Non Hodgkins Lymphoma.. I recommended chemo with CHOP-R. I reviewed risks and benefits and she agrees. I d/w Dr Gonzalez and Dr Wyman. -Planned port and bone marrow bx by IR 10/17/18, but pt canceled and wants to go home and discuss with family regarding treatments. -ECHO: 08/10/18: The left ventricular systolic function is normal and the ejection fraction is within normal range. EF 55% There is normal LV segmental wall motion. Started allopurinol for prophylaxis on 10/17/18. She does not want to start chemo now. I also called and left a message for her daughter Manjula. I d/w Dr Gonzalez who plans to discharge pt today. I d/w RN. I advised f/u with me next week. 2. Pulmonary embolism and DVT of the right lower extremity. She is on Xarelto which will be held for port. Appreciate consultation and recommendations by Dr. Gian Ford. 3. Anemia, which I suspect is due to chronic disease from chronic right hip infection. 4. History of right hip arthroplasty in 2014. She had surgery in the right hip on 10/16/2016. She mentions that she has been dealing with infection chronically. I have advised management per primary care physician. I agree to consult ID as she will be immunocompromised due to planned chemo. Comment Review of Relevant I have reviewed the following items marion (where applicable) has been applied. Labs Laboratory Tests Test 10/16/18 10:30 Uric Acid 3.2 mg/dL (2.6-6.0) Lactate Dehydrogenase 366 U/L (81-234) Vitamin B12 Level 557 pg/mL (247-911) Thyroid Stimulating Hormone (TSH) 5.687 uIU/mL (0.358-3.74) Hepatitis B Surface Antigen Nonreactive (Nonreactive) Hepatitis B Core Total Antibody Negative (Negative) Medications Current Medications Sodium Chloride 1,000 ml @ 1,000 mls/hr 1X ONCE IV Last administered on 10/10/18at 21:59; Start 10/10/18 at 22:00; Stop 10/10/18 at 22:59; Status DC Fentanyl Citrate (Fentanyl 2ml Vial) 50 mcg 1X ONCE IV Last administered on 10/10/18at 22:51; Start 10/10/18 at 22:45; Stop 10/10/18 at 22:46; Status DC Ceftriaxone Sodium (Rocephin) 1 gm 1X ONCE IVP Last administered on 10/10/18at 23:38; Start 10/10/18 at 23:15; Stop 10/10/18 at 23:16; Status DC Ondansetron HCl (Zofran) 4 mg PRN Q8HRS PRN IV NAUSEA/VOMITING; Start 10/10/18 at 23:30; Stop 10/11/18 at 23:29; Status DC Fentanyl Citrate (Fentanyl 2ml Vial) 50 mcg PRN Q3HRS PRN IV PAIN Last administered on 10/11/18at 09:00; Start 10/10/18 at 23:30; Stop 10/11/18 at 18:41; Status DC Sodium Chloride 1,000 ml @ 75 mls/hr [id number] IV Last administered on 10/11/18at 14:24; Start 10/10/18 at 23:30; Stop 10/11/18 at 23:29; Status DC Iohexol (Omnipaque 350 Mg/ml) 100 ml 1X ONCE IV Last administered on 10/11/18at 00:16; Start 10/11/18 at 00:00; Stop 10/11/18 at 00:01; Status DC Info (CONTRAST GIVEN -- Rx MONITORING) 1 each PRN DAILY PRN MC SEE COMMENTS; Start 10/11/18 at 00:00; Stop 10/11/18 at 11:34; Status DC Heparin Sodium/ Dextrose 500 ml @ 0 mls/hr CONT PRN IV SEE I/O RECORD Last administered on 10/15/18at 05:34; Start 10/11/18 at 00:45; Stop 10/15/18 at 08:30; Status DC Heparin Sodium (Porcine) (Heparin Sodium) 2,600 unit PRN Q6HRS PRN IV FOR UFH LEVEL LESS THAN 0.2 Last administered on 10/13/18at 23:16; Start 10/11/18 at 00:45; Stop 10/15/18 at 08:33; Status DC Heparin Sodium (Porcine) (Heparin Sodium) 1,300 unit PRN Q6HRS PRN IV FOR UFH LEVEL 0.2 - 0.29; Start 10/11/18 at 00:45; Stop 10/15/18 at 08:33; Status DC Acetaminophen/ Hydrocodone Bitart (Lortab 7.5/325) 1 tab PRN Q6HRS PRN PO SEVERE PAIN Last administered on 10/13/18at 10:46; Start 10/11/18 at 03:45; Stop 10/15/18 at 08:41; Status DC Iohexol (Omnipaque 350 Mg/ml) 100 ml STK-MED ONCE .ROUTE ; Start 10/11/18 at 04:45; Stop 10/11/18 at 04:46; Status DC Albuterol Sulfate (Ventolin Neb Soln) 3 mg PRN Q6HRS PRN INH SHORTNESS OF BREATH; Start 10/11/18 at 08:00 Cyclobenzaprine HCl (Flexeril) 10 mg TID PO Last administered on 10/12/18at 13:44; Start 10/11/18 at 09:00; Stop 10/13/18 at 08:41; Status DC Citalopram Hydrobromide (CeleXA) 40 mg DAILY PO Last administered on 10/14/18at 08:56; Start 10/11/18 at 09:00; Stop 10/15/18 at 08:41; Status DC Alprazolam (Xanax) 1 mg PRN TID PRN PO ANXIETY / AGITATION Last administered on 10/11/18at 20:26; Start 10/11/18 at 10:15; Stop 10/13/18 at 08:42; Status DC Acetaminophen/ Hydrocodone Bitart (Lortab 5/325) 1 tab PRN Q6HRS PRN PO MODE RATE PAIN Last administered on 10/16/18 21:22; Start 10/11/18 at 10:15 Metoprolol Succinate (Toprol Xl) 25 mg DAILY PO Last administered on 10/17/18 09:32; Start 10/11/18 at 11:00 Cephalexin HCl (Keflex) 500 mg QID PO Last administered on 10/17/18 09:26; Start 10/11/18 at 10:15 Iohexol (Omnipaque 300 Mg/ml) 75 ml 1X ONCE IV Last administered on 10/11/18at 10:30; Start 10/11/18 at 10:45; Stop 10/11/18 at 10:51; Status DC Info (CONTRAST GIVEN -- Rx MONITORING) 1 each PRN DAILY PRN MC SEE COMMENTS; Start 10/11/18 at 11:00; Stop 10/13/18 at 10:59; Status DC Info (Anti-Coagulation Monitoring By Pharmacy) 1 each PRN DAILY PRN MC SEE COMM ENTS Last administered on 10/16/18at 08:01; Start 10/11/18 at 11:30; Stop 10/16/18 at 08:41; Status DC Lactobacillus Rhamnosus (Culturelle) 1 cap BID PO Last administered on 10/17/18at 09:24; Start 10/11/18 at 21:00 Cyclobenzaprine HCl (Flexeril) 5 mg PRN TID PRN PO MUSCLE SPASMS; Start 10/13/18 at 08:45; Stop 10/16/18 at 09:13; Status DC Non-Formulary Medication (Cyclobenzaprine Hcl ) 1 tab PRN TID PRN PO MUSCLE SPASMS; Start 10/13/18 at 08:45; Status UNV Non-Formulary Medication (Escitalopram Oxalate ) 1 tab DAILY PO ; Start 10/13/18 at 09:00; Status UNV Alprazolam (Xanax) 0.5 mg PRN TID PRN PO ANXIETY / AGITATION Last administered on 10/15/18 01:08; Start 10/13/18 at 08:45 Lidocaine/Sodium Bicarbonate (Buffered Lidocaine 1%) 3 ml STK-MED ONCE .ROUTE ; Start 10/13/18 at 14:15; Stop 10/13/18 at 14:16; Status DC Lidocaine/Sodium Bicarbonate (Buffered Lidocaine 1%) 3 ml 1X ONCE INJ Last administered on 10/13/18at 14:30; Start 10/13/18 at 14:30; Stop 10/13/18 at 14:31; Status DC Rivaroxaban (Xarelto) 15 mg BIDWMEALS PO Last administered on 10/15/18at 17:28; Start 10/15/18 at 09:00; Stop 10/16/18 at 08:36; Status DC Citalopram Hydrobromide (CeleXA) 20 mg DAILY PO Last administered on 10/17/18at 09:23; Start 10/15/18 at 09:00 Info (Anti-Coagulation Monitoring By Pharmacy) 1 each PRN DAILY PRN MC SEE COMMENTS; Start 10/16/18 at 09:30 Allopurinol (Zyloprim) 300 mg DAILY PO Last administered on 10/17/18at 09:23; Start 10/16/18 at 10:00 Rivaroxaban (Xarelto) 15 mg BIDWMEALS PO Last administered on 10/17/18at 09:23; Start 10/16/18 at 18:19 Active Scripts Active Reported Metoprolol Succinate ( Xl ) (Metoprolol Succinate) 25 Mg Tab.er.24h 1 Tab PO DAILY Alprazolam 1 Mg Tablet 1 Tab PO PRN TID PRN Cyclobenzaprine Hcl 5 Mg Tablet 1 Tab PO PRN TID PRN Hydrocodone-Apap 5-325 (Hydrocodone Bit/Acetaminophen) 1 Tab Tablet 1 Tab PO PRN Q6HRS PRN Cephalexin 500 Mg Capsule 1 Cap PO QID Escitalopram Oxalate 20 Mg Tablet 1 Tab PO DAILY Celexa (Citalopram Hydrobromide) 40 Mg Tablet 20 Mg PO HS Proair Hfa Inhaler (Albuterol Sulfate) 8.5 Gm Hfa.aer.ad 1 Puff INH PRN Q6HRS PRN Vitals/I & O Vital Sign - Last 24 Hours 10/16/18 10/16/18 10/16/18 10/16/18 11:00 13:52 15:00 19:30 Temp 98.6 98.3 98.6 98.3 Pulse 88 101 Resp 18 18 B/P (MAP) 136/63 (87) 149/79 (102) Pulse Ox 91 91 93 O2 Delivery Room Air Room Air Room Air Room Air 10/16/18 10/16/18 10/16/18 10/16/18 19:38 21:22 22:22 23:41 Temp 98.6 98.3 98.6 98.3 Pulse 78 79 Resp 18 18 17 B/P (MAP) 119/58 (78) 124/64 (84) Pulse Ox 95 96 96 94 O2 Delivery Room Air Room Air Room Air Room Air 10/17/18 10/17/18 10/17/18 10/17/18 03:17 07:27 09:32 10:43 Temp 98.3 98.2 98.7 98.3 98.2 98.7 Pulse 82 84 84 100 Resp 18 18 18 B/P (MAP) 126/71 (89) 145/70 (95) 145/70 142/79 (100) Pulse Ox 94 90 91 O2 Delivery Room Air Room Air Room Air Intake and Output 10/16/18 10/16/18 10/17/18 15:00 23:00 07:00 Intake Total 100 ml Output Total 350 ml 700 ml Balance -350 ml -600 ml LAURA HITCHCOCK MD October 17, 2018 10:59
[2018-10-17] MEDS ORDERED: NYSTATIN TOPICAL POWDER 15GM BOTTLE. TP SCH (11:30)
--- NOTE | 2018-10-17 12:21 | NUR ---
DISCHARGE INSTRUCTIONS GIVEN TO PATIENT AND FAMILY. PIV AND HEART MONITOR REMOVED. FAMILY HERE, ESCORTED PATIENT TO FRONT ENTRANCE PER WHEELCHAIR INTO A PRIVATE VEHICLE.
--- NOTE | 2018-10-17 14:13 | SNU/HH DC ---
DISCHARGE WITH HOME HEALTH DISCHARGE INFORMATION: Final Diagnosis: Problems Medical Problems: (1) DVT (deep venous thrombosis) Status: Acute (2) Weakness Status: Acute Condition on Discharge: Stable HOME HEALTH: Face to Face: I certify this patient is under my care and that I, or a nurse practitioner or physician's senior office support assistant sosa working with me, had a face to face encounter that meets the physician face to face encounter requirements with this patient on []. RN For Eval/Treatment: Yes Physical Therapy For: Evalulation/Treatment Occupational Therapy For: Evaluation/Treatment BUSINESS SERVICES COORDINATOR For: Community Resources Pt Meets Homebound Status: Extreme weakness w/ amb. POST DISCHARGE ORDERS: Activity Instructions for Disc: No restrictions, Activity as tolerated, Bedrest today Weight Bearing Status after Di: No restrictions, As tolerated Bathing Instructions: No Tub Bath until see Dr. PERRY AFTER DISCHARGE: Cardiac Wound/Incision Care: Keep wound/cast CDI, Change dressing, May get incision wet, Reinforce dressing PRN CHECKS AFTER DISCHARGE: Checks after discharge: Check blood press - daily, Check your Temp as needed, Weigh Yourself Daily FOLLOW-UP: Follow up with: DR. HITCHCOCK IN [place] Follow Up With: PCP TREATMENT/EQUIPMENT ORDERS: Adaptive Equipment Issued: None CERTIFICATION STATEMENT: Certification Statement: Certification Statement: Based on the above finding, I certify that this patient is confined to the home and needs intermittent custodial care, physical therapy and/or speech therapy, or continues to need occupational therapy.~ This patient is under my care, and I have initiated the establishment of the plan of care.~ This patient will be followed by myself or a community physician who will periodically review the plan of care. Home Meds Reported Medications Metoprolol Succinate (METOPROLOL SUCCINATE ( XL )) 25 Mg Tab.er.24h, 1 TAB PO DAILY for hrn, #30 TAB 5 Refills 10/11/18 Alprazolam (ALPRAZOLAM) 1 Mg Tablet, 1 TAB PO PRN TID PRN for ANXIETY / AGITATION, #60 TAB 10/11/18 Cyclobenzaprine Hcl (CYCLOBENZAPRINE HCL) 5 Mg Tablet, 1 TAB PO PRN TID PRN for MUSCLE SPASMS, #30 TAB 10/11/18 Hydrocodone Bit/Acetaminophen (HYDROCODONE-APAP 5-325 ) 1 Tab Tablet, 1 TAB PO PRN Q6HRS PRN for PAIN, TAB 0 Refills 10/11/18 Cephalexin (CEPHALEXIN) 500 Mg Capsule, 1 CAP PO QID for infection, #40 CAP 10/11/18 Escitalopram Oxalate (ESCITALOPRAM OXALATE) 20 Mg Tablet, 1 TAB PO DAILY, #30 TAB 5 Refills 04/18/17 Citalopram Hydrobromide (CELEXA) 40 Mg Tablet, 20 MG PO HS, TAB 10/05/16 Albuterol Sulfate (PROAIR HFA INHALER) 8.5 Gm Hfa.aer.ad, 1 PUFF INH PRN Q6HRS PRN for SHORTNESS OF BREATH, INHALER 0 Refills 10/05/16 KARLA GALICIA MD October 17, 2018 14:13
--- NOTE | 2018-10-17 15:04 | NUR ---
SS following up with discharge planning. Discharge orders received for home healthcare. SS phoned and faxed discharge orders to [facility], ; fax [phone] for resumption of care.
--- NOTE | 2018-10-17 15:57 | DS ---
DATE OF DISCHARGE: 10/17/2018 HOSPITAL SUMMARY: The patient came in with swollen right leg, dyspnea and chest pain. Doppler ultrasound showed evidence of DVT in the right common and superficial femoral vein and chest CTA showed bilateral central and segmental pulmonary emboli. Pelvic and abdominal CT showed a significant intraabdominal lymphadenopathy and an ultrasound-guided biopsy has shown evidence of poorly differentiated lymphoma, the type pending at this time per Dr. Robles. CBC, chemistry profile unremarkable except for hemoglobin 8.8. TSH normal. B12 normal at 557. Urine clear. Hepatitis B core antigen and surface antigen was negative. MRI of the brain was ordered, but declined by the insurance in hospital. The patient was on IV heparin for about 3 days and switched to oral Xarelto and continues on that drug and doing well. Dr. Robles after the diagnosis of lymphoma has been made has recommended bone marrow aspiration and port placement, but the patient declines at this time, wants to go home and discuss further with family. She has a prescription already filled for Xarelto and will continue this as an outpatient. FINAL DIAGNOSES: 1. Deep vein thrombosis of the right lower extremity. 2. Bilateral pulmonary emboli secondary to deep venous thrombosis. 3. Intraabdominal lymphadenopathy secondary to malignant lymphoma, type pending. 4. Anemia secondary to lymphoma. OPERATIONS AND PROCEDURES: A lymph node biopsy. COMPLICATIONS: None. CONSULTATIONS: Dr. Robles, Dr. Morrow. DISPOSITION: She will take Xarelto 15 mg twice a day for a total of 3 weeks, then 20 mg daily ongoing. She will see Dr. Robles in 1-2 weeks to discuss the timing of the bone marrow biopsy and port placement should she decide to continue the need for chemotherapy treatment for the lymphoma. I will see her in 2-3 weeks to adjust her Xarelto dosage as an ongoing medication. Rest of meds remains the same. DIET: Regular. ACTIVITY: As tolerated. PROGNOSIS: Guarded given her new neoplastic diagnosis. KARLA GALICIA MD DR: DESMOND/nts JOB#: [id number] / [id number]
--- NOTE | 2018-10-17 21:06 | PATHOLOGY ---
[facility] Accession Number: [id number] . 01 Material submitted: . lymph node - RIGHT GROIN LYMPH NODE BIOPSY. Modifiers: right, inguinal . 01 Clinical history: . Lymphadenopathy . 02 Diagnosis: Lymph node, right groin lymph node needle biopsies: - FOCAL INVOLVEMENT BY CD10 POSITIVE LARGE B-CELL LYMPHOMA. SEE COMMENT. LB/10/16/2018 . 02 Comment: Sections of the right groin lymph node needle biopsy reveals segments of lymph node showing focal toro replacement by a proliferation of atypical large lymphoid cells having enlarged, rounded to ovoid slightly irregular nuclei containing one or more nucleoli. The remainder of the lymph node is comprised predominantly of small lymphocytes having a high N/C ratio and possessing rounded to slightly irregular nuclei. There focally are a few admixed plasma cells and eosinophils. . A portion of the specimen submitted for flow cytometric analysis has a viability of 97.1%. Lymphocytes comprise 84.0% of total cells. T-cells comprise 79% of lymphoid cells and show a CD4/CD8 ratio of 2.2. NK-cells comprise 1% of lymphoid cells. There is a monoclonal B-cell population, comprising 17% of B-cells, which are CD19, CD20, CD10, CD23 (partial) and CD11c (dim) positive, and which show surface lambda light chain restriction. These cells are CD5 negative. . To confirm flow cytometric findings and characterize the target cells in a tissue architectural context, a panel of immunohistochemical stains is performed on block A1 and yields the following results: . CD20: Atypical large lymphoid cells positive; focal clusters of small lymphocytes within remaining lymph node positive . PAX-5: Atypical large lymphoid cells positive; focal clusters of small lymphocytes within remaining lymph node positive . CD3: Atypical large lymphoid cells negative; majority of small lymphocytes within remainder of lymph node positive . CD10: Atypical large lymphoid cells positive . BCL6: Atypical large lymphoid cells positive . BCL2: Atypical large lymphoid cells partially positive and majority of small lymphocytes within remainder of lymph node positive . CD23: Follicular dendritic cells positive . CD30: Atypical large lymphoid cells negative . MUM-1: Atypical large lymphoid cells negative . Ki-67: Atypical large lymphoid cells show proliferation index of approximately 60% . Cyclin D1: Lymphoid cells negative . 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 The differential diagnosis includes focal involvement by high grade follicular lymphoma and diffuse large B-cell lymphoma. The case is also examined by Dr. William, Hematopathologist, who concurs with the diagnosis. (JPM/db; 10/16/2018) . Special stains performed: Immunoperoxidase stains for CD20, PAX-5, CD3, CD10, BCL6, BCL2, CD23, CD30, MUM-1, Ki-67, cyclin D1 . 02 Electronically signed: . Xavi Gabriel MD, Pathologist NPI- [id number] . 01 Gross description: . Received in formalin labeled "Therese Rachel, rt groin lymph node BX," are 2 distinct needle cores of rider soft tissue measuring 1.8 and 2.5 cm in length and less than 0.1 cm each in diameter. The specimen is submitted entirely in cassette A1 and A2. (TSD; 10/13/2018) /TOB . 02 Pathologist provided ICD-10: C85.19 . 02 CPT . 847842, G03567, I45047, 404384 Specimen Comment: A courtesy copy of this report has been sent to Specimen Comment: [phone], , , . Specimen Comment: Report sent to ,DR HITCHCOCK,DR GALICIA / DR ANDERSEN Performed at: 01 [facility] [address], [place] [id number] MD Demarco Camilo MD Phone: [phone] Performed at: 02 [facility] [address], [place] [id number] MD Xavi Gabriel MD Phone: [phone]
== END 2018-10-17 12:15 | disposition home health service (06) | DRG 823 ==
LOC: ER 20:52 → 2 SOUTH 23:15
PROVIDERS: ADMIT Family Medicine; ATTEND Family Medicine
PROC: 079H3ZX Drainage of Right Inguinal Lymphatic, Percutaneous Approach, Diagnostic (ICD-10-PCS; principal; 2018-10-13)
DX: C85.93 Non-Hodgkin lymphoma, unspecified, intra-abdominal lymph nodes (principal); I26.99 Other pulmonary embolism without acute cor pulmonale; I82.411 Acute embolism and thrombosis of right femoral vein; F41.0 Panic disorder [episodic paroxysmal anxiety]; D63.0 Anemia in neoplastic disease; I10 Essential (primary) hypertension; I48.91 Unspecified atrial fibrillation; K21.9 Gastro-esophageal reflux disease without esophagitis; N28.1 Cyst of kidney, acquired; Z79.01 Long term (current) use of anticoagulants; Z82.0 Family history of epilepsy and other diseases of the nervous system; Z82.49 Family history of ischemic heart disease and other diseases of the circulatory system; Z86.711 Personal history of pulmonary embolism; Z86.718 Personal history of other venous thrombosis and embolism; Z90.49 Acquired absence of other specified parts of digestive tract; Z96.641 Presence of right artificial hip joint; Z96.652 Presence of left artificial knee joint; F41.9 Anxiety disorder, unspecified; G43.909 Migraine, unspecified, not intractable, without status migrainosus; M19.90 Unspecified osteoarthritis, unspecified site; Z88.5 Allergy status to narcotic agent; Z88.8 Allergy status to other drugs, medicaments and biological substances; R59.1 Generalized enlarged lymph nodes
CPT/HCPCS: 36415; 38505; 71275; 74177; 76942; 80048; 80053; 81001; 82553; 82607; 83605; 83615; 83880; 84443; 84484; 84550; 85025; 85027; 85520; 85610; 85730; 86704; 87340; 88184; 88185; 88307; 88341; 88342; 88360; 93005; 93971; 94760; 96361; 96374; 96375; J0696; J1644; J3010; J7030; Q9967; 99285-25